=== PATIENT | male | born 1955 | race Caucasian/White ===

== ENCOUNTER → 2017-09-30 14:40 | Outpatient (CLI) | payer BC, SELFPAY ==
--- NOTE | 2017-09-30 14:40 | DT_ITS ---
This patient was seen during an EMR downtime September 27, 2017 - October 04, 2017. This patient may have a combination of paper and electronic documentation or all paper documentation. All documentation is viewable within the e-chart portion of [facility] for each patient visit.
[2017-10-05 01:55] LABS: BUN 13 mg/dL (7-18); BUN/Creat Ratio 14.3 RATIO (10-20); Creatinine, Serum 0.91 mg/dL (0.70-1.30); EST Glomerular Filtration Rate 90 mL/min (>60); Est Glom Filt Rate - Afr Amer 109 mL/min (>60); Glucose 95 mg/dL (74-106); Protein, Total 7.9 g/dL (6.4-8.2)
[2017-10-05 01:56] LABS: ALB/GLOB Ratio 1.2 RATIO (0.9-2.4); AST(SGOT) 13 U/L (15-37); Alanine Aminotransfer ALT/SGPT 48 U/L (16-61); Albumin, Serum 4.3 g/dL (3.2-5.0); Alkaline Phosphatase 59 U/L (45-117); Anion Gap 7 (5-15); Calcium,Total 9.1 mg/dL (8.5-10.1); Chloride 99 mmol/L (98-107); Cholesterol 110 mg/dL (200); Globulin 3.6 g/dL (2.2-4.2); High Density Lipoprotein 38 mg/dL; PSA,Total - Annual Screen 1.05 ng/mL (0.00-4.00); Potassium 3.9 mmol/L (3.5-5.1); Sodium Level 138 mmol/L (136-145); Triglycerides 110 mg/dL; Very Low Density Lipoprotein 22 mg/dL (5-40)
== END ==
PROVIDERS: Family Provider Family Medicine; PCP Family Medicine; Visit Provider Family Medicine
DX: I10 Essential (primary) hypertension (principal); Z12.5 Encounter for screening for malignant neoplasm of prostate; E11.9 Type 2 diabetes mellitus without complications
CPT/HCPCS: 36415; 80053; 80061; 83036; 84153; G0103

== ENCOUNTER → 2018-02-23 08:36 | Outpatient (CLI) | payer BC, SELFPAY ==
[2018-02-23 10:19] LABS: Absolute Lymphocyte Count 2.55 X10^3/ul (0.83-4.51); Absolute Neutrophil Count 3.8 X10^3/uL (2.0-7.7); Basophil# 0.02 X10^3/uL; Basophil% 0.3 % (0-1); Eosinophils% 1.4 % (0-5); Hematocrit 43.5 % (40-54); Hemoglobin 15.4 g/dl (13.0-16.5); Lymphocyte # 2.55 X10^3/ul (4.0); Lymphocyte % 35.4 % (19-41); Mean Corp Hgb Conc 35.4 g/gl (32-36); Mean Corpuscular Hgb 30.3 pg (27.0-32.0); Mean Corpuscular Volume 85.6 fL (80-94); Mean Platelet Vol. 9.9 fl (6.2-12.0); Monocyte# 0.72 X10^3/uL; Neutrophil # 3.79 X10^3/uL (2.7-7.7); Neutrophil % 52.6 % (47-70); Platelet Count 216 K/mm3 (150-450); RBC Distribution Width CV 12.6 % (11.6-14.6); RBC Distribution Width SD 38.8 fl (35.1-43.9); Red Blood Count 5.08 M/mm3 (4.6-6.2); White Blood Count 7.2 K/mm3 (4.4-11.0)
[2018-02-23 10:21] LABS: POSITIVE COUNT NO; POSITIVE DIFFERENTIAL NO; POSITIVE MORPHOLOGY NO
[2018-02-23 10:36] LABS: ALB/GLOB Ratio 1.2 RATIO (0.9-2.4); AST(SGOT) 11 U/L (15-37); Alanine Aminotransfer ALT/SGPT 43 U/L (16-61); Alkaline Phosphatase 63 U/L (45-117); Anion Gap 7 (5-15); BUN 15 mg/dL (7-18); BUN/Creat Ratio 15.9 RATIO (10-20); Calcium,Total 8.6 mg/dL (8.5-10.1); Chloride 102 mmol/L (98-107); Creatinine, Serum 0.94 mg/dL (0.70-1.30); EST Glomerular Filtration Rate 86 mL/min (>60); Est Glom Filt Rate - Afr Amer 104 mL/min (>60); Globulin 3.3 g/dL (2.2-4.2); Glucose 122 mg/dL (74-106); Potassium 4.2 mmol/L (3.5-5.1); Protein, Total 7.3 g/dL (6.4-8.2); Sodium Level 140 mmol/L (136-145)
[2018-02-23 12:18] LABS: HIV - WCH Non-Reactive (Nonreactive)
[2018-02-24 08:11] LABS: HEPATITIS B SURFACE AG Negative (Negative); Hepatitis A AB, Total Negative (Negative); Hepatitis A IgM Antibody Negative (Negative); Hepatitis B Core AB IgM Negative (Negative); Hepatitis B Core Ab Total Negative (Negative); Hepatitis C Ab <0.1 s/co ratio (0.0-0.9)
[2018-02-25 11:09] LABS: Hep B Surface Antibodies Non Reactive (.)
== END ==
PROVIDERS: Family Provider Family Medicine; PCP Family Medicine; Referring Provider Nurse Practitioner Family; Visit Provider Nurse Practitioner Family
DX: L40.0 Psoriasis vulgaris (principal); L57.0 Actinic keratosis; L82.1 Other seborrheic keratosis; Z79.899 Other long term (current) drug therapy
CPT/HCPCS: 36415; 80053; 85025; 86703; 86704; 86705; 86706; 86708; 86709; 86803; 87340

== ENCOUNTER → 2018-10-11 07:04 | Outpatient (CLI) | payer BC, SELFPAY ==
[2018-10-11 11:04] LABS: Hemoglobin A1c 5.8 % (4.2-6.3)
[2018-10-11 11:08] LABS: Anion Gap 10 (5-15); BUN 17 mg/dL (7-18); BUN/Creat Ratio 17.5 RATIO (10-20); Calcium,Total 9.2 mg/dL (8.5-10.1); Chloride 102 mmol/L (98-107); Cholesterol 117 mg/dL (200); Creatinine, Serum 0.97 mg/dL (0.70-1.30); EST Glomerular Filtration Rate 83 mL/min (>60); Est Glom Filt Rate - Afr Amer 100 mL/min (>60); Glucose 120 mg/dL (74-106); High Density Lipoprotein 44 mg/dL; PSA,Total - Annual Screen 1.45 ng/mL (0.00-4.00); Potassium 3.7 mmol/L (3.5-5.1); Sodium Level 140 mmol/L (136-145); Triglycerides 99 mg/dL; Very Low Density Lipoprotein 20 mg/dL (5-40)
== END ==
PROVIDERS: Family Provider Family Medicine; PCP Family Medicine; Referring Provider Family Medicine; Visit Provider Family Medicine
DX: E11.9 Type 2 diabetes mellitus without complications (principal); I10 Essential (primary) hypertension; Z12.5 Encounter for screening for malignant neoplasm of prostate
CPT/HCPCS: 36415; 80048; 80061; 83036; 84153; G0103

== ENCOUNTER → 2019-03-22 07:02 | Outpatient (CLI) | payer BC, SELFPAY ==
[2019-03-22 10:31] LABS: Absolute Lymphocyte Count 2.64 X10^3/uL (0.83-4.51); Absolute Neutrophil Count 4.1 X10^3/uL (2.0-7.7); Basophil# 0.03 X10^3/uL; Basophil% 0.4 % (0-1); Eosinophil# 0.16 X10^3/uL; Eosinophils% 2.1 % (0-5); Hematocrit 47.5 % (40-54); Hemoglobin 16.3 g/dL (13.0-16.5); Lymphocyte # 2.64 X10^3/ul (4.0); Lymphocyte % 34.5 % (19-41); Mean Corp Hgb Conc 34.3 g/dL (32-36); Mean Corpuscular Volume 87.5 fL (80-94); Mean Platelet Vol. 9.8 fl (6.2-12.0); Monocyte# 0.71 X10^3/uL; Monocyte% 9.3 % (0-10); NRBC Flagged by Analyzer 0 % (0-5); Neutrophil % 53.4 % (47-70); Platelet Count 233 K/mm3 (150-450); RBC Distribution Width CV 12.5 % (11.6-14.6); RBC Distribution Width SD 39.5 fl (35.1-43.9); Red Blood Count 5.43 M/mm3 (4.6-6.2); White Blood Count 7.7 K/mm3 (4.4-11.0)
[2019-03-22 10:43] LABS: ALB/GLOB Ratio 1.3 RATIO (0.9-2.4); AST(SGOT) 14 U/L (15-37); Alanine Aminotransfer ALT/SGPT 65 U/L (16-61); Albumin, Serum 4.3 g/dL (3.2-5.0); Alkaline Phosphatase 63 U/L (45-117); Anion Gap 8 (5-15); BUN 15 mg/dL (7-18); BUN/Creat Ratio 16.1 RATIO (10-20); Calcium,Total 9.1 mg/dL (8.5-10.1); Chloride 102 mmol/L (98-107); Creatinine, Serum 0.93 mg/dL (0.70-1.30); EST Glomerular Filtration Rate 87 mL/min (>60); Est Glom Filt Rate - Afr Amer 105 mL/min (>60); Globulin 3.4 g/dL (2.2-4.2); Glucose 100 mg/dL (74-106); Potassium 3.7 mmol/L (3.5-5.1); Protein, Total 7.7 g/dL (6.4-8.2); Sodium Level 139 mmol/L (136-145)
[2019-03-25 20:07] LABS: QNTFERON TB Mitogen Value > 10.00 IU/mL (.); QNTFERON TB Nil Value 0.01 IU/mL (.); QNTFERON TB1+ Ag Value 0.02 IU/mL (.); QNTFERON TB2+ Ag Value 0.02 IU/mL (.)
[2019-03-26 13:07] LABS: QNTIFERON TB Positive Criteria Negative (Negative)
== END ==
PROVIDERS: Family Provider Family Medicine; PCP Family Medicine; Referring Provider Nurse Practitioner Family; Visit Provider Nurse Practitioner Family
DX: L40.0 Psoriasis vulgaris (principal); Z79.899 Other long term (current) drug therapy
CPT/HCPCS: 36415; 80053; 85025; 86480

== ENCOUNTER → 2019-04-06 08:25 | Outpatient (CLI) | payer BC, SELFPAY ==
[2019-04-06 11:09] LABS: ALB/GLOB Ratio 1.3 RATIO (0.9-2.4); AST(SGOT) 15 U/L (15-37); Alanine Aminotransfer ALT/SGPT 60 U/L (16-61); Albumin, Serum 4.3 g/dL (3.2-5.0); Alkaline Phosphatase 69 U/L (45-117); Anion Gap 8 (5-15); BUN 13 mg/dL (7-18); BUN/Creat Ratio 13.3 RATIO (10-20); Chloride 103 mmol/L (98-107); Cholesterol 121 mg/dL (200); Creatinine, Serum 0.98 mg/dL (0.70-1.30); EST Glomerular Filtration Rate 83 mL/min (>60); Est Glom Filt Rate - Afr Amer 100 mL/min (>60); Globulin 3.4 g/dL (2.2-4.2); Glucose 129 mg/dL (74-106); High Density Lipoprotein 40 mg/dL; Potassium 4.3 mmol/L (3.5-5.1); Protein, Total 7.7 g/dL (6.4-8.2); Sodium Level 139 mmol/L (136-145); Triglycerides 74 mg/dL; Very Low Density Lipoprotein 15 mg/dL (5-40)
[2019-04-06 11:31] LABS: Hepatitis B Surface Antibody Non-Reactive; Hepatitis B Surface Antigen Non-Reactive (Nonreactive); Hepatitis C Antibody Non-Reactive (Nonreactive); Vitamin B12 422 pg/mL (211-911)
[2019-04-07 10:41] LABS: T4 Free Direct 1.21 ng/dL (0.76-1.46)
[2019-04-11 16:26] LABS: Vitamin B1, Thiamine 202.7 nmol/L (66.5-200.0)
== END ==
PROVIDERS: Family Provider Family Medicine; PCP Family Medicine; Referring Provider Family Medicine; Visit Provider Family Medicine
DX: I10 Essential (primary) hypertension (principal); R94.5 Abnormal results of liver function studies; E11.9 Type 2 diabetes mellitus without complications; G62.9 Polyneuropathy, unspecified; R79.89 Other specified abnormal findings of blood chemistry
CPT/HCPCS: 36415; 80053; 80061; 82607; 83036; 84425; 84439; 84443; 86706; 86803; 87340

== ENCOUNTER → 2019-10-25 08:49 | Outpatient (CLI) | payer OTHER, SELFPAY ==
[2019-10-25 11:02] LABS: Microalbumin,Random Urine 7.2 mg/L (NO RANGE EST.); Microalbumin:Creatinine Ratio 4.7 mg/g CRE (<30 mg/g CRE)
[2019-10-25 11:28] LABS: ALB/GLOB Ratio 1.1 RATIO (0.9-2.4); AST(SGOT) 13 U/L (15-37); Alanine Aminotransfer ALT/SGPT 54 U/L (16-61); Albumin, Serum 4.1 g/dL (3.2-5.0); Alkaline Phosphatase 65 U/L (45-117); Anion Gap 7 (5-15); BUN 12 mg/dL (7-18); BUN/Creat Ratio 12.5 RATIO (10-20); Calcium,Total 8.7 mg/dL (8.5-10.1); Chloride 99 mmol/L (98-107); Creatinine, Serum 0.96 mg/dL (0.70-1.30); EST Glomerular Filtration Rate 84 mL/min (>60); Est Glom Filt Rate - Afr Amer 101 mL/min (>60); Globulin 3.6 g/dL (2.2-4.2); Glucose 132 mg/dL (74-106); PSA,Total - Annual Screen 2.48 ng/mL (0.00-4.00); Potassium 3.8 mmol/L (3.5-5.1); Protein, Total 7.7 g/dL (6.4-8.2); Sodium Level 136 mmol/L (136-145); T4 Free Direct 1.15 ng/dL (0.76-1.46); Thyroid Stim Hormone (TSH) 3.57 uIU/mL (0.358-3.74)
[2019-10-25 14:56] LABS: Hemoglobin A1c 5.9 % (3.8-5.6)
== END ==
PROVIDERS: PCP Family Medicine; Visit Provider Family Medicine
DX: E11.9 Type 2 diabetes mellitus without complications (principal); E03.9 Hypothyroidism, unspecified; Z12.5 Encounter for screening for malignant neoplasm of prostate
CPT/HCPCS: 36415; 80053; 82043; 82570; 83036; 84153; 84439; 84443; G0103

== ENCOUNTER → 2019-11-22 | Outpatient (CLI) | payer OTHER, SELFPAY | END | disposition home or self-care (01) | LOC: LABSPEC 10:18 | PROVIDERS: PCP Family Medicine; Referring Provider Registered Nurse; Visit Provider Registered Nurse | DX: Z11.59 Encounter for screening for other viral diseases (principal) | CPT/HCPCS: 87635; U0003 ==

== ENCOUNTER → 2020-04-01 07:03 | Outpatient (CLI) | payer OTHER, SELFPAY ==
[2020-04-01 09:59] LABS: Absolute Lymphocyte Count 2.72 X10^3/uL (0.83-4.51); Absolute Neutrophil Count 4.3 X10^3/uL (2.0-7.7); Basophil# 0.03 X10^3/uL; Basophil% 0.4 % (0-1); Eosinophil# 0.12 X10^3/uL; Eosinophils% 1.5 % (0-5); Hematocrit 46.1 % (40-54); Hemoglobin 16.1 g/dL (13.0-16.5); Lymphocyte # 2.72 X10^3/ul (4.0); Lymphocyte % 34.3 % (19-41); Mean Corp Hgb Conc 34.9 g/dL (32-36); Mean Corpuscular Hgb 30.1 pg (27.0-32.0); Mean Corpuscular Volume 86.3 fL (80-94); Mean Platelet Vol. 9.9 fl (6.2-12.0); Monocyte# 0.72 X10^3/uL; Monocyte% 9.1 % (0-10); NRBC Flagged by Analyzer 0 % (0-5); Neutrophil # 4.33 X10^3/uL (2.7-7.7); Neutrophil % 54.4 % (47-70); Platelet Count 232 K/mm3 (150-450); RBC Distribution Width CV 12.1 % (11.6-14.6); RBC Distribution Width SD 38.2 fl (35.1-43.9); Red Blood Count 5.34 M/mm3 (4.6-6.2); White Blood Count 7.9 K/mm3 (4.4-11.0)
[2020-04-01 10:16] LABS: Cholesterol 109 mg/dL (200); High Density Lipoprotein 39 mg/dL; T4 Free Direct 1.14 ng/dL (0.76-1.46); Thyroid Stim Hormone (TSH) 4.07 uIU/mL (0.358-3.74); Triglycerides 89 mg/dL; Very Low Density Lipoprotein 18 mg/dL (5-40)
[2020-04-01 10:21] LABS: AST(SGOT) 12 U/L (15-37); Alanine Aminotransfer ALT/SGPT 56 U/L (16-61); Albumin, Serum 4.1 g/dL (3.2-5.0); Alkaline Phosphatase 64 U/L (45-117); Anion Gap 7 (5-15); BUN 15 mg/dL (7-18); BUN/Creat Ratio 15.5 RATIO (10-20); Bilirubin, Direct 0.16 mg/dL (0.00-0.30); Chloride 100 mmol/L (98-107); Creatinine, Serum 0.97 mg/dL (0.70-1.30); EST Glomerular Filtration Rate 83 mL/min (>60); Est Glom Filt Rate - Afr Amer 101 mL/min (>60); Globulin 3.3 g/dL (2.2-4.2); Glucose 120 mg/dL (74-106); Potassium 3.6 mmol/L (3.5-5.1); Protein, Total 7.4 g/dL (6.4-8.2); Sodium Level 137 mmol/L (136-145)
[2020-04-01 10:25] LABS: Hemoglobin A1c 5.8 % (3.8-5.6)
[2020-04-04 03:06] LABS: QNTFERON TB Mitogen Value > 10.00 IU/mL (.); QNTFERON TB Nil Value 0.13 IU/mL (.); QNTFERON TB1+ Ag Value 0.05 IU/mL (.); QNTFERON TB2+ Ag Value 0.05 IU/mL (.)
[2020-04-04 11:37] LABS: QNTIFERON TB Positive Criteria Negative (Negative)
== END ==
PROVIDERS: PCP Family Medicine; Referring Provider Physician Assistant; Visit Provider Physician Assistant
DX: L40.0 Psoriasis vulgaris (principal); L82.1 Other seborrheic keratosis; E11.9 Type 2 diabetes mellitus without complications; E03.9 Hypothyroidism, unspecified; Z79.899 Other long term (current) drug therapy
CPT/HCPCS: 36415; 80048; 80061; 80076; 83036; 84439; 84443; 85025; 86480

== ENCOUNTER → 2020-10-25 07:18 | Outpatient (CLI) | payer OTHER, SELFPAY ==
[2020-10-25 07:24] LABS: Bacteria 0 SEEN /hpf (None Seen); Mucous, Urine 0 SEEN /hpf (<or=2+); Red Blood Cells-Urine 0 SEEN /hpf (0-5); Squamous Epithelial Cells - UA 0 SEEN /hpf (0-5); White Blood Cells 0 SEEN /hpf (0-5)
[2020-10-25 10:10] LABS: Absolute Neutrophil Count 4.3 X10^3/uL (2.0-7.7); Basophil# 0.05 X10^3/uL; Basophil% 0.6 % (0-1); Eosinophil# 0.12 X10^3/uL; Eosinophils% 1.5 % (0-5); Hematocrit 46.7 % (40-54); Mean Corp Hgb Conc 34.3 g/dL (32-36); Mean Corpuscular Hgb 29.7 pg (27.0-32.0); Mean Corpuscular Volume 86.8 fL (80-94); Mean Platelet Vol. 9.9 fl (6.2-12.0); Monocyte# 0.76 X10^3/uL; Monocyte% 9.6 % (0-10); NRBC Flagged by Analyzer 0 % (0-5); Platelet Count 234 K/mm3 (150-450); RBC Distribution Width CV 12.6 % (11.6-14.6); RBC Distribution Width SD 39.7 fl (35.1-43.9); Red Blood Count 5.38 M/mm3 (4.6-6.2)
[2020-10-25 10:27] LABS: Color, Urine Yellow (Yellow); Glucose, Dipstick Normal (Normal); Ketone-Dipstick Negative (Negative); Leukocyte Esterase-Dipstick Negative /ul (Negative); Nitrite-Dipstick Negative (Negative); Occult Blood-Urine Negative /ul (Negative); Protein-Dipstick Negative (Negative); Urine Bilirubin Dipstick Negative (Negative); Urine Clarity Clear (Clear); Urine Urobilinogen Normal (Normal)
[2020-10-25 10:36] LABS: Hemoglobin A1c 5.6 % (3.8-5.6)
[2020-10-25 10:53] LABS: ALB/GLOB Ratio 1.2 RATIO (0.9-2.4); AST(SGOT) 13 U/L (15-37); Alanine Aminotransfer ALT/SGPT 55 U/L (16-61); Albumin, Serum 4.2 g/dL (3.2-5.0); Alkaline Phosphatase 62 U/L (45-117); Anion Gap 9 (5-15); BUN 14 mg/dL (7-18); BUN/Creat Ratio 14.8 RATIO (10-20); Calcium,Total 8.9 mg/dL (8.5-10.1); Chloride 98 mmol/L (98-107); Cholesterol 116 mg/dL (200); Creatinine, Serum 0.94 mg/dL (0.70-1.30); EST Glomerular Filtration Rate 85 mL/min (>60); Est Glom Filt Rate - Afr Amer 103 mL/min (>60); Globulin 3.4 g/dL (2.2-4.2); Glucose 106 mg/dL (74-106); High Density Lipoprotein 41 mg/dL; Potassium 3.7 mmol/L (3.5-5.1); Protein, Total 7.6 g/dL (6.4-8.2); Sodium Level 137 mmol/L (136-145); T4 Free Direct 1.12 ng/dL (0.76-1.46); Thyroid Stim Hormone (TSH) 4.43 uIU/mL (0.358-3.74); Triglycerides 100 mg/dL; Very Low Density Lipoprotein 20 mg/dL (5-40)
[2020-10-25 11:08] LABS: Microalbumin,Random Urine 8.3 mg/L (NO RANGE EST.); Microalbumin:Creatinine Ratio 6.6 mg/g CRE (<30 mg/g CRE)
== END ==
PROVIDERS: PCP Family Medicine; Referring Provider Family Medicine; Visit Provider Family Medicine
DX: E11.9 Type 2 diabetes mellitus without complications (principal); E03.9 Hypothyroidism, unspecified
CPT/HCPCS: 36415; 80053; 80061; 81001; 82043; 82570; 83036; 84439; 84443; 85025

== ENCOUNTER → 2020-10-29 09:10 | Outpatient (CLI) | payer OTHER, SELFPAY ==
[2020-10-29 15:18] LABS: PSA,Total - Annual Screen 3.03 ng/mL (0.00-4.00)
== END ==
PROVIDERS: PCP Family Medicine; Visit Provider Family Medicine
DX: E11.9 Type 2 diabetes mellitus without complications (principal); E03.9 Hypothyroidism, unspecified; Z12.5 Encounter for screening for malignant neoplasm of prostate
CPT/HCPCS: 36415; 84153; G0103

== ENCOUNTER 2021-04-28 07:16 | Outpatient (CLI) | payer BC, SELFPAY ==
[2021-04-28 10:13] LABS: Absolute Neutrophil Count 4.2 X10^3/uL (2.0-7.7); Basophil# 0.04 X10^3/uL; Basophil% 0.5 % (0-1); Eosinophil# 0.15 X10^3/uL; Eosinophils% 1.9 % (0-5); Hematocrit 45.1 % (40-54); Hemoglobin 15.4 g/dL (13.0-16.5); Lymphocyte % 33.5 % (19-41); Mean Corp Hgb Conc 34.1 g/dL (32-36); Mean Corpuscular Hgb 29.3 pg (27.0-32.0); Mean Corpuscular Volume 85.7 fL (80-94); Mean Platelet Vol. 9.7 fl (6.2-12.0); Monocyte# 0.75 X10^3/uL; Monocyte% 9.7 % (0-10); NRBC Flagged by Analyzer 0 % (0-5); Platelet Count 238 K/mm3 (150-450); RBC Distribution Width CV 12.1 % (11.6-14.6); RBC Distribution Width SD 37.8 fl (35.1-43.9); Red Blood Count 5.26 M/mm3 (4.6-6.2); White Blood Count 7.8 K/mm3 (4.4-11.0)
[2021-04-28 10:47] LABS: Hemoglobin A1c 6.1 % (3.8-5.6)
[2021-04-28 11:06] LABS: AST(SGOT) 10 U/L (15-37); Alanine Aminotransfer ALT/SGPT 51 U/L (16-61); Albumin, Serum 3.7 g/dL (3.2-5.0); Alkaline Phosphatase 65 U/L (45-117); Anion Gap 4 (5-15); BUN 18 mg/dL (7-18); BUN/Creat Ratio 19.3 RATIO (10-20); Calcium,Total 9.1 mg/dL (8.5-10.1); Chloride 104 mmol/L (98-107); Cholesterol 117 mg/dL (200); Creatinine, Serum 0.93 mg/dL (0.70-1.30); EST Glomerular Filtration Rate 86 mL/min (>60); Est Glom Filt Rate - Afr Amer 105 mL/min (>60); Globulin 3.8 g/dL (2.2-4.2); Glucose 140 mg/dL (74-106); High Density Lipoprotein 37 mg/dL; Potassium 3.9 mmol/L (3.5-5.1); Protein, Total 7.5 g/dL (6.4-8.2); Sodium Level 139 mmol/L (136-145); T4 Free Direct 1.05 ng/dL (0.76-1.46); Thyroid Stim Hormone (TSH) 5.78 uIU/mL (0.358-3.74); Triglycerides 90 mg/dL; Very Low Density Lipoprotein 18 mg/dL (5-40)
[2021-04-28 13:16] LABS: Microalbumin,Random Urine 17.5 mg/L (NO RANGE EST.); Microalbumin:Creatinine Ratio 7.4 mg/g CRE (<30 mg/g CRE)
== END 2021-04-28 23:59 | disposition short-term general hospital (02) ==
LOC: MTLAB 07:18
PROVIDERS: PCP Family Medicine; Referring Provider Family Medicine; Visit Provider Family Medicine
DX: E11.9 Type 2 diabetes mellitus without complications (principal); E03.9 Hypothyroidism, unspecified
CPT/HCPCS: 36415; 80053; 80061; 82043; 82570; 83036; 84439; 84443; 85025

== ENCOUNTER 2021-06-20 16:09 | Outpatient (CLI) | payer BC, SELFPAY ==
[2021-06-20 17:44] LABS: Absolute Neutrophil Count 3.9 X10^3/uL (2.0-7.7); Basophil# 0.03 X10^3/uL; Basophil% 0.4 % (0-1); Eosinophil# 0.17 X10^3/uL; Eosinophils% 2.2 % (0-5); Hematocrit 44.8 % (40-54); Hemoglobin 15.7 g/dL (13.0-16.5); Lymphocyte % 38.1 % (19-41); Mean Corpuscular Hgb 29.3 pg (27.0-32.0); Mean Corpuscular Volume 83.7 fL (80-94); Mean Platelet Vol. 9.7 fl (6.2-12.0); Monocyte# 0.73 X10^3/uL; Monocyte% 9.3 % (0-10); NRBC Flagged by Analyzer 0 % (0-5); Neutrophil # 3.92 X10^3/uL (2.7-7.7); Neutrophil % 49.7 % (47-70); Platelet Count 207 K/mm3 (150-450); RBC Distribution Width CV 12.3 % (11.6-14.6); RBC Distribution Width SD 37.1 fl (35.1-43.9); Red Blood Count 5.35 M/mm3 (4.6-6.2); White Blood Count 7.9 K/mm3 (4.4-11.0)
[2021-06-20 18:08] LABS: AST(SGOT) 10 U/L (15-37); Alanine Aminotransfer ALT/SGPT 48 U/L (16-61); Albumin, Serum 3.9 g/dL (3.2-5.0); Alkaline Phosphatase 79 U/L (45-117); Anion Gap 6 (5-15); BUN 16 mg/dL (7-18); BUN/Creat Ratio 14.2 RATIO (10-20); Calcium,Total 8.9 mg/dL (8.5-10.1); Chloride 99 mmol/L (98-107); Creatinine, Serum 1.13 mg/dL (0.70-1.30); EST Glomerular Filtration Rate 69 mL/min (>60); Est Glom Filt Rate - Afr Amer 84 mL/min (>60); Globulin 3.9 g/dL (2.2-4.2); Glucose 179 mg/dL (74-106); Potassium 3.8 mmol/L (3.5-5.1); Protein, Total 7.8 g/dL (6.4-8.2); Sodium Level 135 mmol/L (136-145)
[2021-06-23 08:32] LABS: Hepatitis B Surface Antibody Non-Reactive
[2021-06-24 04:07] LABS: QNTFERON TB Mitogen Value > 10.00 IU/mL (.); QNTFERON TB Nil Value 0.06 IU/mL (.); QNTFERON TB1+ Ag Value 0.08 IU/mL (.); QNTFERON TB2+ Ag Value 0.06 IU/mL (.)
[2021-06-25 13:40] LABS: Hepatitis A AB, Total Negative (Negative); QNTIFERON TB Positive Criteria Negative (Negative)
== END 2021-06-20 23:59 | disposition home or self-care (01) ==
PROVIDERS: PCP Family Medicine; Referring Provider Physician Assistant Medical; Visit Provider Physician Assistant Medical
DX: L40.0 Psoriasis vulgaris (principal); L40.59 Other psoriatic arthropathy; Z79.899 Other long term (current) drug therapy
CPT/HCPCS: 36415; 80053; 85025; 86480; 86706; 86708

== ENCOUNTER → 2021-12-17 | Outpatient (CLI) | payer BC, SELFPAY ==
[2021-12-17 10:24] LABS: Absolute Lymphocyte Count 2.21 X10^3/uL (0.83-4.51); Absolute Neutrophil Count 4.2 X10^3/uL (2.0-7.7); Basophil# 0.03 X10^3/uL; Basophil% 0.4 % (0-1); Eosinophil# 0.11 X10^3/uL; Eosinophils% 1.5 % (0-5); Hematocrit 45.7 % (40-54); Hemoglobin 16.3 g/dL (13.0-16.5); Lymphocyte # 2.21 X10^3/ul (0.83-4.51); Mean Corp Hgb Conc 35.7 g/dL (32-36); Mean Corpuscular Volume 84.2 fL (80-94); Monocyte% 8.4 % (0-10); NRBC Flagged by Analyzer 0 % (0-5); Neutrophil # 4.17 X10^3/uL (2.7-7.7); Neutrophil % 58.4 % (47-70); Platelet Count 214 K/mm3 (150-450); RBC Distribution Width CV 12.2 % (11.6-14.6); RBC Distribution Width SD 36.8 fl (35.1-43.9); Red Blood Count 5.43 M/mm3 (4.6-6.2); White Blood Count 7.1 K/mm3 (4.4-11.0)
[2021-12-17 10:48] LABS: Hemoglobin A1c 7.6 % (3.8-5.6)
[2021-12-17 10:49] LABS: Microalbumin,Random Urine 8.4 mg/L (NO RANGE EST.); Microalbumin:Creatinine Ratio 5.4 mg/g CRE (<30 mg/g CRE)
[2021-12-17 11:07] LABS: AST(SGOT) 10 U/L (15-37); Alanine Aminotransfer ALT/SGPT 33 U/L (16-61); Albumin, Serum 3.9 g/dL (3.2-5.0); Alkaline Phosphatase 73 U/L (45-117); Anion Gap 8 (5-15); BUN 16 mg/dL (7-18); BUN/Creat Ratio 16.2 RATIO (10-20); Calcium,Total 8.9 mg/dL (8.5-10.1); Chloride 102 mmol/L (98-107); Cholesterol 124 mg/dL (200); Creatinine, Serum 0.99 mg/dL (0.70-1.30); EST Glomerular Filtration Rate 81 mL/min (>60); Est Glom Filt Rate - Afr Amer 98 mL/min (>60); Globulin 3.8 g/dL (2.2-4.2); Glucose 149 mg/dL (74-106); High Density Lipoprotein 41 mg/dL; Potassium 3.4 mmol/L (3.5-5.1); Protein, Total 7.7 g/dL (6.4-8.2); Sodium Level 138 mmol/L (136-145); Thyroid Stim Hormone (TSH) 3.97 uIU/mL (0.358-3.74); Triglycerides 95 mg/dL; Very Low Density Lipoprotein 19 mg/dL (5-40)
== END | disposition home or self-care (01) ==
LOC: MTLAB 07:02
PROVIDERS: PCP Family Medicine; Referring Provider Family Medicine; Visit Provider Family Medicine
DX: E11.59 Type 2 diabetes mellitus with other circulatory complications (principal); E03.8 Other specified hypothyroidism
CPT/HCPCS: 36415; 80053; 80061; 82043; 82570; 83036; 84439; 84443; 85025

== ENCOUNTER → 2022-03-25 | Outpatient (CLI) | payer BC, SELFPAY ==
--- NOTE | 2022-03-25 09:12 | RAD_ITS ---
STUDY: X-RAY - LEFT HAND REASON FOR EXAM: Male, 66 years old. Finger pain. TECHNIQUE: 3 view(s) of the hand. COMPARISON: None. FINDINGS: Osteopenia. Mild arthrosis of the radiocarpal articulation. Mild arthrosis of the distal radioulnar joint. Bones and navicular. Mild arthrosis of the radial carpal row of the wrist. Mild arthrosis of the first CMC joint. Moderate arthrosis of the MCP and IP joints. Subchondral cyst in the distal aspect of the middle phalanx of the second digit. Normal soft tissues. RAD/Hand Min 3 Views IMPRESSION: Osteopenia with osteoarthritic changes as described. No acute abnormality, chondrocalcinosis or erosive changes. Electronically Signed: Jose Guadalupe Valenzuela, at 11:41 EST ,
[2022-03-25 10:13] LABS: Absolute Lymphocyte Count 1.77 X10^3/uL (0.83-4.51); Absolute Neutrophil Count 3.5 X10^3/uL (2.0-7.7); Basophil# 0.02 X10^3/uL; Basophil% 0.3 % (0-1); Eosinophil# 0.13 X10^3/uL; Eosinophils% 2.2 % (0-5); Hematocrit 47.6 % (40-54); Hemoglobin 16.3 g/dL (13.0-16.5); Lymphocyte # 1.77 X10^3/ul (0.83-4.51); Lymphocyte % 29.7 % (19-41); Mean Corp Hgb Conc 34.2 g/dL (32-36); Mean Corpuscular Hgb 29.4 pg (27.0-32.0); Mean Corpuscular Volume 85.9 fL (80-94); Mean Platelet Vol. 9.6 fl (6.2-12.0); Monocyte# 0.54 X10^3/uL; Monocyte% 9.1 % (0-10); NRBC Flagged by Analyzer 0 % (0-5); Neutrophil # 3.49 X10^3/uL (2.7-7.7); Neutrophil % 58.5 % (47-70); Platelet Count 212 K/mm3 (150-450); RBC Distribution Width CV 12.5 % (11.6-14.6); RBC Distribution Width SD 39.4 fl (35.1-43.9); Red Blood Count 5.54 M/mm3 (4.6-6.2)
[2022-03-25 10:39] LABS: Hemoglobin A1c 7.2 % (3.8-5.6)
[2022-03-25 10:51] LABS: ALB/GLOB Ratio 1.3 RATIO (0.9-2.4); AST(SGOT) 6 U/L (15-37); Alanine Aminotransfer ALT/SGPT 29 U/L (16-61); Alkaline Phosphatase 76 U/L (45-117); Anion Gap 6 (5-15); BUN 18 mg/dL (7-18); Chloride 102 mmol/L (98-107); Cholesterol 141 mg/dL (200); Creatinine, Serum 0.95 mg/dL (0.70-1.30); EST Glomerular Filtration Rate 85 mL/min (>60); Est Glom Filt Rate - Afr Amer 103 mL/min (>60); Globulin 3.1 g/dL (2.2-4.2); Glucose 204 mg/dL (74-106); High Density Lipoprotein 40 mg/dL; PSA,Total - Annual Screen 5.31 ng/mL (0.00-4.00); Potassium 4.3 mmol/L (3.5-5.1); Protein, Total 7.1 g/dL (6.4-8.2); Sodium Level 141 mmol/L (136-145); Thyroid Stim Hormone (TSH) 3.66 uIU/mL (0.358-3.74); Triglycerides 146 mg/dL; Very Low Density Lipoprotein 29 mg/dL (5-40)
[2022-03-25 11:04] LABS: Microalbumin,Random Urine < 5.0 mg/L (NO RANGE EST.)
== END | disposition home or self-care (01) ==
PROVIDERS: PCP Family Medicine; Referring Provider Family Medicine; Visit Provider Family Medicine
DX: M79.645 Pain in left finger(s) (principal); E11.9 Type 2 diabetes mellitus without complications; E03.8 Other specified hypothyroidism; Z12.5 Encounter for screening for malignant neoplasm of prostate
CPT/HCPCS: 36415; 73130; 80053; 80061; 82043; 82570; 83036; 84153; 84439; 84443; 85025; G0103

== ENCOUNTER → 2022-06-11 | Outpatient (CLI) | payer BC, SELFPAY ==
--- NOTE | 2022-06-11 | IMM_PTH ---
PATIENT: TIP NAJERA LOC: [facility] U#:[id number] AGE/SX: 66/M ROOM: RE06/11/[address]: Dr. Ricco Cagle MD : 1955 BED: DIS: 06/11/2022 SPEC #: [id number] RECD: 06/15/22 11:55 STATUS: RACHANA REQ #: [id number] JAVIER: 06/11/22 00:[address]: Ricco Cagle DEPT: IMMUNOHISTOCHEMISTRY RECD BY: Maite Barahona ENTERED: 06/15/22 11:56 SP TYPE: IMMUNO OTHR DR: Dr. Lopez Lyle MD Tissues: C - PROSTATE RIGHT D - PROSTATE LEFT Procedures: 34BE12 (add) P40 (add) 34BE12 (initial) PHYSICIAN & INSTITUTION [place] [address] SPECIMEN INFORMATION: Tissue Source: C - Right prostate, base, core biopsy, D - Left prostate, apex, core biopsy Clinical Info: Elevated PSA Specimen Number: [id number] C & D CPT code: 75402, 61342 x3 METHODOLOGY: Deparaffinized sections of prefer/formalin-fixed tissue or PAP/DQ stained slides are incubated with monoclonal/polyclonal antibodies/oligonucleotide probes. Localization is made via biotin free immunoperoxidase method. Appropriate controls are performed and reacted as expected. Results on target cell population are indicated in the following table: RESULTS: ANTIBODY / CLONE RESULT Block C P40 (BC28) positive 34BE12 (34BE12) positive Block D P40 (BC28) negative 34BE12 (34BE12) negative These tests were developed and their performance characteristics determined by [facility]. They may not have been cleared or approved by the U.S. Food and Drug Administration. The FDA has determined that such clearance or approval is not necessary. The above immunohistochemical/dualISH markers are ordered and reviewed by the Pathologist. INTERPRETATION: C. Right prostate, base, core biopsy: Benign prostatic tissue. D. Left prostate, apex, core biopsy: Adenocarcinoma. AM:ion 06/16/2022
--- NOTE | 2022-06-11 | PROSBIL_PTH ---
PATIENT: TIP NAJERA [facility] U#:[id number] AGE/SX: 66/M ROOM: RE06/11/[address]: Dr. Ricco Cagle MD : 1955 BED: DIS: 06/11/2022 SPEC #: [id number] RECD: 06/11/22 16:25 STATUS: RACHANA FRANKEL #: [id number] JAVIER: 06/11/22 00:[address]: Ricco Cagle DEPT: SURGICAL PATHOLOGY RECD BY: Moiz Li ENTERED: 06/12/22 07:54 SP TYPE: PROST BX MARCIAL DR: Dr. Lopez Lyle MD Tissues: A - PROSTATE RIGHT B - PROSTATE RIGHT C - PROSTATE RIGHT D - PROSTATE LEFT E - PROSTATE LEFT F - PROSTATE LEFT Procedures: PROSTATE BX HEADER OPERATION: Prostate biopsy PRE-OP DIAGNOSIS: Elevated PSA TISSUE SUBMITTED: A - Right apex, B - Right mid, C - Right base, D - Left apex, E - Left mid, F - Left base MICROSCOPIC DIAGNOSIS A. Right prostate, apex, core biopsy: Chronic inflammation with focal acute inflammation. B. Right prostate, mid, core biopsy: Benign prostatic tissue. C. Right prostate, base, core biopsy: Benign prostatic tissue. See comment. D. Left prostate, apex, core biopsy: Adenocarcinoma. Alberta grade: 7 (3+4) Cores involved: 1 out of 1 core Tissue involved: 20% Greatest tumor length: 3.2 millimeters See comment. E. Left prostate, mid, core biopsy: Benign prostatic tissue. F. Left prostate, base, core biopsy: Benign prostatic tissue. AM:ion 06/15/2022 COMMENT C & D - Immunohistochemistry ([id number]) supports the above diagnosis. Case has been reviewed in consultation with Dr. Black who concurs with the above diagnosis. IDC:SJ MICROSCOPIC DESCRIPTION Slides are reviewed. GROSS DESCRIPTION A - Received is one container designated prostate, right apex. The specimen consists of one elongated fragment of light hernandez-white soft tissue measuring 1.2 cm in length and 0.1 cm in diameter. The specimen is totally submitted in one cassette. B - Received is one container designated prostate, right mid. The specimen consists of two elongated fragments of light hernandez-white soft tissue measuring 1.5 and 1.7 cm in length and 0.1 cm in diameter. The specimen is totally submitted in one cassette. C - Received is one container designated prostate, right base. The specimen consists of one elongated fragment of light hernandez-white soft tissue measuring 0.8 cm in length and 0.1 cm in diameter. The specimen is totally submitted in one cassette. D - Received is one container designated prostate, left apex. The specimen consists of one elongated fragment of light hernandez-white soft tissue measuring 1.0 cm in length and 0.1 cm in diameter. The specimen is totally submitted in one cassette. E - Received is one container designated prostate, left mid. The specimen consists of one elongated fragment of light hernandez-white soft tissue measuring 0.8 cm in length and 0.1 cm in diameter. The specimen is totally submitted in one cassette. F - Received is one container designated prostate, left base. The specimen consists of two elongated fragments of light hernandez-white soft tissue measuring 1.2 and 1.5 cm in length and 0.1 cm in diameter. The specimen is totally submitted in one cassette. / SJ:rg 06/12/2022 TC:0 CPT: 78779 x6
== END | disposition home or self-care (01) ==
LOC: LABSPEC 16:32
PROVIDERS: PCP Family Medicine; Referring Provider Urology; Visit Provider Urology
DX: C61 Malignant neoplasm of prostate (principal); R97.20 Elevated prostate specific antigen [PSA]
CPT/HCPCS: 88305; 88341; 88342; G0416

== ENCOUNTER → 2022-06-18 | Outpatient (CLI) | payer BC, SELFPAY ==
[2022-06-18 10:31] LABS: Absolute Lymphocyte Count 2.05 X10^3/uL (0.83-4.51); Absolute Neutrophil Count 4.9 X10^3/uL (2.0-7.7); Basophil# 0.03 X10^3/uL; Basophil% 0.4 % (0-1); Eosinophil# 0.12 X10^3/uL; Eosinophils% 1.6 % (0-5); Hematocrit 47.4 % (40-54); Hemoglobin 16.2 g/dL (13.0-16.5); Lymphocyte # 2.05 X10^3/ul (0.83-4.51); Lymphocyte % 26.7 % (19-41); Mean Corp Hgb Conc 34.2 g/dL (32-36); Mean Corpuscular Hgb 29.3 pg (27.0-32.0); Mean Corpuscular Volume 85.9 fL (80-94); Mean Platelet Vol. 10.1 fl (6.2-12.0); Monocyte# 0.59 X10^3/uL; Monocyte% 7.7 % (0-10); NRBC Flagged by Analyzer 0 % (0-5); Neutrophil # 4.86 X10^3/uL (2.7-7.7); Neutrophil % 63.3 % (47-70); Platelet Count 189 K/mm3 (150-450); RBC Distribution Width CV 12.6 % (11.6-14.6); RBC Distribution Width SD 39.4 fl (35.1-43.9); Red Blood Count 5.52 M/mm3 (4.6-6.2); White Blood Count 7.7 K/mm3 (4.4-11.0)
[2022-06-18 10:55] LABS: Hemoglobin A1c 7.6 % (3.8-5.6)
[2022-06-18 11:00] LABS: ALB/GLOB Ratio 1.2 RATIO (0.9-2.4); AST(SGOT) 8 U/L (15-37); Alanine Aminotransfer ALT/SGPT 26 U/L (16-61); Alkaline Phosphatase 65 U/L (45-117); Anion Gap 7 (5-15); BUN 18 mg/dL (7-18); BUN/Creat Ratio 19.3 RATIO (10-20); Chloride 104 mmol/L (98-107); Cholesterol 113 mg/dL (200); Creatinine, Serum 0.94 mg/dL (0.70-1.30); EST Glomerular Filtration Rate 86 mL/min (>60); Est Glom Filt Rate - Afr Amer 104 mL/min (>60); Globulin 3.4 g/dL (2.2-4.2); Glucose 155 mg/dL (74-106); High Density Lipoprotein 41 mg/dL; Potassium 3.5 mmol/L (3.5-5.1); Protein, Total 7.4 g/dL (6.4-8.2); Sodium Level 140 mmol/L (136-145); T4 Free Direct 1.06 ng/dL (0.76-1.46); Thyroid Stim Hormone (TSH) 4.22 uIU/mL (0.358-3.74); Triglycerides 96 mg/dL; Very Low Density Lipoprotein 19 mg/dL (5-40)
[2022-06-18 11:05] LABS: Microalbumin,Random Urine 8.1 mg/L (NO RANGE EST.); Microalbumin:Creatinine Ratio 8.3 mg/g CRE (<30 mg/g CRE)
== END | disposition home or self-care (01) ==
LOC: MTLAB 07:01
PROVIDERS: PCP Family Medicine; Referring Provider Family Medicine; Visit Provider Family Medicine
DX: E03.8 Other specified hypothyroidism (principal); E11.9 Type 2 diabetes mellitus without complications
CPT/HCPCS: 36415; 80053; 80061; 82043; 82570; 83036; 84439; 84443; 85025

== ENCOUNTER → 2022-08-27 | Outpatient (CLI) | payer BC, SELFPAY ==
[2022-08-29 17:07] LABS: Hepatitis B Core Ab Total Negative (Negative); QNTFERON TB Mitogen Value > 10.00 IU/mL (.); QNTFERON TB Nil Value 0.05 IU/mL (.); QNTFERON TB1+ Ag Value 0.08 IU/mL (.); QNTFERON TB2+ Ag Value 0.06 IU/mL (.); QNTIFERON TB Positive Criteria Negative (Negative)
== END | disposition home or self-care (01) ==
LOC: MTLAB 12:40
PROVIDERS: PCP Family Medicine
DX: L40.0 Psoriasis vulgaris (principal); L40.59 Other psoriatic arthropathy; Z79.899 Other long term (current) drug therapy
CPT/HCPCS: 36415; 86480; 86704

== ENCOUNTER → 2022-09-24 | Outpatient (CLI) | payer BC, SELFPAY ==
[2022-09-24 10:45] LABS: Absolute Lymphocyte Count 2.28 X10^3/uL (0.83-4.51); Absolute Neutrophil Count 3.9 X10^3/uL (2.0-7.7); Basophil# 0.04 X10^3/uL; Basophil% 0.6 % (0-1); Eosinophil# 0.13 X10^3/uL; Eosinophils% 1.8 % (0-5); Hematocrit 46.7 % (40-54); Hemoglobin 16.3 g/dL (13.0-16.5); Lymphocyte # 2.28 X10^3/ul (0.83-4.51); Lymphocyte % 32.4 % (19-41); Mean Corp Hgb Conc 34.9 g/dL (32-36); Mean Corpuscular Hgb 30.2 pg (27.0-32.0); Mean Corpuscular Volume 86.6 fL (80-94); Mean Platelet Vol. 9.8 fl (6.2-12.0); Monocyte# 0.62 X10^3/uL; Monocyte% 8.8 % (0-10); NRBC Flagged by Analyzer 0 % (0-5); Neutrophil # 3.94 X10^3/uL (2.7-7.7); Neutrophil % 56.1 % (47-70); Platelet Count 195 K/mm3 (150-450); RBC Distribution Width CV 12.7 % (11.6-14.6); RBC Distribution Width SD 39.6 fl (35.1-43.9); Red Blood Count 5.39 M/mm3 (4.6-6.2)
[2022-09-24 11:29] LABS: ALB/GLOB Ratio 1.1 RATIO (0.9-2.4); AST(SGOT) 8 U/L (15-37); Alanine Aminotransfer ALT/SGPT 28 U/L (16-61); Alkaline Phosphatase 66 U/L (45-117); Anion Gap 7 (5-15); BUN 18 mg/dL (7-18); BUN/Creat Ratio 18.2 RATIO (10-20); Chloride 103 mmol/L (98-107); Cholesterol 109 mg/dL (200); Creatinine, Serum 0.99 mg/dL (0.70-1.30); EST Glomerular Filtration Rate 80 mL/min (>60); Est Glom Filt Rate - Afr Amer 97 mL/min (>60); Globulin 3.6 g/dL (2.2-4.2); Glucose 122 mg/dL (74-106); High Density Lipoprotein 44 mg/dL; Potassium 4.2 mmol/L (3.5-5.1); Protein, Total 7.6 g/dL (6.4-8.2); Sodium Level 137 mmol/L (136-145); T4 Free Direct 1.13 ng/dL (0.76-1.46); Thyroid Stim Hormone (TSH) 5.31 uIU/mL (0.358-3.74); Triglycerides 86 mg/dL; Very Low Density Lipoprotein 17 mg/dL (5-40)
[2022-09-24 12:10] LABS: Hemoglobin A1c 6.2 % (3.8-5.6)
== END | disposition home or self-care (01) ==
LOC: MTLAB 07:02
PROVIDERS: PCP Family Medicine; Referring Provider Family Medicine; Visit Provider Family Medicine
DX: E11.9 Type 2 diabetes mellitus without complications (principal); E03.8 Other specified hypothyroidism
CPT/HCPCS: 36415; 80053; 80061; 83036; 84439; 84443; 85025

== ENCOUNTER → 2022-11-13 | Outpatient (CLI) | payer BC, SELFPAY | END | disposition home or self-care (01) | LOC: MTLAB 07:06 | PROVIDERS: PCP Family Medicine; Referring Provider Urology; Visit Provider Urology | DX: C61 Malignant neoplasm of prostate (principal) | CPT/HCPCS: 36415; 84153 ==

== ENCOUNTER → 2023-02-05 | Outpatient (CLI) | payer BC, SELFPAY ==
[2023-02-05 10:04] LABS: Absolute Lymphocyte Count 2.43 X10^3/uL (0.83-4.51); Absolute Neutrophil Count 4.3 X10^3/uL (2.0-7.7); Basophil# 0.03 X10^3/uL; Basophil% 0.4 % (0-1); Eosinophil# 0.14 X10^3/uL; Eosinophils% 1.9 % (0-5); Hematocrit 48.2 % (40-54); Hemoglobin 16.1 g/dL (13.0-16.5); Lymphocyte # 2.43 X10^3/ul (0.83-4.51); Lymphocyte % 32.2 % (19-41); Mean Corp Hgb Conc 33.4 g/dL (32-36); Mean Corpuscular Hgb 29.3 pg (27.0-32.0); Mean Corpuscular Volume 87.8 fL (80-94); Monocyte# 0.64 X10^3/uL; Monocyte% 8.5 % (0-10); NRBC Flagged by Analyzer 0 % (0-5); Neutrophil # 4.27 X10^3/uL (2.7-7.7); Neutrophil % 56.6 % (47-70); Platelet Count 209 K/mm3 (150-450); RBC Distribution Width CV 12.9 % (11.6-14.6); RBC Distribution Width SD 41.7 fl (35.1-43.9); Red Blood Count 5.49 M/mm3 (4.6-6.2); White Blood Count 7.5 K/mm3 (4.4-11.0)
[2023-02-05 10:30] LABS: Hemoglobin A1c 6.4 % (3.8-5.6)
[2023-02-05 10:37] LABS: ALB/GLOB Ratio 1.1 RATIO (0.9-2.4); AST(SGOT) 6 U/L (15-37); Alanine Aminotransfer ALT/SGPT 32 U/L (16-61); Alkaline Phosphatase 69 U/L (45-117); Anion Gap 4 (5-15); BUN 23 mg/dL (7-18); BUN/Creat Ratio 19.8 RATIO (10-20); Chloride 102 mmol/L (98-107); Cholesterol 121 mg/dL (200); Creatinine, Serum 1.16 mg/dL (0.70-1.30); EST Glomerular Filtration Rate 67 mL/min (>60); Est Glom Filt Rate - Afr Amer 81 mL/min (>60); Globulin 3.7 g/dL (2.2-4.2); Glucose 138 mg/dL (74-106); High Density Lipoprotein 45 mg/dL; Potassium 3.7 mmol/L (3.5-5.1); Protein, Total 7.7 g/dL (6.4-8.2); Sodium Level 137 mmol/L (136-145); T4 Free Direct 1.02 ng/dL (0.76-1.46); Thyroid Stim Hormone (TSH) 4.52 uIU/mL (0.358-3.74); Triglycerides 107 mg/dL; Very Low Density Lipoprotein 21 mg/dL (5-40)
== END | disposition home or self-care (01) ==
LOC: MTLAB 07:22
PROVIDERS: PCP Family Medicine; Referring Provider Family Medicine; Visit Provider Family Medicine
DX: E03.8 Other specified hypothyroidism (principal); E11.9 Type 2 diabetes mellitus without complications
CPT/HCPCS: 36415; 80053; 80061; 83036; 84439; 84443; 85025

== ENCOUNTER → 2023-02-16 | Outpatient (CLI) | payer BC, SELFPAY ==
[2023-02-18 17:07] LABS: QNTFERON TB Mitogen Value > 10.00 IU/mL (.); QNTFERON TB Nil Value 0.06 IU/mL (.); QNTFERON TB1+ Ag Value 0.08 IU/mL (.); QNTFERON TB2+ Ag Value 0.08 IU/mL (.); QNTIFERON TB Positive Criteria Negative (Negative)
== END | disposition home or self-care (01) ==
LOC: MTLAB 09:02
PROVIDERS: PCP Family Medicine; Referring Provider Dermatology Pediatric Dermatology; Visit Provider Dermatology Pediatric Dermatology
DX: L40.0 Psoriasis vulgaris (principal); L40.59 Other psoriatic arthropathy; Z79.899 Other long term (current) drug therapy
CPT/HCPCS: 36415; 86480

== ENCOUNTER → 2023-03-22 | Outpatient (CLI) | payer BC, SELFPAY | END | disposition home or self-care (01) | PROVIDERS: PCP Family Medicine; Referring Provider Urology; Visit Provider Urology | DX: C61 Malignant neoplasm of prostate (principal) | CPT/HCPCS: 36415; 84153 ==

== ENCOUNTER → 2023-06-08 | Outpatient (CLI) | payer OTHER, SELFPAY ==
--- OUTSIDE RECORDS SUMMARY | 2023-06-08 07:14 | XMS RPT_ITS | CCD ---
Author Name Unknown Address [id number] [place] [address] Organization [facility] Care Team Providers Care Lead Worker Of Housekeeping And Laundry Name Role Phone Lopez Hess MD Primary Care Provider Lopez Lyle Primary Care Provider [phone] Medications Completed/Discontinued Medications Medication Drug Class(es) Dates Sig (Normalized) Sig (Original) empagliflozin 10 mg oral tablet (2 sources) Sodium-Glucose Cotransporter 2 Inhibitor Start: 09-18-2021 JARDIANCE 10 mg tablet Etanercept (2 sources) Tumor Necrosis Factor Judy ETANERCEPT (ENBREL SUBCUTANEOUS) Inject subcutaneously. 0 Active Problems Problem Classification Problem Date Documented Da te Episodic/Chronic Open wounds of extremities (1 source) Laceration of left index finger; Translations: [Laceration without foreign body of left index finger without damage to nail, initial encounter] Episodic Other aftercare (1 source) Removal of sutures done; Translations: [Encounter for removal of sutures] Episodic Results Test Name Value Interpretation Reference Range Facil ity Vital Signs Date Time Vital Sign Value Performing Clinician Kavita brunson 12-16-2021 11:39-0400 Body temperature 97.2 [degF] Eulalia Colon APRN.CNP Work Phone: [facility] 12-16-2021 11:39-0400 Body weight 99.97 kg Eulalia Colon APRN.CNP Work Phone: [facility] 12-16-2021 11:39-0400 Diastolic blood pressure 78 mm[Hg] Eulalia Colon APRN.CNP Work Phone: [facility] 12-16-2021 11:39-0400 Heart rate 68 /min Eulalia Colon APRN.CNP Work Phone: [facility] 12-16-2021 11:39-0400 Respiratory rate 16 /min Eulalia Colon APRN.CRYSTAL LAPPER Work Phone: [facility] 12-16-2021 11:39-0400 SaO2% (BldA) [Mass fraction] 98 % Eulalia Colon APRN.CRYSTAL LAPPER Work Phone: [facility] 12-16-2021 11:39-0400 Systolic blood pressure 120 mm[Hg] Eulalia Colon APRN.CRYSTAL LAPPER Work Phone: [facility] 12-06-2021 10:56-0400 Body temperature 96.21 [degF] Eulalia Colon APRN.CRYSTAL LAPPER Work Phone: [facility] 12-06-2021 10:56-0400 Body weight 100.43 kg Eulalia Colon APRN.CRYSTAL LAPPER Work Phone: [facility] 12-06-2021 10:56-0400 Diastolic blood pressure 70 mm[Hg] Eulalia Colon APRN.CRYSTAL LAPPER Work Phone: [facility] 12-06-2021 10:56-0400 Heart rate 82 /min Eulalia Colon APRN.CRYSTAL LAPPER Work Phone: [facility] 12-06-2021 10:56-0400 Respiratory rate 21 /min Eulalia Colon APRN.CRYSTAL LAPPER Work Phone: [facility] 12-06-2021 10:56-0400 SaO2% (BldA) [Mass fraction] 99 % Eulalia Colon APRN.CRYSTAL LAPPER Work Phone: [facility] 12-06-2021 10:56-0400 Systolic blood pressure 120 mm[Hg] Eulalia Colon APRN.CRYSTAL LAPPER Work Phone: [facility] Encounters Encounter Date Encounter Type Care Provider Facility Start: 12-16-2021 End: 12-16-2021 Patient encounter procedure Eulalia Colon APRN.CRYSTAL LAPPER Work Phone: [facility] Plan of Treatment Date Care Activity Detail Author Start: 12-07-2031 Urine microalbumin profile DTA P,TDAP,TD (2 - Td or Tdap) [facility] Start: 12-25-2021 Influenza vaccination INFLUENZA (#1) [facility] Start: 2021 ADVANCE DIRECTIVE DISCUSSION ADVANCE DIRECTIVE DISCUSSION [facility] Start: 06-20-2021 COVID-19 VACCINE (4 - Booster for Moderna series) COVID-19 VACCINE (4 - Booster for Moderna series) [facility] Start: 06-30-2011 PROSTATE CANCER SCRE ENING DISCUSSION PROSTATE CANCER SCREENING DISCUSSION [facility] Start: 2001 COLOGUARD (FIT-DNA) COLOGUARD (FIT-D NA) [facility] Start: 2001 Colonoscopy COLONOSCOPY [facility] Start: 2001 COLORECTAL CANCER SCREENING COLORECTAL CANCER SCREENING [facility] Start: [address] COLONOGRAPHY [facility] Start: 2001 DIABETES SCREEN DIABETES SCREEN [facility] Start: 2001 FECAL OCCULT BLOOD FECAL OCCULT BLOO D [facility] Start: 2001 SIGMOIDOSCOPY SIGMOIDOSCOPY [facility] Start: 06-30-1991 LIPID SCREEN LIPID SCREEN [facility] Start: 06-30-1975 SHINGRIX VACCINE (1 of 2) SHINGRIX V ACCINE (1 of 2) [facility] Start: 1974 HEPATITIS C SCREENING HEPATITIS C SC REENING [facility] Start: 1974 HIV SCREENING HIV SCREENING [facility] Start: 1968 Adult depression scr eening assessment DEPRESSION SCREENING [facility] Start: 1962 PNEUMOCOCCAL: 65+ (1 - PCV) PNEUMOCOCCAL: 65+ (1 - PCV) [facility] Immunizations Immunization Date Immunization Notes Care Provider Fa lópez 12-06-2021 tetanus toxoid, redu franky diphtheria toxoid, and acellular pertussis vaccine, adsorbed Eulalia Colon APRN.CHRISTIANE Work Phone: [facility] Payers Date Payer Category Payer Unknown [employer]IA[employer] PPO [id number] 2021-Present [phone] [address] [place] [address] PPO [id number] Social History Date Type Detail Facility Start: 12-06-2021 Tobacco smoking status NHIS Never smoked tobacco [facility] Start: 12-06-2021 Tobacco use and exposure Smokeless tobacco non-user [facility] Start: 12-06-2021 End: 12-16-2021 Alcohol intake Current non-drinker of alcohol (finding) [facility] Start: 1955 Sex Assigned At Not on file [facility] Start: 12-06-2021 End: 12-16-2021 Exposure to SARS-CoV-2 (event) Not sure [facility] Work Phone: NEGATED: Highlighted rowStart: NINF History of tobacco use Passive smoker [facility] Progress note 12-16-2021 Note Date & Type Note Facility 12-16-2021 Note HNO ID: [id number] Author: Eulalia Colon APRN.CRYSTAL LAPPER Service: ? Author Type: Nurse Practitioner Type: Progress Notes Filed: 12/16/2021 11:57 AM Note Text: Subjective Patient had three sutures placed in left index finger 10 days ago. Patient stated no difficulty with healing at this time. Suture Removal Review of Systems Constitutional: Negative. Skin: Negative. Objective Physical Exam Constitutional: Appearance: Normal appearance. Pulmonary: Effort: Pulmonary effort is normal. Musculoskeletal: Hands: Comments: 3 sutures removed without difficulty. Wound well approximated and healing appropriately. No signs of infection such as swelling, redness or drainage. Neurological: Mental Status: He is alert. History reviewed. No pertinent past medical history. No past surgical history on file. ALLERGIES Patient has no known allergies. MEDICATIONS JARDIANCE 10 mg tablet rOPINIRole (REQUIP) 0.25 mg tablet Take 0.25-0.5 mg by mouth daily at bedtime. secukinumab (COSENTYX PEN SUBCUTANEOUS) Inject subcutaneously. ramipril (ALTACE) 5 mg capsule Take 5 mg by mouth once daily. SITAGLIPTIN PHOS/METFORMIN HCL (JANUMET ORAL) Take by mouth. (Patient not taking: Reported on 12/06/2021) ETANERCEPT (ENBREL SUBCUTANEOUS) Inject subcutaneously. (Patient not taking: Reported on 12/06/2021) No family history on file. Social History Tobacco Use Smoking status: Never Passive exposure: Never Smokeless tobacco: Never Substance Use Topics Alcohol use: No Drug use: No ASSESSMENT/PLAN: 1. Visit for suture removal - ICD9: V58.32, ICD10: Z48.02 Wound well approximated and healing appropriately. No signs of infection such as swelling, redness or drainage. Eulalia Colon APRN.CNP [facility] History of Present illness Narrative 12-16-2021 Eulalia Colon APRN.CNP - 12/16/2021 11:47 AM EDT Note Date & Type Note Facility 12-16-2021 History of Presen t illness Narrative Images from the original note were not included. Subjective Patient had three sutures placed in left index finger 10 days ago. Patient stated no difficulty with healing at this time. Suture Removal Review of Systems Constitutional: Negative. Skin: Negative. Objective Physical Exam Constitutional: Appearance: Normal appearance. Pulmonary: Effort: Pulmonary effort is normal. Musculoskeletal: Hands: Comments: 3 sutures removed without difficulty. Wound well approximated and healing appropriately. No signs of infection such as swelling, redness or drainage. Neurological: Mental Status: He is alert. History reviewed. No pertinent past medical history. No past surgical history on file. ALLERGIES Patient has no known allergies. MEDICATIONS JARDIANCE 10 mg tablet rOPINIRole (REQUIP) 0.25 mg tablet Take 0.25-0.5 mg by mouth daily at bedtime. secukinumab (COSENTYX PEN SUBCUTANEOUS) Inject subcutaneously. ramipril (ALTACE) 5 mg capsule Take 5 mg by mouth once daily. SITAGLIPTIN PHOS/METFORMIN HCL (JANUMET ORAL) Take by mouth. (Patient not taking: Reported on 12/06/2021) ETANERCEPT (ENBREL SUBCUTANEOUS) Inject subcutaneously. (Patient not taking: Reported on 12/06/2021) No family history on file. Social History Tobacco Use Smoking status: Never Passive exposure: Never Smokeless tobacco: Never Substance Use Topics Alcohol use: No Drug use: No ASSESSMENT/PLAN: 1. Visit for suture removal - ICD9: V58.32, ICD10: Z48.02 Wound well approximated and healing appropriately. No signs of infection such as swelling, redness or drainage. Eulalia Colon APRN.CHRISTIANE documented in this encounter [facility] Progress note 12-06-2021 Note Date & Type Note Facility 12-06-2021 Note HNO ID: [id number] Author: Eulalia Colon APRN.CNP Service: ? Author Type: Nurse Practitioner Type: Progress Notes Filed: 12/06/2021 12:27 PM Note Text: Subjective Patient came in with complaints of left index finger laceration. Patient said he cut it with his pocket knife. Patient is not sure if he is up to date on tetanus shot. Patient denies any loss of sensation or feeling in finger. Denies other symptoms. Said he could not get the bleeding to stop. Patient not on blood thinners. The history is provided by the patient. No speech and language specialist was used. Laceration Review of Systems Constitutional: Negative. Skin: Negative. Objective Physical Exam Constitutional: Appearance: Normal appearance. Pulmonary: Effort: Pulmonary effort is normal. Musculoskeletal: Hands: Comments: Patient has a units shaped laceration where red faustina is. No tendon involved. Well approximated. Neurological: Mental Status: He is alert. UNIVERSAL PROTOCOL / SAFETY CHECKLIST Procedure to be Performed: Eulalia Colon APRN.CNP Sign In: A Moment of CARE was completed. Personnel directly involved with the procedure wore the appropriate PPE (Personal Protective Equipment). Patient/Surrogate Stated/Verified: PATIENT VERIFIED(optional for EMERGENT procedures): Patient name, Date of , Relevant allergies, and The intended procedure Time Out Communication: Intended patient and procedure match the source documents. Consent documented and matches the intended procedure. Sign Out: SIGN OUT (optional for EMERGENT procedures): No specimen collected. ASSESSMENT/PLAN: 1. Laceration of left index finger without foreign body without damage to nail, initial encounter - ICD9: 883.0, ICD10: S61.211A Patient was numbed with bupivacaine tolerated well and completely numb at start of procedure. Patient was cleaned with clobetasol and flushed with normal saline. No foreign bodies in finger. 3 sutures were placed size 4 with success. Patient tolerated well. Areas cleaned and bandaged. Instructed to keep clean and dry. Tetanus was updated. Have sutures removed in 7-10 days. MAUNEL Will APRN.CNP [facility] History of Present illness Narrative 12-06-2021 Eulalia Colon APRN.CNP - 12/06/2021 11:04 AM EDT Note Date & Type Note Facility 12-06-2021 History of Presen t illness Narrative Images from the original note were not included. Subjective Patient came in with complaints of left index finger laceration. Patient said he cut it with his pocket knife. Patient is not sure if he is up to date on tetanus shot. Patient denies any loss of sensation or feeling in finger. Denies other symptoms. Said he could not get the bleeding to stop. Patient not on blood thinners. The history is provided by the patient. No speech and language specialist was used. Laceration Review of Systems Constitutional: Negative. Skin: Negative. Objective Physical Exam Constitutional: Appearance: Normal appearance. Pulmonary: Effort: Pulmonary effort is normal. Musculoskeletal: Hands: Comments: Patient has a units shaped laceration where red faustina is. No tendon involved. Well approximated. Neurological: Mental Status: He is alert. UNIVERSAL PROTOCOL / SAFETY CHECKLIST Procedure to be Performed: Eulalia Colon APRN.CNP Sign In: A Moment of CARE was completed. Personnel directly involved with the procedure wore the appropriate PPE (Personal Protective Equipment). Patient/Surrogate Stated/Verified: PATIENT VERIFIED(optional for EMERGENT procedures): Patient name, Date of , Relevant allergies, and The intended procedure Time Out Communication: Intended patient and procedure match the source documents. Consent documented and matches the intended procedure. Sign Out: SIGN OUT (optional for EMERGENT procedures): No specimen collected. ASSESSMENT/PLAN: 1. Laceration of left index finger without foreign body without damage to nail, initial encounter - ICD9: 883.0, ICD10: S61.211A Patient was numbed with bupivacaine tolerated well and completely numb at start of procedure. Patient was cleaned with clobetasol and flushed with normal saline. No foreign bodies in finger. 3 sutures were placed size 4 with success. Patient tolerated well. Areas cleaned and bandaged. Instructed to keep clean and dry. Tetanus was updated. Have sutures removed in 7-10 days. MANUEL Will APRN.CHRISTIANE documented in this encounter [facility] Evaluation note Note Date & Type Note Facility documented in this encounter [facility] Evaluation note Note Date & Type Note Facility documented in this encounter [facility] Summary Purpose Family History No Family History Records Found Advance Directives No Advanced Directives Records Found Additional Source Comments Source Comments (unrecognize d section and content) In the event this informatio n is protected by the Federal Confidentiality of Alcohol and Drug Abuse Patient Records regulations: The Federal rules restrict any use of the information to criminally investigate or prosecute any alcohol or drug abuse patient.[facility] the event this information is protected by the Federal Confidentiality of Alcohol and Drug Abuse Patient Records regulations: The Federal rules restrict any use of the information to criminally investigate or prosecute any alcohol or drug abuse patient.[facility] Reason for Visit (unrecogniz ed section and content) Reason Comments Suture Removal Suture removal left index finger placed by us 10 days ago Care Teams (unrecognized sec tion and content) Lead Worker Of Housekeeping And Laundry Relationship Specialty Start Date End Date Lopez Lyle [address] [address] PCP - General Family Practice 12/16/21 (unrecognized sect ion and content) No Status Records Found INFORMATION SOURCE (unrecogn ized section and content) FOR RECORDS PERTAINING TO PATIENTS WHO ARE OR HAVE BEEN ENROLLED IN A CHEMICAL DEPENDENCY/SUBSTANCEABUSE PROGRAM, SOME INFORMATION MAY BE OMITTED. This clinical summary was aggregated from multiple sources. Caution should be exercised in using it in the provision of clinical care. This summary normalizes information from multiple sources, and as a consequence, information in this document may materially change the coding, format and clinical context of patient data. In addition, data may be omitted in some cases. CLINICAL DECISIONS SHOULD BE BASED ON THE PRIMARY CLINICAL RECORDS. [employer] [facility]. provides no warranty or guarantee of the accuracy or completeness of information in this document.
[2023-06-08 10:17] LABS: Absolute Lymphocyte Count 2.27 X10^3/uL (0.83-4.51); Absolute Neutrophil Count 4.1 X10^3/uL (2.0-7.7); Basophil# 0.04 X10^3/uL; Basophil% 0.5 % (0-1); Eosinophil# 0.14 X10^3/uL; Eosinophils% 1.9 % (0-5); Hematocrit 47.6 % (40-54); Hemoglobin 16.1 g/dL (13.0-16.5); Lymphocyte # 2.27 X10^3/ul (0.83-4.51); Lymphocyte % 30.9 % (19-41); Mean Corp Hgb Conc 33.8 g/dL (32-36); Mean Corpuscular Hgb 28.9 pg (27.0-32.0); Mean Corpuscular Volume 85.5 fL (80-94); Mean Platelet Vol. 9.8 fl (6.2-12.0); Monocyte# 0.76 X10^3/uL; Monocyte% 10.3 % (0-10); NRBC Flagged by Analyzer 0 % (0-5); Neutrophil # 4.12 X10^3/uL (2.7-7.7); Neutrophil % 56.1 % (47-70); Platelet Count 209 K/mm3 (150-450); RBC Distribution Width CV 12.6 % (11.6-14.6); RBC Distribution Width SD 39.1 fl (35.1-43.9); Red Blood Count 5.57 M/mm3 (4.6-6.2); White Blood Count 7.4 K/mm3 (4.4-11.0)
[2023-06-08 10:45] LABS: ALB/GLOB Ratio 1.1 RATIO (0.9-2.4); AST(SGOT) 17 U/L (15-37); Alanine Aminotransfer ALT/SGPT 34 U/L (16-61); Alkaline Phosphatase 60 U/L (45-117); Anion Gap 7 (5-15); BUN 22 mg/dL (7-18); BUN/Creat Ratio 22.4 RATIO (10-20); Calcium,Total 9.5 mg/dL (8.5-10.1); Chloride 104 mmol/L (98-107); Cholesterol 116 mg/dL (200); Creatinine, Serum 0.98 mg/dL (0.70-1.30); EST Glomerular Filtration Rate 81 mL/min (>60); Est Glom Filt Rate - Afr Amer 98 mL/min (>60); Globulin 3.6 g/dL (2.2-4.2); Glucose 146 mg/dL (74-106); High Density Lipoprotein 42 mg/dL; Protein, Total 7.6 g/dL (6.4-8.2); Sodium Level 138 mmol/L (136-145); Thyroid Stim Hormone (TSH) 4.82 uIU/mL (0.358-3.74); Triglycerides 91 mg/dL; Very Low Density Lipoprotein 18 mg/dL (5-40)
[2023-06-08 11:28] LABS: Hemoglobin A1c 7.1 % (3.8-5.6)
[2023-06-08 11:48] LABS: Microalbumin:Creatinine Ratio 10.1 mg/g CRE (<30 mg/g CRE)
== END | disposition home or self-care (01) ==
LOC: MTLAB 07:12
PROVIDERS: PCP Family Medicine; Referring Provider Family Medicine; Visit Provider Family Medicine
DX: E03.8 Other specified hypothyroidism (principal); E11.9 Type 2 diabetes mellitus without complications
CPT/HCPCS: 36415; 80053; 80061; 82043; 82570; 83036; 84439; 84443; 85025

== ENCOUNTER → 2023-08-23 | Outpatient (CLI) | payer MEDICARE, OTHER, SELFPAY | END | disposition home or self-care (01) | LOC: MTLAB 07:05 | PROVIDERS: PCP Family Medicine; Referring Provider Urology; Visit Provider Urology | DX: C61 Malignant neoplasm of prostate (principal) | CPT/HCPCS: 36415; 84153 ==

== ENCOUNTER → 2023-09-06 | Outpatient (CLI) | payer MEDICARE, OTHER, SELFPAY ==
[2023-09-06 07:06] LABS: Bacteria 0 SEEN /hpf (None Seen); Mucous, Urine 0 SEEN /hpf (<or=2+); Red Blood Cells-Urine 0 SEEN /hpf (0-5); Squamous Epithelial Cells - UA 0 SEEN /hpf (0-5); White Blood Cells 0 SEEN /hpf (0-5)
[2023-09-06 10:16] LABS: Absolute Lymphocyte Count 2.39 X10^3/uL (0.83-4.51); Absolute Neutrophil Count 3.2 X10^3/uL (2.0-7.7); Basophil# 0.03 X10^3/uL; Basophil% 0.5 % (0-1); Eosinophil# 0.13 X10^3/uL; Hematocrit 45.4 % (40-54); Hemoglobin 15.3 g/dL (13.0-16.5); Lymphocyte # 2.39 X10^3/ul (0.83-4.51); Lymphocyte % 37.2 % (19-41); Mean Corp Hgb Conc 33.7 g/dL (32-36); Mean Corpuscular Hgb 29.3 pg (27.0-32.0); Mean Corpuscular Volume 86.8 fL (80-94); Mean Platelet Vol. 10.1 fl (6.2-12.0); Monocyte# 0.62 X10^3/uL; Monocyte% 9.6 % (0-10); NRBC Flagged by Analyzer 0 % (0-5); Neutrophil # 3.24 X10^3/uL (2.7-7.7); Neutrophil % 50.4 % (47-70); Platelet Count 216 K/mm3 (150-450); RBC Distribution Width CV 13.2 % (11.6-14.6); RBC Distribution Width SD 41.5 fl (35.1-43.9); Red Blood Count 5.23 M/mm3 (4.6-6.2); White Blood Count 6.4 K/mm3 (4.4-11.0)
[2023-09-06 10:20] LABS: Color, Urine Yellow (Yellow); Glucose, Dipstick 1000 mg/dl (Normal); Ketone-Dipstick Negative (Negative); Leukocyte Esterase-Dipstick Negative /ul (Negative); Nitrite-Dipstick Negative (Negative); Occult Blood-Urine 25 /ul (Negative); Protein-Dipstick Negative (Negative); Urine Bilirubin Dipstick Negative (Negative); Urine Clarity Clear (Clear); Urine Urobilinogen Normal (Normal)
[2023-09-06 10:52] LABS: ALB/GLOB Ratio 1.2 RATIO (0.9-2.4); AST(SGOT) 7 U/L (15-37); Alanine Aminotransfer ALT/SGPT 27 U/L (16-61); Albumin, Serum 3.8 g/dL (3.2-5.0); Alkaline Phosphatase 59 U/L (45-117); Anion Gap 5 (5-15); BUN 20 mg/dL (7-18); BUN/Creat Ratio 20.2 RATIO (10-20); Calcium,Total 8.8 mg/dL (8.5-10.1); Chloride 105 mmol/L (98-107); Cholesterol 101 mg/dL (200); Creatinine, Serum 0.99 mg/dL (0.70-1.30); EST Glomerular Filtration Rate 80 mL/min (>60); Est Glom Filt Rate - Afr Amer 97 mL/min (>60); Globulin 3.3 g/dL (2.2-4.2); Glucose 126 mg/dL (74-106); High Density Lipoprotein 41 mg/dL; Potassium 3.7 mmol/L (3.5-5.1); Protein, Total 7.1 g/dL (6.4-8.2); Sodium Level 139 mmol/L (136-145); T4 Free Direct 1.14 ng/dL (0.76-1.46); Thyroid Stim Hormone (TSH) 4.23 uIU/mL (0.358-3.74); Triglycerides 52 mg/dL; Very Low Density Lipoprotein 10 mg/dL (5-40)
[2023-09-06 11:00] LABS: Microalbumin,Random Urine 8.4 mg/L (NO RANGE EST.); Microalbumin:Creatinine Ratio 7.9 mg/g CRE (<30 mg/g CRE)
[2023-09-07 13:16] LABS: Hemoglobin A1c 6.1 % (3.8-5.6)
== END | disposition home or self-care (01) ==
PROVIDERS: PCP Family Medicine; Referring Provider Family Medicine; Visit Provider Family Medicine
DX: E11.8 Type 2 diabetes mellitus with unspecified complications (principal)
CPT/HCPCS: 36415; 80053; 80061; 81001; 82043; 82570; 83036; 84439; 84443; 85025

== ENCOUNTER → 2023-12-23 | Outpatient (CLI) | payer MEDICARE, OTHER, SELFPAY ==
[2023-12-25 18:07] LABS: QNTFERON TB Mitogen Value > 10.00 IU/mL (.); QNTFERON TB Nil Value 0.03 IU/mL (.); QNTFERON TB1+ Ag Value 0.03 IU/mL (.); QNTFERON TB2+ Ag Value 0.03 IU/mL (.); QNTIFERON TB Positive Criteria Negative (Negative)
== END | disposition home or self-care (01) ==
PROVIDERS: PCP Family Medicine; Referring Provider Physician Assistant; Visit Provider Physician Assistant
DX: L57.0 Actinic keratosis (principal); X32.XXXA Exposure to sunlight, initial encounter; L60.3 Nail dystrophy; L57.8 Other skin changes due to chronic exposure to nonionizing radiation; L40.8 Other psoriasis; L40.0 Psoriasis vulgaris; L82.1 Other seborrheic keratosis; D22.5 Melanocytic nevi of trunk; Z79.899 Other long term (current) drug therapy; Z71.89 Other specified counseling; Z09 Encounter for follow-up examination after completed treatment for conditions other than malignant neoplasm; Z87.2 Personal history of diseases of the skin and subcutaneous tissue; Z08 Encounter for follow-up examination after completed treatment for malignant neoplasm; Z85.828 Personal history of other malignant neoplasm of skin
CPT/HCPCS: 36415; 86480

== ENCOUNTER → 2023-12-28 | Outpatient (CLI) | payer MEDICARE, OTHER, SELFPAY ==
[2023-12-28 08:19] LABS: Bacteria 0 SEEN /hpf (None Seen); Mucous, Urine 0 SEEN /hpf (<or=2+); Squamous Epithelial Cells - UA 0 SEEN /hpf (0-5); White Blood Cells 0 SEEN /hpf (0-5)
[2023-12-28 09:56] LABS: Absolute Lymphocyte Count 1.93 X10^3/uL (0.83-4.51); Absolute Neutrophil Count 3.1 X10^3/uL (2.0-7.7); Basophil# 0.02 X10^3/uL; Basophil% 0.3 % (0-1); Eosinophil# 0.09 X10^3/uL; Eosinophils% 1.6 % (0-5); Hematocrit 45.6 % (40-54); Hemoglobin 15.6 g/dL (13.0-16.5); Lymphocyte # 1.93 X10^3/ul (0.83-4.51); Lymphocyte % 33.6 % (19-41); Mean Corp Hgb Conc 34.2 g/dL (32-36); Mean Corpuscular Hgb 29.4 pg (27.0-32.0); Mean Platelet Vol. 9.5 fl (6.2-12.0); Monocyte# 0.59 X10^3/uL; Monocyte% 10.3 % (0-10); NRBC Flagged by Analyzer 0 % (0-5); Neutrophil # 3.11 X10^3/uL (2.7-7.7); Platelet Count 204 K/mm3 (150-450); RBC Distribution Width CV 12.6 % (11.6-14.6); RBC Distribution Width SD 39.5 fl (35.1-43.9); White Blood Count 5.8 K/mm3 (4.4-11.0)
[2023-12-28 10:33] LABS: ALB/GLOB Ratio 1.2 RATIO (0.9-2.4); AST(SGOT) 11 U/L (15-37); Alanine Aminotransfer ALT/SGPT 34 U/L (16-61); Alkaline Phosphatase 53 U/L (45-117); Anion Gap 7 (5-15); BUN 26 mg/dL (7-18); BUN/Creat Ratio 28.8 RATIO (10-20); Calcium,Total 9.3 mg/dL (8.5-10.1); Chloride 103 mmol/L (98-107); Cholesterol 101 mg/dL (200); EST Glomerular Filtration Rate 89 mL/min (>60); Est Glom Filt Rate - Afr Amer 108 mL/min (>60); Globulin 3.3 g/dL (2.2-4.2); Glucose 113 mg/dL (74-106); High Density Lipoprotein 48 mg/dL; Potassium 3.7 mmol/L (3.5-5.1); Protein, Total 7.3 g/dL (6.4-8.2); Sodium Level 138 mmol/L (136-145); T4 Free Direct 1.13 ng/dL (0.76-1.46); Triglycerides 52 mg/dL; Very Low Density Lipoprotein 10 mg/dL (5-40)
[2023-12-28 10:56] LABS: Color, Urine Yellow (Yellow); Glucose, Dipstick 1000 mg/dl (Normal); Ketone-Dipstick 15 mg/dl (Negative); Leukocyte Esterase-Dipstick Negative /ul (Negative); Nitrite-Dipstick Negative (Negative); Occult Blood-Urine 25 /ul (Negative); Protein-Dipstick Negative (Negative); Urine Bilirubin Dipstick Negative (Negative); Urine Clarity Clear (Clear); Urine Urobilinogen Normal (Normal)
[2023-12-28 11:18] LABS: Red Blood Cells-Urine 5-10 SEEN /hpf (0-5)
[2023-12-28 11:42] LABS: Microalbumin,Random Urine 9.3 mg/L (NO RANGE EST.)
[2023-12-28 11:59] LABS: Hemoglobin A1c 6.1 % (3.8-5.6)
== END | disposition home or self-care (01) ==
LOC: MTLAB 08:13
PROVIDERS: PCP Family Medicine; Referring Provider Family Medicine; Visit Provider Family Medicine
DX: E03.8 Other specified hypothyroidism (principal); E11.8 Type 2 diabetes mellitus with unspecified complications
CPT/HCPCS: 36415; 80053; 80061; 81001; 82043; 82570; 83036; 84439; 84443; 85025

== ENCOUNTER → 2024-01-20 | Outpatient (CLI) | payer MEDICARE, OTHER, SELFPAY ==
--- NOTE | 2024-01-20 14:29 | CYSPIN_PTH ---
PATIENT: TIP NAJERA LOC: [facility] U#:[id number] AGE/SX: 68/M ROOM: RE01/20/[address]: Dr. Lopez Lyle MD : 1955 BED: DIS: 01/20/2024 SPEC #: [id number] RECD: 01/21/24 14:00 STATUS: RACHANA FRANKEL #: [id number] JAVIER: 01/20/24 14:[address]: Lopez Lyle DEPT: CYTOLOGY RECD BY: Rachel Antoine Tissues: Urine Procedures: Pap Stain (control) Special Stain Group II Cytospin Fluid HEADER OPERATION: Not noted PRE-OP DIAGNOSIS: TISSUE SUBMITTED: Urine for cytology DIAGNOSIS CYTOLOGY Urine for cytology (cytospin): Rare mildly atypical urothelial cells noted, Sofia System Category III. See comment. 01/21/2024 COMMENT A few red blood cells are noted. The Sofia System for urine cytology diagnostic categorization was used in the evaluation of this case. Case has been reviewed in consultation with Dr. Stover who concurs with the above diagnosis. IDC:AM CYTOLOGY STUDY Slides are reviewed. CYTOLOGY GROSS Received is 60 ml of gold cloudy fluid labeled with the patient's name and and designated per the requisition as urine. Submitted for cytology preparation. Mr 01/21/2024 TC:5 CPT: 42310
[2024-01-20 14:30] LABS: Bacteria 0 SEEN /hpf (None Seen); Cytology, Body Fluid / CSF SEE PATHOLOGY REPORT; Mucous, Urine 0 SEEN /hpf (<or=2+); Red Blood Cells-Urine 0 SEEN /hpf (0-5); Squamous Epithelial Cells - UA 0 SEEN /hpf (0-5); White Blood Cells 0 SEEN /hpf (0-5)
[2024-01-20 17:57] LABS: Color, Urine Yellow (Yellow); Glucose, Dipstick 1000 mg/dl (Normal); Ketone-Dipstick Negative (Negative); Leukocyte Esterase-Dipstick Negative /ul (Negative); Nitrite-Dipstick Negative (Negative); Occult Blood-Urine 10 /ul (Negative); Protein-Dipstick 15 mg/dl (Negative); Specific Gravity, Urine 1.015 (1.002-1.030); Urine Bilirubin Dipstick Negative (Negative); Urine Clarity Sl. Cloudy (Clear); Urine Urobilinogen Normal (Normal)
== END | disposition home or self-care (01) ==
LOC: MFPLAB 14:29
PROVIDERS: PCP Family Medicine; Visit Provider Family Medicine
DX: R31.9 Hematuria, unspecified (principal)
CPT/HCPCS: 81001; 87086; 88108; 88313

== ENCOUNTER 2024-02-24 10:00 | Outpatient (RCR) | payer MEDICARE, OTHER, SELFPAY ==
--- NOTE | 2024-04-25 13:11 | HP.PTDCSUM ---
Discharge Summary D/C summary: It has been my pleasure to treat TIP NAJERA referred by Dr. Lopez Lyle MD, with the diagnosis of L LCL sprain for a total of 8 visit(s). Discharge Date: Please see the following information for a summary of their discharge status. Subjective Subjective: I dont really feel any improvements Pain L knee: Pain Intensity (Out of 10): 1 Overall Improvement % Improvement: 0 Objective Objective/Function: MMT: flex 36, ext= 49 ROM: 0-120 degrees Pain ranges from 1-3/10 Pt has made no sig changes at this time Goals Goal 1:: Pt will decrease pain by 50% to aid ADLs and iADLs. Goal 2:: Pt will increase L knee strength to within 90% of the R knee to aid with ambulation. Goal 3:: Pt will increase hamstring flexibility by 25 deg to aid negotiating stairs. Goal 4:: Pt will be I with HEP. Goal Progress: Goal Met Plan Plan: Discontinue, RTD D/C Information d/c sentence: If there are questions or concerns regarding this patient's physical therapy, please feel free to call me at [phone]. Thank you for the referral of this patient. Sincerely, Blair Shaikh, PT, ATC Balance/Gait/Functional tests Balance/Special Test Scores Lower Extremity Functional Score: 80 Improvement % Improvement: 0
== END 2024-02-24 19:00 | disposition home or self-care (01) ==
LOC: PT 10:00
PROVIDERS: PCP Family Medicine; Referring Provider Family Medicine; Visit Provider Family Medicine
DX: S83.422D Sprain of lateral collateral ligament of left knee, subsequent encounter (principal)
CPT/HCPCS: 97110; 97161; 97530

== ENCOUNTER → 2024-03-10 | Outpatient (CLI) | payer MEDICARE, OTHER, SELFPAY ==
[2024-03-10 11:04] LABS: PSA,Total- Diagnostic 8.87 ng/mL (0.0-4.0)
== END | disposition home or self-care (01) ==
PROVIDERS: PCP Family Medicine; Referring Provider Urology; Visit Provider Urology
DX: C61 Malignant neoplasm of prostate (principal)
CPT/HCPCS: 36415; 84153

== ENCOUNTER → 2024-04-06 | Outpatient (CLI) | payer MEDICARE, OTHER, SELFPAY ==
--- NOTE | 2024-04-06 08:00 | PROSBIL_PTH ---
PATIENT: TIP NAJERA LOC: [facility] U#:[id number] AGE/SX: 68/M ROOM: RE04/06/[address]: Dr. Ricco Cagle MD : 1955 BED: DIS: 04/06/2024 SPEC #: [id number] RECD: 04/07/24 09:34 STATUS: RACHANA REOralia #: [id number] JAVIER: 04/06/24 08:[address]: Ricco Cagle DEPT: SURGICAL PATHOLOGY RECD BY: Rachel Antoine ENTERED: 04/07/24 09:34 SP TYPE: PROST BX MARCIAL DR: Dr. Lopez Lyle MD Tissues: A - PROSTATE RIGHT B - PROSTATE RIGHT C - PROSTATE RIGHT D - PROSTATE LEFT E - PROSTATE LEFT F - PROSTATE LEFT Procedures: PROSTATE BX HEADER OPERATION: Prostate biopsy PRE-OP DIAGNOSIS: Elevated PSA TISSUE SUBMITTED: A - Right apex, B - Right mid, C - Right base, D - Left apex, E - Left mid, F - Left base MICROSCOPIC DIAGNOSIS A. Right prostate, apex, core biopsy: Prostatic tissue, negative for malignancy. B. Right prostate, mid, core biopsy: Prostatic tissue, negative for malignancy. Focal atrophy and mild chronic inflammation. C. Right prostate, base, core biopsy: Prostatic tissue, negative for malignancy. D. Left prostate, apex, core biopsy: Prostatic adenocarcinoma. Cuate grade: 4+3=7 Number of cores involved: 2/2 Proportion of tissue involved: >95 % Perineural invasion: Present, focal. Greatest tumor length: 0.9cm E. Left prostate, mid, core biopsy: Prostatic tissue, negative for malignancy. F. Left prostate, base, core biopsy: Focal high-grade prostatic intraepithelial neoplasia (HGPIN). 04/13 MICROSCOPIC DESCRIPTION Slides are reviewed. GROSS DESCRIPTION A - Received is one container designated prostate, right apex. The specimen consists of one elongated fragments of light hernandez-white soft tissue measuring 1.0 cm in length and 0.1 cm in diameter. The specimen is totally submitted in one cassette. B - Received is one container designated prostate, right mid. The specimen consists of two elongated fragments of light hernandez-white soft tissue each measuring 8.0 cm in length and <0.1 to 1.0 mm in diameter. The specimen is totally submitted in one cassette. C - Received is one container designated prostate, right base. The specimen consists of two elongated fragments of light hernandez-white soft tissue each measuring 1.2 cm in length and 0.1 cm in diameter. The specimen is totally submitted in one cassette. D - Received is one container designated prostate, left apex. The specimen consists of two elongated fragments of light hernandez-white soft tissue each measuring 1.0cm in length and 0.1 cm in diameter. The specimen is totally submitted in one cassette. E - Received is one container designated prostate, left mid. The specimen consists of one elongated fragments of light hernandez-white soft tissue measuring 1.2 cm in length and 1.0 mm in diameter. The specimen is totally submitted in one cassette. F - Received is one container designated prostate, left base. The specimen consists of one elongated fragments of light hernandez-white soft tissue measuring 9.0 mm in length and 1.0 mm in diameter. The specimen is totally submitted in one cassette. / PW.mr 04/07/2024 TC:0 CPT:G0146
== END | disposition home or self-care (01) ==
LOC: LABSPEC 15:28
PROVIDERS: PCP Family Medicine; Referring Provider Urology; Visit Provider Urology
DX: R97.20 Elevated prostate specific antigen [PSA] (principal)
CPT/HCPCS: 88305; G0416

== ENCOUNTER 2024-07-19 11:01 | Observation (INO) | payer MEDICARE, OTHER, SELFPAY ==
--- NOTE | 2024-06-01 10:16 | EKG12_ITS ---
Test Reason : PREOP Blood Pressure : */* mmHG Vent. Rate : 71 BPM Atrial Rate : 71 BPM P-R Int : 136 ms QRS Dur : 98 ms QT Int : 382 ms P-R-T Axes : 10 76 56 degrees QTcB Int : 415 ms Normal sinus rhythm Normal ECG Confirmed by WILFREDO BARCENAS, DEISY ([id number]), telegraph editor ISSA SUTTON ([id number]) on 06/02/2024 7:48:07 AM Referred By: Ricco Cagle Confirmed By: DEISY VILLALOBOS MD
[2024-06-01 10:45] LABS: Bacteria 0 SEEN /hpf (None Seen); Mucous, Urine 0 SEEN /hpf (<or=2+); Squamous Epithelial Cells - UA 0 SEEN /hpf (0-5); White Blood Cells 0 SEEN /hpf (0-5)
[2024-06-01 11:14] LABS: Color, Urine Yellow (Yellow); Glucose, Dipstick 1000 mg/dl (Normal); Ketone-Dipstick Negative (Negative); Leukocyte Esterase-Dipstick Negative /ul (Negative); Nitrite-Dipstick Negative (Negative); Occult Blood-Urine 50 /ul (Negative); Protein-Dipstick 15 mg/dl (Negative); Urine Bilirubin Dipstick Negative (Negative); Urine Clarity Clear (Clear); Urine Urobilinogen Normal (Normal)
[2024-06-01 11:23] LABS: Red Blood Cells-Urine 5-10 SEEN /hpf (0-5)
[2024-06-01 11:25] LABS: Absolute Lymphocyte Count 1.88 X10^3/uL (0.83-4.51); Absolute Neutrophil Count 3.9 X10^3/uL (2.0-7.7); Basophil# 0.03 X10^3/uL; Basophil% 0.5 % (0-1); Eosinophil# 0.11 X10^3/uL; Eosinophils% 1.7 % (0-5); Hematocrit 47.1 % (40-54); Hemoglobin 16.6 g/dL (13.0-16.5); Lymphocyte # 1.88 X10^3/ul (0.83-4.51); Mean Corp Hgb Conc 35.2 g/dL (32-36); Mean Corpuscular Hgb 29.7 pg (27.0-32.0); Mean Corpuscular Volume 84.4 fL (80-94); Mean Platelet Vol. 9.5 fl (6.2-12.0); Monocyte# 0.58 X10^3/uL; NRBC Flagged by Analyzer 0 % (0-5); Neutrophil # 3.86 X10^3/uL (2.7-7.7); Neutrophil % 59.5 % (47-70); Platelet Count 210 K/mm3 (150-450); RBC Distribution Width CV 12.6 % (11.6-14.6); RBC Distribution Width SD 38.5 fl (35.1-43.9); Red Blood Count 5.58 M/mm3 (4.6-6.2); White Blood Count 6.5 K/mm3 (4.4-11.0)
[2024-06-01 11:43] LABS: Microalbumin,Random Urine 34.4 mg/L (NO RANGE EST.); Microalbumin:Creatinine Ratio 28.7 mg/g CRE (<30 mg/g CRE)
[2024-06-01 11:49] LABS: ALB/GLOB Ratio 1.1 RATIO (0.9-2.4); AST(SGOT) 7 U/L (15-37); Alanine Aminotransfer ALT/SGPT 26 U/L (16-61); Alkaline Phosphatase 59 U/L (45-117); Anion Gap 6 (5-15); BUN 20 mg/dL (7-18); BUN/Creat Ratio 21.8 RATIO (10-20); Chloride 103 mmol/L (98-107); Cholesterol 117 mg/dL (200); Creatinine, Serum 0.92 mg/dL (0.70-1.30); EST Glomerular Filtration Rate 87 mL/min (>60); Est Glom Filt Rate - Afr Amer 105 mL/min (>60); Globulin 3.6 g/dL (2.2-4.2); Glucose 127 mg/dL (74-106); High Density Lipoprotein 52 mg/dL; Potassium 3.8 mmol/L (3.5-5.1); Protein, Total 7.6 g/dL (6.4-8.2); Sodium Level 137 mmol/L (136-145); T4 Free Direct 1.19 ng/dL (0.76-1.46); Triglycerides 65 mg/dL; Very Low Density Lipoprotein 13 mg/dL (5-40)
[2024-06-01 14:15] LABS: Hemoglobin A1c 5.9 % (3.8-5.6)
[2024-07-19] VITALS (19 sets, daily range): BP systolic 71–140; BP diastolic 44–82; PULSE 73–103; RESP 14–18; TEMP 36.1–37.2; O2SAT 94–99; BMI 31.6
[2024-07-19] MEDS: 0.9% Normal Saline (1000mL) 1,000 ML 15 ML IV (06:05)
--- NOTE | 2024-07-19 07:05 | PCM.PRE.AN2 ---
ASA Classification* ASA Classification ASA Classification: 2 Assessment & Plan Anesthesia* Anesthesia Assessment Anesthesia Assessment: Discussed sedation and/or anesthesia options, risks, benefits, and alternatives with patient/parents/legal guardian/POA. Questions invited. The patient/parents/legal guardian/POA seems to understand and agrees to proceed with anesthesia plan. Reviewed the physical assessment, medical history, allergy history and patient home medications list prior to surgery/procedure/anesthetic and documented any changes. Performed airway and anesthesia risk assessments. Anesthesia Type Anesthesia Type: General Anesthesia Focused Assessment* Temperature: 98.3 F Pulse Rate: 73 Blood Pressure: 126/73 Respiratory Rate: 16 Pulse Ox: 99 Airway Assessment Mouth opens: >3 cm Mallampati Score: II Focused Labs Anesthesia Preop lab: CBC WBC 6.5 K/mm3 (4.4-11.0) 06/01/24 10:06/01/24 RBC 5.58 M/mm3 (4.6-6.2) 06/01/24 10:06/01/24 Hgb 16.6 g/dL (13.0-16.5) H 06/01/24 10:42 06/01/24 Hct 47.1 % (40-54) 06/01/24 10:06/01/24 Plt Count 210 K/mm3 (150-450) 06/01/24 10:42 06/01/24 CHEMISTRY Potassium 3.8 mmol/L (3.5-5.1) 06/01/24 10:06/01/24 Sodium 137 mmol/L (136-145) 06/01/24 10:06/01/24 BUN 20 mg/dL (7-18) H 06/01/24 10:06/01/24 Creatinine 0.92 mg/dL (0.70-1.30) 06/01/24 10:06/01/24 Glucose 127 mg/dL (74-106) H 06/01/24 10:06/01/24 TSH 3.940 uIU/mL (0.358-3.740) H 06/01/24 10:42 06/01/24 COAG Pre-Assessment Diagnosis/Proposed Procedure Planned Operative Procedure(s): Lap Robotic Prostatectomy Anesthesia History Anesthesia History - loss prevention supervisor: Anesthesia History - loss prevention supervisor Hx Hospitalization No 07/05/24 10:07 Any Problems With Anesthesia No 07/05/24 10:07 Cholinesterase deficiency No 07/05/24 10:07 You/Your Family Experience No 07/05/24 10:07 fever (hyperthermia) with Relationship Recent Exposure to Contagious No 07/19/24 06:39 Disease Does patient have nerve No 07/05/24 10:07 stimulator Patient instructed to have device shut off --Does patient have Pacemaker No 07/19/24 06:39 or ICD? When Was Last Pacemaker Check QUESTION #4 FULL TEXT: You/Your Family Experience fever (hyperthermia) with Anesthesia Last Oral Intake Last Oral intake: Last Oral Intake NPO since 19:30 07/19/24 06:39 Meds taken in AM with sips of water? Meds patient instructed to take am of surgery PONV PONV - loss prevention supervisor: PONV - loss prevention supervisor Female No 07/05/24 10:07 HX of Motion Sickness No 07/05/24 10:07 HX of N/V After Surgery No 07/05/24 10:07 Non-Smoker Yes 07/05/24 10:07 Duration of Surgery greater Yes 07/05/24 10:07 than 60 minutes Number of Risk Factors 2 07/05/24 10:07 PONV Score Moderate Risk 07/05/24 10:07 Height & Weight Height & Weight: Anesthesia: Height & Weight Height 5 ft 9 in 07/19/24 06:39 Weight: 97 kg 07/19/24 06:39 Body Mass Index (BMI) 31.6 07/19/24 06:39 Respiratory Assessment Respiratory Assessment - loss prevention supervisor: Respiratory Tract Infection Hx - loss prevention supervisor Hx Respiratory Tract Infection No 07/05/24 10:07 STOP Sleep Apnea STOP Sleep Apnea - loss prevention supervisor: STOP Sleep Apnea - loss prevention supervisor Hx Hypertension Yes: CONTROLLED WITH MED 07/05/24 10:07 Hx Sleep Apnea Yes 07/05/24 10:07 CPAP No 07/05/24 10:07 BIPAP Yes 07/05/24 10:07 Do you snore loudly (louder than talking or can be heard Do you often feel tired/ fatigued/ sleepy during daytime? Has anyone observed you stop breathing during sleep? STOP Results Positive 07/05/24 10:07 QUESTION #5 FULL TEXT : Do you snore loudly (louder than talking or can be heard through closed doors)? Tobacco Use History Tobacco Use History - loss prevention supervisor: Tobacco Use History - loss prevention supervisor Tobacco Use Smoking Status Never smoker 07/05/24 10:07 Hx Tobacco Use No 07/05/24 10:07 Years Smoking Packs Smoked per Day Smoking Cessation Date was within the last 15 years Hx Smoking Cessation Date Hx Smoking Cessation Counseling Hematologic Medial History Hematologic Hx - loss prevention supervisor: Hematologic Medical Hx - sugar coating hand Hx of Blood Transfusion No 07/05/24 10:07 Hx of Transfusion in last 3 No 07/05/24 10:07 Months Date of Last Transfusion (if within last 3 months) Ever experience any problems No 07/05/24 10:07 with transfusion(s)? Specify any problems Hx of Preganancy in last 3 N/A 07/05/24 10:07 Months Nurse Filling Out Transfusion NBUCHER 07/05/24 10:07 & Questions: Date: 07/05/24 07/05/24 10:07 Time: 10:07 07/05/24 10:07 Patient unable to answer at this time (ie. confused, unrespo /Reproduction History /Reproductive History - loss prevention supervisor: /Reproductive Hx- loss prevention supervisor Hx Now No 07/05/24 10:07 Gestational Age (in weeks): EDC: Hx Hx Para Hx Section SAB No 07/05/24 10:07 Active Medications Active Medications: Current Medications Generic Name Dose Route Start Last Admin Trade Name Freq PRN Reason Stop Dose Admin Cefazolin Sodium 2 gm/ N/A 20 mls @ 400 mls/hr 07/19/24 07:30 IV 07/19/24 07:32 PREOP ONE Sodium Chloride 1,000 mls @ 15 mls/hr 07/19/24 06:05 IV 07/24/24 19:24 .Q48H JULIANNA PFSH Medical History Wears hearing aid Loss of hearing Wears glasses Arthritis Gout Prostate disease High cholesterol Restless legs Wears partial dentures Cancer Diabetes Hypertension Non-smoker BiPAP (biphasic positive airway pressure) dependence Sleep apnea Home Medications ?Medication ?Instructions ?Recorded ?Last Taken ?Type antiarthritic combination no.2 900 900 mg PO BID 05/31/24 07/17/24 History mg tablet (glucosamine-chondroitin) ascorbic acid (vitamin C) 500 mg 500 mg PO DAILY 05/31/24 07/17/24 History tablet (Vitamin C) calcium citrate 150 mg capsule 150 mg PO DAILY 05/31/24 07/17/24 History cholecalciferol (vitamin D3) 25 25 mcg PO DAILY 05/31/24 07/17/24 History mcg (1,000 unit) tablet (Vitamin D3) empagliflozin 25 mg tablet 25 mg PO DAILY 05/31/24 07/15/24 History (Jardiance) ixekizumab 80 mg/mL subcutaneous 80 mg subcut QMONTH 05/31/24 06/28/24 History auto-injector (Taltz Autoinjector) metformin 500 mg tablet,extended 1,000 mg PO BID 05/31/24 07/17/24 History release 24 hr multivitamin (Daily Multi-Vitamin 1 tab PO DAILY 05/31/24 07/17/24 History tablet) omega 4-wwh-gpy-fish oil 1,200 mg 1 cap PO DAILY 05/31/24 07/17/24 History (144 mg-216 mg) capsule (Fish Oil) pravastatin 20 mg tablet 20 mg PO DAILY 05/31/24 07/17/24 History ramipril 5 mg capsule 5 mg PO DAILY 05/31/24 07/18/24 History ropinirole 0.25 mg tablet 0.25 mg PO QHS 05/31/24 07/17/24 History saw palmetto 160 mg capsule 320 mg PO BID 05/31/24 07/17/24 History Allergy/AdvReac Type Severity Reaction Status Date / Time bee venom protein (honey Allergy Severe Anaphylaxis Verified 07/19/24 06:34 bee) (bees) codeine AdvReac Intermediate HALLUCINATI Verified 07/19/24 06:34 ONS Surgical History History of tonsillectomy History of colonoscopy Social History Smoking Status: Never smoker Review of Systems (Anesthesia) ROS Narrative System reviewed and no additional complaints, except as documented.
[2024-07-19 07:10] LABS: Bedside Glucose 137 mg/dL (74-106)
[2024-07-19] MEDS: Cefazolin 2 GM in Syringe IV (07:26)
--- NOTE | 2024-07-19 07:30 | PROST_PTH ---
PATIENT: TIP MORALEZ LOC: [facility] U#:[id number] AGE/SX: 69/M ROOM: [facility]308 RE07/19/[address]: Dr. Ricco Cagle MD : 1955 BED: 1 DIS: 07/20/2024 SPEC #: [id number] RECD: 07/19/24 13:24 STATUS: RACHANA FRANKEL #: [id number] JAVIER: 07/19/24 07:[address]: Ricco Cagle DEPT: SURGICAL PATHOLOGY RECD BY: Tonny Patterson ENTERED: 07/19/24 13:25 SP TYPE: PROSTATE OTHR DR: Dr. Lopez Lyle MD Tissues: A - Prostate, NOS Procedures: Immunohistochemical Stains Surgery Specimen Level IV Surgery Specimen Level IHC Stain ADDITIONAL HEADER OPERATION: Laparoscopic robotic radical prostatectomy PRE-OP DIAGNOSIS: Elevated prostate specific antigen, malignant neoplasm of prostate TISSUE SUBMITTED: A- Prostate, B- Bladder neck MICROSCOPIC DIAGNOSIS A. PROSTATE, RADICAL PROSTATECTOMY: * ADENOCARCINOMA MARIAM SCORE 3+4=7 (PATTERN 4=46%). * RIGHT AND LEFT ANTERIOR MARGINS INVOLVED FROM APEX TO BLADDER NECK LEVEL. * SEE SYNOPTIC REPORT. B. URINARY BLADDER NECK, EXCISION: * NEGATIVE FOR MALIGNANCY. COMMENT SYNOPTIC REPORT FOR CARCINOMA OF THE PROSTATE: Procedure:?RADICAL PROSTATECTOMY Histologic type:?ACINAR [place] score:?3+4=7 Grade group (1-5):?2 % pattern 4 in Mariam 3+4=7: 46% pattern 4 % tumor:?approximately 40% of the specimen ? Tumor extent (n=no, y=yes, na=not applicable):? Extraprostatic extension (f=focal, m=multifocal):?NA ? Location of extraprostatic extension:?NA ?? Microscopic invasion of bladder neck:?N ?? Seminal vesicle muscle wall invasion:?N ? Margins (n=negative, p=positive, na=not applicable):?P ?? Distance of tumor to closest margin (cm):?0 ?? Longest contiguous positive margin (cm):?1.5 cm (right apical) ?? Positive margin location (apex, bladder neck, mid):?apex, mid, bladder neck (part A) ? Regional lymph nodes (na=not applicable): NA ?? Number examined:?0 ?? Number positive:?NA ? Additional findings (eg: lymphovascular invasion, therapy effect, cribriform glands, intraductal carcinoma):?cribriform glands present, focal perineural invasion pTNM:?pT2 pNX Comments: IHC utilized in the assessment: 34BE12 (A1,2,5,7,8,10,17,19,20) Pancytokeratin (B1,2) ? Grade Group Definitions 1=Mariam 5-6, 2=Mariam 3+4=7; 3=Mariam 4+3=7, 4=[place] 8; 5=[place] 9-10 ? Pathologic Staging Definitions (pTNM) Primary Tumor (pT) pT2:? Organ confined pT3a:?? Extraprostatic extension (focal is <1 high power field in 1-2 slides, multifocal is more) or Microscopic invasion of bladder neck (in thick muscle, no adjacent non-neoplastic glands) pT3b:?? Seminal vesicle muscle wall invasion pT4:? Invasion of external sphincter, rectum, bladder, levator muscles or pelvic wall Regional Lymph Nodes (pN) (periprostatic, pelvic, hypogastric, obturator, fossa of Marcille, internal iliac, external iliac, sacral) pNX:? Cannot be assessed pN0:? No regional lymph node metastasis pN1:? Regional lymph node metastasis Distant Metastasis (pM) pM1a:?? Metastasis in non-regional lymph node (ex: aortic, common iliac, caval, deep inguinal, superficial inguinal, retroperitoneal) pM1b:?? Metastasis in bone pM1c:?? Metastasis in other distant site ? The above synoptic report complies, in slightly modified form, with the guidelines of the [employer] and the Association of Directors of Anatomic and Surgical Pathology for the reporting of cancer specimens ? MICROSCOPIC DESCRIPTION Slides are reviewed. These tests were developed and their performance characteristics determined by [facility]. They may not have been cleared or approved by the U.S. Food and Drug Administration. The FDA has determined that such clearance or approval is not necessary. The above immunohistochemical/dualISH markers are ordered and reviewed by the Pathologist. . GROSS DESCRIPTION Specimen A-received in formalin labeled, Tip Moralez, and designated prostate, is a prostate gland with attached bilateral seminal vesicles and segments of vas deferens. The specimen weighs 48 g. The prostate gland measures 4.6 cm from right to left, 3.9 cm from anterior to posterior, and 3.5 cm from the apex to the bladder neck resection margin. The right and left seminal vesicles measure 3.5 x 2.0 x 1.1 cm and 3.5 x 1.5 x 0.7 cm respectively. The right and left segments of vas deferens measure 3.5 cm long by 0.6 cm in diameter and 3.2 cm long by 0.6 cm in diameter respectively. The prostatic capsule is pink-hernandez, slightly ragged, intact, and otherwise unremarkable. The right half of the specimen is inked blue, the left half is inked black, and an orange stripe is placed cross the anterior midline. The prostate gland is serially sectioned from the apex to the bladder neck resection margin into 11 levels to show bilateral periurethral nodules measuring up to 2.8 cm in greatest dimension. The remainder of the parenchyma is pink-hernandez and mottled with no definitive masses discernible. Sectioning through the seminal vesicles and vas deferens is unremarkable.Cassette Summary:A1-A2-right and left perpendicular apical margin iztvcwelgncpL6-H4-qmuxt and left perpendicular bladder neck margin wpikdrybyuvdH4-O5-hvzjpddcwjbzjr sections of right anterior prostate gland submitted from apex towards bladder neckA 7-Y20-bbxchzifvrehrr sections of the right posterior prostate gland submitted from apex towards bladder [id number]-mqevznyioodxmq sections of left posterior prostate gland submitted from apex towards bladder bmqwD13-T04-gmjkoxaanyxuqb sections of left anterior prostate gland submitted from apex towards bladder ybcyG18-R25-bnolb and left posterior prostate gland to seminal vesicle interface sections ehcwnojqrnrtG72-Y96-fcnkhrazadzncg sections of right and left seminal vesicle and shave vas deferens resection margins respectivelySpecimen B-received in formalin labeled, Tip Moralez, and designated bladder neck, is a 2.4 x 1.3 x 1.1 cm on oriented, irregular shaped, ucm-wsy-rphgk, ragged, rubbery/soft tissue fragment. Specimen is inked black and sectioned to show an unremarkable cut surface. Totally submitted in two cassettes. SWETHA 07/19/2024 CPT:22208, [id number],31550m2
[2024-07-19] MEDS: Bupivacaine Mpf 0.5% 30 ML VIAL (10:57)
--- NOTE | 2024-07-19 11:05 | PCM.HP.STD ---
HPI - General General Date of Service: 07/19/24 Chief Complaint: Prostate cancer HPI Narrative TIP NAJERA, is a 69 M who presents robotic radical prostatectomy Retzius sparing approach [facility] Medical History Wears hearing aid Loss of hearing Wears glasses Arthritis Gout Prostate disease High cholesterol Restless legs Wears partial dentures Cancer Diabetes Hypertension Non-smoker BiPAP (biphasic positive airway pressure) dependence Sleep apnea Home Medications ?Medication ?Instructions ?Recorded ?Last Taken ?Type antiarthritic combination no.2 900 900 mg PO BID 05/31/24 07/17/24 History mg tablet (glucosamine-chondroitin) ascorbic acid (vitamin C) 500 mg 500 mg PO DAILY 05/31/24 07/17/24 History tablet (Vitamin C) calcium citrate 150 mg capsule 150 mg PO DAILY 05/31/24 07/17/24 History cholecalciferol (vitamin D3) 25 25 mcg PO DAILY 05/31/24 07/17/24 History mcg (1,000 unit) tablet (Vitamin D3) empagliflozin 25 mg tablet 25 mg PO DAILY 05/31/24 07/15/24 History (Jardiance) ixekizumab 80 mg/mL subcutaneous 80 mg subcut QMONTH 05/31/24 06/28/24 History auto-injector (Taltz Autoinjector) metformin 500 mg tablet,extended 1,000 mg PO BID 05/31/24 07/17/24 History release 24 hr multivitamin (Daily Multi-Vitamin 1 tab PO DAILY 05/31/24 07/17/24 History tablet) omega 6-hdl-gfz-fish oil 1,200 mg 1 cap PO DAILY 05/31/24 07/17/24 History (144 mg-216 mg) capsule (Fish Oil) pravastatin 20 mg tablet 20 mg PO DAILY 05/31/24 07/17/24 History ramipril 5 mg capsule 5 mg PO DAILY 05/31/24 07/18/24 History ropinirole 0.25 mg tablet 0.25 mg PO QHS 05/31/24 07/17/24 History saw palmetto 160 mg capsule 320 mg PO BID 05/31/24 07/17/24 History ciprofloxacin HCl 500 mg tablet 500 mg PO BID #20 tabs 07/19/24 Unknown Rx docusate sodium 100 mg capsule 100 mg PO BID #20 caps 07/19/24 Unknown Rx (Colace) oxycodone 5 mg tablet 5 mg PO Q6H PRN pain 7 days #14 07/19/24 Unknown Rx tabs Allergy/AdvReac Type Severity Reaction Status Date / Time bee venom protein (honey Allergy Severe Anaphylaxis Verified 07/19/24 06:34 bee) (bees) codeine AdvReac Intermediate HALLUCINATI Verified 07/19/24 06:34 ONS Surgical History History of tonsillectomy History of colonoscopy Social History Smoking Status: Never smoker Vital Signs Vital Signs Vital Signs: 07/19/24 06:39 07/19/24 06:39 07/19/24 07:06 Temperature 98.3 F 98.3 F Temperature Source Temporal Pulse Rate 73 73 Respiratory Rate 16 16 Respiratory Pattern Normal Blood Pressure 126/73 H 126/73 H Blood Pressure Mean 90 Blood Pressure Source Monitor Blood Pressure Position Semi-Fowlers Blood Pressure Location Right Arm Pulse Ox 99 99 Oxygen Delivery Method Room Air Weight Weight: 97 kg Body Mass Index (BMI) 31.6 Results Lab / Micro Data 06/01/24 10:42 06/01/24 10:42 Labs: Laboratory Results - last 24 hr 07/19/24 06:32: POC Glucose 137 H
--- NOTE | 2024-07-19 11:06 | PCM.DC ---
Discharge Instructions Diet Discharge Diet: No restrictions DC O2, CPAP, BIPAP needs Home O2 Discharge instructions: No Dressing / Incision Discharge Activity: May Not Drive (while taking narcotic pain medications.) Dressing / Incision Call your doctor if your incision/area has: Continuous Slow Oozing and Sudden Increased Bleeding Call your doctor if you observe: Fever of 101 or Higher and Uncontrolled pain Suture Line Care: Avoid Pulling/Pushing and Avoid Pinching/Bending Catheter: Munoz to leg bag and Munoz to large bag Drain: [place] Follow Up Care Please Follow Up With: Ricco Cagle MD When: Call [phone] for an appointment Test Results: Test results from this visit will be discussed in further detail at your follow-up appointment, if applicable. Discharge Plan Admission Primary Reason for Your Visit: Robotic radical prostatectomy Attending Provider: Ricco Cagle Primary Care Provider: Lopez Lyle Instructions Print Language: Uzbek Discharge Orders/Prescriptions Prescriptions: New docusate sodium [Colace] 100 mg capsule 100 mg PO BID Qty: 20 0RF ciprofloxacin HCl 500 mg tablet 500 mg PO BID Qty: 20 0RF oxycodone 5 mg tablet 5 mg PO Q6H PRN (Reason: pain) 7 Days Qty: 14 0RF Continued Taltz Autoinjector 80 mg/mL auto-injector 80 mg subcut QMONTH ropinirole 0.25 mg tablet 0.25 mg PO QHS pravastatin 20 mg tablet 20 mg PO DAILY metformin 500 mg tablet extended release 24 hr 1,000 mg PO BID ramipril 5 mg capsule 5 mg PO DAILY Jardiance 25 mg tablet 25 mg PO DAILY multivitamin [Daily Multi-Vitamin] Tablet 1 tab PO DAILY ascorbic acid (vitamin C) [Vitamin C] 500 mg tablet 500 mg PO DAILY glucosamine-chondroitin 900 mg tablet 900 mg PO BID omega 4-cyw-snj-fish oil [Fish Oil] 1,200 (144-216) mg capsule 1 cap PO DAILY calcium citrate 150 mg capsule 150 mg PO DAILY cholecalciferol (vitamin D3) [Vitamin D3] 25 mcg (1,000 unit) tablet 25 mcg PO DAILY saw palmetto 160 mg capsule 320 mg PO BID Rx Instructions: give with food (meal/snack) Other Ambulatory Orders: 12 Lead EKG (Routine) Location: None Selected Ordered By: Dr. Jules Us Referrals / Follow Up: Ricco Cagle MD [Med Staff - Active Staff] - Lopez Lyle MD [Primary Care Provider] - Disposition Disposition (needs filled in before D/C Order can be placed): Home, Self Care
--- NOTE | 2024-07-19 11:06 | PCM.OPRPT ---
Operative Report (Standard) Operative Information Date of Procedure: 07/19/24 Pre-Operative Diagnosis: prostate cancer Post-Operative Diagnosis: same Surgery/Procedure Performed: Robotic radical prostatectomy Retzius sparing approach laparoscopic robotic assisted agate setter: No Type of Anesthesia: General RN Documented Start/Stop Times: Operation Date: 07/19/24 07:30 Case Time Into Pre-Op 07/19/24 06:00 Out of Pre-Op 07/19/24 07:21 Anesthesia Start 07/19/24 07:26 Into Room 07/19/24 07:26 Procedure Start 07/19/24 07:53 Procedure Start Time: 07:53 Procedure Stop Time: 11:09 Select all DRAINS/GRAFTS/IMPLANTS that apply: Drains Drain details: nice 18 Estimated Blood Loss: 250 Specimen collected: Yes Description of specimen(s) removed: prostate, bladder neck tissue Description of surgery: Patient was identified in the preoperative area and marked and seen we talked about surgery remove his prostate was involved and potential outcomes. We talked about the potential to lose erections and also have bladder control problems after surgery including stress incontinence. Patient's questions were addressed and he signed consent form and we will plan to proceed today with a robotic radical prostatectomy Retzius. Approach with bilateral lymph node dissection. Patient is taken back to the operating room after smooth induction of anesthesia he was placed upon the table make sure all his pressure points were padded. We used the pink foam and pink foam secure system to secure him on the table he was placed in dorsolithotomy position with the legs in stirrups making sure that all his pressure points were padded we did a tilt test to make sure he did not slide in the bed. And the patient was placed flat in the bed his penis and testicles and pelvic area were prepped and in the abdomen was also prepped with chlorhexidine prep. Patient's abdomen and penis and testicles were then draped in usual sterile fashion. I then identified the umbilicus infiltrated right above the umbilicus and a small incision, probed the wound with a hemostat identified the fascia and then used a Veress needle to advance through the fascia into the peritoneal cavity. We then filled the peritoneal cavity CO2 gas and obtained a pneumoperitoneum. I then placed my first trocar into the abdomen this was to be the camera trocar. After I placed the camera trocar then the other trocars were placed under direct visualization placed a right arm trocar to left arm trocars and air seal port and a suction trocar for my safety admin assistant. We then placed the patient in full Trendelenburg and the robot was then docked. Then using a 30 degree lens we placed the instruments into the abdomen under direct visualization and started by first mobilizing the sigmoid colon. The sigmoid colon and the white line of Toldt was incised and mobilized off the lateral sidewall to allow full retraction of the colon from the pelvis. Once this was fully accomplished then I was able to get into the posterior space behind the bladder we then identified the vas deferens on the right side. I then traced the right vas deferens all the way down to the prostate we incised the peritoneum over the prostate identified the right vas deferens and then the left vas deferens. Identified the several vesicles below this. I then went below this and identified Denonvilliers' fascia and incised the Denonvilliers' fascia in the midline and then created a space between the rectum and the prostate I then dissected all the way to the apex. We then flipped the camera 30 degrees up to get a bit better visualization of the prostate. I then very gently dissected the Denonvilliers' fascia off the posterior aspect of the prostate all the way to the apex of sliding the tissue off the prostate to get to the semipseudocapsule on the prostate with unable to get to the lateral edge of the prostate and then to release neurovascular bundles on both sides I then started between the apex of the prostate to release neurovascular bundle to peel the neurovascular 1 off the prostate making sure I stayed around the apex without violating the prostate capsule I then worked my way back toward the base of the prostate releasing the neurovascular under posteriorly back to the base of the prostate. This was done on the right side we did the same procedure in the left side releasing the neurovascular bundle posteriorly all the way back to the base of the prostate. I then pulled out and look at the vas deferens some vesicles I transected the vas deferens and then dissected the vas deferens and some vesicles en bloc of the lateral sidewall was using minimal electrocautery and sharp dissection to free up the vas deferens and vesicle I then was able to laterally retract the right vas deferens medially and then started working to get the space between the edge of the prostate and the pseudocapsule identified the pseudocapsule and then coming to the pedicle the prostate with bipolar coagulation on the right side and then following the capsule all the way toward the apex and then following up along the prostate capsule for the apex releasing the neurovascular bundle off the right side working on my way anterior. We then pulled out the pelvis prostate area again and then dissected out the left seminal vesicle and left vas deferens and then pulled these laterally and then again I went to the pedicle of the prostate and then was able to identify the neurovascular bundle that was priorly freed up and then freed up the Norvasc of 10 and then worked my way on the left side the prostate all the way to the apex freeing up the tissue off the left pseudocapsule the prostate all the way anteriorly. Then I worked toward the anterior part of the prostate freeing up the prostate is much as possible anteriorly toward the apex in the back to the bladder neck then at this point I could identify the bladder neck more clearly since the prostate then. Freed up laterally and medially and inferiorly I then very carefully started dissecting through the muscular attachments between the bladder neck and the prostate until I encountered the urethra and the Nice catheter at this point Nice catheter was deflated and pulled back and then I continued to dissect off the bladder neck from the prostate working all the way up to the base of the prostate and then anterior the prostate. Then the Nice catheter was pulled back further and then I worked my way up to the apex of the prostate and then circumferentially dissected all the way up to the apex of prostate making sure to stay outside the capsule and identify the sphincter complex I then incised the urethra right in front of the sphincter and dissected off the prostate off the sphincter complex and then the prostate was free and was placed in Endo Catch bag. Prior to this also in the bladder neck place a stay suture 3-0 Vicryl to locate the bladder neck. Then we proceeded with our anastomosis between the urethra and the bladder neck this was done using a 2 oh STRATAFIX stitch to bring together the bladder neck and the urethra started at the 12 o'clock position and worked my way to the 6 o'clock position on the right side and the left side used a dyed and undyed suture to make sure to keep both sutures aligned up and then at the end I was able to bring down the bladder neck to the urethra and then we took out the catheter that was initially put in to the abdomen for the case and we put in the 18 Norwegian nooksack tip catheter into the bladder helped it as it made to the turn to the bladder and then we put 10 cc in the balloon we irrigated the bladder and made sure that the anastomosis was watertight. We then inspected for bleeding and there was no bleeding in the base of the where the prostate was removed. The role of the otolaryngology nurse OBEY, assisted with myself during the entire procedure, the JANITORIAL ASSISTANT assisted by passing instruments through the air seal port, passing suture, needles, sponges during the surgery. The RFA also assisted with providing some suction using the suction irrigation and some irrigation during the surgery. Also the safety admin assistant provided some traction minorly during the dissection of the prostate and the seminal vesicles. The RFA also helped me extract the prostate at the end of the case and helped close the fascia, and the safety admin assistant also helped close the skin incisions with subcuticular stitches. The safety admin assistant was monitored closely and under my direct supervision the entire case. Surgical Findings: prostate removed Complications Complications: No Admit VTE Documentation VTE Present on Admission: No VTE Mechan Device Prophylaxis: SCD's VTE Pharm Prophylaxis ordered?: No
--- NOTE | 2024-07-19 11:46 | PCM.POST.ANE ---
Anesthesia: Postop Eval I Current Vital Signs Temperature: 97.2 F Pulse Rate: 74 Blood Pressure: 99/55 Respiratory Rate: 14 Pulse Ox: 98 Oxygen Delivery Method: Simple Mask Assessment Airway patent: Yes Spontaneous unlabored respirations: Yes Mental status: Awake nausea: No Vomiting: No Anesthesia Complication: No Fluid Hydration Crystalloid volume administer (ml): 1,900 Total IV fluid infused: 1,900 Progress Note Anesthesia document: Postop Eval 1 completed: Yes
--- NOTE | 2024-07-19 11:50 | POSTOPAN2_ITS ---
Anesthesia Postop Eval I Sum Postop Eval Completion status Anesthesia document: Postop Eval 1 completed: Yes Anesthesia Postop Eval I Summary Anesthesia Postop Eval I Summary: Anesthesia Postop Eval I: Assessment Summary Airway patent Yes 07/19/24 11:47 BUILDING CODE ADMINISTRATOR.[email or web address] Spontaneous unlabored Yes 07/19/24 11:47 BUILDING CODE ADMINISTRATOR.HBARR respirations Mental status Awake 07/19/24 11:47 BUILDING CODE ADMINISTRATOR.HBARR nausea No 07/19/24 11:47 BUILDING CODE ADMINISTRATOR.HBARR Vomiting No 07/19/24 11:47 BUILDING CODE ADMINISTRATOR.HBARR Anesthesia Postop Eval I: Fluid Summary Crystalloid volume administer 1,900 07/19/24 11:47 BUILDING CODE ADMINISTRATOR.HBARR (ml) Colloids volume administered ( ml) Blood Product volume administered (ml) Total IV fluid infused 1,900 07/19/24 11:47 BUILDING CODE ADMINISTRATOR.HBARR Anesthesia Postop Eval I: Summary Notes Anesthesia Complication No 07/19/24 11:47 BUILDING CODE ADMINISTRATOR.HBARR Anesthesia Complication Comment: Post-operative progress note Anesthesia: Postop Eval II Evaluation Mental status: Awake Pain Level: 2 nausea: No Vomiting: No
--- NOTE | 2024-07-19 11:50 | PCM.POSTANE2 ---
Anesthesia Postop Eval I Sum Postop Eval Completion status Anesthesia document: Postop Eval 1 completed: Yes Anesthesia Postop Eval I Summary Anesthesia Postop Eval I Summary: Anesthesia Postop Eval I: Assessment Summary Airway patent Yes 07/19/24 11:47 GRAIN MILL PRODUCTS INSPECTOR.[email or web address] Spontaneous unlabored Yes 07/19/24 11:47 GRAIN MILL PRODUCTS INSPECTOR.HBARR respirations Mental status Awake 07/19/24 11:47 GRAIN MILL PRODUCTS INSPECTOR.HBARR nausea No 07/19/24 11:47 GRAIN MILL PRODUCTS INSPECTOR.HBARR Vomiting No 07/19/24 11:47 GRAIN MILL PRODUCTS INSPECTOR.HBARR Anesthesia Postop Eval I: Fluid Summary Crystalloid volume administer 1,900 07/19/24 11:47 GRAIN MILL PRODUCTS INSPECTOR.HBARR (ml) Colloids volume administered ( ml) Blood Product volume administered (ml) Total IV fluid infused 1,900 07/19/24 11:47 GRAIN MILL PRODUCTS INSPECTOR.HBARR Anesthesia Postop Eval I: Summary Notes Anesthesia Complication No 07/19/24 11:47 GRAIN MILL PRODUCTS INSPECTOR.HBARR Anesthesia Complication Comment: Post-operative progress note Anesthesia: Postop Eval II Evaluation Mental status: Awake Pain Level: 2 nausea: No Vomiting: No
[2024-07-19] MEDS: 0.9% Normal Saline (1000mL) 1,000 ML 125 ML IV ×3 (11:57→21:57)
--- NOTE | 2024-07-19 15:23 | CASEMGMT ---
IMER CM into pt room, pt lying in bed in no distress with at bedside. Pt states he is Indep at home. He has not had a catheter in the past. He is aware that nurse will review care. Pt feels he can manage this at home. Pt denies any homegoing needs at this time.
[2024-07-19] MEDS: oxyCODONE 5 MG Tablet PO (17:25)
[2024-07-19] MEDS: Ciprofloxacin 400 MG/200 ML BAG 200 MG IV (21:56)
[2024-07-19] MEDS: Docusate Sodium 100 MG Capsule 200 MG PO (21:57)
[2024-07-19] MEDS: Pramipexole Di-HCl 0.125 MG Tablet PO (21:57)
[2024-07-19] MEDS: Ketorolac 15 MG/ML Vial IV (21:57)
[2024-07-19] MEDS: metFORMIN (XR) 500 MG Tablet 1000 MG PO (21:57)
[2024-07-20 01:26] VITALS: BP 108/67; PULSE 80; RESP 16; TEMP 36.5; O2SAT 97
[2024-07-20] MEDS: oxyCODONE 5 MG Tablet PO ×2 (01:29→10:18)
[2024-07-20 01:30] VITALS: BMI 31.6
[2024-07-20 05:24] VITALS: BP 126/77; PULSE 69; RESP 16; TEMP 36.5; O2SAT 96
[2024-07-20 05:27] VITALS: BMI 31.6
[2024-07-20] MEDS: Ketorolac 15 MG/ML Vial IV (05:30)
[2024-07-20 06:31] LABS: Absolute Lymphocyte Count 1.92 X10^3/uL (0.83-4.51); Absolute Neutrophil Count 10.8 X10^3/uL (2.0-7.7); Basophil# 0.01 X10^3/uL; Basophil% 0.1 % (0-1); Eosinophil# 0.02 X10^3/uL; Eosinophils% 0.1 % (0-5); Hematocrit 38.2 % (40-54); Hemoglobin 13.2 g/dL (13.0-16.5); Lymphocyte # 1.92 X10^3/ul (0.83-4.51); Lymphocyte % 13.7 % (19-41); Mean Corp Hgb Conc 34.6 g/dL (32-36); Mean Corpuscular Hgb 29.9 pg (27.0-32.0); Mean Corpuscular Volume 86.4 fL (80-94); Mean Platelet Vol. 9.3 fl (6.2-12.0); Monocyte# 1.27 X10^3/uL; NRBC Flagged by Analyzer 0 % (0-5); Neutrophil # 10.76 X10^3/uL (2.7-7.7); Neutrophil % 76.6 % (47-70); Platelet Count 203 K/mm3 (150-450); Red Blood Count 4.42 M/mm3 (4.6-6.2); White Blood Count 14.1 K/mm3 (4.4-11.0)
[2024-07-20 06:56] LABS: Anion Gap 10 (5-15); BUN 14 mg/dL (4-19); BUN/Creat Ratio 16.5 RATIO (10-20); Calcium,Total 7.9 mg/dL (7.6-11.0); Carbon Dioxide 23.1 mmol/L (21.0-32.0); Chloride 104 mmol/L (98-108); Creatinine, Serum 0.87 mg/dL (0.70-1.20); EST Glomerular Filtration Rate 94 (>60); Estimated Creatinine Clearance 93.36 ml/min (50-250); Glucose 168 mg/dL (70-99); Potassium 4.2 mmol/L (3.3-5.1); Sodium Level 137 mmol/L (133-145)
[2024-07-20 07:04] VITALS: O2SAT 95
--- NOTE | 2024-07-20 07:25 | PN.URO_ITS ---
Subjective Subjective Postoperative day number one 69-year-old male status post robotic radical prostatectomy blood pressure and all his vitals look stable. Postop day 1 blood work all looks good. Minimal output from the RAIMUNDO removed this morning good output from the urine. He will go home today with a Munoz catheter he does have leg bag and large bag teaching and Munoz care teaching and will follow-up in my office in 2 weeks for Munoz catheter removal he was given strict instructions on what to do the next 2 weeks. This was reviewed with the patient. Patient was likely stable as long as he tolerates breakfast and lunch walks around minimal pain he can go home later today Objective Data Objective Data Vital Signs: Vital Signs Temp Pulse Resp BP Pulse Ox O2 Del Method O2 Flow Rate 97.7 F L 69 16 126/77 H 96 Room Air 2 07/20/24 05:24 07/20/24 05:24 07/20/24 05:24 07/20/24 05:24 07/20/24 05:24 07/20/24 05:24 07/19/24 14:02 Oxygen Flow Rate (L/min) 2 Oxygen Delivery Method Room Air Weight: 97 kg Body Mass Index (BMI) 31.6 Intake & Output: Intake and Output for Last 24 Hours 07/18/24 07/19/24 07/20/24 23:59 23:59 23:59 Intake Total 3470.00 / 3470.00 1326.5 / 1326.5 Output Total 3430 / 3430 1300 / 1300 Balance 40.00 / 40.00 26.5 / 26.5 Lab / Micro Data 07/20/24 06:05 07/20/24 06:05 Labs: Laboratory Results - last 24 hr 07/20/24 06:05: WBC 14.1 H, RBC 4.42 L, Hgb 13.2, Hct 38.2 L, MCV 86.4, MCH 29.9, MCHC 34.6, RDW Std Deviation 41.0, RDW Coeff of Rani 13.0, Plt Count 203, MPV 9.3, Immature Gran % (Auto) 0.500, Neut % (Auto) 76.6 H, Lymph % (Auto) 13.7 L, [place] % (Auto) 9.0, Eos % (Auto) 0.1, Baso % (Auto) 0.1, Absolute Neuts (auto) 10.8 H, Absolute Lymphs (auto) 1.92, Nucleated RBC % 0, Sodium 137, Potassium 4.2, Chloride 104, Carbon Dioxide 23.1, Anion Gap 10, BUN 14, Creatinine 0.87, Estim Creat Clear Calc 93.36, Est GFR (MDRD) Non-Af 94, BUN/Creatinine Ratio 16.5, Glucose 168 H, Calcium 7.9
[2024-07-20 09:00] VITALS: BP 122/64; PULSE 83; RESP 16; TEMP 36.9; O2SAT 96
[2024-07-20 09:20] VITALS: BMI 31.6
[2024-07-20] MEDS: Ramipril 5 MG Capsule PO (10:04)
[2024-07-20] MEDS: Ciprofloxacin 400 MG/200 ML BAG 200 MG IV (10:04)
[2024-07-20] MEDS: 0.9% Saline Lock 10 ML Syringe IV ×2 (10:04→11:26)
[2024-07-20] MEDS: metFORMIN (XR) 500 MG Tablet 1000 MG PO (10:05)
[2024-07-20] MEDS: Pravastatin 20 MG Tablet PO (10:05)
[2024-07-20] MEDS: Empagliflozin 25 MG Tablet PO (10:05)
[2024-07-20] MEDS: Docusate Sodium 100 MG Capsule 200 MG PO (10:05)
[2024-07-20] MEDS: Morphine 2 MG/ML Syringe IV (11:26)
--- NOTE | 2024-07-20 12:07 | PHA.DC.MC.R ---
Pharmacy [facility] has performed discharge medication reconciliation and counseling for this patient. The patient's discharge medication list was reviewed for discrepancies and discrepancies were resolved. The patient was counseled on the following discharge medications and changes in medications for homegoing were reviewed. 1. CIPRO 2. OXYCODONE 3. COLACE The Reason for Use, instructions for use, and potential side effects were reviewed for all new medications. The patient's questions regarding all of their medications were answered. The patient was able to verbally demonstrate an understanding of their discharge medications. Medications at Discharge Home Medications antiarthritic combination no.2 900 mg tablet (glucosamine-chondroitin) 900 mg PO BID 05/31/24 ascorbic acid (vitamin C) 500 mg tablet (Vitamin C) 500 mg PO DAILY 05/31/24 calcium citrate 150 mg capsule 150 mg PO DAILY 05/31/24 cholecalciferol (vitamin D3) 25 mcg (1,000 unit) tablet (Vitamin D3) 25 mcg PO DAILY 05/31/24 empagliflozin 25 mg tablet (Jardiance) 25 mg PO DAILY 05/31/24 ixekizumab 80 mg/mL subcutaneous auto-injector (Taltz Autoinjector) 80 mg subcut QMONTH 05/31/24 metformin 500 mg tablet,extended release 24 hr 1,000 mg PO BID 05/31/24 multivitamin (Daily Multi-Vitamin tablet) 1 tab PO DAILY 05/31/24 omega 5-awf-pbp-fish oil 1,200 mg (144 mg-216 mg) capsule (Fish Oil) 1 cap PO DAILY 05/31/24 pravastatin 20 mg tablet 20 mg PO DAILY 05/31/24 ramipril 5 mg capsule 5 mg PO DAILY 05/31/24 ropinirole 0.25 mg tablet 0.25 mg PO QHS 05/31/24 saw palmetto 160 mg capsule 320 mg PO BID 05/31/24 ciprofloxacin HCl 500 mg tablet 500 mg PO BID #20 tabs 07/19/24 docusate sodium 100 mg capsule (Colace) 100 mg PO BID #20 caps 07/19/24 oxycodone 5 mg tablet 5 mg PO Q6H PRN pain 7 days #14 tabs 07/19/24
[2024-07-20 13:20] VITALS: BMI 31.6
== END 2024-07-20 14:16 | disposition home or self-care (01) ==
LOC: SDC 12:06 → MS3 12:06
PROVIDERS: Admitting Provider Urology; PCP Family Medicine; Referring Provider Urology; Visit Provider Urology
PROC: 0VT04ZZ Resection of Prostate, Percutaneous Endoscopic Approach (ICD-10-PCS; CPT 55866; principal; 2024-07-19 07:10)
DX: C61 Malignant neoplasm of prostate (principal); E11.9 Type 2 diabetes mellitus without complications; I10 Essential (primary) hypertension; E78.00 Pure hypercholesterolemia, unspecified; Z79.84 Long term (current) use of oral hypoglycemic drugs; Z79.899 Other long term (current) drug therapy
CPT/HCPCS: 55866; 36415; 80048; 80053; 80061; 81001; 82043; 82570; 82962; 83036; 84439; 84443; 85025; 88305; 88309; 88341; 88342; 93005; 94668; 96361; 96365; 96366; 96375; 96376; 99221; A4216; G0378; J0744; J2405

== ENCOUNTER → 2024-08-22 | Outpatient (CLI) | payer MEDICARE, OTHER, SELFPAY ==
[2024-08-22 12:49] LABS: AST(SGOT) 13 U/L (<=37); Alanine Aminotransfer ALT/SGPT 25 U/L (<=46); Albumin, Serum 4.6 g/dL (3.4-4.8); Alkaline Phosphatase 64 U/L (40-129); Bilirubin, Direct 0.21 mg/dL (0.00-0.30); Globulin 2.9 g/dL (2.2-4.2); Protein, Total 7.4 g/dL (5.9-8.4); Total Bilirubin 0.47 mg/dL (0.00-1.30)
== END | disposition home or self-care (01) ==
LOC: MTLAB 08:59
PROVIDERS: PCP Family Medicine; Referring Provider Student in an Organized Health Care Education/Training Program; Visit Provider Student in an Organized Health Care Education/Training Program
DX: B35.1 Tinea unguium (principal)
CPT/HCPCS: 36415; 80076

== ENCOUNTER → 2024-09-20 | Outpatient (CLI) | payer MEDICARE, OTHER, SELFPAY ==
[2024-09-20 11:06] LABS: Absolute Lymphocyte Count 2.02 X10^3/uL (0.83-4.51); Absolute Neutrophil Count 3.4 X10^3/uL (2.0-7.7); Basophil# 0.02 X10^3/uL; Basophil% 0.3 % (0-1); Eosinophil# 0.09 X10^3/uL; Eosinophils% 1.4 % (0-5); Hematocrit 44.8 % (40-54); Hemoglobin 15.4 g/dL (13.0-16.5); Lymphocyte # 2.02 X10^3/ul (0.83-4.51); Lymphocyte % 32.2 % (19-41); Mean Corp Hgb Conc 34.4 g/dL (32-36); Mean Corpuscular Hgb 29.4 pg (27.0-32.0); Mean Corpuscular Volume 85.7 fL (80-94); Mean Platelet Vol. 9.6 fl (6.2-12.0); Monocyte# 0.72 X10^3/uL; Monocyte% 11.5 % (0-10); NRBC Flagged by Analyzer 0 % (0-5); Neutrophil # 3.41 X10^3/uL (2.7-7.7); Neutrophil % 54.3 % (47-70); Platelet Count 228 K/mm3 (150-450); RBC Distribution Width CV 12.7 % (11.6-14.6); RBC Distribution Width SD 39.5 fl (35.1-43.9); Red Blood Count 5.23 M/mm3 (4.6-6.2); White Blood Count 6.3 K/mm3 (4.4-11.0)
[2024-09-20 11:24] LABS: Hemoglobin A1c 6.8 % (<=5.6)
[2024-09-20 12:02] LABS: Microalbumin,Random Urine 14.8 mg/L (NO RANGE EST.)
[2024-09-20 13:29] LABS: ALB/GLOB Ratio 1.6 RATIO (0.9-2.4); AST(SGOT) 15 U/L (<=37); Alanine Aminotransfer ALT/SGPT 22 U/L (<=46); Albumin, Serum 4.6 g/dL (3.4-4.8); Alkaline Phosphatase 65 U/L (40-129); Anion Gap 14 (5-15); BUN 19 mg/dL (4-19); BUN/Creat Ratio 20.7 RATIO (10-20); Calcium,Total 9.5 mg/dL (7.6-11.0); Carbon Dioxide 24.8 mmol/L (21.0-32.0); Chloride 101 mmol/L (98-108); Cholesterol 132 mg/dL (<=200); Creatinine, Serum 0.94 mg/dL (0.70-1.20); EST Glomerular Filtration Rate 89 (>60); Globulin 2.9 g/dL (2.2-4.2); Glucose 126 mg/dL (70-99); High Density Lipoprotein 43 mg/dL; Low Density Lipoprotein Calc. 70 mg/dL; Protein, Total 7.5 g/dL (5.9-8.4); Sodium Level 140 mmol/L (133-145); Total Bilirubin 0.42 mg/dL (0.00-1.30); Triglycerides 95 mg/dL; Very Low Density Lipoprotein 19 mg/dL (5-40)
== END | disposition home or self-care (01) ==
LOC: MTLAB 08:49
PROVIDERS: PCP Family Medicine; Referring Provider Family Medicine; Visit Provider Family Medicine
DX: E11.8 Type 2 diabetes mellitus with unspecified complications (principal); E03.8 Other specified hypothyroidism
CPT/HCPCS: 36415; 80053; 80061; 82043; 82570; 83036; 84439; 84443; 85025

== ENCOUNTER → 2024-12-08 | Outpatient (CLI) | payer MEDICARE, OTHER, SELFPAY ==
--- OUTSIDE RECORDS SUMMARY | 2024-12-08 07:09 | XMS RPT_ITS | CCD ---
Author Organization [facility] CliniSynm Care Team Providers Care Historiography Teacher Name Role Phone Deshawn BARCENAS, Lopez Jewell Primary Care Provider Lopez Lyle Primary Care Provider Dariela BARCENAS, Dr. Lopez Faust Primary Care Provider Gurjit BARCENAS, Dr. Ricco Garcia Attending Provider [phone] Gurjit BARCENAS, Dr. Ricco Garcia Referring Provider [phone] Cortez BARCENAS, Dr. Hutchins Attending Provider [phone] Gurjit BARCENAS, Dr. Ricco Garcia Admit Provider Dariela BARCENAS, Dr. Lopez Faust Primary Care Provider [phone] Gurjit BARCENAS, Dr. Ricco Garcia Referring Provider Gurjit BARCENAS, Dr. Ricco Garcia Attending Provider [phone] Emilio MARTE, Dr. Lopez Attending Provider Emilio MARTE, Dr. Lopez Referring Provider Dariela BARCENAS, Dr. Lopez Faust Attending Provider Dariela BARCENAS, Dr. Lopez Faust Referring Provider [phone] Lopez Lyle Attending Unavailable Lopez Lyle Referring Unavailable Lopez Lyle Primary Care Unavailable Lopez Lyle Primary Care Unavailable Ricco Luke Attending Unavailable Ricco Luke Referring Unavailable Lopez Lyle Primary Care Unavailable Ricco Luke Attending Unavailable Ricco Luke Referring Unavailable John Jhaveri Referring Unavailable Lopez Lyle Primary Care Unavailable John Jhaveri Attending Unavailable Schinner, Lopez E Primary Care Unavailable Ricco Luke Attending Unavailable Ricco Luke Referring Unavailable Ricco Luke Admitting Unavailable Lopez Lyle E Attending Unavailable JuliannainnerLopez E Referring Unavailable Schinner Lopez E Primary Care Unavailable Schinner, Lopez E Primary Care Unavailable Alma Pollock Attending Unavailable Alma Pollock Referring Unavailable SchinnerLopez E Primary Care Unavailable Lopez Lyle E Attending Unavailable JuliannainLopez larson E Referring Unavailable Cuong Toro Attending Unavailable Schinner, Lopez E Primary Care Unavailable GurjitRicco Referring Unavailable Lopez Lyle E Attending Unavailable Lopez Lyle E Primary Care Unavailable Lawanda LUKE Attending Unavailable Lawanda LUKE Primary Care Unavailable Lawanda LUKE Admitting Unavailable Allergies Allergy Classification Reported Allergen(s) Allergy Type Date of Onset Reaction(s) Facility (2 sources) Codeine Drug Allergy [address] [facility] (2 sources) bee venom protein (honey bee) Allergy to substance [address] [facility] (1 source) Codeine Drug Allergy [address] [facility] (1 source) bee venom protein (honey bee) Drug allergy (disorder) [address] [facility] Medications Current Medications Medication Drug Class(es) Dates Sig (Normalized) Sig (Original) Antiarthritic Combination No.2 (Glucosamine-Chondro itin) 900 mg tablet (2 sources) Start: 05-31-2024 take 1 tablet by mouth twice daily Antiarthritic Combination No.2 (Glucosamine-Chondro itin) 900 mg tablet Active 900 mg PO TWICE A DAY May 31, 2024 1:00am ascorbic acid 500 mg oral tablet (2 sources) Vitamin C Start: 05-31-2024 take 1 tablet by mouth once daily Ascorbic Acid (Vitamin C) (Vitamin C) 500 mg tablet Active 500 mg PO DAILY May 31, 2024 1:00am calcium citrate 150 mg oral capsule (2 sources) Start: 05-31-2024 take 1 capsule by mouth once daily Calcium Citrate 150 mg capsule Active 150 mg PO DAILY May 31, 2024 1:00am cholecalciferol 0.025 mg oral tablet (2 sources) Vitamin D Start: 05-31-2024 take 1 tablet by mouth once daily Cholecalciferol (Vitamin D3) (Vitamin D3) 25 mcg (1,000 unit) tablet Active 25 ug PO DAILY May 31, 2024 1:00am ciprofloxacin 500 mg oral tablet (2 sources) Quinolone Antimicrobial Start: 07-19-2024 take 1 tablet by mouth twice daily Ciprofloxacin Hcl 500 mg tablet Active 500 mg PO TWICE A DAY July 19, 2024 12:00am docusate sodium 100 mg oral capsule (2 sources) Start: 07-19-2024 take 1 capsule by mouth twice daily Docusate Sodium (Colace) 100 mg capsule Active 100 mg PO TWICE A DAY July 19, 2024 12:00am empagliflozin 25 mg oral tablet (4 sources) Sodium-Glucose Cotransporter 2 Inhibitor Start: 05-31-2024 take 1 tablet by mouth once daily Empagliflozin (Jardiance) 25 mg tablet Active 25 mg PO DAILY May 31, 2024 1:00am Start: 09-18-2021 JARDIANCE 10 m g tablet 1 ml ixekizumab 80 mg/ml auto-injector (2 sources) Interleukin-17A Antagonist Start: 05-31-2024 Ixekizumab (Taltz Autoinjector) 80 mg/mL auto-injector Active 80 mg SC EVERY MONTH May 31, 2024 1:00am 24 hr metFORMIN hydrochloride 500 mg extended release oral tablet (2 sources) Biguanide Start: 05-31-2024 Metformin 500 mg tablet extended release 24 hr Active 1000 mg PO TWICE A DAY May 31, 2024 1:00am Multivitamin (Daily Multi-Vitamin) tablet (2 sources) Start: 05-31-2024 Multivitamin (Daily Multi-Vitamin) tablet Active 1 {tbl} PO DAILY May 31, 2024 1:00am [place] 9-Tzn-Qcs-Fish Oil (Fish Oil) 1,200 (144-216) mg capsule (2 sources) Start: 05-31-2024 [place] 1-Iyg-Dhe-Fish Oil (Fish Oil) 1,200 (144-216) mg capsule Active 1 NMA PO DAILY May 31, 2024 1:00am oxyCODONE hydrochloride 5 mg oral tablet (2 sources) Opioid Agonist Start: 07-19-2024 take 1 tablet by mouth every six hours as needed for pain Oxycodone 5 mg tablet Active 5 mg PO EVERY 6 HOURS as needed for pain 14 7 July 19, 2024 pravastatin sodium 20 mg oral tablet (2 sources) HMG-CoA Reductase Inhibitor Start: 05-31-2024 take 1 tablet by mouth once daily Pravastatin 20 mg tablet Active 20 mg PO DAILY May 31, 2024 1:00am ramipril 5 mg oral capsule (4 sources) Angiotensin Converting Enzyme Inhibitor Start: 05-31-2024 take 1 capsule by mouth once daily Ramipril 5 mg capsule Active 5 mg PO DAILY May 31, 2024 1:00am take 1 capsule by mouth once praneeth ly ramipril (ALTACE) 5 mg capsule Take 5 mg by mouth once daily. 0 Active Comment on above: Take 5 mg by mouth o nce daily. rOPINIRole 0.25 mg oral tablet (4 sources) Nonergot Dopamine Agonist Start: 05-31-2024 take 1 tablet by mouth at bedtime Ropinirole 0.25 mg tablet Active 0.25 mg PO AT BEDTIME May 31, 2024 1:00am Start: 11-11-2021 take 0.25-0.5 mg by mouth once daily at bedtime rOPINIRole (REQUIP) 0.25 mg tablet Take 0.25-0.5 mg by mouth daily at bedtime. 0 11/11/2021 Active Comment on above: Take 0.25-0.5 mg by mouth daily at bedtime. Saw Ehrhardt (2 sources) Start: 05-31-2024 take 1 capsule by mouth twice daily at mealtime Saw Ehrhardt 160 mg capsule Active 320 mg PO TWICE A DAY May 31, 2024 1:00am give with food (meal/snack) Completed/Discontinued Medications Medication Drug Class(es) Dates Sig (Normalized) Sig (Original) Etanercept (2 sources) Tumor Necrosis Factor Judy ETANERCEPT (ENBREL SUBCUTANEOUS) Inject subcutaneously. 0 Active Comment on above: Inject subcutaneousl y. secukinumab (2 sources) Interleukin-17A Antagonist secukinumab (COSENTY X PEN SUBCUTANEOUS) Inject subcutaneously. 0 Active Comment on above: Inject subcutaneousl y. SITAGLIPTIN PHOS/METFORMIN HCL (JANUMET ORAL) (2 sources) SITAGLIPTIN PHOS/METFORMIN HCL (JANUMET ORAL) Take by mouth. 0 Active Comment on above: Take by mouth. Problems Active Problems Problem Classification Problem Date Documented Da te Episodic/Chronic Cancer of prostate (3 sources) Malignant tumor of prostate; Translations: [Malignant neoplasm of prostate] Onset: 08-06-2024 07-19-2024 Chronic Diabetes mellitus with complications (1 source) Type 2 diabetes mellitus with unspecified complications; Translations: [Type 2 diabetes mellitus with unspecified complications] Onset: 09-25-2024 Chronic Mycoses (1 source) Tinea unguium; Translations: [Tinea unguium] Onset: 08-28-2024 Episodic Open wounds of extremities (1 source) Laceration of left index finger; Translations: [Laceration without foreign body of left index finger without damage to nail, initial encounter] Episodic Other aftercare (1 source) Removal of sutures done; Translations: [Encounter for removal of sutures] Episodic Thyroid disorders (1 source) Other specified hypothyroidism; Translations: [Other specified hypothyroidism] Onset: 01-18-2024 Chronic Past or Other Problems Problem Classification Problem Date Documented Da te Episodic/Chronic Genitourinary symptoms and ill-defined conditions (1 source) Hematuria, unspecified; Translations: [Hematuria, unspecified] Onset: 02-18-2024 Episodic Other screening for suspected conditions (not mental disorders or infectious disease) (1 source) Elevated prostate specific antigen [PSA]; Translations: [Elevated prostate specific antigen [PSA]] Onset: 05-16-2024 Episodic Other skin disorders (1 source) Actinic keratosis; Translations: [Actinic keratosis] Onset: 01-07-2024 Episodic Results Test Name Value Interpretation Reference Range Facility Microalb:Creat Ratio,Random URon 10-17-2024 MALB:CREAT 10.5 mg/g CRE Normal [facility] Comment on above: Order Comment: Order Date: 06/09/24 Order Info: [id number] - MIACRE Order Info: [id number] - MIALB Result Comment: AMENDED REPORT 10/17/24 1102 MALB:CREAT previously reported as: 105.0 mg/g CRE Performed By: #### L [id number], L100.0100, L502.0250, L500.4050, L501.9985, L500.4100, L506.0400 #### [facility] Laboratory [facility] [address] [place], [place], [id number] Absolute lymphocyte countOrd ered By: Lopez Lyle on 09-20-2024 Lymphocytes Auto (Unsp spec) [#/Vol] 2.02 10*3/uL 0.83-4.[address] [facility] Absolute neutrophil countOrd ered By: Lopez Lyle on 09-20-2024 Neutrophils (Bld) [#/Vol] 3.4 10*3/uL 2.0-7.[address] [facility] Anion gap in Serum or Plasma Ordered By: Lopez Lyle on 09-20-2024 Anion gap [Moles/Vol] 14 mmol/L 5- [facility] Automated lymphocyte count a s percentage of total leukocytesOrdered By: Lopez Lyle on 09-20-2024 Lymphocytes/100 WBC Auto (Unsp spec) 32.2 % - [facility] BUN/creatinine ratioOrdered By: Lopez Lyle on 09-20-2024 Urea nitrogen/Creatinine [Mass ratio] 20.7 mg/mg High 10- [facility] Basophil percentageOrdered B y: Lopez Lyle on 09-20-2024 Basophils/100 WBC (Bld) 0.3 % 0-1 [facility] Bilirubin, totalOrdered By: Lopez Lyle on 09-20-2024 Bilirubin [Mass/Vol] 0.42 mg/dL 0.00-1.[address] [facility] CBC W/Diff, Automatedon 08-25 Absolute Lymph 2.02 X10 3/uL Normal 0.83-4.[address] [facility] Comment on above: Order Comment: Order Date: 06/09/24 Order Info: [id number] - CBCD Performed By: #### L [id number], L100.0100, L502.0250, L500.4050, L501.9985, L500.4100, L506.0400 #### [facility] [address] [place], [place], [id number] Absolute Neut 3.4 X10 3/uL Normal 2.0-7.[address] [facility] Comment on above: Order Comment: Order Date: 06/09/24 Order Info: [id number] - CBCD Performed By: #### L 501.9520, L100.0100, L502.0250, L500.4050, L501.9985, L500.4100, L506.0400 #### [facility] [address] [place], [address] Basophils/100 WBC (Bld) 0.3 % Normal 0-1 [facility] Comment on above: Order Comment: Order Date: 06/09/24 Order Info: [id number]- - CBCD Performed By: #### L [id number], L100.0100, L502.0250, L500.4050, L501.9985, L500.4100, L506.0400 #### [facility] [address] [place], [address] Eosinophils/100 WBC (Bld) 1.4 % Normal 0-[address] [facility] Comment on above: Order Comment: Order Date: 06/09/24 Order Info: [id number]- - CBCD Performed By: #### L [id number], L100.0100, L502.0250, L500.4050, L501.9985, L500.4100, L506.0400 #### [facility] [address] [place], [address] Erythrocyte distribution width (RBC) [Ratio] 12.7 % Normal 11.6-14.[address] [facility] Comment on above: Order Comment: Order Date: 06/09/24 Order Info: [id number]- - CBCD Performed By: #### L 501.9520, L100.0100, L502.0250, L500.4050, L501.9985, L500.4100, L506.0400 #### [facility] [address] [place], [address] Hematocrit (Bld) [Volume fraction] 44.8 % Normal 40-[address] [facility] Comment on above: Order Comment: Order Date: 06/09/24 Order Info: [id number] - CBCD Performed By: #### L 501.9520, L100.0100, L502.0250, L500.4050, L501.9985, L500.4100, L506.0400 #### [facility] [address] [place], [address] Hemoglobin (Bld) [Mass/Vol] 15.4 g/dL Normal 13.0-16.[address] [facility] Comment on above: Order Comment: Order Date: 06/09/24 Order Info: 0184-1 - CBCD Performed By: #### L 501.9520, L100.0100, L502.0250, L500.4050, L501.9985, L500.4100, L506.0400 #### [facility] [address] [place], [address] IG% 0.300 Normal 0.0-0.[address] [facility] Comment on above: Order Comment: Order Date: 06/09/24 Order Info: [id number] - CBCD Result Comment: IG% - Immature Granulocytes (promyelocytes, myelocytes and metamyelocytes) > 1% indicates that a LEFT SHIFT is Present. Performed By: #### L 501.9520, L100.0100, L502.0250, L500.4050, L501.9985, L500.4100, L506.0400 #### [facility] [address] [place], [address] Lymphocytes/100 WBC (Bld) 32.2 % Normal 19-[address] [facility] Comment on above: Order Comment: Order Date: 06/09/24 Order Info: 0184-1 - CBCD Performed By: #### L 501.9520, L100.0100, L502.0250, L500.4050, L501.9985, L500.4100, L506.0400 #### [facility] [address] [place], [address] MCH (RBC) [Entitic mass] 29.4 pg Normal 27.0-32.[address] [facility] Comment on above: Order Comment: Order Date: 06/09/24 Order Info: 0184-1 - CBCD Performed By: #### L 501.9520, L100.0100, L502.0250, L500.4050, L501.9985, L500.4100, L506.0400 #### [facility] [address] [place], [address] MCHC (RBC) [Mass/Vol] 34.4 g/dL Normal 32-36 [facility] Comment on above: Order Comment: Order Date: 06/09/24 Order Info: 0184-1 - CBCD Performed By: #### L 501.9520, L100.0100, L502.0250, L500.4050, L501.9985, L500.4100, L506.0400 #### [facility] [address] [place], [place], [id number] (747) MCV (RBC) [Entitic vol] 85.7 fL Normal 80-94 [facility] Comment on above: Order Comment: Order Date: 06/09/24 Order Info: 0184-1 - CBCD Performed By: #### L 501.9520, L100.0100, L502.0250, L500.4050, L501.9985, L500.4100, L506.0400 #### [facility] [address] [place], [place], [phone] (258) Monocytes/100 WBC (Bld) 11.5 % High 0-10 [facility] Comment on above: Order Comment: Order Date: 06/09/24 Order Info: 0184-1 - CBCD Performed By: #### L 501.9520, L100.0100, L502.0250, L500.4050, L501.9985, L500.4100, L506.0400 #### [facility] [address] [place], [place], [id number] (043) Neutrophils/100 WBC (Bld) 54.3 % Normal 47-[address] [facility] Comment on above: Order Comment: Order Date: 06/09/24 Order Info: 0184-1 - CBCD Performed By: #### L 501.9520, L100.0100, L502.0250, L500.4050, L501.9985, L500.4100, L506.0400 #### [facility] [address] [place], [address] Nucleated RBC (Bld) [#/Vol] 0 10*3/uL Normal 0-[address] [facility] Comment on above: Order Comment: Order Date: 06/09/24 Order Info: 0184-1 - CBCD Performed By: #### L 501.9520, L100.0100, L502.0250, L500.4050, L501.9985, L500.4100, L506.0400 #### [facility] [address] [place], [place], [phone] (619) Platelet mean volume (Bld) [Entitic vol] 9.6 fL Normal 6.2-12.[address] [facility] Comment on above: Order Comment: Order Date: 06/09/24 Order Info: 0184-1 - CBCD Performed By: #### L 501.9520, L100.0100, L502.0250, L500.4050, L501.9985, L500.4100, L506.0400 #### [facility] [address] [place], [address] Platelets (Bld) [#/Vol] 228 10*3/uL Normal 150-[address] [facility] Comment on above: Order Comment: Order Date: 06/09/24 Order Info: 0184-1 - CBCD Performed By: #### L 501.9520, L100.0100, L502.0250, L500.4050, L501.9985, L500.4100, L506.0400 #### [facility] [address] [place], [place], [id number] RBC (Bld) [#/Vol] 5.23 10*6/uL Normal 4.6-6.2 [facility] Comment on above: Order Comment: Order Date: 06/09/24 Order Info: 0184-1 - CBCD Performed By: #### L 501.9520, L100.0100, L502.0250, L500.4050, L501.9985, L500.4100, L506.0400 #### [facility] [address] [place], [place], [id number] RDW SD 39.5 fl Normal 35.1-43.[address] [facility] Comment on above: Order Comment: Order Date: 06/09/24 Order Info: 0184- - CBCD Performed By: #### L 501.9520, L100.0100, L502.0250, L500.4050, L501.9985, L500.4100, L506.0400 #### [facility] [address] [place], [place], [phone] WBC (Bld) [#/Vol] 6.3 10*3/uL Normal 4.4-11.0 [facility] Comment on above: Order Comment: Order Date: 06/09/24 Order Info: [id number] - CBCD Performed By: #### L 501.9520, L100.0100, L502.0250, L500.4050, L501.9985, L500.4100, L506.0400 #### [facility] [address] [place], [place], [id number] Calculated very low density lipoprotein (VLDL) cholesterol measurementOrdered By: Lopez Lyle on 09-20-2024 Calculated very low density lipoprotein (VLDL) cholesterol measurement 19 mg/dL 5-[address] [facility] Carbon dioxide, total [Moles /volume] in Central venous bloodOrdered By: Lopez Lyle on 09-20-2024 CO2 [Moles/Vol] 24.8 mmol/L 21.0-32.[address] [facility] Chloride assayOrdered By: Corina Lyle on 09-20-2024 Chloride [Moles/Vol] 101 mmol/L 98-[address] [facility] Comprehensive Metabolic Prof ilon 09-20-2024 Albumin [Mass/Vol] 4.6 g/dL Normal 3.4-4.8 [facility] Comment on above: Order Comment: Order Date: 06/09/24 Order Info: [id number] - CMP Order Info: [id number] - LIPID Order Info: [id number] - TSH Order Info: 3024-7 - T4F Performed By: #### L 501.9520, L100.0100, L502.0250, L500.4050, L501.9985, L500.4100, L506.0400 #### [facility] [address] [place], [place], [phone] Albumin/Globulin [Mass ratio] 1.6 {ratio} Normal 0.9-2.[address] [facility] Comment on above: Order Comment: Order Date: 06/09/24 Order Info: 785- - CMP Order Info: [id number] - LIPID Order Info: 63 - TSH Order Info: [id number] - T4F Performed By: #### L 501.9520, L100.0100, L502.0250, L500.4050, L501.9985, L500.4100, L506.0400 #### [facility] [address] [place], [place], [id number] ALK PHOS 65 U/L Normal 40-[address] [facility] Comment on above: Order Comment: Order Date: 06/09/24 Order Info: [id number] - CMP Order Info: [id number] - LIPID Order Info: [id number] - TSH Order Info: [id number] - T4F Performed By: #### L 501.9520, L100.0100, L502.0250, L500.4050, L501.9985, L500.4100, L506.0400 #### [facility] [address] [place], [address] ALT [Catalytic activity/Vol] 22 U/L Normal <=[address] [facility] Comment on above: Order Comment: Order Date: 06/09/24 Order Info: [id number] - CMP Order Info: [id number] - LIPID Order Info: [id number] - TSH Order Info: 3024-7 - T4F Performed By: #### L 501.9520, L100.0100, L502.0250, L500.4050, L501.9985, L500.4100, L506.0400 #### [facility] [address] [place], [address] AST [Catalytic activity/Vol] 15 U/L Normal <=[address] [facility] Comment on above: Order Comment: Order Date: 06/09/24 Order Info: [id number] - CMP Order Info: [id number] - LIPID Order Info: 3 - TSH Order Info: [id number] - T4F Performed By: #### L 501.9520, L100.0100, L502.0250, L500.4050, L501.9985, L500.4100, L506.0400 #### [facility] [address] [place], [address] Bilirubin [Mass/Vol] 0.42 mg/dL Normal 0.00-1.[address] [facility] Comment on above: Order Comment: Order Date: 06/09/24 Order Info: 07-1 - CMP Order Info: [id number] - LIPID Order Info: [id number] - TSH Order Info: 3024-7 - T4F Performed By: #### L 501.9520, L100.0100, L502.0250, L500.4050, L501.9985, L500.4100, L506.0400 #### [facility] [address] [place], [address] BUN/CRE 20.7 RATIO High 10-[address] [facility] Comment on above: Order Comment: Order Date: 06/09/24 Order Info: 86-1 - CMP Order Info: [id number] - LIPID Order Info: 3 - TSH Order Info: [id number] - T4F Performed By: #### L 501.9520, L100.0100, L502.0250, L500.4050, L501.9985, L500.4100, L506.0400 #### [facility] [address] [place], [address] Calcium [Mass/Vol] 9.5 mg/dL Normal 7.6-11.0 [facility] Comment on above: Order Comment: Order Date: 06/09/24 Order Info: [id number] - CMP Order Info: - LIPID Order Info: [id number] - TSH Order Info: 3024-7 - T4F Performed By: #### L 501.9520, L100.0100, L502.0250, L500.4050, L501.9985, L500.4100, L506.0400 #### [facility] [address] [place], [address] Chloride [Moles/Vol] 101 mmol/L Normal 98-[address] [facility] Comment on above: Order Comment: Order Date: 06/09/24 Order Info: 785- - CMP Order Info: - LIPID Order Info: 3 - TSH Order Info: [id number] - T4F Performed By: #### L 501.9520, L100.0100, L502.0250, L500.4050, L501.9985, L500.4100, L506.0400 #### [facility] [address] [place], [address] CO2 [Moles/Vol] 24.8 mmol/L Normal 21.0-32.[address] [facility] Comment on above: Order Comment: Order Date: 06/09/24 Order Info: 86-1 - CMP Order Info: [id number] - LIPID Order Info: 3 - TSH Order Info: [id number] - T4F Performed By: #### L 501.9520, L100.0100, L502.0250, L500.4050, L501.9985, L500.4100, L506.0400 #### [facility] [address] [place], [place], [id number] Creatinine [Mass/Vol] 0.94 mg/dL Normal 0.70-1.20 [facility] Comment on above: Order Comment: Order Date: 06/09/24 Order Info: [id number] - CMP Order Info: [id number] - LIPID Order Info: 3 - TSH Order Info: 7 - T4F Performed By: #### L 501.9520, L100.0100, L502.0250, L500.4050, L501.9985, L500.4100, L506.0400 #### [facility] [address] [place], [place], [id number] GAP 14 Normal 5-[address] [facility] Comment on above: Order Comment: Order Date: 06/09/24 Order Info: [id number] - CMP Order Info: - LIPID Order Info: [id number] - TSH Order Info: [id number] - T4F Performed By: #### L 501.9520, L100.0100, L502.0250, L500.4050, L501.9985, L500.4100, L506.0400 #### [facility] [address] [place], [place], [id number] GFR/1.73 sq M.predicted among non-blacks MDRD (S/P/Bld) [Vol rate/Area] 89 mL/min/{1.73_m2} Normal >[address] [facility] Comment on above: Order Comment: Order Date: 06/09/24 Order Info: [id number] - CMP Order Info: [id number] - LIPID Order Info: 3 - TSH Order Info: [id number] - T4F Result Comment: mL/m in/1.73m2 CKD-EPI Creatinine Equation (2020) Performed By: #### L 501.9520, L100.0100, L502.0250, L500.4050, L501.9985, L500.4100, L506.0400 #### [facility] [address] [place], [place], [id number] Globulin (S) [Mass/Vol] 2.9 g/dL Normal 2.2-4.2 [facility] Comment on above: Order Comment: Order Date: 06/09/24 Order Info: [id number] - CMP Order Info: [id number] - LIPID Order Info: 3 - TSH Order Info: [id number] - T4F Performed By: #### L 501.9520, L100.0100, L502.0250, L500.4050, L501.9985, L500.4100, L506.0400 #### [facility] [address] [place], [place], [id number] Glucose [Mass/Vol] 126 mg/dL High 70-99 [facility] Comment on above: Order Comment: Order Date: 06/09/24 Order Info: [id number] - CMP Order Info: - LIPID Order Info: [id number] - TSH Order Info: [id number] - T4F Performed By: #### L 501.9520, L100.0100, L502.0250, L500.4050, L501.9985, L500.4100, L506.0400 #### [facility] [address] [place], [place], [id number] Potassium [Moles/Vol] 4.0 mmol/L Normal 3.3-5.1 [facility] Comment on above: Order Comment: Order Date: 06/09/24 Order Info: [id number] - CMP Order Info: [id number] - LIPID Order Info: [id number] - TSH Order Info: [id number] - T4F Performed By: #### L 501.9520, L100.0100, L502.0250, L500.4050, L501.9985, L500.4100, L506.0400 #### [facility] [address] [place], [address] Sodium [Moles/Vol] 140 mmol/L Normal 133-145 [facility] Comment on above: Order Comment: Order Date: 06/09/24 Order Info: [id number] - CMP Order Info: [id number] - LIPID Order Info: [id number] - TSH Order Info: [id number] - T4F Performed By: #### L 501.9520, L100.0100, L502.0250, L500.4050, L501.9985, L500.4100, L506.0400 #### [facility] [address] [place], [address] T PROT 7.5 g/dL Normal 5.9-8.[address] [facility] Comment on above: Order Comment: Order Date: 06/09/24 Order Info: [id number] - CMP Order Info: [id number] - LIPID Order Info: 3 - TSH Order Info: [id number] - T4F Performed By: #### L 501.9520, L100.0100, L502.0250, L500.4050, L501.9985, L500.4100, L506.0400 #### [facility] [address] [place], [address] Urea nitrogen [Mass/Vol] 19 mg/dL Normal 4-[address] [facility] Comment on above: Order Comment: Order Date: 06/09/24 Order Info: [id number] - CMP Order Info: [id number] - LIPID Order Info: [id number] - TSH Order Info: [id number] - T4F Performed By: #### L [id number], L100.0100, L502.0250, L500.4050, L501.9985, L500.4100, L506.0400 #### [facility] [address] [place], [address] Eosinophil percentageOrdered By: Lopez Lyle on 09-20-2024 Eosinophils/100 WBC (Bld) 1.4 % 0-[address] [facility] Erythrocyte distribution wid th ratioOrdered By: Lopez Lyle on 09-20-2024 Erythrocyte distribution width (RBC) [Ratio] 12.7 % 11.6-14.[address] [facility] Erythrocyte distribution wid th standard deviationOrdered By: Lopez Lyle on 09-20-2024 Erythrocyte distribution width (RBC) [Ratio] 39.5 fl 35.1-43.[address] [facility] Glomerular filtration rate ( GFR) estimation/1.73 sq m using serum, plasma, or whole bOrdered By: Lopez Lyle on 09-20-2024 GFR/1.73 sq M.predicted among non-blacks MDRD (S/P/Bld) [Vol rate/Area] 89 mL/min/{1.73_m2} >[address] [facility] Comment on above: mL/min/1.73m2 CKD-EP I Creatinine Equation (2020) Hematocrit Auto (Bld) [Volum e fraction]Ordered By: Lopez Lyle on 09-20-2024 Hematocrit (Bld) [Volume fraction] 44.8 % 40-[address] [facility] Hemoglobin A1con 09-20-2024 HbA1c (Bld) [Mass fraction] 6.8 % High <=5.[address] [facility] Comment on above: Order Comment: Order Date: 06/09/24 Order Info: [id number] - A1C Result Comment: Norm al < 5.7 % Prediabetic 5.7 - 6.4 % Diabetic >or= 6.5 % Please note range changes. Performed By: #### L 501.9520, L100.0100, L502.0250, L500.4050, L501.9985, L500.4100, L506.0400 #### [facility] [address] [place], [place], [id number] Hemoglobin A1c percentageOrd ered By: Lopez Lyle on 09-20-2024 HbA1c (Bld) [Mass fraction] 6.8 % High <5.[address] [facility] Comment on above: Normal < 5.7 % Predi abetic 5.7 - 6.4 % Diabetic >or= 6.5 % Please note range changes. Hemoglobin measurementOrdere d By: Lopez Lyle on 09-20-2024 Hemoglobin (Bld) [Mass/Vol] 15.4 g/dL 13.0-16.[address] [facility] Immature granulocytes/100 WB C Auto (Bld)Ordered By: Lopez Lyle on 09-20-2024 Immature granulocytes/100 WBC (Bld) 0.300 % 0.0-0.[address] [facility] Comment on above: IG% - Immature Granu locytes (promyelocytes, myelocytes and metamyelocytes) > 1% indicates that a LEFT SHIFT is Present. LDL calc ser/plasOrdered By: Lopez Lyle on 09-20-2024 Cholesterol in LDL [Mass/Vol] 70 mg/dL [facility] Comment on above: Galtdeqsjd=714-290 m g/dL & Higher Fclj=855 mg/dL or greater Laboratory - Chemistry and C hemistry - challengeOrdered By: Lopez Lyle on 09-20-2024 AST [Catalytic activity/Vol] 15 U/L <[address] [facility] Lipid Profileon 09-20-2024 CHOL:HDL 3.[address] [facility] Comment on above: Order Comment: Order Date: 06/09/24Order Info: [id number] - CMPOrder Info: [id number] - LIPIDOrder Info: [id number] - TSHOrder Info: [id number] - T4F Performed By: #### L 501.9940 #### [facility] [address] [place], [place], [address] Cholesterol [Mass/Vol] 132 mg/dL Normal <=200 [facility] Comment on above: Order Comment: Order Date: 06/09/24Order Info: [id number] - CMPOrder Info: [id number] - LIPIDOrder Info: [id number] - TSHOrder Info: [id number] - T4F Result Comment: Chol esterol level, Desirable <200 mg/dL Borderline high cholesterol 200-239 mg/dL High cholesterol >=240 mg/dL Recommendations of the NCEP Adult Treatment Panel for the following risk-cutoff thresholds for the [place] population. Performed By: #### L 501.9940 #### [facility] [address] [place], [address] Cholesterol in HDL [Mass/Vol] 43 mg/dL Normal [facility] Comment on above: Order Comment: Order Date: 06/09/24Order Info: [id number] - CMPOrder Info: [id number] - LIPIDOrder Info: [id number] - TSHOrder Info: [id number] - T4F Result Comment: [place] onal Cholesterol Education Program (NCEP) guidelines: <40 mg/dL: Low HDL-cholesterol (major risk factor for CHD) >= 60 mg/dL: High HDL-cholesterol (negative risk factor for CHD) HDL-cholesterol is affected by a number of factors, e.g. smoking, exercise, hormones, sex and age. Performed By: #### L 501.9940 #### [facility] [address] [place], [address] Cholesterol in LDL [Mass/Vol] 70 mg/dL Normal [facility] Comment on above: Order Comment: Order Date: 06/09/24Order Info: [id number] - CMPOrder Info: [id number] - LIPIDOrder Info: [id number] - TSHOrder Info: [id number] - T4F Result Comment: Bord gtswqi=851-326 mg/dL Higher Ykrw=060 mg/dL or greater Performed By: #### L 501.9940 #### [facility] [address] [place], [address] Cholesterol in VLDL [Mass/Vol] 19 mg/dL Normal 5-[address] [facility] Comment on above: Order Comment: Order Date: 06/09/24Order Info: [id number] - CMPOrder Info: [id number] - LIPIDOrder Info: [id number] - TSHOrder Info: [id number] - T4F Performed By: #### L 501.9940 #### [facility] [address] [place], [address] Triglyceride [Mass/Vol] 95 mg/dL Normal [facility] Comment on above: Order Comment: Order Date: 06/09/24Order Info: [id number] - CMPOrder Info: [id number] - LIPIDOrder Info: [id number] - TSHOrder Info: [id number] - T4F Result Comment: The drugs N-Acetylcysteine and Metamizole may falsely depress this assay. Normal range: <150 mg/dL Borderline High: 150-199 mg/dL High: 200-499 mg/dL Very High: >500 mg/dL Performed By: #### L 501.9940 #### [facility] [place], [address] MCV (mean corpuscular volume ) determinationOrdered By: Lopez Lyle on 09-20-2024 MCV (RBC) [Entitic vol] 85.7 fL 80-94 [facility] Mean corpuscular hemoglobin (MCH) determinationOrdered By: Lopez Lyle on 09-20-2024 MCH (RBC) [Entitic mass] 29.4 pg 27.0-32.[address] [facility] Mean corpuscular hemoglobin concentration (MCHC) determinationOrdered By: Lopez Lyle on 09-20-2024 MCHC (RBC) [Mass/Vol] 34.4 g/dL 32-36 [facility] Mean platelet volume determi nationOrdered By: Lopez Lyle on 09-20-2024 Platelet mean volume (Bld) [Entitic vol] 9.6 fL 6.2-12.[address] [facility] Monocyte percentageOrdered B y: Lopez Lyle on 09-20-2024 Monocytes/100 WBC (Bld) 11.5 % High 0-10 [facility] Neutrophil percentageOrdered By: Lopez Lyle on 09-20-2024 Neutrophils/100 WBC (Bld) 54.3 % 47-[address] [facility] Nucleated red blood cell per centageOrdered By: Lopez Lyle on 09-20-2024 Nucleated RBC/100 WBC (Bld) [Ratio] 0 % 0-[address] [facility] Platelet countOrdered By: Corina Lyle on 09-20-2024 Platelets (Bld) [#/Vol] 228 10*3/uL 150-[address] [facility] Potassium measurement (mass/ volume)Ordered By: Lopez Lyle on 09-20-2024 Potassium (Unsp spec) [Mass/Vol] 4.0 mmol/L 3.3-5.[address] [facility] RBC Auto (Bld) [#/Vol]Ordere d By: Lopez Lyle on 09-20-2024 RBC (Bld) [#/Vol] 5.23 10*6/uL 4.6-6.2 [facility] Random urine creatinine tavia urement (mass/volume)Ordered By: Lopez Lyle on 09-20-2024 Creatinine Unsp time (U) [Mass/Vol] 141.00 mg/dL 39.00-259. [address] [facility] Screening total cholesterol/ high density lipoprotein (HDL) cholesterol ratioOrdered By: Lopez Lyle on 09-20-2024 Cholesterol.total/Choles terol in HDL [Mass ratio] 3.10 {ratio} [facility] Serum creatinine measurement (mass/volume)Ordered By: Lopez Lyle on 09-20-2024 Creatinine [Mass/Vol] 0.94 mg/dL 0.70-1.20 [facility] Serum globulin measurementOr dered By: Lopez Lyle on 09-20-2024 Globulin (S) [Mass/Vol] 2.9 g/dL 2.2-4.2 [facility] Serum glucose measurement (m ass/volume)Ordered By: Lopez Lyle on 09-20-2024 Glucose [Mass/Vol] 126 mg/dL High 70-99 [facility] Serum or plasma alanine linn otransferase (ALT) measurementOrdered By: Lopez Lyle on 09-20-2024 ALT [Catalytic activity/Vol] 22 U/L <[address] [facility] Serum or plasma albumin tavia urement (mass/volume)Ordered By: Lopez Lyle on 09-20-2024 Albumin [Mass/Vol] 4.6 g/dL 3.4-4.8 [facility] Serum or plasma albumin/glob ulin mass ratioOrdered By: Lopez Lyle on 09-20-2024 Albumin/Globulin [Mass ratio] 1.6 {ratio} 0.9-2.[address] [facility] Serum or plasma alkaline ivan sphatase measurementOrdered By: Lopez Lyle on 09-20-2024 ALP [Catalytic activity/Vol] 65 U/L 40-[address] [facility] Serum or plasma calcium tavia urement (mass/volume)Ordered By: Lopez Lyle on 09-20-2024 Calcium [Mass/Vol] 9.5 mg/dL 7.6-11.0 [facility] Serum or plasma cholesterol in HDL measurement (mass/volume)Ordered By: Lopez Lyle on 09-20-2024 Cholesterol in HDL [Mass/Vol] 43 mg/dL >[address] [facility] Comment on above: National Cholesterol Education Program (NCEP) guidelines:<40 mg/dL: Low HDL-cholesterol (major risk factor for CHD)>= 60 mg/dL: High HDL-cholesterol (negative risk factor for CHD)HDL-cholesterol is affected by a number of factors, e.g. smoking, exercise, hormones, sex and age. Serum or plasma cholesterol measurement (mass/volume)Ordered By: Lopez Lyle on 09-20-2024 Cholesterol [Mass/Vol] 132 mg/dL <201 [facility] Comment on above: Cholesterol level, D esirable <200 mg/dLBorderline high cholesterol 200-239 mg/dLHigh cholesterol >=240 mg/dLRecommendations of the NCEP Adult Treatment Panel for the following risk-cutoff thresholds for the [place] population. Serum or plasma urea nitroge n measurement (mass/volume)Ordered By: Lopez yLle on 09-20-2024 Urea nitrogen [Mass/Vol] 19 mg/dL 4-[address] [facility] Sodium levelOrdered By: Lopez Lyle on 09-20-2024 Sodium [Moles/Vol] 140 mmol/L 133-145 [facility] T4 Free Directon 09-20-2024 T4 FREE DIRECT 1.40 ng/dL Normal 0.76-1.[address] [facility] Comment on above: Order Comment: Order Date: 06/09/24Order Info: [id number] - CMPOrder Info: [id number] - LIPIDOrder Info: [id number] - TSHOrder Info: [id number] - T4F Performed By: #### L 501.9940 #### [facility] [address] [place], [address] T4 freeOrdered By: Lopez palacio on 09-20-2024 Free T4 [Mass/Vol] 1.40 ng/dL 0.76-1.46 [facility] TSH DL <= 0.005 mIU/L QnOrde red By: Lopez Lyle on 09-20-2024 TSH Qn 4.900 uIU/mL High 0.300-4.[address] [facility] Thyroid Stim Hormone (TSH)on 09-20-2024 TSH 4.900 uIU/mL High 0.300-4.[address] [facility] Comment on above: Order Comment: Order Date: 06/09/24Order Info: [id number] - CMPOrder Info: [id number] - LIPIDOrder Info: [id number] - TSHOrder Info: [id number] - T4F Performed By: #### L 501.9940 #### [facility] [place], [address] Total proteinOrdered By: Joey Lyle on 09-20-2024 Protein [Mass/Vol] 7.5 g/dL 5.9-8.4 [facility] Triglycerides measurementOrd ered By: Lopez Lyle on 09-20-2024 Triglyceride [Mass/Vol] 95 mg/dL <199 [facility] Comment on above: The drugs N-Acetylcy steine and Metamizole may falsely depress this assay. Normal range: <150 mg/dLBorderline High: 150-199 mg/dLHigh: 200-499 mg/dLVery High: >500 mg/dL Urine albumin measurement [facility] detection limit of 20 mg/L or less (mass/volume)Ordered By: Lopez Lyle on 09-20-2024 Albumin DL <= 20 mg/L (U) [Mass/Vol] 14.8 mg/L NO RANGE EST. [facility] White blood cell (WBC) count Ordered By: Lopez Lyle on 09-20-2024 WBC (Bld) [#/Vol] 6.3 10*3/uL 4.4-11.0 [facility] Bilirubin directOrdered By: John Jhaveri on 08-22-2024 Bilirubin.direct [Mass/Vol] 0.21 mg/dL 0.00-0.[address] [facility] Bilirubin, totalOrdered By: John Jhaveri on 08-22-2024 Bilirubin [Mass/Vol] 0.47 mg/dL 0.00-1.[address] [facility] Laboratory - Chemistry and C hemistry - challengeOrdered By: John Hillall on 08-22-2024 AST [Catalytic activity/Vol] 13 U/L <[address] [facility] Liver Profileon 08-22-2024 Albumin [Mass/Vol] 4.6 g/dL Normal 3.4-4.8 [facility] Comment on above: Performed By: #### L 500.3400 #### [facility] [address] [place], [address] ALK PHOS 64 U/L Normal 40-[address] [facility] Comment on above: Performed By: #### L 500.3400 #### [facility] [address] [place], [address] ALT [Catalytic activity/Vol] 25 U/L Normal <=[address] [facility] Comment on above: Performed By: #### L 500.3400 #### [facility] [address] [place], [address] AST [Catalytic activity/Vol] 13 U/L Normal <=[address] [facility] Comment on above: Performed By: #### L 500.3400 #### [facility] [address] [place], [address] Bilirubin [Mass/Vol] 0.47 mg/dL Normal 0.00-1.[address] [facility] Comment on above: Performed By: #### L 500.3400 #### [facility] [address] [place], [address] Bilirubin.direct [Mass/Vol] 0.21 mg/dL Normal 0.00-0.[address] [facility] Comment on above: Performed By: #### L 500.3400 #### [facility] [address] [place], [address] Globulin (S) [Mass/Vol] 2.9 g/dL Normal 2.2-4.2 [facility] Comment on above: Performed By: #### L 500.3400 #### [facility] [address] [place], [place], [id number] T PROT 7.4 g/dL Normal 5.9-8.[address] [facility] Comment on above: Performed By: #### L 500.3400 #### [facility] [address] [place], [address] Serum globulin measurementOr dered By: John Jhaveri on 08-22-2024 Globulin (S) [Mass/Vol] 2.9 g/dL 2.2-4.2 [facility] Serum or plasma alanine linn otransferase (ALT) measurementOrdered By: John Jhaveri on 08-22-2024 ALT [Catalytic activity/Vol] 25 U/L <[address] [facility] Serum or plasma albumin tavia urement (mass/volume)Ordered By: John Jhaveri on 08-22-2024 Albumin [Mass/Vol] 4.6 g/dL 3.4-4.8 [facility] Serum or plasma alkaline ivan sphatase measurementOrdered By: John Jhaveri on 08-22-2024 ALP [Catalytic activity/Vol] 64 U/L 40-[address] [facility] Total proteinOrdered By: Kevan Jhaveri on 08-22-2024 Protein [Mass/Vol] 7.4 g/dL 5.9-8.4 [facility] Basic Metabolic Profile (BMP )on 07-22-2024 BUN Normal 4-[address] [facility] Comment on above: Result Comment: Canc elled via OM: Order cancelled - Patient discharged Performed By: #### L 500.3400 #### [facility] [address] [place], [address] BUN/CRE Normal 10-[address] [facility] Comment on above: Result Comment: Canc elled via OM: Order cancelled - Patient discharged Performed By: #### L 500.3400 #### [facility] [address] [place], [address] Calcium Normal 7.6-11.[address] [facility] Comment on above: Result Comment: Canc elled via OM: Order cancelled - Patient discharged Performed By: #### L 500.3400 #### [facility] [address] [place], [address] CL Normal 98-[address] [facility] Comment on above: Result Comment: Canc elled via OM: Order cancelled - Patient discharged Performed By: #### L 500.3400 #### [facility] [address] [place], [address] CO2 Normal 21.0-32.[address] [facility] Comment on above: Result Comment: Canc elled via OM: Order cancelled - Patient discharged Performed By: #### L 500.3400 #### [facility] [address] [place], [address] CREAT,SERUM Normal 0.70-1.[address] [facility] Comment on above: Result Comment: Canc elled via OM: Order cancelled - Patient discharged Performed By: #### L 500.3400 #### [facility] [address] [place], [address] eGFR Normal >[address] [facility] Comment on above: Result Comment: Canc elled via OM: Order cancelled - Patient discharged Performed By: #### L 500.3400 #### [facility] [address] [place], [address] GAP Normal 5-[address] [facility] Comment on above: Result Comment: Canc elled via OM: Order cancelled - Patient discharged Performed By: #### L 500.3400 #### [facility] [address] [place], [address] GLU Normal 70-[address] [facility] Comment on above: Result Comment: Canc elled via OM: Order cancelled - Patient discharged Performed By: #### L 500.3400 #### [facility] [address] [place], [address] Potassium Normal 3.3-5.[address] [facility] Comment on above: Result Comment: Canc elled via OM: Order cancelled - Patient discharged Performed By: #### L 500.3400 #### [facility] [address] [place], [address] Basic Metabolic Profile (BMP) Normal 133-[address] [facility] Comment on above: Result Comment: Canc elled via OM: Order cancelled - Patient discharged Performed By: #### L 500.3400 #### [facility] [address] [place], [address] CBC W/Diff, Automatedon 03-2 Absolute Neut Normal 2.0-7.[address] [facility] Comment on above: Result Comment: Canc elled via OM: Order cancelled - Patient discharged Performed By: #### L 500.3400 #### [facility] [address] [place], [address] HCT Normal 40-[address] [facility] Comment on above: Result Comment: Canc elled via OM: Order cancelled - Patient discharged Performed By: #### L 500.3400 #### [facility] [address] [place], [address] HGB Normal 13.0-16.[address] [facility] Comment on above: Result Comment: Canc elled via OM: Order cancelled - Patient discharged Performed By: #### L 500.3400 #### [facility] [address] [place], [address] MCH Normal 27.0-32.[address] [facility] Comment on above: Result Comment: Canc elled via OM: Order cancelled - Patient discharged Performed By: #### L 500.3400 #### [facility] [address] [place], [address] MCHC Normal 32-[address] [facility] Comment on above: Result Comment: Canc elled via OM: Order cancelled - Patient discharged Performed By: #### L 500.3400 #### [facility] [address] [place], [address] MCV Normal 80-[address] [facility] Comment on above: Result Comment: Canc elled via OM: Order cancelled - Patient discharged Performed By: #### L 500.3400 #### [facility] [address] [place], [address] NEUT% Normal 47-[address] [facility] Comment on above: Result Comment: Canc elled via OM: Order cancelled - Patient discharged Performed By: #### L 500.3400 #### [facility] [address] [place], [address] PLT Normal 150-[address] [facility] Comment on above: Result Comment: Canc elled via OM: Order cancelled - Patient discharged Performed By: #### L 500.3400 #### [facility] [address] [place], [address] RBC Normal 4.6-6.[address] [facility] Comment on above: Result Comment: Canc elled via OM: Order cancelled - Patient discharged Performed By: #### L 500.3400 #### [facility] [address] [place], [address] RDW CV Normal 11.6-14.[address] [facility] Comment on above: Result Comment: Canc elled via OM: Order cancelled - Patient discharged Performed By: #### L 500.3400 #### [facility] [address] [place], [address] RDW SD Normal 35.1-43.[address] [facility] Comment on above: Result Comment: Canc elled via OM: Order cancelled - Patient discharged Performed By: #### L 500.3400 #### [facility] [address] [place], [address] WBC Normal 4.4-11.[address] [facility] Comment on above: Result Comment: Canc elled via OM: Order cancelled - Patient discharged Performed By: #### L 500.3400 #### [facility] [address] [place], [address] Basic Metabolic Profile (BMP )on 07-21-2024 BUN Normal 4-[address] [facility] Comment on above: Result Comment: Canc elled via OM: Order cancelled - Patient discharged Performed By: #### L 100.0100, L500.2500 #### [facility] [address] [place], [address] BUN/CRE Normal 10-[address] [facility] Comment on above: Result Comment: Canc elled via OM: Order cancelled - Patient discharged Performed By: #### L 100.0100, L500.2500 #### [facility] [address] [place], [address] Calcium Normal 7.6-11.[address] [facility] Comment on above: Result Comment: Canc elled via OM: Order cancelled - Patient discharged Performed By: #### L 100.0100, L500.2500 #### [facility] [address] [place], [address] CL Normal 98-[address] [facility] Comment on above: Result Comment: Canc elled via OM: Order cancelled - Patient discharged Performed By: #### L 100.0100, L500.2500 #### [facility] [address] [place], [address] CO2 Normal 21.0-32.[address] [facility] Comment on above: Result Comment: Canc elled via OM: Order cancelled - Patient discharged Performed By: #### L 100.0100, L500.2500 #### [facility] [address] [place], [address] CREAT,SERUM Normal 0.70-1.[address] [facility] Comment on above: Result Comment: Canc elled via OM: Order cancelled - Patient discharged Performed By: #### L 100.0100, L500.2500 #### [facility] [address] [place], [address] eGFR Normal >[address] [facility] Comment on above: Result Comment: Canc elled via OM: Order cancelled - Patient discharged Performed By: #### L 100.0100, L500.2500 #### [facility] [address] [place], [address] GAP Normal 5-[address] [facility] Comment on above: Result Comment: Canc elled via OM: Order cancelled - Patient discharged Performed By: #### L 100.0100, L500.2500 #### [facility] [address] [place], [address] GLU Normal 70-[address] [facility] Comment on above: Result Comment: Canc elled via OM: Order cancelled - Patient discharged Performed By: #### L 100.0100, L500.2500 #### [facility] [address] [place], [address] Potassium Normal 3.3-5.[address] [facility] Comment on above: Result Comment: Canc elled via OM: Order cancelled - Patient discharged Performed By: #### L 100.0100, L500.2500 #### [facility] [address] [place], [address] Basic Metabolic Profile (BMP) Normal 133-[address] [facility] Comment on above: Result Comment: Canc elled via OM: Order cancelled - Patient discharged Performed By: #### L 100.0100, L500.2500 #### [facility] [address] [place], [address] CBC W/Diff, Automatedon 03-2 8-2025 Absolute Neut Normal 2.0-7.[address] [facility] Comment on above: Result Comment: Canc elled via OM: Order cancelled - Patient discharged Performed By: #### L 100.0100, L500.2500 #### [facility] [address] [place], [address] HCT Normal 40-[address] [facility] Comment on above: Result Comment: Canc elled via OM: Order cancelled - Patient discharged Performed By: #### L 100.0100, L500.2500 #### [facility] [address] [place], [address] HGB Normal 13.0-16.[address] [facility] Comment on above: Result Comment: Canc elled via OM: Order cancelled - Patient discharged Performed By: #### L 100.0100, L500.2500 #### [facility] [address] [place], [address] MCH Normal 27.0-32.[address] [facility] Comment on above: Result Comment: Canc elled via OM: Order cancelled - Patient discharged Performed By: #### L 100.0100, L500.2500 #### [facility] [address] [place], [address] MCHC Normal 32-[address] [facility] Comment on above: Result Comment: Canc elled via OM: Order cancelled - Patient discharged Performed By: #### L 100.0100, L500.2500 #### [facility] [address] [place], [address] MCV Normal 80-[address] [facility] Comment on above: Result Comment: Canc elled via OM: Order cancelled - Patient discharged Performed By: #### L 100.0100, L500.2500 #### [facility] [address] [place], [address] NEUT% Normal 47-[address] [facility] Comment on above: Result Comment: Canc elled via OM: Order cancelled - Patient discharged Performed By: #### L 100.0100, L500.2500 #### [facility] [address] [place], [address] PLT Normal 150-[address] [facility] Comment on above: Result Comment: Canc elled via OM: Order cancelled - Patient discharged Performed By: #### L 100.0100, L500.2500 #### [facility] [address] [place], [address] RBC Normal 4.6-6.[address] [facility] Comment on above: Result Comment: Canc elled via OM: Order cancelled - Patient discharged Performed By: #### L 100.0100, L500.2500 #### [facility] [address] [place], [address] RDW CV Normal 11.6-14.[address] [facility] Comment on above: Result Comment: Canc elled via OM: Order cancelled - Patient discharged Performed By: #### L 100.0100, L500.2500 #### [facility] [address] [place], [address] RDW SD Normal 35.1-43.[address] [facility] Comment on above: Result Comment: Canc elled via OM: Order cancelled - Patient discharged Performed By: #### L 100.0100, L500.2500 #### [facility] [address] [place], [address] WBC Normal 4.4-11.[address] [facility] Comment on above: Result Comment: Canc elled via OM: Order cancelled - Patient discharged Performed By: #### L 100.0100, L500.2500 #### [facility] [address] [place], [address] Absolute lymphocyte countOrd ered By: Ricco Luke on 07-20-2024 Lymphocytes Auto (Unsp spec) [#/Vol] 1.92 10*3/uL 0.83-4.[address] [facility] Absolute neutrophil countOrd ered By: Ricco Luke on 07-20-2024 Neutrophils (Bld) [#/Vol] 10.8 10*3/uL High 2.0-7.[address] [facility] Anion gap in Serum or Plasma Ordered By: Ricco Luke on 07-20-2024 Anion gap [Moles/Vol] 10 mmol/L 5-15 [facility] Automated lymphocyte count a s percentage of total leukocytesOrdered By: Ricco Luke on 07-20-2024 Lymphocytes/100 WBC Auto (Unsp spec) 13.7 % Low 19-[address] [facility] BUN/creatinine ratioOrdered By: Ricco Luke on 07-20-2024 Urea nitrogen/Creatinine [Mass ratio] 16.5 mg/mg 10-[address] [facility] Basic Metabolic Profile (BMP )on 07-20-2024 BUN/CRE 16.5 RATIO Normal 10-[address] [facility] Comment on above: Performed By: #### L 100.0100, L500.2500 #### [facility] [address] [place], [address] Calcium [Mass/Vol] 7.9 mg/dL Normal 7.6-11.0 [facility] Comment on above: Performed By: #### L 100.0100, L500.2500 #### [facility] [address] [place], [address] Chloride [Moles/Vol] 104 mmol/L Normal 98-[address] [facility] Comment on above: Performed By: #### L 100.0100, L500.2500 #### [facility] [address] [place], [address] CO2 [Moles/Vol] 23.1 mmol/L Normal 21.0-32.[address] [facility] Comment on above: Performed By: #### L 100.0100, L500.2500 #### [facility] [address] [place], [address] Creatinine [Mass/Vol] 0.87 mg/dL Normal 0.70-1.20 [facility] Comment on above: Performed By: #### L 100.0100, L500.2500 #### [facility] [address] [place], [address] ECRCL 93.36 ml/min Normal 50-[address] [facility] Comment on above: Performed By: #### L 100.0100, L500.2500 #### [facility] [address] [place], [address] GAP 10 Normal 5-[address] [facility] Comment on above: Performed By: #### L 100.0100, L500.2500 #### [facility] [address] [place], [address] GFR/1.73 sq M.predicted among non-blacks MDRD (S/P/Bld) [Vol rate/Area] 94 mL/min/{1.73_m2} Normal >[address] [facility] Comment on above: Result Comment: mL/m in/1.73m2 CKD-EPI Creatinine Equation (2020) Performed By: #### L 100.0100, L500.2500 #### [facility] [address] [place], [address] Glucose [Mass/Vol] 168 mg/dL High 70-99 [facility] Comment on above: Performed By: #### L 100.0100, L500.2500 #### [facility] [address] [place], [address] Potassium [Moles/Vol] 4.2 mmol/L Normal 3.3-5.1 [facility] Comment on above: Performed By: #### L 100.0100, L500.2500 #### [facility] [address] [place], [address] Sodium [Moles/Vol] 137 mmol/L Normal 133-145 [facility] Comment on above: Performed By: #### L 100.0100, L500.2500 #### [facility] [address] [place], [address] Urea nitrogen [Mass/Vol] 14 mg/dL Normal 4-[address] [facility] Comment on above: Performed By: #### L 100.0100, L500.2500 #### [facility] [address] [place], [address] Basophil percentageOrdered B y: Ricco Luke on 07-20-2024 Basophils/100 WBC (Bld) 0.1 % 0-1 [facility] CBC W/Diff, Automatedon 06-25 Absolute Lymph 1.92 X10 3/uL Normal 0.83-4.[address] [facility] Comment on above: Performed By: #### L 100.0100, L500.2500 #### [facility] [address] [place], [address] Absolute Neut 10.8 X10 3/uL High 2.0-7.[address] [facility] Comment on above: Performed By: #### L 100.0100, L500.2500 #### [facility] [address] [place], [address] Basophils/100 WBC (Bld) 0.1 % Normal 0-1 [facility] Comment on above: Performed By: #### L 100.0100, L500.2500 #### [facility] [address] [place], [address] Eosinophils/100 WBC (Bld) 0.1 % Normal 0-[address] [facility] Comment on above: Performed By: #### L 100.0100, L500.2500 #### [facility] [address] [place], [address] Erythrocyte distribution width (RBC) [Ratio] 13.0 % Normal 11.6-14.[address] [facility] Comment on above: Performed By: #### L 100.0100, L500.2500 #### [facility] [address] [place], [address] Hematocrit (Bld) [Volume fraction] 38.2 % Low 40-[address] [facility] Comment on above: Performed By: #### L 100.0100, L500.2500 #### [facility] [address] [place], [address] Hemoglobin (Bld) [Mass/Vol] 13.2 g/dL Normal 13.0-16.[address] [facility] Comment on above: Performed By: #### L 100.0100, L500.2500 #### [facility] [address] [place], [address] IG% 0.500 Normal 0.0-0.[address] [facility] Comment on above: Result Comment: IG% - Immature Granulocytes (promyelocytes, myelocytes and metamyelocytes) > 1% indicates that a LEFT SHIFT is Present. Performed By: #### L 100.0100, L500.2500 #### [facility] [address] [place], [address] Lymphocytes/100 WBC (Bld) 13.7 % Low 19-[address] [facility] Comment on above: Performed By: #### L 100.0100, L500.2500 #### [facility] [address] [place], [address] MCH (RBC) [Entitic mass] 29.9 pg Normal 27.0-32.[address] [facility] Comment on above: Performed By: #### L 100.0100, L500.2500 #### [facility] [address] [place], [address] MCHC (RBC) [Mass/Vol] 34.6 g/dL Normal 32-36 [facility] Comment on above: Performed By: #### L 100.0100, L500.2500 #### [facility] [address] [place], [address] MCV (RBC) [Entitic vol] 86.4 fL Normal 80-94 [facility] Comment on above: Performed By: #### L 100.0100, L500.2500 #### [facility] [address] [place], [address] Monocytes/100 WBC (Bld) 9.0 % Normal 0-10 [facility] Comment on above: Performed By: #### L 100.0100, L500.2500 #### [facility] [address] [place], [address] Neutrophils/100 WBC (Bld) 76.6 % High 47-[address] [facility] Comment on above: Performed By: #### L 100.0100, L500.2500 #### [facility] [address] [place], [address] Nucleated RBC (Bld) [#/Vol] 0 10*3/uL Normal 0-[address] [facility] Comment on above: Performed By: #### L 100.0100, L500.2500 #### [facility] [address] [place], [address] Platelet mean volume (Bld) [Entitic vol] 9.3 fL Normal 6.2-12.[address] [facility] Comment on above: Performed By: #### L 100.0100, L500.2500 #### [facility] [address] [place], [address] Platelets (Bld) [#/Vol] 203 10*3/uL Normal 150-[address] [facility] Comment on above: Performed By: #### L 100.0100, L500.2500 #### [facility] [address] [place], [address] RBC (Bld) [#/Vol] 4.42 10*6/uL Low 4.6-6.2 [facility] Comment on above: Performed By: #### L 100.0100, L500.2500 #### [facility] [address] [place], [address] RDW SD 41.0 fl Normal 35.1-43.[address] [facility] Comment on above: Performed By: #### L 100.0100, L500.2500 #### [facility] [address] [place], [address] WBC (Bld) [#/Vol] 14.1 10*3/uL High 4.4-11.0 [facility] Comment on above: Performed By: #### L 100.0100, L500.2500 #### [facility] [address] [place], [address] Carbon dioxide, total [Moles /volume] in Central venous bloodOrdered By: Ricco Luke on 07-20-2024 CO2 [Moles/Vol] 23.1 mmol/L 21.0-32.[address] [facility] Chloride assayOrdered By: Ana Luisa Luke on 07-20-2024 Chloride [Moles/Vol] 104 mmol/L 98-[address] [facility] Eosinophil percentageOrdered By: Ricco Luke on 07-20-2024 Eosinophils/100 WBC (Bld) 0.1 % 0-[address] [facility] Erythrocyte distribution wid th ratioOrdered By: Ricco Luke on 07-20-2024 Erythrocyte distribution width (RBC) [Ratio] 13.0 % 11.6-14.[address] [facility] Erythrocyte distribution wid th standard deviationOrdered By: Ricco Luke on 07-20-2024 Erythrocyte distribution width (RBC) [Entitic vol] 41.0 fL 35.1-43.[address] [facility] Erythrocyte distribution width (RBC) [Ratio] 41.0 fl 35.1-43.[address] [facility] Estimation of creatinine cr aranceOrdered By: Ricco Luke on 07-20-2024 Estimated Creatinine Clearance Calc 93.36 ml/min 50-[address] [facility] GFR/1.73 sq M.predicted bradley g non-blacks MDRD (S/P/Bld) [Vol rate/Area]Ordered By: Ricco Luke on 07-20-2024 Estimated GFR (MDRD) Non-Af Amer 94 >[address] [facility] Comment on above: mL/min/1.73m2 CKD-EP I Creatinine Equation (2020) Glomerular filtration rate ( GFR) estimation/1.73 sq m using serum, plasma, or whole bOrdered By: Ricco Luke on 07-20-2024 GFR/1.73 sq M.predicted among non-blacks MDRD (S/P/Bld) [Vol rate/Area] 94 mL/min/{1.73_m2} >[address] [facility] Comment on above: mL/min/1.73m2 CKD-EP I Creatinine Equation (2020) Hematocrit Auto (Bld) [Volum e fraction]Ordered By: Ricco Luke on 07-20-2024 Hematocrit (Bld) [Volume fraction] 38.2 % Low 40-[address] [facility] Hemoglobin measurementOrdere d By: Ricco Luke on 07-20-2024 Hemoglobin (Bld) [Mass/Vol] 13.2 g/dL 13.0-16.[address] [facility] Immature granulocytes/100 WB C Auto (Bld)Ordered By: Ricco Luke on 07-20-2024 Immature granulocytes/100 WBC (Bld) 0.500 % 0.0-0.[address] [facility] Comment on above: IG% - Immature Granu locytes (promyelocytes, myelocytes and metamyelocytes) > 1% indicates that a LEFT SHIFT is Present. Lymphocytes Auto (Unsp spec) [#/Vol]Ordered By: Ricco Luke on 07-20-2024 Lymphocytes (Bld) [#/Vol] 1.92 10*3/uL 0.83-4.[address] [facility] Lymphocytes/100 WBC Auto (Un sp spec)Ordered By: Ricco Luke on 07-20-2024 Lymphocytes/100 WBC (Bld) 13.7 % Low 19-[address] [facility] MCV (mean corpuscular volume ) determinationOrdered By: Ricco Luke on 07-20-2024 MCV (RBC) [Entitic vol] 86.4 fL 80-94 [facility] Mean corpuscular hemoglobin (MCH) determinationOrdered By: Ricco Luke on 07-20-2024 MCH (RBC) [Entitic mass] 29.9 pg 27.0-32.[address] [facility] Mean corpuscular hemoglobin concentration (MCHC) determinationOrdered By: Ricco Luke on 07-20-2024 MCHC (RBC) [Mass/Vol] 34.6 g/dL 32-36 [facility] Mean platelet volume determi nationOrdered By: Ricco Luke on 07-20-2024 Platelet mean volume (Bld) [Entitic vol] 9.3 fL 6.2-12.[address] [facility] Monocyte percentageOrdered B y: Ricco Luke on 07-20-2024 Monocytes/100 WBC (Bld) 9.0 % 0-10 [facility] Neutrophil percentageOrdered By: Ricco Luke on 07-20-2024 Neutrophils/100 WBC (Bld) 76.6 % High 47-[address] [facility] Nucleated red blood cell per centageOrdered By: Ricco Luke on 07-20-2024 Nucleated RBC/100 WBC (Bld) [Ratio] 0 % 0-[address] [facility] Platelet countOrdered By: Ana Luisa Luke on 07-20-2024 Platelets (Bld) [#/Vol] 203 10*3/uL 150-[address] [facility] Potassium (Unsp spec) [Mass/ Vol]Ordered By: Ricco Luke on 07-20-2024 Potassium [Moles/Vol] 4.2 mmol/L 3.3-5.1 [facility] Potassium measurement (mass/ volume)Ordered By: Ricco Luke on 07-20-2024 Potassium (Unsp spec) [Mass/Vol] 4.2 mmol/L 3.3-5.[address] [facility] RBC Auto (Bld) [#/Vol]Ordere d By: Ricco Luke on 07-20-2024 RBC (Bld) [#/Vol] 4.42 10*6/uL Low 4.6-6.2 [facility] Serum creatinine measurement (mass/volume)Ordered By: Ricco Luke on 07-20-2024 Creatinine [Mass/Vol] 0.87 mg/dL 0.70-1.20 [facility] Serum glucose measurement (m ass/volume)Ordered By: Ricco Luke on 07-20-2024 Glucose [Mass/Vol] 168 mg/dL High 70-99 [facility] Serum or plasma calcium tavia urement (mass/volume)Ordered By: Ricco Luke on 07-20-2024 Calcium [Mass/Vol] 7.9 mg/dL 7.6-11.0 [facility] Serum or plasma urea nitroge n measurement (mass/volume)Ordered By: Ricco Luke on 07-20-2024 Urea nitrogen [Mass/Vol] 14 mg/dL 4-[address] [facility] Sodium levelOrdered By: Ricco Luke on 07-20-2024 Sodium [Moles/Vol] 137 mmol/L 133-145 [facility] White blood cell (WBC) count Ordered By: Ricco Luke on 07-20-2024 WBC (Bld) [#/Vol] 14.1 10*3/uL High 4.4-11.0 [facility] Bedside Glucoseon 07-19-2024 [place] GLU 137 mg/dL High 74-[address] [facility] Comment on above: Result Comment: MAIKOL ODEN OF PATIENT CARE PER NURSING PROTOCOL Performed By: #### L 501.080 #### [facility] [address] [place], [address] Discharge Instructionon 06-25 Discharge Instruction [facility] Medical Records Department [address] [place] [address] Instructions for Home/Discharge Instructions 07/19/24 1106 MR#: [id number] Acct: [id number] Name: ROBERT MORALEZ Rep #: [id number] : [id number] From: Ricco Luke MD PCP: Dr. Lopez Lyle MD Status:[facility] Discharge Instructions Diet Discharge Diet: No restrictions DC O2, CPAP, BIPAP needs Home O2 Discharge instructions: No Dressing / Incision Discharge Activity: May Not Drive (while taking narcotic pain medications.) Dressing / Incision Call your doctor if your incision/area has: Continuous Slow Oozing and Sudden Increased Bleeding Call your doctor if you observe: Fever of 101 or Higher and Uncontrolled pain Suture Line Care: Avoid Pulling/Pushing and Avoid Pinching/Bending Catheter: Nice to leg bag and Nice to large bag Drain: [place] Follow Up Care Please Follow Up With: Ricco Luke MD When: Call [phone] for an appointment Test Results: Test results from this visit will be discussed in further detail at your follow-up appointment, if applicable. Discharge Plan Admission Primary Reason for Your Visit: Robotic radical prostatectomy Attending Provider: Ricco Luke Primary Care Provider: Lopez Lyle Instructions Print Language: Trinidadian Discharge Orders/Prescriptions Prescriptions: New docusate sodium [Colace] 100 mg capsule 100 mg PO BID Qty: 20 0RF ciprofloxacin HCl 500 mg tablet 500 mg PO BID Qty: 20 0RF oxycodone 5 mg tablet 5 mg PO Q6H PRN (Reason: pain) 7 Days Qty: 14 0RF Continued Taltz Autoinjector 80 mg/mL auto-injector 80 mg subcut QMONTH ropinirole 0.25 mg tablet 0.25 mg PO QHS pravastatin 20 mg tablet 20 mg PO DAILY metformin 500 mg tablet extended release 24 hr 1,000 mg PO BID ramipril 5 mg capsule 5 mg PO DAILY Jardiance 25 mg tablet 25 mg PO DAILY multivitamin [Daily Multi-Vitamin] Tablet 1 tab PO DAILY ascorbic acid (vitamin C) [Vitamin C] 500 mg tablet 500 mg PO DAILY glucosamine-chondroitin 900 mg tablet 900 mg PO BID omega 9-kgt-oqd-fish oil [Fish Oil] 1,200 (144-216) mg capsule 1 cap PO DAILY calcium citrate 150 mg capsule 150 mg PO DAILY cholecalciferol (vitamin D3) [Vitamin D3] 25 mcg (1,000 unit) tablet 25 mcg PO DAILY saw palmetto 160 mg capsule 320 mg PO BID Rx Instructions: give with food (meal/snack) Other Ambulatory Orders: 12 Lead EKG (Routine) Location: None Selected Ordered By: Dr. Jules Us Referrals / Follow Up: Ricco Luke MD [Med Staff - Active Staff] - Lopez Lyle MD [Primary Care Provider] - Disposition Disposition (needs filled in before D/C Order can be placed): Home, Self Care 07/19/24 1106 Ricco Luke MD CC: Dr. Lopez Lyle MD Signed Normal [facility] Gl[facility] measurement at [facility] deOrdered By: Ricco Luek on 07-19-2024 Bedside Glucose (Misc Panel) 137 mg/dL High 74-[address] [facility] Comment on above: MANAGEMENT OF PATIEN T CARE PER NURSING PROTOCOL Glucose [Mass/Vol] 137 mg/dL High 74-106 [facility] Comment on above: MANAGEMENT OF PATIEN T CARE PER NURSING PROTOCOL Immunohistochemical Stainson 07-19-2024 Immunohistochemical Stains Patient Age/Sex Location Account Attending Physician ROBERT MORALEZ 69/M MS3 [id number] Dr. Ricco Luke MD Specimen: [id number] Received: 07/19/24 Status: RACHANA Kimberly Num: [id number] Spec Type: PROSTATE Subm Dr: Dr. Ricco Luke MD HEADER OPERATION: Laparoscopic robotic radical prostatectomy PRE-OP DIAGNOSIS: Elevated prostate specific antigen, malignant neoplasm of prostate TISSUE SUBMITTED: A- Prostate, B- Bladder neck MICROSCOPIC DIAGNOSIS A. PROSTATE, RADICAL PROSTATECTOMY: * ADENOCARCINOMA CUATE SCORE 3+4=7 (PATTERN 4=46%). * RIGHT AND LEFT ANTERIOR MARGINS INVOLVED FROM [employer]PEX TO BLADDER NECK LEVEL. * SEE SYNOPTIC REPORT. B. URINARY BLADDER NECK, EXCISION: * NEGATIVE FOR MALIGNANCY. COMMENT SYNOPTIC REPORT FOR CARCINOMA OF THE PROSTATE: Procedure:???RADICAL PROSTATECTOMY Histologic type:???ACINAR Cub Run score:???3+4=7 Grade group (1-5):???2 % pattern 4 in Cuate 3+4=7: 46% pattern 4 % tumor:???approximately 40% of the specimen ??? Tumor extent (n=no, y=yes, na=not applicable):? Extraprostatic extension (f=focal, m=multifocal):???NA ? Location of extraprostatic extension:???NA ? Microscopic invasion of bladder neck:???N ? Seminal vesicle muscle wall invasion:???N ??? Margins (n=negative, p=positive, na=not applicable):???P ? Distance of tumor to closest margin (cm):???0 ? Longest contiguous positive margin (cm):???1.5 cm (right apical) ? Positive margin location (apex, bladder neck, mid):???apex, mid, bladder neck (part A) ??? Regional lymph nodes (na=not applicable): NA ? Number examined:???0 ? Number positive:???NA ??? Additional findings (eg: lymphovascular invasion, therapy effect, cribriform glands, intraductal carcinoma):???cribriform glands present, focal perineural invasion pTNM:???pT2 pNX Comments: IHC utilized in the assessment: 34BE12 (A1,2,5,7,8,10,17,19,20) Pancytokeratin (B1,2) Patient Age/Sex Location Account Attending Physician ROBERT MORALEZ 69/M MS3 [id number] Dr. Ricco Luke MD ??? Grade Group Definitions 1=Cuate 5-6, 2=Cuate 3+4=7; 3=Cuate 4+3=7, 4=Cub Run 8; 5=Cuate 9-10 ??? Pathologic Staging Definitions (pTNM) Primary Tumor (pT) pT2:? Organ confined pT3a:? Extraprostatic extension (focal is <1 high power field in 1-2 slides, multifocal is more) or Microscopic invasion of bladder neck (in thick muscle, no adjacent non-neoplastic glands) pT3b:? Seminal vesicle muscle wall invasion pT4:? Invasion of external sphincter, rectum, bladder, levator muscles or pelvic wall Regional Lymph Nodes (pN) (periprostatic, pelvic, hypogastric, obturator, fossa of Marcille, internal iliac, external iliac, sacral) pNX:? Cannot be assessed pN0:? No regional lymph node metastasis pN1:? Regional lymph node metastasis Distant Metastasis (pM) pM1a:? Metastasis in non-regional lymph node (ex: aortic, common iliac, caval, deep inguinal, superficial inguinal, retroperitoneal) pM1b:? Metastasis in bone pM1c:? Metastasis in other distant site ??? The above synoptic report complies, in slightly modified form, with the guidelines of the [employer] and the Association of Directors of Anatomic and Surgical Pathology for the reporting of cancer specimens ??? MICROSCOPIC DESCRIPTION Slides are reviewed. Matched controls reacted appropriately. GROSS DESCRIPTION Specimen A-received in formalin labeled, Robert Moralez, and designated prostate, is a prostate gland with attached bilateral seminal vesicles and segments of vas deferens. The specimen weighs 48 g. The prostate gland measures 4.6 cm from right to left, 3.9 cm from anterior to posterior, and 3.5 cm from the apex to the bladder neck resection margin. The right and left seminal vesicles measure 3.5 x 2.0 x 1.1 cm and 3.5 x 1.5 x 0.7 cm respectively. The right and left segments of vas deferens measure 3.5 cm long by 0.6 cm in diameter and 3.2 cm long by 0.6 cm in diameter respectively. The prostatic capsule is pink-hernandez, slightly ragged, intact, and otherwise unremarkable. The right half of the sp (more content not included)... Normal [facility] Comment on above: Performed By: #### L 500.1227 #### [facility] Laboratory [address] [place], [address] MR/POSTOP.Baldemar 07-19-2024 MR/POSTOP.[facility] Medical Records Department [address] [place] [address] Anesthesia Postop Eval I 07/19/24 1146 MR#: [id number] Acct: [id number] Name: ROBERT MOARLEZ Rep #: [id number] : 1955 69 From: Valencia Flor CRNA PCP: Dr. Lopez Lyle MD Status:REG SD Y Race: C Location: [place] [address] Anesthesia: Postop Eval I Current Vital Signs Temperature: 97.2 F Pulse Rate: 74 Blood Pressure: 99/55 Respiratory Rate: 14 Pulse Ox: 98 Oxygen Delivery Method: Simple Mask Assessment Airway patent: Yes Spontaneous unlabored respirations: Yes Mental status: Awake nausea: No Vomiting: No Anesthesia Complication: No Fluid Hydration Crystalloid volume administer (ml): 1,900 Total IV fluid infused: 1,900 Progress Note Anesthesia document: Postop Eval 1 completed: Yes 07/19/24 1147 Date Valencia Flor DISTRICT SALES LEADER Cosigner Signature: Date CC: Signed Normal [facility] MR/[id number] 07-19-2024 [facility] Medical Records Department [facility] [place] [address] Anesthesia Postop Eval II 07/19/24 1150 MR#: [id number] Acct: [id number] Name: ROBERT MORALEZ AMANDA Rep #: [id number] : 1955 69 From: Jules Us MD PCP: Dr. Lopez Lyle MD Status:REG SDC Y Race: C Location: [place] [address] Anesthesia Postop Eval I Sum Postop Eval Completion status Anesthesia document: Postop Eval 1 completed: Yes Anesthesia Postop Eval I Summary Anesthesia Postop Eval I Summary: Anesthesia Postop Eval I: Assessment Summary Airway patent Yes 07/19/24 11:47 DISTRICT SALES LEADER.HBARR Spontaneous unlabored Yes 07/19/24 11:47 DISTRICT SALES LEADER.HBARR respirations Mental status Awake 07/19/24 11:47 DISTRICT SALES LEADER.HBARR nausea No 07/19/24 11:47 DISTRICT SALES LEADER.HBARR Vomiting No 07/19/24 11:47 DISTRICT SALES LEADER.HBARR Anesthesia Postop Eval I: Fluid Summary Crystalloid volume administer 1,900 07/19/24 11:47 DISTRICT SALES LEADER.HBARR (ml) Colloids volume administered ( ml) Blood Product volume administered (ml) Total IV fluid infused 1,900 07/19/24 11:47 DISTRICT SALES LEADER.HBARR Anesthesia Postop Eval I: Summary Notes Anesthesia Complication No 07/19/24 11:47 DISTRICT SALES LEADER.HBARR Anesthesia Complication Comment: Post-operative progress note Anesthesia: Postop Eval II Evaluation Mental status: Awake Pain Level: 2 nausea: No Vomiting: No 07/19/24 1151 Date Jules Us MD Cosigner Signature: Date CC: Signed Normal [facility] Operative Reporton 5 Operative Report [facility] Medical Records Department [address] [place] [id number] Operative Report 07/19/24 1106 MR#: [id number] Acct: [id number] Name: ROBERT MORALEZ Rep #: [id number] : 1955 69 From: Ricco Luke MD PCP: Dr. Lopez Lyle MD Status:REG [facility] Location: [place] [address] Operative Report (Standard) Operative Information Date of Procedure: 07/19/24 Pre-Operative Diagnosis: prostate cancer Post-Operative Diagnosis: same Surgery/Procedure Performed: Robotic radical prostatectomy Retzius sparing approach laparoscopic robotic assisted erection shop supervisor: No Type of Anesthesia: General RN Documented Start/Stop Times: Operation Date: 07/19/24 07:30 Case Time Into Pre-Op 07/19/24 06:00 Out of Pre-Op 07/19/24 07:21 Anesthesia Start 07/19/24 07:26 Into Room 07/19/24 07:26 Procedure Start 07/19/24 07:53 Procedure Start Time: 07:53 Procedure Stop Time: 11:09 Select all DRAINS/GRAFTS/IMPLANTS that apply: Drains Drain details: nice 18 Estimated Blood Loss: 250 Specimen collected: Yes Description of specimen(s) removed: prostate, bladder neck tissue Description of surgery: Patient was identified in the preoperative area and marked and seen we talked about surgery remove his prostate was involved and potential outcomes. We talked about the potential to lose erections and also have bladder control problems after surgery including stress incontinence. Patient's questions were addressed and he signed consent form and we will plan to proceed today with a robotic radical prostatectomy Retzius. Approach with bilateral lymph node dissection. Patient is taken back to the operating room after smooth induction of anesthesia he was placed upon the table make sure all his pressure points were padded. We used the pink foam and pink foam secure system to secure him on the table he was placed in dorsolithotomy position with the legs in stirrups making sure that all his pressure points were padded we did a tilt test to make sure he did not slide in the bed. And the patient was placed flat in the bed his penis and testicles and pelvic area were prepped and in the abdomen was also prepped with chlorhexidine prep. Patient's abdomen and penis and testicles were then draped in usual sterile fashion. I then identified the umbilicus infiltrated right above the umbilicus and a small incision, probed the wound with a hemostat identified the fascia and then used a Veress needle to advance through the fascia into the peritoneal cavity. We then filled the peritoneal cavity CO2 gas and obtained a pneumoperitoneum. I then placed my first trocar into the abdomen this was to be the camera trocar. After I placed the camera trocar then the other trocars were placed under direct visualization placed a right arm trocar to left arm trocars and air seal port and a suction trocar for my licensed loan officer assistant. We then placed the patient in full Trendelenburg and the robot was then docked. Then using a 30 degree lens we placed the instruments into the abdomen under direct visualization and started by first mobilizing the sigmoid colon. The sigmoid colon and the white line of Toldt was incised and mobilized off the lateral sidewall to allow full retraction of the colon from the pelvis. Once this was fully accomplished then I was able to get into the posterior space behind the bladder we then identified the vas deferens on the right side. I then traced the right vas deferens all the way down to the prostate we incised the peritoneum over the prostate identified the right vas deferens and then the left vas deferens. Identified the several vesicles below this. I then went below this and identified Denonvilliers' fascia and incised the Denonvilliers' fascia in the midline and then created a space between the rectum and the prostate I then dissected all the way to the apex. We then flipped the camera 30 degrees up to get a bit better visualization of the prostate. I then very gently dissected the Denonvilliers' fascia off the posterior aspect of the prostate all the way to the apex of sliding the tissue off the prostate to get to the semipseudocapsule on the prostate with unable to get to the lateral edge of the prostate and then to release neurovascular bundles on both sides I then started between the apex of the prostate to release neurovascular bundle to peel the neurovascular 1 off the prostate making sure I stayed around the apex without violating the prostate capsule I then worked my way back toward the base of the prostate releasing the neurovascular under posteriorly back to the base of the prostate. This was done on the right side we did the same procedure in the left side releasing the neurovascular bundle posteriorly all the way back to the base of the prostate. I then pulled out and look at the vas deferens some vesicles I transected the va (more content not included)... Normal [facility] Electrocardiogram reportOrde red By: Cuong Toro on 06-02-2024 EKG study [facility] Cardiovascular Services [address] [place] [address] 12 Lead EKG 06/01/24 1025 MR#: [id number] Acct: [id number] Name: ROBERT MORALEZ Rep #:[id number] : 1955 68 From: Cuong Toro MD Attending Dr: Dr. Ricco Luke MD Status: PRE [facility] Ordering Dr: Jules Us MD Date: 10/18 Location: [facility] Sex: M C Admitted: Test Reason : PREOP Blood Pressure : */* mmHG Vent. Rate : 71 BPM Atrial Rate : 71 BPM P-R Int : 136 ms QRS Dur : 98 ms QT Int : 382 ms P-R-T Axes : 10 76 56 degrees QTcB Int : 415 ms Normal sinus rhythm Normal ECG Confirmed by CUONG TORO MD ([id number]), book editor ISSA SUTTON ([id number]) on 06/02/2024 7:48:07 AM Referred By: Ricco Luke Confirmed By: CUONG TORO MD 06/02/24747 Date _ Cuong Toro MD CC: Dr. Jules Us MD; Dr. Lopez Lyle MD; Dr. Ricco Luke MD ~ Signed [facility] Work Phone: 12 Lead EKGon 06-01-2024 12 Lead EKG [facility] Cardiovascular Services [address] [place] [address] 12 Lead EKG 06/01/24 1025 MR#: [id number] Acct: [id number] Name: ROBERT MORALEZ Rep #: [id number] : 1955 68 From: Cuong Toro MD Attending Dr: Dr. Ricco Luke MD Status: PRE SDC Ordering Dr: Jules Us MD Date: 06/01/24 Location: [facility] Sex: M C Admitted: Test Reason : PREOP Blood Pressure : */* mmHG Vent. Rate : 71 BPM Atrial Rate : 71 BPM P-R Int : 136 ms QRS Dur : 98 ms QT Int : 382 ms P-R-T Axes : 10 76 56 degrees QTcB Int : 415 ms Normal sinus rhythm Normal ECG Confirmed by CUONG TORO MD ([id number]), book editor ISSA SUTTON ([id number]) on 06/02/2024 7:48:07 AM Referred By: Ricco Luke Confirmed By: CUONG TORO MD 06/02/24747 Date Cuong Toro MD CC: Dr. Jules Us MD; Dr. Lopez Lyle MD; Dr. Ricco Luke MD Signed Normal [facility] Albumin to globulin ratioOrd ered By: Lopez Lyle on 06-01-2024 Albumin/Globulin [Mass ratio] 1.1 {ratio} 0.9-2.[address] [facility] Basic Metabolic Profile (BMP )on 06-01-2024 BUN Normal 7-[address] [facility] Comment on above: Result Comment: ADDE D TO MOTHER ORDER Performed By: #### L 3400.8000 #### [facility] Laboratory [address] [place], [address] BUN/CRE Normal 10-[address] [facility] Comment on above: Result Comment: ADDE D TO MOTHER ORDER Performed By: #### L 3400.8000 #### [facility] Laboratory [address] [place], [address] CA,Total Normal 8.5-10.[address] [facility] Comment on above: Result Comment: ADDE D TO MOTHER ORDER Performed By: #### L 3400.8000 #### [facility] Laboratory [address] [place], [address] CL Normal 98-[address] [facility] Comment on above: Result Comment: ADDE D TO MOTHER ORDER Performed By: #### L 3400.8000 #### [facility] Laboratory [address] [place], [address] CO2 Normal 21.0-32.[address] [facility] Comment on above: Result Comment: ADDE D TO MOTHER ORDER Performed By: #### L 3400.8000 #### [facility] Laboratory [address] [place], [address] CREAT,SERUM Normal 0.70-1.[address] [facility] Comment on above: Result Comment: ADDE D TO MOTHER ORDER Performed By: #### L 3400.8000 #### [facility] Laboratory [address] [place], [address] EST GFR Normal >[address] [facility] Comment on above: Result Comment: ADDE D TO MOTHER ORDER Performed By: #### L 3400.8000 #### [facility] Laboratory [address] [place], [address] EST GFR - AA Normal >[address] [facility] Comment on above: Result Comment: ADDE D TO MOTHER ORDER Performed By: #### L 3400.8000 #### [facility] Laboratory [address] [place], [address] GAP Normal 5-[address] [facility] Comment on above: Result Comment: ADDE D TO MOTHER ORDER Performed By: #### L 3400.8000 #### [facility] Laboratory [address] [place], [address] GLU Normal 74-[address] [facility] Comment on above: Result Comment: ADDE D TO MOTHER ORDER Performed By: #### L 3400.8000 #### [facility] Laboratory [address] [place], [address] Potassium Normal 3.5-5.[address] [facility] Comment on above: Result Comment: ADDE D TO MOTHER ORDER Performed By: #### L 3400.8000 #### [facility] Laboratory [address] [place], [address] Basic Metabolic Profile (BMP) Normal 136-[address] [facility] Comment on above: Result Comment: ADDE D TO MOTHER ORDER Performed By: #### L 3400.8000 #### [facility] Laboratory [address] [place], [address] Bilirubin Test strip Ql (U)O rdered By: Lopez Lyle on 06-01-2024 Bilirubin Ql (U) Negative Negative [facility] Bilirubin, totalOrdered By: Lopez Lyle on 06-01-2024 Bilirubin [Mass/Vol] 0.60 mg/dL 0.20-1.[address] [facility] Comment on above: For patients on eltr ombopag therapy, use of Dimension [place] TBIL is not recommended. CBC W/Diff, Automatedon Absolute Lymph 1.88 X10 3/uL Normal 0.83-4.[address] [facility] Comment on above: Order Comment: PRONO ORDERED CBC, BMP, AND [id number] ORDERED CBCD,CMP,LIPID,TSH,T4F,A1C,MIACRE,UACOrder Date: 01/20/24Order Info: 0184-1 - CBCD Performed By: #### L 501.9940 #### [facility] Laboratory [address] [place], [place], [address] (407) Absolute Neut 3.9 X10 3/uL Normal 2.0-7.[address] [facility] Comment on above: Order Comment: PRONO ORDERED CBC, BMP, AND [id number] ORDERED CBCD,CMP,LIPID,TSH,T4F,A1C,MIACRE,UACOrder Date: 01/20/24Order Info: 0184-1 - CBCD Performed By: #### L 501.9940 #### [facility] Laboratory [address] [place], [place], [address] (441) Basophils/100 WBC (Bld) 0.5 % Normal 0-1 [facility] Comment on above: Order Comment: PRONO ORDERED CBC, BMP, AND [id number] ORDERED CBCD,CMP,LIPID,TSH,T4F,A1C,MIACRE,UACOrder Date: 01/20/24Order Info: 0184-1 - CBCD Performed By: #### L 501.9940 #### [facility] Laboratory [address] [place], [address] Eosinophils/100 WBC (Bld) 1.7 % Normal 0-[address] [facility] Comment on above: Order Comment: PRONO ORDERED CBC, BMP, AND [id number] ORDERED CBCD,CMP,LIPID,TSH,T4F,A1C,MIACRE,UACOrder Date: 01/20/24Order Info: 0184-1 - CBCD Performed By: #### L 501.9940 #### [facility] Laboratory [address] [place], [place], [id number] Erythrocyte distribution width (RBC) [Ratio] 12.6 % Normal 11.6-14.[address] [facility] Comment on above: Order Comment: PRONO ORDERED CBC, BMP, AND [id number] ORDERED CBCD,CMP,LIPID,TSH,T4F,A1C,MIACRE,UACOrder Date: 01/20/24Order Info: 0184-1 - CBCD Performed By: #### L 501.9940 #### [facility] Laboratory [address] [place], [place], [address] Hematocrit (Bld) [Volume fraction] 47.1 % Normal 40-[address] [facility] Comment on above: Order Comment: PRONO ORDERED CBC, BMP, AND [id number] ORDERED CBCD,CMP,LIPID,TSH,T4F,A1C,MIACRE,UACOrder Date: 01/20/24Order Info: 0184-1 - CBCD Performed By: #### L 501.9940 #### [facility] Laboratory [address] [place], [place], [address] Hemoglobin (Bld) [Mass/Vol] 16.6 g/dL High 13.0-16.[address] [facility] Comment on above: Order Comment: PRONO ORDERED CBC, BMP, AND [id number] ORDERED CBCD,CMP,LIPID,TSH,T4F,A1C,MIACRE,UACOrder Date: 01/20/24Order Info: 0184-1 - CBCD Performed By: #### L 501.9940 #### [facility] Laboratory [address] [place], [place], [address] IG% 0.300 Normal 0.0-0.[address] [facility] Comment on above: Order Comment: PRONO ORDERED CBC, BMP, AND [id number] ORDERED CBCD,CMP,LIPID,TSH,T4F,A1C,MIACRE,UACOrder Date: 01/20/24Order Info: 018- - CBCD Result Comment: IG% - Immature Granulocytes (promyelocytes, myelocytes and metamyelocytes) > 1% indicates that a LEFT SHIFT is Present. Performed By: #### L 501.9940 #### [facility] Laboratory [address] [place], [address] Lymphocytes/100 WBC (Bld) 29.0 % Normal 19-[address] [facility] Comment on above: Order Comment: PRONO ORDERED CBC, BMP, AND [id number] ORDERED CBCD,CMP,LIPID,TSH,T4F,A1C,MIACRE,UACOrder Date: 01/20/24Order Info: [id number] - CBCD Performed By: #### L 501.9940 #### [facility] Laboratory [address] [place], [address] MCH (RBC) [Entitic mass] 29.7 pg Normal 27.0-32.[address] [facility] Comment on above: Order Comment: PRONO ORDERED CBC, BMP, AND [id number] ORDERED CBCD,CMP,LIPID,TSH,T4F,A1C,MIACRE,UACOrder Date: 01/20/24Order Info: [id number] - CBCD Performed By: #### L 501.9940 #### [facility] Laboratory [address] [place], [address] MCHC (RBC) [Mass/Vol] 35.2 g/dL Normal 32-36 [facility] Comment on above: Order Comment: PRONO ORDERED CBC, BMP, AND [id number] ORDERED CBCD,CMP,LIPID,TSH,T4F,A1C,MIACRE,UACOrder Date: 01/20/24Order Info: 018- - CBCD Performed By: #### L 501.9940 #### [facility] Laboratory [address] [place], [address] MCV (RBC) [Entitic vol] 84.4 fL Normal 80-94 [facility] Comment on above: Order Comment: PRONO ORDERED CBC, BMP, AND [id number] ORDERED CBCD,CMP,LIPID,TSH,T4F,A1C,MIACRE,UACOrder Date: 01/20/24Order Info: 0184-1 - CBCD Performed By: #### L 501.9940 #### [facility] Laboratory [address] [place], [place], [phone] (154) Monocytes/100 WBC (Bld) 9.0 % Normal 0-10 [facility] Comment on above: Order Comment: PRONO ORDERED CBC, BMP, AND [id number] ORDERED CBCD,CMP,LIPID,TSH,T4F,A1C,MIACRE,UACOrder Date: 01/20/24Order Info: 0184-1 - CBCD Performed By: #### L 501.9940 #### [facility] Laboratory [address] [place], [place], [phone] (560) Neutrophils/100 WBC (Bld) 59.5 % Normal 47-[address] [facility] Comment on above: Order Comment: PRONO ORDERED CBC, BMP, AND [id number] ORDERED CBCD,CMP,LIPID,TSH,T4F,A1C,MIACRE,UACOrder Date: 01/20/24Order Info: 0184-1 - CBCD Performed By: #### L 501.9940 #### [facility] Laboratory [address] [place], [place], [phone] Nucleated RBC (Bld) [#/Vol] 0 10*3/uL Normal 0-[address] [facility] Comment on above: Order Comment: PRONO ORDERED CBC, BMP, AND [id number] ORDERED CBCD,CMP,LIPID,TSH,T4F,A1C,MIACRE,UACOrder Date: 01/20/24Order Info: 0184-1 - CBCD Performed By: #### L 501.9940 #### [facility] Laboratory [address] [place], [place], [address] Platelet mean volume (Bld) [Entitic vol] 9.5 fL Normal 6.2-12.[address] [facility] Comment on above: Order Comment: PRONO ORDERED CBC, BMP, AND [id number] ORDERED CBCD,CMP,LIPID,TSH,T4F,A1C,MIACRE,UACOrder Date: 01/20/24Order Info: 0184-1 - CBCD Performed By: #### L 501.9940 #### [facility] [address] [place], [address] Platelets (Bld) [#/Vol] 210 10*3/uL Normal 150-[address] [facility] Comment on above: Order Comment: PRONO ORDERED CBC, BMP, AND [id number] ORDERED CBCD,CMP,LIPID,TSH,T4F,A1C,MIACRE,UACOrder Date: 01/20/24Order Info: 0184-1 - CBCD Performed By: #### L 501.9940 #### [facility] Laboratory [address] [place], [place], [address] (567 RBC (Bld) [#/Vol] 5.58 10*6/uL Normal 4.6-6.2 [facility] Comment on above: Order Comment: PRONO ORDERED CBC, BMP, AND [id number] ORDERED CBCD,CMP,LIPID,TSH,T4F,A1C,MIACRE,UACOrder Date: 01/20/24Order Info: 0184-1 - CBCD Performed By: #### L 501.9940 #### [facility] Laboratory [address] [place], [place], [address] (295) RDW SD 38.5 fl Normal 35.1-43.[address] [facility] Comment on above: Order Comment: PRONO ORDERED CBC, BMP, AND [id number] ORDERED CBCD,CMP,LIPID,TSH,T4F,A1C,MIACRE,UACOrder Date: 01/20/24Order Info: 0184-1 - CBCD Performed By: #### L 501.9940 #### [facility] [address] [place], [address] WBC (Bld) [#/Vol] 6.5 10*3/uL Normal 4.4-11.0 [facility] Comment on above: Order Comment: PRONO ORDERED CBC, BMP, AND [id number] ORDERED CBCD,CMP,LIPID,TSH,T4F,A1C,MIACRE,UACOrder Date: 01/20/24Order Info: 0184-1 - CBCD Performed By: #### L 501.9940 #### [facility] [address] [place], [address] CBC-Complete Blood Cnt No Di ffon 06-01-2024 HCT Normal 40-[address] [facility] Comment on above: Result Comment: ADDE D TO MOTHER ORDER Performed By: #### L [id number] #### [facility] [address] [place], [address] HGB Normal 13.0-16.[address] [facility] Comment on above: Result Comment: ADDE D TO MOTHER ORDER Performed By: #### L [id number] #### [facility] [address] [place], [address] MCH Normal 27.0-32.[address] [facility] Comment on above: Result Comment: ADDE D TO MOTHER ORDER Performed By: #### L [id number] #### [facility] [address] [place], [address] MCHC Normal 32-[address] [facility] Comment on above: Result Comment: ADDE D TO MOTHER ORDER Performed By: #### L [id number] #### [facility] [address] [place], [address] MCV Normal 80-[address] [facility] Comment on above: Result Comment: ADDE D TO MOTHER ORDER Performed By: #### L [id number] #### [facility] [address] [place], [address] PLT Normal 150-[address] [facility] Comment on above: Result Comment: ADDE D TO MOTHER ORDER Performed By: #### L [id number] #### [facility] [address] [place], [address] RBC Normal 4.6-6.[address] [facility] Comment on above: Result Comment: ADDE D TO MOTHER ORDER Performed By: #### L [id number] #### [facility] [address] [place], [address] RDW CV Normal 11.6-14.[address] [facility] Comment on above: Result Comment: ADDE D TO MOTHER ORDER Performed By: #### L [id number] #### [facility] [address] [place], [address] RDW SD Normal 35.1-43.[address] [facility] Comment on above: Result Comment: ADDE D TO MOTHER ORDER Performed By: #### L [id number] #### [facility] [address] [place], [address] WBC Normal 4.4-11.[address] [facility] Comment on above: Result Comment: ADDE D TO MOTHER ORDER Performed By: #### L [id number] #### [facility] [address] [place], [address] [facility]24 Albumin [Mass/Vol] 4.0 g/dL Normal 3.2-5.0 [facility] Comment on above: Order Comment: PRONO ORDERED CBC, BMP, AND [id number] ORDERED CBCD,CMP,LIPID,TSH,T4F,A1C,MIACRE,UACOrder Date: 01/20/24Order Info: [id number] - CMPOrder Info: [id number] - LIPIDOrder Info: [id number] - TSHOrder Info: [id number] - T4F Performed By: #### L [id number] #### [facility] [address] [place], [address] Albumin/Globulin [Mass ratio] 1.1 {ratio} Normal 0.9-2.[address] [facility] Comment on above: Order Comment: PRONO ORDERED CBC, BMP, AND [id number] ORDERED CBCD,CMP,LIPID,TSH,T4F,A1C,MIACRE,UACOrder Date: 01/20/24Order Info: [id number] - CMPOrder Info: [id number] - LIPIDOrder Info: [id number] - TSHOrder Info: [id number] - T4F Performed By: #### L [id number] #### [facility] [address] [place], [place], [address] ALK P 59 U/L Normal 45-[address] [facility] Comment on above: Order Comment: PRONO ORDERED CBC, BMP, AND [id number] ORDERED CBCD,CMP,LIPID,TSH,T4F,A1C,MIACRE,UACOrder Date: 01/20/24Order Info: [id number] - CMPOrder Info: [id number] - LIPIDOrder Info: [id number] - TSHOrder Info: [id number] - T4F Performed By: #### L [id number] #### [facility] [address] [place], [place], [address] ALT [Catalytic activity/Vol] 26 U/L Normal 16-[address] [facility] Comment on above: Order Comment: PRONO ORDERED CBC, BMP, AND [id number] ORDERED CBCD,CMP,LIPID,TSH,T4F,A1C,MIACRE,UACOrder Date: 01/20/24Order Info: [id number] - CMPOrder Info: [id number] - LIPIDOrder Info: [id number] - TSHOrder Info: [id number] - T4F Performed By: #### L [id number] #### [facility] [address] [place], [place], [address] AST [Catalytic activity/Vol] 7 U/L Low 15-[address] [facility] Comment on above: Order Comment: PRONO ORDERED CBC, BMP, AND [id number] ORDERED CBCD,CMP,LIPID,TSH,T4F,A1C,MIACRE,UACOrder Date: 01/20/24Order Info: [id number] - CMPOrder Info: [id number] - LIPIDOrder Info: [id number] - TSHOrder Info: [id number] - T4F Performed By: #### L [id number] #### [facility] [address] [place], [address] Bilirubin [Mass/Vol] 0.60 mg/dL Normal 0.20-1.[address] [facility] Comment on above: Order Comment: PRONO ORDERED CBC, BMP, AND [id number] ORDERED CBCD,CMP,LIPID,TSH,T4F,A1C,MIACRE,UACOrder Date: 01/20/24Order Info: [id number] - CMPOrder Info: [id number] - LIPIDOrder Info: [id number] - TSHOrder Info: [id number] - T4F Result Comment: For patients on eltrombopag therapy, use of Dimension [place] TBIL is not recommended. Performed By: #### L [id number] #### [facility] [address] [place], [address] BUN/CRE 21.8 RATIO High 10-[address] [facility] Comment on above: Order Comment: PRONO ORDERED CBC, BMP, AND [id number] ORDERED CBCD,CMP,LIPID,TSH,T4F,A1C,MIACRE,UACOrder Date: 01/20/24Order Info: [id number] - CMPOrder Info: [id number] - LIPIDOrder Info: [id number] - TSHOrder Info: [id number] - T4F Performed By: #### L [id number] #### [facility] [address] [place], [address] CA,Total 9.0 mg/dL Normal 8.5-10.[address] [facility] Comment on above: Order Comment: PRONO ORDERED CBC, BMP, AND [id number] ORDERED CBCD,CMP,LIPID,TSH,T4F,A1C,MIACRE,UACOrder Date: 01/20/24Order Info: [id number] - CMPOrder Info: [id number] - LIPIDOrder Info: [id number] - TSHOrder Info: [id number] - T4F Performed By: #### L [id number] #### [facility] [address] [place], [place], [address] Chloride [Moles/Vol] 103 mmol/L Normal 98-[address] [facility] Comment on above: Order Comment: PRONO ORDERED CBC, BMP, AND [id number] ORDERED CBCD,CMP,LIPID,TSH,T4F,A1C,MIACRE,UACOrder Date: 01/20/24Order Info: [id number] - CMPOrder Info: [id number] - LIPIDOrder Info: [id number] - TSHOrder Info: [id number] - T4F Performed By: #### L [id number] #### [facility] [address] [place], [place], [address] CO2 [Moles/Vol] 28.0 mmol/L Normal 21.0-32.[address] [facility] Comment on above: Order Comment: PRONO ORDERED CBC, BMP, AND [id number] ORDERED CBCD,CMP,LIPID,TSH,T4F,A1C,MIACRE,UACOrder Date: 01/20/24Order Info: [id number] - CMPOrder Info: [id number] - LIPIDOrder Info: [id number] - TSHOrder Info: [id number] - T4F Performed By: #### L [id number] #### [facility] [address] [place], [place], [address] Creatinine [Mass/Vol] 0.92 mg/dL Normal 0.70-1.30 [facility] Comment on above: Order Comment: PRONO ORDERED CBC, BMP, AND [id number] ORDERED CBCD,CMP,LIPID,TSH,T4F,A1C,MIACRE,UACOrder Date: 01/20/24Order Info: [id number] - CMPOrder Info: [id number] - LIPIDOrder Info: [id number] - TSHOrder Info: [id number] - T4F Result Comment: The validity of the calculated GFR GFRAA in patients over 70 years has not been determined. Clinical correlation is essential. Performed By: #### L [id number] #### [facility] [address] [place], [place], [address] EST GFR - AA 105 mL/min Normal >[address] [facility] Comment on above: Order Comment: PRONO ORDERED CBC, BMP, AND S1TUHTROVN ORDERED CBCD,CMP,LIPID,TSH,T4F,A1C,MIACRE,UACOrder Date: 01/20/24Order Info: [id number] - CMPOrder Info: [id number] - LIPIDOrder Info: [id number] - TSHOrder Info: [id number] - T4F Result Comment: Afri can Armenian GFR Calc Performed By: #### L [id number] #### [facility] [address] [place], [place], [address] GAP 6 Normal 5-[address] [facility] Comment on above: Order Comment: PRONO ORDERED CBC, BMP, AND [id number] ORDERED CBCD,CMP,LIPID,TSH,T4F,A1C,MIACRE,UACOrder Date: 01/20/24Order Info: [id number] - CMPOrder Info: [id number] - LIPIDOrder Info: [id number] - TSHOrder Info: [id number] - T4F Performed By: #### L [id number] #### [facility] [address] [place], [place], [address] GFR/1.73 sq M.predicted among non-blacks MDRD (S/P/Bld) [Vol rate/Area] 87 mL/min/{1.73_m2} Normal >[address] [facility] Comment on above: Order Comment: PRONO ORDERED CBC, BMP, AND [id number] ORDERED CBCD,CMP,LIPID,TSH,T4F,A1C,MIACRE,UACOrder Date: 01/20/24Order Info: [id number] - CMPOrder Info: [id number] - LIPIDOrder Info: [id number] - TSHOrder Info: [id number] - T4F Result Comment: Non- GFR Calc Performed By: #### L [id number] #### [facility] [address] [place], [place], [address] Globulin (S) [Mass/Vol] 3.6 g/dL Normal 2.2-4.2 [facility] Comment on above: Order Comment: PRONO ORDERED CBC, BMP, AND [id number] ORDERED CBCD,CMP,LIPID,TSH,T4F,A1C,MIACRE,UACOrder Date: 01/20/24Order Info: [id number] - CMPOrder Info: [id number] - LIPIDOrder Info: [id number] - TSHOrder Info: [id number] - T4F Performed By: #### L [id number] #### [facility] [address] [place], [place], [address] Glucose [Mass/Vol] 127 mg/dL High 74-106 [facility] Comment on above: Order Comment: PRONO ORDERED CBC, BMP, AND M1SNAISMXY ORDERED CBCD,CMP,LIPID,TSH,T4F,A1C,MIACRE,UACOrder Date: 01/20/24Order Info: 86-1 - CMPOrder Info: [id number] - LIPIDOrder Info: [id number] - TSHOrder Info: [id number] - T4F Result Comment: Fast ing Glucose result greater than or equal to 126 mg/dL suggests DIABETES MELLITUS per A.D.A. criteria. Performed By: #### L [id number] #### [facility] [address] [place], [place], [address] Potassium [Moles/Vol] 3.8 mmol/L Normal 3.5-5.1 [facility] Comment on above: Order Comment: PRONO ORDERED CBC, BMP, AND T1DFDOPNAR ORDERED CBCD,CMP,LIPID,TSH,T4F,A1C,MIACRE,UACOrder Date: 01/20/24Order Info: 86-1 - CMPOrder Info: [id number] - LIPIDOrder Info: [id number] - TSHOrder Info: [id number] - T4F Performed By: #### L [id number] #### [facility] [address] [place], [place], [address] Sodium [Moles/Vol] 137 mmol/L Normal 136-145 [facility] Comment on above: Order Comment: PRONO ORDERED CBC, BMP, AND [id number] ORDERED CBCD,CMP,LIPID,TSH,T4F,A1C,MIACRE,UACOrder Date: 01/20/24Order Info: [id number] - CMPOrder Info: [id number] - LIPIDOrder Info: [id number] - TSHOrder Info: [id number] - T4F Performed By: #### L [id number] #### [facility] [address] [place], [place], [address] T PROT 7.6 g/dL Normal 6.4-8.[address] [facility] Comment on above: Order Comment: PRONO ORDERED CBC, BMP, AND M4LGNSARJU ORDERED CBCD,CMP,LIPID,TSH,T4F,A1C,MIACRE,UACOrder Date: 01/20/24Order Info: [id number] - CMPOrder Info: [id number] - LIPIDOrder Info: [id number] - TSHOrder Info: [id number] - T4F Performed By: #### L [id number] #### [facility] [address] [place], [place], [address] Urea nitrogen [Mass/Vol] 20 mg/dL High 7-[address] [facility] Comment on above: Order Comment: PRONO ORDERED CBC, BMP, AND O9WMJCITSE ORDERED CBCD,CMP,LIPID,TSH,T4F,A1C,MIACRE,UACOrder Date: 01/20/24Order Info: [id number] - CMPOrder Info: [id number] - LIPIDOrder Info: [id number] - TSHOrder Info: [id number] - T4F Performed By: #### L [id number] #### [facility] [address] [place], [place], [address] Direct serum free thyroxine (FT4) measurementOrdered By: Lopez Lyle on 06-01-2024 Free T4 [Mass/Vol] 1.19 ng/dL 0.76-1.46 [facility] Epithelial cells.squamous LM Ql (Urine sed)Ordered By: Lopez Lyle on 06-01-2024 Epithelial cells.squamous LM.HPF (Urine sed) [#/Area] 0 /[HPF] 0-[address] [facility] Estimated glomerular filtrat ion rate (GFR) AmericanOrdered By: Lopez Lyle on 06-01-2024 Estimated GFR (MDRD) Amer 105 mL/min >[address] [facility] Comment on above: GFR Calc Glucose Ql (U)Ordered By: Corina Lyle on 06-01-2024 Glucose (U) [Mass/Vol] 1000 mg/dL High Normal [facility] Hemoglobin A1con 06-01-2024 HbA1c (Bld) [Mass fraction] 5.9 % High 3.8-5.[address] [facility] Comment on above: Order Comment: RICHIE ORDERED CBC, BMP, AND [id number] ORDERED CBCD,CMP,LIPID,TSH,T4F,A1C,MIACRE,UACOrder Date: 01/20/24Order Info: [id number] - A1C Result Comment: Norm al < 5.7 % Prediabetic 5.7 - 6.4 % Diabetic >or= 6.5 % Please note range changes. Performed By: #### L [id number] #### [facility] [place], [address] Hemoglobin A1c percentageOrd ered By: Lopez Lyle on 06-01-2024 HbA1c (Bld) [Mass fraction] 5.9 % High 3.8-5.[address] [facility] Comment on above: Normal < 5.7 % Predi abetic 5.7 - 6.4 % Diabetic >or= 6.5 % Please note range changes. High density lipoprotein (HD L) measurementOrdered By: Lopez Lyle on 06-01-2024 Cholesterol in HDL [Mass/Vol] 52 mg/dL >[address] [facility] Comment on above: The drugs N-Acetylcy steine and Metamizole may falsely depress this assay. Reference Range HDL <40 mg/dL Low HDL Cholesterol HDL >or= 60 mg/dL High HDL Cholesterol Ketones Test strip Ql (U)Ord ered By: Lopez Lyle on 06-01-2024 Ketones Ql (U) Negative Negative [facility] - Chemistry and C hemistry - challengeOrdered By: Lopez Lyle on 06-01-2024 AST [Catalytic activity/Vol] 7 U/L Low 15-[address] [facility] Lipid Profileon 06-01-2024 Cholesterol [Mass/Vol] 117 mg/dL Normal 200 [facility] Comment on above: Order Comment: PRONO ORDERED CBC, BMP, AND [id number] ORDERED CBCD,CMP,LIPID,TSH,T4F,A1C,MIACRE,UACOrder Date: 01/20/24Order Info: [id number] - CMPOrder Info: [id number] - LIPIDOrder Info: [id number] - TSHOrder Info: [id number] - T4F Result Comment: <200 mg/dL Desirable 200-240 mg/dL Borderline >240 mg/dL High Risk Performed By: #### L [id number] #### [facility] [address] [place], [place], [address] (318) Cholesterol in HDL [Mass/Vol] 52 mg/dL Normal [facility] Comment on above: Order Comment: PRONO ORDERED CBC, BMP, AND S2GBFUQJPZ ORDERED CBCD,CMP,LIPID,TSH,T4F,A1C,MIACRE,UACOrder Date: 01/20/24Order Info: [id number] - CMPOrder Info: [id number] - LIPIDOrder Info: 63 - TSHOrder Info: 7 - T4F Result Comment: The drugs N-Acetylcysteine and Metamizole may falsely depress this assay. Reference Range HDL <40 mg/dL Low HDL Cholesterol HDL >or= 60 mg/dL High HDL Cholesterol Performed By: #### L [id number] #### [facility] [address] [place], [place], [address] Cholesterol in LDL [Mass/Vol] 52 mg/dL Normal 0-[address] [facility] Comment on above: Order Comment: PRONO ORDERED CBC, BMP, AND [id number] ORDERED CBCD,CMP,LIPID,TSH,T4F,A1C,MIACRE,UACOrder Date: 01/20/24Order Info: [id number] - CMPOrder Info: [id number] - LIPIDOrder Info: [id number] - TSHOrder Info: [id number] - T4F Performed By: #### L [id number] #### [facility] [address] [place], [place], [address] Cholesterol in VLDL [Mass/Vol] 13 mg/dL Normal 5-[address] [facility] Comment on above: Order Comment: PRONO ORDERED CBC, BMP, AND [id number] ORDERED CBCD,CMP,LIPID,TSH,T4F,A1C,MIACRE,UACOrder Date: 01/20/24Order Info: [id number] - CMPOrder Info: [id number] - LIPIDOrder Info: [id number] - TSHOrder Info: [id number] - T4F Performed By: #### L [id number] #### [facility] [address] [place], [place], [address] Triglyceride [Mass/Vol] 65 mg/dL Normal [facility] Comment on above: Order Comment: PRONO ORDERED CBC, BMP, AND [id number] ORDERED CBCD,CMP,LIPID,TSH,T4F,A1C,MIACRE,UACOrder Date: 01/20/24Order Info: [id number] - CMPOrder Info: [id number] - LIPIDOrder Info: [id number] - TSHOrder Info: [id number] - T4F Result Comment: The drugs N-Acetylcysteine and Metamizole may falsely depress this assay. Serum Triglycerides Reference Interval Normal <150 mg/dL Borderline high 150 - 199 mg/dL High 200 - 499 mg/dL Very High > or = 500 mg/dL Performed By: #### L [id number] #### [facility] [address] [place], [address] Low density lipoprotein (LDL ) cholesterol measurementOrdered By: Lopez Lyle on 06-01-2024 Cholesterol in LDL [Mass/Vol] 52 mg/dL 0-[address] [facility] Microalb:Creat Ratio,Random URon 06-01-2024 Creatinine [Mass/Vol] 120.00 mg/dL Normal NO RAN GE EST. [facility] Comment on above: Order Comment: PRONO ORDERED CBC, BMP, AND [id number] ORDERED CBCD,CMP,LIPID,TSH,T4F,A1C,MIACRE,UACOrder Date: 01/20/24Order Info: [id number] - MIACRE Performed By: #### L [id number] #### [facility] [address] [place], [place], [address] MALB:CRE 28.7 mg/g CRE Normal <30 mg/g CRE [facility] Comment on above: Order Comment: PRONO ORDERED CBC, BMP, AND S6HCIGIYVD ORDERED CBCD,CMP,LIPID,TSH,T4F,A1C,MIACRE,UACOrder Date: 01/20/24Order Info: [id number] - MIACRE Performed By: #### L [id number] #### [facility] [address] [place], [place], [address] MICROALBUMIN,UR 34.4 mg/L Normal NO RANGE EST. [facility] Comment on above: Order Comment: PRONO ORDERED CBC, BMP, AND [id number] ORDERED CBCD,CMP,LIPID,TSH,T4F,A1C,MIACRE,UACOrder Date: 01/20/24Order Info: [id number] - MIACRE Performed By: #### L [id number] #### [facility] [address] [place], [place], [address] Microscopic analysis of urin e for red blood cells (RBC)Ordered By: Lopez Lyle on 06-01-2024 Microscopic analysis of urine for red blood cells (RBC) 5-10 SEEN /hpf 0-[address] [facility] Urine RBC 5-10 SEEN /hpf 0-[address] [facility] Mucus LM Ql (Urine sed)Order ed By: Lopez Lyle on 06-01-2024 Mucus Ql (Urine sed) 0 SEEN /hpf [facility] Nitrite Test strip Ql (U)Ord ered By: Lopez Lyle on 06-01-2024 Nitrite Ql (U) Negative Negative [facility] Protein Test strip Ql (U)Ord ered By: Lopez Lyle on 06-01-2024 Protein Ql (U) 15 mg/dl High Negative [facility] Random urine microalbumin me asurementOrdered By: Lopez Lyle on 06-01-2024 Urine Random Microalbumin 34.4 mg/L NO RANGE EST. [facility] Serum globulin measurementOr dered By: Lopez Lyle on 06-01-2024 Globulin (S) [Mass/Vol] 3.6 g/dL 2.2-4.2 [facility] Serum or plasma alanine linn otransferase (ALT) measurementOrdered By: Lopez Lyle on 06-01-2024 ALT [Catalytic activity/Vol] 26 U/L 16-[address] [facility] Serum or plasma albumin tavia urement (mass/volume)Ordered By: Lopez Lyle on 06-01-2024 Albumin [Mass/Vol] 4.0 g/dL 3.2-5.0 [facility] Serum or plasma alkaline ivan sphatase measurementOrdered By: Lopez Lyle on 06-01-2024 ALP [Catalytic activity/Vol] 59 U/L 45-[address] [facility] Serum or plasma cholesterol measurement (mass/volume)Ordered By: Lopez Lyle on 06-01-2024 Cholesterol [Mass/Vol] 117 mg/dL <200 [facility] Comment on above: <200 mg/dL Desirable 200-240 mg/dL Borderline >240 mg/dL High Risk Serum or plasma thyroid stim ulating hormone (TSH) measurement (units/volume)Ordered By: Lopez Lyle on 06-01-2024 TSH Qn 3.940 uIU/mL High 0.358-3.[address] [facility] Squamous epithelial cells de tection in urine sediment by light microscopyOrdered By: Lopez Lyle on 06-01-2024 Epithelial cells.squamous LM Ql (Urine sed) 0 SEEN /hpf 0-[address] [facility] T4 Free Directon 06-01-2024 T4 FREE DIRECT 1.19 ng/dL Normal 0.76-1.[address] [facility] Comment on above: Order Comment: RICHIE ORDERED CBC, BMP, AND [id number] ORDERED CBCD,CMP,LIPID,TSH,T4F,A1C,MIACRE,UACOrder Date: 01/20/24Order Info: [id number] - CMPOrder Info: [id number] - LIPIDOrder Info: [id number] - TSHOrder Info: [id number] - T4F Performed By: #### L [id number] #### [facility] [address] [place], [place], [address] TSH QnOrdered By: Lopez larson on 06-01-2024 Thyroid Stimulating Hormone (TSH) 3.940 uIU/mL High 0.358-3.[address] [facility] Thyroid Stim Hormone (TSH)on 06-01-2024 TSH 3.940 uIU/mL High 0.358-3.[address] [facility] Comment on above: Order Comment: PRONO ORDERED CBC, BMP, AND [id number] ORDERED CBCD,CMP,LIPID,TSH,T4F,A1C,MIACRE,UACOrder Date: 01/20/24Order Info: [id number] - CMPOrder Info: [id number] - LIPIDOrder Info: [id number] - TSHOrder Info: [id number] - T4F Performed By: #### L [id number] #### [facility] [address] [place], [place], [id number] Total proteinOrdered By: Joey Lyle on 06-01-2024 Protein [Mass/Vol] 7.6 g/dL 6.4-8.2 [facility] Triglycerides measurementOrd ered By: Lopez Lyle on 06-01-2024 Triglyceride [Mass/Vol] 65 mg/dL <199 [facility] Comment on above: The drugs N-Acetylcy steine and Metamizole may falsely depress this assay.Serum Triglycerides Reference Interval Normal <150 mg/dL Borderline high 150 - 199 mg/dL High 200 - 499 mg/dL Very High > or = 500 mg/dL Urinalysis, Completeon 06-01 RBC 5-10 SEEN Normal 0-[address] [facility] Comment on above: Order Comment: PRONO ORDERED CBC, BMP, AND [id number] ORDERED CBCD,CMP,LIPID,TSH,T4F,A1C,MIACRE,UACUrine, Random Performed By: #### L 100.0100, L500.2500 #### [facility] [address] [place], [place], [address] BACTERIA 0 SEEN Normal None Seen [facility] Comment on above: Order Comment: PRONO ORDERED CBC, BMP, AND P3LUSTPCHW ORDERED CBCD,CMP,LIPID,TSH,T4F,A1C,MIACRE,UACUrine, Random Performed By: #### L 100.0100, L500.2500 #### [facility] [address] [place], [address] EPI,SQUAMOUS 0 SEEN Normal 0-[address] [facility] Comment on above: Order Comment: PRONO ORDERED CBC, BMP, AND [id number] ORDERED CBCD,CMP,LIPID,TSH,T4F,A1C,MIACRE,UACUrine, Random Performed By: #### L 100.0100, L500.2500 #### [facility] [address] [place], [address] Mucus Ql (Urine sed) [address] [facility] Comment on above: Order Comment: PRONO ORDERED CBC, BMP, AND [id number] ORDERED CBCD,CMP,LIPID,TSH,T4F,A1C,MIACRE,UACUrine, Random Performed By: #### L 100.0100, L500.2500 #### [facility] [address] [place], [address] WBC 0 SEEN Normal [address] [place] [address] Comment on above: Order Comment: PRONO ORDERED CBC, BMP, AND [id number] ORDERED CBCD,CMP,LIPID,TSH,T4F,A1C,MIACRE,UACUrine, Random Performed By: #### L 100.0100, L500.2500 #### [facility] [address] [place], [address] Urine albumin/creatinine rat io for detection of microalbuminuriaOrdered By: Lopez Lyle on 06-01-2024 Urine Microalbumin/Creatinine Ratio 28.7 mg/g CRE <[address] [facility] Urine blood detectionOrdered By: Lopez Lyle on 06-01-2024 Urine Occult Blood 50 /ul High Negative [facility] Urine clarityOrdered By: Joey Lyle on 06-01-2024 Clarity (U) Clear Clear [facility] Urine color determinationOrd ered By: Lopez Lyle on 06-01-2024 Color (U) Yellow Yellow [facility] Urine creatinine measurement (mass/volume)Ordered By: Lopez Lyle on 06-01-2024 Creatinine (U) [Mass/Vol] 120.00 mg/dL NO RANGE EST. [facility] Urine glucose detectionOrder ed By: Lopez Lyle on 06-01-2024 Glucose Ql (U) 1000 mg/dl High Normal [facility] Urine leukocyte esterase det ection by dipstickOrdered By: Lopez Lyle on 06-01-2024 Leukocyte esterase Test strip Ql (U) Negative Negative [facility] Urine pHOrdered By: Lopez manjarrez on 06-01-2024 pH (U) 6.0 [pH] 5.0 - 8.[address] [facility] Urine sediment bacteria coun t by microscopy (number/high power field)Ordered By: Lopez Lyle on 06-01-2024 Bacteria LM.HPF (Urine sed) [#/Area] 0 /[HPF] None Seen [facility] Urine specific gravity measu rementOrdered By: Lopez Lyle on 06-01-2024 Specific gravity (U) [Rel density] 1.020 1.002-1.[address] [facility] Urine urobilinogen measureme ntOrdered By: Lopez Lyle on 06-01-2024 Urobilinogen Ql (U) Normal mg/dl Normal [facility] Urobilinogen Ql (U)Ordered B y: Lopez Lyle on 06-01-2024 Urine Urobilinogen Normal mg/dl Normal [facility] Very low density lipoprotein (VLDL) cholesterol measurementOrdered By: Lopez Lyle on 06-01-2024 Very low density lipoprotein (VLDL) cholesterol measurement 13 mg/dL 5-[address] [facility] VLDL Cholesterol 13 mg/dL 5-[address] [facility] White blood cell countOrdere d By: Lopez Lyle on 06-01-2024 Urine WBC 0 SEEN /hpf 0-[address] [facility] White blood cell count 0 SEEN /hpf 0-5 [facility] PT D/C Summary (1)on 024 PT D/C Summary (1) [facility] spital Physical Therapy [facility] [address] [place] [address] [address] [place] [address] / REHABILITATION SERVICES DISCHARGE SUMMARY MR#: [id number] Acct: [id number] Name: ROBERT MORALEZ Rep #: [id number] : 1955 68 From: Blair Shaikh PT, ATC Referring Dr.: Dr. Lopez Lyle MD Status: REG RCR Insurance: MEDICARE PART A B [employer] SR SUPPLEMENT INS Discharge Summary D/C summary: It has been my pleasure to treat ROBERT MORALEZ referred by Dr. Lopez Lyle MD, with the diagnosis of L LCL sprain for a total of 8 visit(s). Discharge Date: Please see the following information for a summary of their discharge status. Subjective Subjective: I dont really feel any improvements Pain L knee: Pain Intensity (Out of 10): 1 Overall Improvement % Improvement: 0 Objective Objective/Function: MMT: flex 36, ext= 49 ROM: 0-120 degrees Pain ranges from 1-3/10 Pt has made no sig changes at this time Goals Goal 1:: Pt will decrease pain by 50% to aid ADLs and iADLs. Goal 2:: Pt will increase L knee strength to within 90% of the R knee to aid with ambulation. Goal 3:: Pt will increase hamstring flexibility by 25 deg to aid negotiating stairs. Goal 4:: Pt will be I with HEP. Goal Progress: Goal Met Plan Plan: Discontinue, RTD D/C Information d/c sentence: If there are questions or concerns regarding this patient's physical therapy, please feel free to call me at [phone]. Thank you for the referral of this patient. Sincerely, Blair Shaikh, PT, ATC Balance/Gait/Functional tests Balance/Special Test Scores Lower Extremity Functional Score: 80 Improvement % Improvement: 0 04/25/24 1311 CC: Dr. Lopez Lyle MD [facility] Signed Normal [facility] PROSTATE BXon 04-06-2024 PROSTATE BX ------ Patient Age/Sex Location Account Attending Physician ROBERT MORALEZ 68/M LABSPEC [id number] Dr. Ricco Luke MD Specimen: [id number] Received: 04/07/24 Status: RACHANA Harris Num: [id number] Spec Type: PROST BX Subm Dr: Dr. Ricco Luke MD HEADER OPERATION: Prostate biopsy PRE-OP DIAGNOSIS: Elevated PSA TISSUE SUBMITTED: A - Right apex, B - Right mid, C - Right base, D - Left apex, E - Left mid, F - Left base MICROSCOPIC DIAGNOSIS A. Right prostate, apex, core biopsy: Prostatic tissue, negative for malignancy. B. Right prostate, mid, core biopsy: Prostatic tissue, negative for malignancy. Focal atrophy and mild chronic inflammation. C. Right prostate, base, core biopsy: Prostatic tissue, negative for malignancy. D. Left prostate, apex, core biopsy: Prostatic adenocarcinoma. Cub Run grade: 4+3=7 Number of cores involved: 2/2 Proportion of tissue involved: >95 % Perineural invasion: Present, focal. Greatest tumor length: 0.9cm E. Left prostate, mid, core biopsy: Prostatic tissue, negative for malignancy. F. Left prostate, base, core biopsy: Focal high-grade prostatic intraepithelial neoplasia (HGPIN). SJ. 04/13 MICROSCOPIC DESCRIPTION Slides are reviewed. GROSS DESCRIPTION A - Received is one container designated prostate, right apex. The specimen consists of one elongated fragments of light hernandez-white soft tissue measuring 1.0 cm in length and 0.1 cm in diameter. The specimen is totally submitted in one cassette. B - Received is one container designated prostate, right mid. The specimen consists of two elongated fragments of light hernandez-white soft tissue each measuring 8.0 cm in length and <0.1 to 1.0 mm in diameter. The specimen is totally submitted in one cassette. C - Received is one container designated prostate, right base. The specimen consists of Patient Age/Sex Location Account Attending Physician ROBERT MORALEZ 68/M LABSPEC [id number] Dr. Ricco Luke MD two elongated fragments of light hernandez-white soft tissue each measuring 1.2 cm in length and 0.1 cm in diameter. The specimen is totally submitted in one cassette. D - Received is one container designated prostate, left apex. The specimen consists of two elongated fragments of light hernandez-white soft tissue each measuring 1.0cm in length and 0.1 cm in diameter. The specimen is totally submitted in one cassette. E - Received is one container designated prostate, left mid. The specimen consists of one elongated fragments of light hernandez-white soft tissue measuring 1.2 cm in length and 1.0 mm in diameter. The specimen is totally submitted in one cassette. F - Received is one container designated prostate, left base. The specimen consists of one elongated fragments of light hernandez-white soft tissue measuring 9.0 mm in length and 1.0 mm in diameter. The specimen is totally submitted in one cassette. / 04/07/2024 TC:0 CPT:G0146 Patient Age/Sex Location Account Attending Physician ROBERT MORALEZ 68/M LABSPEC [id number] Dr. Ricco Luke MD Signed (signature on file) Dr. Adrian Black MD 04/10/[address] [facility] Comment on above: Performed By: #### L 100.0100, L500.2500 #### [facility] [address] [place], [place], [address] PSA,Total- Diagnosticon 11-1 PSA, DIAGNOSTIC 8.87 ng/mL High 0.0-4.[address] [facility] Comment on above: Result Comment: This test was performed using the TPSA assay method for the [employer] chemistry system. Values obtained with different assay methods cannot be used interchangably. When changing PSA assays in the course of monitoring a patient, additional sequential testing should be carried out to confirm baseline values. Performed By: #### L 501.9940 #### [facility] [address] [place], [place], [address] Urine Cultureon 01-21-2024 UR Order Date: 01/20/24 Order Info: 630-4 - CUUR Culture exhibits no growth. Normal [facility] Comment on above: Performed By: #### L 500.3402 #### [facility] [address] [place], [place], [address] Cytology, Body Fluid / CSFon 01-20-2024 CYTOLOGY,BF/CSF SEE PATHOLOGY REPORT Normal [facility] Comment on above: Order Comment: Order Date: 01/20/24Order Info: [id number] - CYTOBFComments: urineSpecimen for Culture? yesURINE Result Comment: Spec imen submitted to Anatomical Pathology Department for testing. Performed By: #### L 500.3400 #### [facility] [address] [place], [place], [address] Pap Stain (control)on 2023 Pap Stain (control) ------ Patient Age/Sex Location Account Attending Physician ROBERT MORALEZ 68/M MFPLAB [id number] Dr. Lopez Lyle MD Specimen: [id number] Received: 01/21/24-1399 Status: RACHANA Harris Num: [id number] Spec Type: CYSPIN [place] Subm Dr: Dr. Lopez Lyle MD HEADER OPERATION: Not noted PRE-OP DIAGNOSIS: TISSUE SUBMITTED: Urine for cytology DIAGNOSIS CYTOLOGY Urine for cytology (cytospin): Rare mildly atypical urothelial cells noted, Sofia System Category III. See comment. [email or web address].mr 01/21/2024 COMMENT A few red blood cells are noted. The Sofia System for urine cytology diagnostic categorization was used in the evaluation of this case. Case has been reviewed in consultation with Dr. Stover who concurs with the above diagnosis. IDC:AM CYTOLOGY STUDY Slides are reviewed. CYTOLOGY GROSS Received is 60 ml of gold cloudy fluid labeled with the patient's name and and designated per the requisition as urine. Submitted for cytology preparation. Mr 01/21/2024 TC:5 CPT: 19944 Signed (signature on file) Dr. Adrian Black MD 01/24/24 [address] [facility] Comment on above: Performed By: #### L 100.0100, L500.2500 #### [facility] [address] [place], [place], [address] Urinalysis, Completeon 01-19 BACTERIA 0 SEEN Normal None Seen [facility] Comment on above: Order Comment: CLEAN CATCH Performed By: #### L 100.0100, L500.2500 #### [facility] [address] [place], [place], [address] EPI,SQUAMOUS 0 SEEN Normal 0-[address] [facility] Comment on above: Order Comment: CLEAN CATCH Performed By: #### L 100.0100, L500.2500 #### [facility] [address] [place], [address] Mucus Ql (Urine sed) [address] [facility] Comment on above: Order Comment: CLEAN CATCH Performed By: #### L 100.0100, L500.2500 #### [facility] [address] [place], [address] RBC 0 SEEN Normal 0-[address] [facility] Comment on above: Order Comment: CLEAN CATCH Performed By: #### L 100.0100, L500.2500 #### [facility] [address] [place], [address] WBC 0 SEEN Normal 0-[address] [facility] Comment on above: Order Comment: CLEAN CATCH Performed By: #### L 100.0100, L500.2500 #### [facility] [address] [place], [address] CBC W/Diff, Automatedon 09-0 3-2023 Absolute Lymph 1.93 X10 3/uL Normal 0.83-4.[address] [facility] Comment on above: Order Comment: Order Date: 09/21/23Order Info: 0184-1 - CBCD Performed By: #### L 3400.8000 #### [facility] [address] [place], [address] Absolute Neut 3.1 X10 3/uL Normal 2.0-7.[address] [facility] Comment on above: Order Comment: Order Date: 09/21/23Order Info: 0184-1 - CBCD Performed By: #### L 3400.8000 #### [facility] [address] [place], [address] Basophils/100 WBC (Bld) 0.3 % Normal 0-1 [facility] Comment on above: Order Comment: Order Date: 09/21/23Order Info: 0184-1 - CBCD Performed By: #### L 3400.8000 #### [facility] [address] [place], [address] Eosinophils/100 WBC (Bld) 1.6 % Normal 0-[address] [facility] Comment on above: Order Comment: Order Date: 09/21/23Order Info: 183-04 - CBCD Performed By: #### L 3400.8000 #### [facility] [address] [place], [address] Erythrocyte distribution width (RBC) [Ratio] 12.6 % Normal 11.6-14.[address] [facility] Comment on above: Order Comment: Order Date: 09/21/23Order Info: 183-04 - CBCD Performed By: #### L 3400.8000 #### [facility] [address], [address] Hematocrit (Bld) [Volume fraction] 45.6 % Normal 40-[address] [facility] Comment on above: Order Comment: Order Date: 09/21/23Order Info: 183-04 - CBCD Performed By: #### L 3400.8000 #### [facility] [address], [address] Hemoglobin (Bld) [Mass/Vol] 15.6 g/dL Normal 13.0-16.[address] [facility] Comment on above: Order Comment: Order Date: 09/21/23Order Info: 183-04 - CBCD Performed By: #### L 3400.8000 #### [facility] [address] [place], [address] IG% 0.200 Normal 0.0-0.[address] [facility] Comment on above: Order Comment: Order Date: 09/21/23Order Info: 183-04 - CBCD Result Comment: IG% - Immature Granulocytes (promyelocytes, myelocytes and metamyelocytes) > 1% indicates that a LEFT SHIFT is Present. Performed By: #### L 3400.8000 #### [facility] [address] [place], [address] Lymphocytes/100 WBC (Bld) 33.6 % Normal 19-[address] [facility] Comment on above: Order Comment: Order Date: 09/21/23Order Info: 183- - CBCD Performed By: #### L 3400.8000 #### [facility] [address] [place], [address] MCH (RBC) [Entitic mass] 29.4 pg Normal 27.0-32.[address] [facility] Comment on above: Order Comment: Order Date: 09/21/23Order Info: 183- - CBCD Performed By: #### L 3400.8000 #### [facility] [address] [place], [address] MCHC (RBC) [Mass/Vol] 34.2 g/dL Normal 32-36 [facility] Comment on above: Order Comment: Order Date: 09/21/23Order Info: 183- - CBCD Performed By: #### L 3400.8000 #### [facility] [address] [place], [address] MCV (RBC) [Entitic vol] 86.0 fL Normal 80-94 [facility] Comment on above: Order Comment: Order Date: 09/21/23Order Info: 183- - CBCD Performed By: #### L 3400.8000 #### [facility] [address] [place], [address] Monocytes/100 WBC (Bld) 10.3 % High 0-10 [facility] Comment on above: Order Comment: Order Date: 09/21/23Order Info: 183- - CBCD Performed By: #### L 3400.8000 #### [facility] [address] [place], [address] Neutrophils/100 WBC (Bld) 54.0 % Normal 47-[address] [facility] Comment on above: Order Comment: Order Date: 09/21/23Order Info: 183- - CBCD Performed By: #### L 3400.8000 #### [facility] [address] [place], [address] Nucleated RBC (Bld) [#/Vol] 0 10*3/uL Normal 0-[address] [facility] Comment on above: Order Comment: Order Date: 09/21/23Order Info: 183- - CBCD Performed By: #### L 3400.8000 #### [facility] [address] [place], [address] Platelet mean volume (Bld) [Entitic vol] 9.5 fL Normal 6.2-12.[address] [facility] Comment on above: Order Comment: Order Date: 09/21/23Order Info: 183- - CBCD Performed By: #### L 3400.8000 #### [facility] [address] [place], [address] Platelets (Bld) [#/Vol] 204 10*3/uL Normal 150-[address] [facility] Comment on above: Order Comment: Order Date: 09/21/23Order Info: 183- - CBCD Performed By: #### L 3400.8000 #### [facility] [address] [place], [address] RBC (Bld) [#/Vol] 5.30 10*6/uL Normal 4.6-6.2 [facility] Comment on above: Order Comment: Order Date: 09/21/23Order Info: 183- - CBCD Performed By: #### L 3400.8000 #### [facility] [address] [place], [address] RDW SD 39.5 fl Normal 35.1-43.[address] [facility] Comment on above: Order Comment: Order Date: 09/21/23Order Info: 4-1 - CBCD Performed By: #### L 3400.8000 #### [facility] [address] [place], [address] WBC (Bld) [#/Vol] 5.8 10*3/uL Normal 4.4-11.0 [facility] Comment on above: Order Comment: Order Date: 09/21/23Order Info: [id number] - CBCD Performed By: #### L 3400.8000 #### [facility] [address] [place], [address] Comprehensive Metabolic Prof ilon 12-28-2023 Albumin [Mass/Vol] 4.0 g/dL Normal 3.2-5.0 [facility] Comment on above: Order Comment: Order Date: 09/21/23Order Info: [id number] - CMPOrder Info: [id number] - LIPIDOrder Info: [id number] - TSHOrder Info: 3024-7 - T4F Performed By: #### L 3400.8000 #### [facility] [address] [place], [address] Albumin/Globulin [Mass ratio] 1.2 {ratio} Normal 0.9-2.[address] [facility] Comment on above: Order Comment: Order Date: 09/21/23Order Info: [id number] - CMPOrder Info: [id number] - LIPIDOrder Info: [id number] - TSHOrder Info: [id number] - T4F Performed By: #### L 3400.8000 #### [facility] [address] [place], [address] ALK P 53 U/L Normal 45-[address] [facility] Comment on above: Order Comment: Order Date: 09/21/23Order Info: [id number] - CMPOrder Info: [id number] - LIPIDOrder Info: [id number] - TSHOrder Info: 3024-7 - T4F Performed By: #### L 3400.8000 #### [facility] [address] [place], [address] ALT [Catalytic activity/Vol] 34 U/L Normal 16-[address] [facility] Comment on above: Order Comment: Order Date: 09/21/23Order Info: [id number] - CMPOrder Info: [id number] - LIPIDOrder Info: [id number] - TSHOrder Info: 3024-7 - T4F Performed By: #### L 3400.8000 #### [facility] [address] [place], [address] AST [Catalytic activity/Vol] 11 U/L Low 15-[address] [facility] Comment on above: Order Comment: Order Date: 09/21/23Order Info: [id number] - CMPOrder Info: [id number] - LIPIDOrder Info: [id number] - TSHOrder Info: 3024-7 - T4F Performed By: #### L 3400.8000 #### [facility] [address] [place], [address] Bilirubin [Mass/Vol] 0.80 mg/dL Normal 0.20-1.[address] [facility] Comment on above: Order Comment: Order Date: 09/21/23Order Info: [id number] - CMPOrder Info: [id number] - LIPIDOrder Info: 6-3 - TSHOrder Info: 3024-7 - T4F Result Comment: For patients on eltrombopag therapy, use of Dimension [place] TBIL is not recommended. Performed By: #### L 3400.8000 #### [facility] [address] [place], [address] BUN/CRE 28.8 RATIO High 10-[address] [facility] Comment on above: Order Comment: Order Date: 09/21/23Order Info: [id number] - CMPOrder Info: [id number] - LIPIDOrder Info: [id number] - TSHOrder Info: 3024-7 - T4F Performed By: #### L 3400.8000 #### [facility] [address] [place], [address] CA,Total 9.3 mg/dL Normal 8.5-10.[address] [facility] Comment on above: Order Comment: Order Date: 09/21/23Order Info: [id number] - CMPOrder Info: [id number] - LIPIDOrder Info: [id number] - TSHOrder Info: 3024-7 - T4F Performed By: #### L 3400.8000 #### [facility] [address] [place], [address] Chloride [Moles/Vol] 103 mmol/L Normal 98-[address] [facility] Comment on above: Order Comment: Order Date: 09/21/23Order Info: [id number] - CMPOrder Info: [id number] - LIPIDOrder Info: [id number] - TSHOrder Info: 3024-7 - T4F Performed By: #### L 3400.8000 #### [facility] [address] [place], [address] CO2 [Moles/Vol] 28.0 mmol/L Normal 21.0-32.[address] [facility] Comment on above: Order Comment: Order Date: 09/21/23Order Info: [id number] - CMPOrder Info: [id number] - LIPIDOrder Info: [id number] - TSHOrder Info: 3024-7 - T4F Performed By: #### L 3400.8000 #### [facility] [address] [place], [address] Creatinine [Mass/Vol] 0.90 mg/dL Normal 0.70-1.30 [facility] Comment on above: Order Comment: Order Date: 09/21/23Order Info: [id number] - CMPOrder Info: [id number] - LIPIDOrder Info: [id number] - TSHOrder Info: 3024-7 - T4F Result Comment: The validity of the calculated GFR GFRAA in patients over 70 years has not been determined. Clinical correlation is essential. Performed By: #### L 3400.8000 #### [facility] [address] [place], [address] EST GFR - AA 108 mL/min Normal >[address] [facility] Comment on above: Order Comment: Order Date: 09/21/23Order Info: [id number] - CMPOrder Info: [id number] - LIPIDOrder Info: [id number] - TSHOrder Info: 302-7 - T4F Result Comment: Afri can Armenian GFR Calc Performed By: #### L 3400.8000 #### [facility] [address] [place], [address] GAP 7 Normal 5-[address] [facility] Comment on above: Order Comment: Order Date: 09/21/23Order Info: [id number] - CMPOrder Info: [id number] - LIPIDOrder Info: [id number] - TSHOrder Info: [id number] - T4F Performed By: #### L 3400.8000 #### [facility] [address], [address] GFR/1.73 sq M.predicted among non-blacks MDRD (S/P/Bld) [Vol rate/Area] 89 mL/min/{1.73_m2} Normal >[address] [facility] Comment on above: Order Comment: Order Date: 09/21/23Order Info: [id number] - CMPOrder Info: [id number] - LIPIDOrder Info: 63 - TSHOrder Info: [id number] - T4F Result Comment: Non- GFR Calc Performed By: #### L 3400.8000 #### [facility] [address], [address] Globulin (S) [Mass/Vol] 3.3 g/dL Normal 2.2-4.2 [facility] Comment on above: Order Comment: Order Date: 09/21/23Order Info: [id number] - CMPOrder Info: [id number] - LIPIDOrder Info: 63 - TSHOrder Info: [id number] - T4F Performed By: #### L 3400.8000 #### [facility] [address] [place], [address] Glucose [Mass/Vol] 113 mg/dL High 74-106 [facility] Comment on above: Order Comment: Order Date: 09/21/23Order Info: [id number] - CMPOrder Info: [id number] - LIPIDOrder Info: [id number] - TSHOrder Info: [id number] - T4F Result Comment: Fast ing Glucose result from 100 to 125 mg/dL suggests IMPAIRED HOMEOSTASIS per A.D.A. criteria. Performed By: #### L 3400.8000 #### [facility] [address] [place], [address] Potassium [Moles/Vol] 3.7 mmol/L Normal 3.5-5.1 [facility] Comment on above: Order Comment: Order Date: 09/21/23Order Info: [id number] - CMPOrder Info: [id number] - LIPIDOrder Info: 63 - TSHOrder Info: [id number] - T4F Performed By: #### L 3400.8000 #### [facility] [address], [address] Sodium [Moles/Vol] 138 mmol/L Normal 136-145 [facility] Comment on above: Order Comment: Order Date: 09/21/23Order Info: [id number] - CMPOrder Info: [id number] - LIPIDOrder Info: [id number] - TSHOrder Info: [id number] - T4F Performed By: #### L 3400.8000 #### [facility] [address], [address] T PROT 7.3 g/dL Normal 6.4-8.[address] [facility] Comment on above: Order Comment: Order Date: 09/21/23Order Info: [id number] - CMPOrder Info: [id number] - LIPIDOrder Info: [id number] - TSHOrder Info: [id number] - T4F Performed By: #### L 3400.8000 #### [facility] [address] [place], [address] Urea nitrogen [Mass/Vol] 26 mg/dL High 7-[address] [facility] Comment on above: Order Comment: Order Date: 09/21/23Order Info: [id number] - CMPOrder Info: [id number] - LIPIDOrder Info: 3 - TSHOrder Info: 7 - T4F Performed By: #### [id number] #### [facility] [address] [place], [place], [address] Hemoglobin A1con 12-28-2023 HbA1c (Bld) [Mass fraction] 6.1 % High 3.8-5.[address] [facility] Comment on above: Order Comment: Order Date: 09/21/23Order Info: [id number] - A1C Result Comment: Norm al < 5.7 % Prediabetic 5.7 - 6.4 % Diabetic >or= 6.5 % Please note range changes. Performed By: #### L [id number] #### [facility] [address] [place], [place], [id number] Lipid Profileon 12-28-2023 Cholesterol [Mass/Vol] 101 mg/dL Normal 200 [facility] Comment on above: Order Comment: Order Date: 09/21/23Order Info: [id number] - CMPOrder Info: [id number] - LIPIDOrder Info: 3 - TSHOrder Info: 7 - T4F Result Comment: <200 mg/dL Desirable 200-240 mg/dL Borderline >240 mg/dL High Risk Performed By: #### [id number] #### [facility] [address] [place], [address] Cholesterol in HDL [Mass/Vol] 48 mg/dL Normal [facility] Comment on above: Order Comment: Order Date: 09/21/23Order Info: [id number] - CMPOrder Info: [id number] - LIPIDOrder Info: 3 - TSHOrder Info: 7 - T4F Result Comment: The drugs N-Acetylcysteine and Metamizole may falsely depress this assay. Reference Range HDL <40 mg/dL Low HDL Cholesterol HDL >or= 60 mg/dL High HDL Cholesterol Performed By: #### L [id number] #### [facility] [address] [place], [address] Cholesterol in LDL [Mass/Vol] 43 mg/dL Normal 0-[address] [facility] Comment on above: Order Comment: Order Date: 09/21/23Order Info: [id number] - CMPOrder Info: [id number] - LIPIDOrder Info: [id number] - TSHOrder Info: [id number] - T4F Performed By: #### L [id number] #### [facility] [address] [place], [address] Cholesterol in VLDL [Mass/Vol] 10 mg/dL Normal 5-[address] [facility] Comment on above: Order Comment: Order Date: 09/21/23Order Info: [id number] - CMPOrder Info: [id number] - LIPIDOrder Info: [id number] - TSHOrder Info: [id number] - T4F Performed By: #### L [id number] #### [facility] [address] [place], [address] Triglyceride [Mass/Vol] 52 mg/dL Normal [facility] Comment on above: Order Comment: Order Date: 09/21/23Order Info: [id number] - CMPOrder Info: [id number] - LIPIDOrder Info: 63 - TSHOrder Info: [id number] - T4F Result Comment: The drugs N-Acetylcysteine and Metamizole may falsely depress this assay. Serum Triglycerides Reference Interval Normal <150 mg/dL Borderline high 150 - 199 mg/dL High 200 - 499 mg/dL Very High > or = 500 mg/dL Performed By: #### L [id number] #### [facility] [address] [place], [address] Microalb:Creat Ratio,Random URon 12-28-2023 Creatinine [Mass/Vol] 116.00 mg/dL Normal NO RAN GE EST. [facility] Comment on above: Order Comment: Order Date: 09/21/23Order Info: [id number] - MIACRE Performed By: #### L [id number] #### [facility] [address] [place], [place], [address] MALB:CRE 8.0 mg/g CRE Normal <30 mg/g CRE [facility] Comment on above: Order Comment: Order Date: 09/21/23Order Info: [id number] - MIACRE Performed By: #### L [id number] #### [facility] [address] [place], [id number] MICROALBUMIN,UR 9.3 mg/L Normal NO RANGE EST. [facility] Comment on above: Order Comment: Order Date: 09/21/23Order Info: [id number] - MIACRE Performed By: #### L [id number] #### [facility] [address] [place], [address] T4 Free Directon 12-28-2023 T4 FREE DIRECT 1.13 ng/dL Normal 0.76-1.[address] [facility] Comment on above: Order Comment: Order Date: 09/21/23Order Info: [id number] - CMPOrder Info: [id number] - LIPIDOrder Info: [id number] - TSHOrder Info: [id number] - T4F Performed By: #### L [id number] #### [facility] [address] [place], [address] Thyroid Stim Hormone (TSH)on 12-28-2023 TSH 3.980 uIU/mL High 0.358-3.[address] [facility] Comment on above: Order Comment: Order Date: 09/21/23Order Info: [id number] - CMPOrder Info: [id number] - LIPIDOrder Info: [id number] - TSHOrder Info: [id number] - T4F Performed By: #### L [id number] #### [facility] [address] [place], [address] Urinalysis, Completeon 12-27 RBC 5-10 SEEN Normal 0-[address] [facility] Comment on above: Order Comment: CLEAN CATCH Performed By: #### [id number] #### [facility] [address] [place], [address] BILIRUBIN URINE Negative Normal Negative [facility] Comment on above: Order Comment: CLEAN CATCH Performed By: #### L [id number] #### [facility] [address] [place], [address] Clarity (U) Clear Normal Clear [facility] Comment on above: Order Comment: CLEAN CATCH Performed By: #### L [id number] #### [facility] [address] [place], [address] Color (U) Yellow Normal Yellow [facility] Comment on above: Order Comment: CLEAN CATCH Performed By: #### L [id number] #### [facility] [address], [address] GLUCOSE, UR 1000 mg/dl Abnormal Normal [facility] Comment on above: Order Comment: CLEAN CATCH Performed By: #### [id number] #### [facility] [address] [place], [address] KETONE UR 15 mg/dl Abnormal Negative [facility] Comment on above: Order Comment: CLEAN CATCH Performed By: #### L [id number] #### [facility] [address] [place], [address] LEUK ESTERASE Negative Normal Negative [facility] Comment on above: Order Comment: CLEAN CATCH Performed By: #### L [id number] #### [facility] [address] [place], [address] Nitrite Ql (U) Negative Normal Negative [facility] Comment on above: Order Comment: CLEAN CATCH Performed By: #### [id number] #### [facility] [address] [place], [address] OCCULT BLOOD-UR 25 /ul Abnormal Negative [facility] Comment on above: Order Comment: CLEAN CATCH Performed By: #### [id number] #### [facility] [address] [place], [address] pH UR 5.0 Normal 5.0 - 8.[address] [facility] Comment on above: Order Comment: CLEAN CATCH Performed By: #### [id number] [id number] #### [facility] [address] [place], [address] PROT DIPSTX Negative Normal Negative [facility] Comment on above: Order Comment: CLEAN CATCH Performed By: #### L [id number] #### [facility] [address] [place], [address] SP.GR. DIPSTX 1.020 Normal 1.002-1.[address] [facility] Comment on above: Order Comment: CLEAN CATCH Performed By: #### L [id number] #### [facility] [address] [place], [address] UROBILI Normal Normal Normal [facility] Comment on above: Order Comment: CLEAN CATCH Performed By: #### L [id number] #### [facility] [address] [place], [address] BACTERIA 0 SEEN Normal None Seen [facility] Comment on above: Order Comment: CLEAN CATCH Performed By: #### [id number] #### [facility] [address] [place], [address] EPI,SQUAMOUS 0 SEEN Normal 0-[address] [facility] Comment on above: Order Comment: CLEAN CATCH Performed By: #### [id number] #### [facility] [address] [place], [address] Mucus Ql (Urine sed) [address] [facility] Comment on above: Order Comment: CLEAN CATCH Performed By: #### [id number] #### [facility] [address] [place], [address] WBC 0 SEEN Normal 0-[address] [facility] Comment on above: Order Comment: CLEAN CATCH Performed By: #### [id number] #### [facility] [address] [place], [address] Quantiferon TB-Gold+on 12-24 QFT MITOGEN LILA > 10.[address] . [facility] Comment on above: Performed By: #### [id number] #### [facility] [address] [place], [address] QFT NIL VALUE 0.03 IU/mL Normal . [facility] Comment on above: Performed By: #### [id number] #### [facility] [address] [place], [address] QFT TB GOLD+ Comment Normal . [facility] Comment on above: Result Comment: Sylvain tiFERON-TB Gold Plus is a qualitative indirect test for M tuberculosis infection (including disease) and is intended for use in conjunction with risk assessment, radiography, and other medical and diagnostic evaluations. The QuantiFERON-TB Gold Plus result is determined by subtracting the Nil value from either TB antigen (Ag) value. The Mitogen tube serves as a control for the test. Performed By: #### [id number] #### [facility] [address] [place], [address] QFT TB POS CRIT Negative Normal Negative [facility] Comment on above: Result Comment: No r esponse to M tuberculosis antigens detected. Infection with M tuberculosis is unlikely, but high risk individuals should be considered for additional testing (ATS/IDSA/CDC Clinical Practice Guidelines, 2017). The reference range is an Antigen minus Nil result of <0.35 IU/mL. The specimen received for QuantiFERON testing was incubated by the ordering institution. Specific procedures outlined in our Directory of Services and in the package insert for the QuantiFERON Gold (In Tube) test must be followed to enable for proper stimulation of cells for the production of interferon gamma. Chemiluminescence immunoassay methodology Performed at: [facility] [id number] Marshmallow Runner: Danny Hobson PhD, Phone: [phone] Performed By: #### [id number] [id number] #### [facility] [address] [place], [place], [address] QFT TB1+ AG LILA 0.03 IU/mL Normal . [facility] Comment on above: Performed By: #### [id number] #### [facility] [address] [place], [place], [address] QFT TB2+ AG LILA 0.03 IU/mL Normal . [facility] Comment on above: Performed By: #### [id number] #### [facility] [address] [place], [place], [id number] Basophil percentageOrdered B y: Ricco Gurjit on 08-23-2023 Basophil percentage 6.60 ng/mL 0.0-4.0 [facility] Comment on above: This test was perfor med using the TPSA assay method for [employer] chemistry system. Values obtained with differentassay methods cannot be used interchangably.When changing PSA assays in the course of monitoring apatient, additional sequential testing should be carriedout to confirm baseline values. Absolute lymphocyte countOrd ered By: Lopez Lyle on 06-08-2023 Lymphocytes Auto (Unsp spec) [#/Vol] 2.27 10*3/uL 0.83-4.[address] [facility] Automated lymphocyte count a s percentage of total leukocytesOrdered By: Lopez Lyle on 06-08-2023 Lymphocytes/100 WBC Auto (Unsp spec) 30.9 % 19-[address] [facility] Basophil percentageOrdered B y: Lopez Lyle on 06-08-2023 Basophils/100 WBC (Bld) 0.5 % 0-1 [facility] Bilirubin [Mass/Vol] 0.70 mg/dL 0.20-1.[address] [facility] Comment on above: For patients on eltr ombopag therapy, use of Dimension [place] TBIL is not recommended. Chloride [Moles/Vol] 104 mmol/L 98-[address] [facility] Cholesterol [Mass/Vol] 116 mg/dL <200 [facility] Comment on above: <200 mg/dL Desirable 200-240 mg/dL Borderline >240 mg/dL High Risk Eosinophils/100 WBC (Bld) 1.9 % 0-[address] [facility] Glucose [Mass/Vol] 146 mg/dL 74-106 [facility] Comment on above: Fasting Glucose resu lt greater than or equal to 126 mg/dL suggests DIABETES MELLITUS per A.D.A. criteria. Hemoglobin (Bld) [Mass/Vol] 16.1 g/dL 13.0-16.[address] [facility] Monocytes/100 WBC (Bld) 10.3 % 0-10 [facility] Neutrophils (Bld) [#/Vol] 4.1 10*3/uL 2.0-7.[address] [facility] Neutrophils/100 WBC (Bld) 56.1 % 47-[address] [facility] Potassium [Moles/Vol] 4.0 mmol/L 3.5-5.1 [facility] Comment on above: Slight Hemolysis, Re sult may be falsely increased. Protein [Mass/Vol] 7.6 g/dL 6.4-8.2 [facility] Sodium [Moles/Vol] 138 mmol/L 136-145 [facility] Triglyceride [Mass/Vol] 91 mg/dL <199 [facility] Comment on above: The drugs N-Acetylcy steine and Metamizole may falsely depress this assay.Serum Triglycerides Reference Interval Normal <150 mg/dL Borderline high 150 - 199 mg/dL High 200 - 499 mg/dL Very High > or = 500 mg/dL WBC (Bld) [#/Vol] 7.4 10*3/uL 4.4-11.0 [facility] Determination of erythrocyte mean corpuscular volume (MCV)Ordered By: Lopez Lyle on 06-08-2023 MCV (RBC) [Entitic vol] 85.5 fL 80-94 [facility] Erythrocyte distribution wid th ratioOrdered By: Lopez Lyle on 06-08-2023 Erythrocyte distribution width (RBC) [Ratio] 12.6 % 11.6-14.[address] [facility] Erythrocyte distribution wid th standard deviationOrdered By: Lopez Lyle on 06-08-2023 Erythrocyte distribution width (RBC) [Entitic vol] 39.1 fL 35.1-43.[address] [facility] Hematocrit Auto (Bld) [Volum e fraction]Ordered By: Lopez Lyle on 06-08-2023 Hematocrit (Bld) [Volume fraction] 47.6 % 40-[address] [facility] Immature granulocytes/100 WB C Auto (Bld)Ordered By: Lopez Lyle on 06-08-2023 Immature granulocytes/100 WBC (Bld) 0.300 % 0.0-0.[address] [facility] Comment on above: IG% - Immature Granu locytes (promyelocytes, myelocytes and metamyelocytes) > 1% indicates that a LEFT SHIFT is Present. Laboratory - Chemistry and C hemistry - challengeOrdered By: Lopez Lyle on 06-08-2023 Albumin/Globulin [Mass ratio] 1.1 {ratio} 0.9-2.[address] [facility] ALP [Catalytic activity/Vol] 60 U/L 45-[address] [facility] ALT [Catalytic activity/Vol] 34 U/L 16-[address] [facility] Cholesterol in HDL [Mass/Vol] 42 mg/dL >[address] [facility] Comment on above: The drugs N-Acetylcy steine and Metamizole may falsely depress this assay. Reference Range HDL <40 mg/dL Low HDL Cholesterol HDL >or= 60 mg/dL High HDL Cholesterol Cholesterol in LDL [Mass/Vol] 56 mg/dL 0-[address] [facility] CO2 [Moles/Vol] 27.0 mmol/L 21.0-32.[address] [facility] Globulin (S) [Mass/Vol] 3.6 g/dL 2.2-4.2 [facility] Urea nitrogen/Creatinine [Mass ratio] 22.4 mg/mg 10-[address] [facility] - Hematology and Cell countsOrdered By: Lopez Lyle on 06-08-2023 MCH (RBC) [Entitic mass] 28.9 pg 27.0-32.[address] [facility] MCHC (RBC) [Mass/Vol] 33.8 g/dL 32-36 [facility] Nucleated RBC/100 WBC (Bld) [Ratio] 0 % 0-[address] [facility] Platelet mean volume (Bld) [Entitic vol] 9.8 fL 6.2-12.[address] [facility] Platelets (Bld) [#/Vol] 209 10*3/uL 150-[address] [facility] No Panel InformationOrdered By: Lopez Lyle on 06-08-2023 Estimated GFR (MDRD) Amer 98 mL/min >[address] [facility] Comment on above: GFR Calc Estimated GFR (MDRD) Non-Af Amer 81 mL/min >[address] [facility] Comment on above: Non- GFR Calc Urine Microalbumin/Creatinine Ratio 10.1 mg/g CRE <[address] [facility] VLDL Cholesterol 18 mg/dL 5-[address] [facility] RBC Auto (Bld) [#/Vol]Ordere d By: Lopez Lyle on 06-08-2023 RBC (Bld) [#/Vol] 5.57 10*6/uL 4.6-6.2 [facility] Serum or plasma calcium tavia urement (mass/volume)Ordered By: Lopez Lyle on 06-08-2023 Calcium [Mass/Vol] 9.5 mg/dL 8.5-10.1 [facility] Serum or plasma creatinine m easurement (mass/volume)Ordered By: Lopez Lyle on 06-08-2023 Creatinine [Mass/Vol] 0.98 mg/dL 0.70-1.30 [facility] Comment on above: The validity of the calculated GFR & GFRAA in patients over 70 years has not been determined. Clinical correlation is essential. Serum or plasma thyroid stim ulating hormone (TSH) measurement (units/volume)Ordered By: Lopez Lyle on 06-08-2023 TSH Qn 4.82 uIU/mL 0.358-3.[address] [facility] Serum or plasma urea nitroge n measurement (mass/volume)Ordered By: Lopez Lyle on 06-08-2023 Urea nitrogen [Mass/Vol] 22 mg/dL 7-[address] [facility] Thin prep Papanicolaou smear with manual screeningOrdered By: Lopez Lyle on 06-08-2023 Thin prep Papanicolaou smear with manual screening 4.0 g/dL 3.2-5.[address] [facility] Thin prep Papanicolaou smear with manual screening 17 U/L 15-[address] [facility] Comment on above: Slight Hemolysis, Re sult may be falsely increased. Thin prep Papanicolaou smear with manual screening 7 5-[address] [facility] Thin prep Papanicolaou smear with manual screening 9.0 mg/L NO RANGE EST. [facility] Thin prep Papanicolaou smear with manual screening 1.10 ng/dL 0.76-1.[address] [facility] Urine creatinine measurement (mass/volume)Ordered By: Lopez Lyle on 06-08-2023 Creatinine (U) [Mass/Vol] 89.60 mg/dL NO RANGE EST. [facility] Whole blood hemoglobin A1c/t otal hemoglobin ratio (mass fraction)Ordered By: Lopez Lyle on 06-08-2023 HbA1c (Bld) [Mass fraction] 7.1 % 3.8-5.[address] [facility] Comment on above: Normal < 5.7 % Predi abetic 5.7 - 6.4 % Diabetic >or= 6.5 % Please note range changes. No Panel InformationOrdered By: Ricco Luke on 03-22-2023 Prostate Specific Antigen Total 7.60 ng/mL 0.0-4.[address] [facility] Comment on above: This test was perfor med using the TPSA assay method for [employer] chemistry system. Values obtained with differentassay methods cannot be used interchangably.When changing PSA assays in the course of monitoring apatient, additional sequential testing should be carriedout to confirm baseline values. Qualitative QuantiFERON-TB g old in tube testOrdered By: Litzy Brock on 02-16-2023 M. tuberculosis tuberculin stim IFN-g Ql (Bld) 0.08 IU/mL . [facility] Thin prep Papanicolaou smear with manual screeningOrdered By: Litzy Brock on 02-16-2023 Thin prep Papanicolaou smear with manual screening Comment . [facility] Comment on above: QuantiFERON-TB Gold Plus is a qualitative indirect test forM tuberculosis infection (including disease) and isintended for use in conjunction with risk assessment,radiography, and other medical and diagnostic evaluations.The QuantiFERON-TB Gold Plus result is determined bysubtracting the Nil value from either TB antigen (Ag)value. The Mitogen tube serves as a control for the test. Thin prep Papanicolaou smear with manual screening 0.08 IU/mL . [facility] Thin prep Papanicolaou smear with manual screening 0.06 IU/mL . [facility] Thin prep Papanicolaou smear with manual screening > 10.00 IU/mL . [facility] Thin prep Papanicolaou smear with manual screening Negative Negative [facility] Comment on above: No response to M tub erculosis antigens detected.Infection with M tuberculosis is unlikely, but high riskindividuals should be considered for additional testing(ATS/IDSA/CDC Clinical Practice Guidelines, 2017). Thereference range is an Antigen minus Nil result of <0.35IU/mL.The specimen received for QuantiFERON testing was incubatedby the ordering institution. Specific procedures outlinedin our Directory of Services and in the package insert forthe QuantiFERON Gold (In Tube) test must be followed toenable for proper stimulation of cells for the productionof interferon gamma. Chemiluminescence immunoassaymethodologyPerformed at: [facility] [address] [id number] Director: Danny Hobson PhD, Phone: [phone] Absolute lymphocyte countOrd ered By: Lopez Lyle on 02-05-2023 Lymphocytes Auto (Unsp spec) [#/Vol] 2.43 10*3/uL 0.83-4.[address] [facility] Basophil percentageOrdered B y: Lopez Lyle on 02-05-2023 Basophils/100 WBC (Bld) 0.4 % 0-1 [facility] Bilirubin [Mass/Vol] 0.40 mg/dL 0.20-1.[address] [facility] Comment on above: For patients on eltr ombopag therapy, use of Dimension [place] TBIL is not recommended. Chloride [Moles/Vol] 102 mmol/L 98-[address] [facility] Cholesterol [Mass/Vol] 121 mg/dL <200 [facility] Comment on above: <200 mg/dL Desirable 200-240 mg/dL Borderline >240 mg/dL High Risk Eosinophils/100 WBC (Bld) 1.9 % 0-[address] [facility] Glucose [Mass/Vol] 138 mg/dL 74-106 [facility] Comment on above: Fasting Glucose resu lt greater than or equal to 126 mg/dL suggests DIABETES MELLITUS per A.D.A. criteria. Neutrophils (Bld) [#/Vol] 4.3 10*3/uL 2.0-7.[address] [facility] Neutrophils/100 WBC (Bld) 56.6 % 47-[address] [facility] Potassium [Moles/Vol] 3.7 mmol/L 3.5-5.1 [facility] Protein [Mass/Vol] 7.7 g/dL 6.4-8.2 [facility] Sodium [Moles/Vol] 137 mmol/L 136-145 [facility] Triglyceride [Mass/Vol] 107 mg/dL <199 [facility] Comment on above: The drugs N-Acetylcy steine and Metamizole may falsely depress this assay.Serum Triglycerides Reference Interval Normal <150 mg/dL Borderline high 150 - 199 mg/dL High 200 - 499 mg/dL Very High > or = 500 mg/dL WBC (Bld) [#/Vol] 7.5 10*3/uL 4.4-11.0 [facility] Blood erythrocytes count (nu mber/volume)Ordered By: Lopez Lyle on 02-05-2023 RBC (Bld) [#/Vol] 5.49 10*6/uL 4.6-6.2 [facility] Blood hemoglobin measurement (mass/volume)Ordered By: Lopez Lyle on 02-05-2023 Hemoglobin (Bld) [Mass/Vol] 16.1 g/dL 13.0-16.[address] [facility] Blood lymphocytes/100 leukoc ytesOrdered By: Lopez Lyle on 02-05-2023 Lymphocytes/100 WBC (Bld) 32.2 % 19-[address] [facility] Blood monocytes/100 leukocyt esOrdered By: Lopez Lyle on 02-05-2023 Monocytes/100 WBC (Bld) 8.5 % 0-10 [facility] Blood platelet mean volumeOr dered By: Lopez Lyle on 02-05-2023 Platelet mean volume (Bld) [Entitic vol] 10.0 fL 6.2-12.[address] [facility] Determination of erythrocyte mean corpuscular volume (MCV)Ordered By: Lopez Lyle on 02-05-2023 MCV (RBC) [Entitic vol] 87.8 fL 80-94 [facility] Hematocrit Auto (Bld) [Volum e fraction]Ordered By: Lopez Lyle on 02-05-2023 Hematocrit (Bld) [Volume fraction] 48.2 % 40-[address] [facility] Laboratory - Chemistry and C hemistry - challengeOrdered By: Lopez Lyle on 02-05-2023 ALP [Catalytic activity/Vol] 69 U/L 45-[address] [facility] ALT [Catalytic activity/Vol] 32 U/L 16-[address] [facility] CO2 [Moles/Vol] 31.0 mmol/L 21.0-32.[address] [facility] Free T4 [Mass/Vol] 1.02 ng/dL 0.76-1.46 [facility] Globulin (S) [Mass/Vol] 3.7 g/dL 2.2-4.2 [facility] Urea nitrogen/Creatinine [Mass ratio] 19.8 mg/mg 10-[address] [facility] Laboratory - Hematology and Cell countsOrdered By: Lopez Lyle on 02-05-2023 Erythrocyte distribution width (RBC) [Entitic vol] 41.7 fL 35.1-43.[address] [facility] Erythrocyte distribution width (RBC) [Ratio] 12.9 % 11.6-14.[address] [facility] Immature granulocytes/100 WBC (Bld) 0.400 % 0.0-0.[address] [facility] Comment on above: IG% - Immature Granu locytes (promyelocytes, myelocytes and metamyelocytes) > 1% indicates that a LEFT SHIFT is Present. MCH (RBC) [Entitic mass] 29.3 pg 27.0-32.[address] [facility] Nucleated RBC/100 WBC (Bld) [Ratio] 0 % 0-[address] [facility] MCHC Auto (RBC) [Mass/Vol]Or dered By: Lopez Lyle on 02-05-2023 MCHC (RBC) [Mass/Vol] 33.4 g/dL 32-36 [facility] No Panel InformationOrdered By: Lopez Lyle on 02-05-2023 Estimated GFR (MDRD) Amer 81 mL/min >[address] [facility] Comment on above: GFR Calc Estimated GFR (MDRD) Non-Af Amer 67 mL/min >[address] [facility] Comment on above: Non- GFR Calc Thyroid Stimulating Hormone (TSH) 4.52 uIU/mL 0.358-3.[address] [facility] Platelets bldOrdered By: Joey Lyle on 02-05-2023 Platelets (Bld) [#/Vol] 209 10*3/uL 150-[address] [facility] Serum or plasma albumin tavia urement (mass/volume)Ordered By: Lopez Lyle on 02-05-2023 Albumin [Mass/Vol] 4.0 g/dL 3.2-5.0 [facility] Serum or plasma albumin/glob ulin mass ratioOrdered By: Lopez Lyle on 02-05-2023 Albumin/Globulin [Mass ratio] 1.1 {ratio} 0.9-2.[address] [facility] Serum or plasma calcium tavia urement (mass/volume)Ordered By: Lopez Lyle on 02-05-2023 Calcium [Mass/Vol] 9.0 mg/dL 8.5-10.1 [facility] Serum or plasma cholesterol in HDL measurement (mass/volume)Ordered By: Lopez Lyle on 02-05-2023 Cholesterol in HDL [Mass/Vol] 45 mg/dL >[address] [facility] Comment on above: The drugs N-Acetylcy steine and Metamizole may falsely depress this assay. Reference Range HDL <40 mg/dL Low HDL Cholesterol HDL >or= 60 mg/dL High HDL Cholesterol Serum or plasma cholesterol in VLDL measurement (mass/volume)Ordered By: Lopez Lyle on 02-05-2023 Cholesterol in VLDL [Mass/Vol] 21 mg/dL 5-[address] [facility] Serum or plasma creatinine m easurement (mass/volume)Ordered By: Lopez Lyle on 02-05-2023 Creatinine [Mass/Vol] 1.16 mg/dL 0.70-1.30 [facility] Comment on above: The validity of the calculated GFR & GFRAA in patients over 70 years has not been determined. Clinical correlation is essential. Serum or plasma low density lipoprotein (LDL) cholesterol measurement (mass/volume)Ordered By: Lopez Lyle on 02-05-2023 Cholesterol in LDL [Mass/Vol] 55 mg/dL 0-[address] [facility] Serum or plasma urea nitroge n measurement (mass/volume)Ordered By: Lopez Lyle on 02-05-2023 Urea nitrogen [Mass/Vol] 23 mg/dL 7-[address] [facility] Thin prep Papanicolaou smear with manual screeningOrdered By: Lopez Lyle on 02-05-2023 Thin prep Papanicolaou smear with manual screening 6 U/L 15-[address] [facility] Thin prep Papanicolaou smear with manual screening 4 5-[address] [facility] Whole blood hemoglobin A1c/t otal hemoglobin ratio (mass fraction)Ordered By: Lopez Lyle on 02-05-2023 HbA1c (Bld) [Mass fraction] 6.4 % 3.8-5.[address] [facility] Comment on above: Normal < 5.7 % Predi abetic 5.7 - 6.4 % Diabetic >or= 6.5 % Please note range changes. No Panel InformationOrdered By: Ricco Luke on 11-13-2022 Prostate Specific Antigen Total 5.90 ng/mL 0.0-4.[address] [facility] Comment on above: This test was perfor med using the TPSA assay method for the[employer] chemistry system. Values obtained with differentassay methods cannot be used interchangably.When changing PSA assays in the course of monitoring apatient, additional sequential testing should be carriedout to confirm baseline values. Absolute lymphocyte countOrd ered By: Dr. Lyle on 09-24-2022 Lymphocytes Auto (Unsp spec) [#/Vol] 2.28 10*3/uL 0.83-4.[address] [facility] Basophil percentageOrdered B y: Dr. Lyle on 09-24-2022 Basophils/100 WBC (Bld) 0.6 % 0-1 [facility] Bilirubin [Mass/Vol] 0.80 mg/dL 0.20-1.[address] [facility] Comment on above: For patients on eltr ombopag therapy, use of Dimension [place] TBIL is not recommended. Chloride [Moles/Vol] 103 mmol/L 98-[address] [facility] Cholesterol [Mass/Vol] 109 mg/dL <200 [facility] Comment on above: <200 mg/dL Desirable 200-240 mg/dL Borderline >240 mg/dL High Risk Eosinophils/100 WBC (Bld) 1.8 % 0-[address] [facility] Glucose [Mass/Vol] 122 mg/dL 74-106 [facility] Comment on above: Fasting Glucose resu lt from 100 to 125 mg/dL suggests IMPAIRED HOMEOSTASIS per A.D.A. criteria. Neutrophils (Bld) [#/Vol] 3.9 10*3/uL 2.0-7.[address] [facility] Neutrophils/100 WBC (Bld) 56.1 % 47-[address] [facility] Potassium [Moles/Vol] 4.2 mmol/L 3.5-5.1 [facility] Comment on above: Slight Hemolysis, Re sult may be falsely increased. Protein [Mass/Vol] 7.6 g/dL 6.4-8.2 [facility] Sodium [Moles/Vol] 137 mmol/L 136-145 [facility] Triglyceride [Mass/Vol] 86 mg/dL <199 [facility] Comment on above: The drugs N-Acetylcy steine and Metamizole may falsely depress this assay.Serum Triglycerides Reference Interval Normal <150 mg/dL Borderline high 150 - 199 mg/dL High 200 - 499 mg/dL Very High > or = 500 mg/dL WBC (Bld) [#/Vol] 7.0 10*3/uL 4.4-11.0 [facility] Blood erythrocytes count (nu mber/volume)Ordered By: Dr. Lyle on 09-24-2022 RBC (Bld) [#/Vol] 5.39 10*6/uL 4.6-6.2 [facility] Blood hemoglobin measurement (mass/volume)Ordered By: Dr. Lyle on 09-24-2022 Hemoglobin (Bld) [Mass/Vol] 16.3 g/dL 13.0-16.[address] [facility] Blood lymphocytes/100 leukoc ytesOrdered By: Dr. Lyle on 09-24-2022 Lymphocytes/100 WBC (Bld) 32.4 % 19-[address] [facility] Blood monocytes/100 leukocyt esOrdered By: Dr. Lyle on 09-24-2022 Monocytes/100 WBC (Bld) 8.8 % 0-10 [facility] Blood platelet mean volumeOr dered By: Dr. Lyle on 09-24-2022 Platelet mean volume (Bld) [Entitic vol] 9.8 fL 6.2-12.[address] [facility] Determination of erythrocyte mean corpuscular volume (MCV)Ordered By: Dr. Lyle on 09-24-2022 MCV (RBC) [Entitic vol] 86.6 fL 80-94 [facility] Hematocrit Auto (Bld) [Volum e fraction]Ordered By: Dr. Lyle on 09-24-2022 Hematocrit (Bld) [Volume fraction] 46.7 % 40-[address] [facility] Laboratory - Chemistry and C hemistry - challengeOrdered By: Dr. Lyle on 09-24-2022 ALP [Catalytic activity/Vol] 66 U/L 45-[address] [facility] ALT [Catalytic activity/Vol] 28 U/L 16-[address] [facility] CO2 [Moles/Vol] 27.0 mmol/L 21.0-32.[address] [facility] Free T4 [Mass/Vol] 1.13 ng/dL 0.76-1.46 [facility] Globulin (S) [Mass/Vol] 3.6 g/dL 2.2-4.2 [facility] Urea nitrogen/Creatinine [Mass ratio] 18.2 mg/mg 10-[address] [facility] Laboratory - Hematology and Cell countsOrdered By: Dr. Lyle on 09-24-2022 Erythrocyte distribution width (RBC) [Entitic vol] 39.6 fL 35.1-43.[address] [facility] Erythrocyte distribution width (RBC) [Ratio] 12.7 % 11.6-14.[address] [facility] Immature granulocytes/100 WBC (Bld) 0.300 % 0.0-0.[address] [facility] Comment on above: IG% - Immature Granu locytes (promyelocytes, myelocytes and metamyelocytes) > 1% indicates that a LEFT SHIFT is Present. MCH (RBC) [Entitic mass] 30.2 pg 27.0-32.[address] [facility] Nucleated RBC/100 WBC (Bld) [Ratio] 0 % 0-[address] [facility] MCHC Auto (RBC) [Mass/Vol]Or dered By: Dr. Lyle on 09-24-2022 MCHC (RBC) [Mass/Vol] 34.9 g/dL 32-36 [facility] No Panel InformationOrdered By: Dr. Lyle on 09-24-2022 Estimated GFR (MDRD) Amer 97 mL/min >[address] [facility] Comment on above: GFR Calc Estimated GFR (MDRD) Non-Af Amer 80 mL/min >[address] [facility] Comment on above: Non- GFR Calc Thyroid Stimulating Hormone (TSH) 5.31 uIU/mL 0.358-3.[address] [facility] Platelets bldOrdered By: Dr. Lyle on 09-24-2022 Platelets (Bld) [#/Vol] 195 10*3/uL 150-[address] [facility] Serum or plasma albumin tavia urement (mass/volume)Ordered By: Dr. Lyle on 09-24-2022 Albumin [Mass/Vol] 4.0 g/dL 3.2-5.0 [facility] Serum or plasma albumin/glob ulin mass ratioOrdered By: Dr. Lyle on 09-24-2022 Albumin/Globulin [Mass ratio] 1.1 {ratio} 0.9-2.[address] [facility] Serum or plasma calcium tavia urement (mass/volume)Ordered By: Dr. Lyle on 09-24-2022 Calcium [Mass/Vol] 9.0 mg/dL 8.5-10.1 [facility] Serum or plasma cholesterol in HDL measurement (mass/volume)Ordered By: Dr. Lyle on 09-24-2022 Cholesterol in HDL [Mass/Vol] 44 mg/dL >[address] [facility] Comment on above: The drugs N-Acetylcy steine and Metamizole may falsely depress this assay. Reference Range HDL <40 mg/dL Low HDL Cholesterol HDL >or= 60 mg/dL High HDL Cholesterol Serum or plasma cholesterol in VLDL measurement (mass/volume)Ordered By: Dr. Lyle on 09-24-2022 Cholesterol in VLDL [Mass/Vol] 17 mg/dL 5-[address] [facility] Serum or plasma creatinine m easurement (mass/volume)Ordered By: Dr. Lyle on 09-24-2022 Creatinine [Mass/Vol] 0.99 mg/dL 0.70-1.30 [facility] Comment on above: The validity of the calculated GFR & GFRAA in patients over 70 years has not been determined. Clinical correlation is essential. Serum or plasma low density lipoprotein (LDL) cholesterol measurement (mass/volume)Ordered By: Dr. Lyle on 09-24-2022 Cholesterol in LDL [Mass/Vol] 48 mg/dL 0-[address] [facility] Serum or plasma urea nitroge n measurement (mass/volume)Ordered By: Dr. Lyle on 09-24-2022 Urea nitrogen [Mass/Vol] 18 mg/dL 7-[address] [facility] Thin prep Papanicolaou smear with manual screeningOrdered By: Dr. Lyle on 09-24-2022 Thin prep Papanicolaou smear with manual screening 8 U/L 15-[address] [facility] Comment on above: Slight Hemolysis, Re sult may be falsely increased. Thin prep Papanicolaou smear with manual screening 7 5-[address] [facility] Whole blood hemoglobin A1c/t otal hemoglobin ratio (mass fraction)Ordered By: Dr. Lyle on 09-24-2022 HbA1c (Bld) [Mass fraction] 6.2 % 3.8-5.[address] [facility] Comment on above: Normal < 5.7 % Predi abetic 5.7 - 6.4 % Diabetic >or= 6.5 % Please note range changes. Qualitative QuantiFERON-TB g old in tube teston 08-27-2022 M. tuberculosis tuberculin stim IFN-g Ql (Bld) 0.08 IU/mL . [facility] Serum hepatitis B virus core antibody detectionon 08-27-2022 HBV core Ab Ql (S) Negative Negative [facility] Comment on above: Performed at: [facility] [employer] [address] [id number] Director: Danny Hobson PhD, Phone: [phone] Thin prep Papanicolaou smear with manual screeningon 08-27-2022 Thin prep Papanicolaou smear with manual screening Comment . [facility] Comment on above: QuantiFERON-TB Gold Plus is a qualitative indirect test forM tuberculosis infection (including disease) and isintended for use in conjunction with risk assessment,radiography, and other medical and diagnostic evaluations.The QuantiFERON-TB Gold Plus result is determined bysubtracting the Nil value from either TB antigen (Ag)value. The Mitogen tube serves as a control for the test. Thin prep Papanicolaou smear with manual screening 0.06 IU/mL . [facility] Thin prep Papanicolaou smear with manual screening 0.05 IU/mL . [facility] Thin prep Papanicolaou smear with manual screening > 10.00 IU/mL . [facility] Thin prep Papanicolaou smear with manual screening Negative Negative [facility] Comment on above: No response to M tub erculosis antigens detected.Infection with M tuberculosis is unlikely, but high riskindividuals should be considered for additional testing(ATS/IDSA/CDC Clinical Practice Guidelines, 2017). Thereference range is an Antigen minus Nil result of <0.35IU/mL.The specimen received for QuantiFERON testing was incubatedby the ordering institution. Specific procedures outlinedin our Directory of Services and in the package insert forthe QuantiFERON Gold (In Tube) test must be followed toenable for proper stimulation of cells for the productionof interferon gamma. Chemiluminescence immunoassaymethodology Absolute lymphocyte countOrd ered By: Dr. Lyle on 06-18-2022 Lymphocytes Auto (Unsp spec) [#/Vol] 2.05 10*3/uL 0.83-4.[address] [facility] Basophil percentageOrdered B y: Dr. Lyle on 06-18-2022 Basophils/100 WBC (Bld) 0.4 % 0-1 [facility] Bilirubin [Mass/Vol] 0.80 mg/dL 0.20-1.[address] [facility] Comment on above: For patients on eltr ombopag therapy, use of Dimension [place] TBIL is not recommended. Chloride [Moles/Vol] 104 mmol/L 98-[address] [facility] Cholesterol [Mass/Vol] 113 mg/dL <200 [facility] Comment on above: <200 mg/dL Desirable 200-240 mg/dL Borderline >240 mg/dL High Risk Eosinophils/100 WBC (Bld) 1.6 % 0-[address] [facility] Glucose [Mass/Vol] 155 mg/dL 74-106 [facility] Comment on above: Fasting Glucose resu lt greater than or equal to 126 mg/dL suggests DIABETES MELLITUS per A.D.A. criteria. Neutrophils (Bld) [#/Vol] 4.9 10*3/uL 2.0-7.[address] [facility] Neutrophils/100 WBC (Bld) 63.3 % 47-[address] [facility] Potassium [Moles/Vol] 3.5 mmol/L 3.5-5.1 [facility] Protein [Mass/Vol] 7.4 g/dL 6.4-8.2 [facility] Sodium [Moles/Vol] 140 mmol/L 136-145 [facility] Triglyceride [Mass/Vol] 96 mg/dL <199 [facility] Comment on above: The drugs N-Acetylcy steine and Metamizole may falsely depress this assay.Serum Triglycerides Reference Interval Normal <150 mg/dL Borderline high 150 - 199 mg/dL High 200 - 499 mg/dL Very High > or = 500 mg/dL WBC (Bld) [#/Vol] 7.7 10*3/uL 4.4-11.0 [facility] Blood erythrocytes count (nu mber/volume)Ordered By: Dr. Lyle on 06-18-2022 RBC (Bld) [#/Vol] 5.52 10*6/uL 4.6-6.2 [facility] Blood hemoglobin measurement (mass/volume)Ordered By: Dr. Lyle on 06-18-2022 Hemoglobin (Bld) [Mass/Vol] 16.2 g/dL 13.0-16.[address] [facility] Blood lymphocytes/100 leukoc ytesOrdered By: Dr. Lyle on 06-18-2022 Lymphocytes/100 WBC (Bld) 26.7 % 19-[address] [facility] Blood monocytes/100 leukocyt esOrdered By: Dr. Lyle on 06-18-2022 Monocytes/100 WBC (Bld) 7.7 % 0-10 [facility] Blood platelet mean volumeOr dered By: Dr. Lyle on 06-18-2022 Platelet mean volume (Bld) [Entitic vol] 10.1 fL 6.2-12.[address] [facility] Determination of erythrocyte mean corpuscular volume (MCV)Ordered By: Dr. Lyle on 06-18-2022 MCV (RBC) [Entitic vol] 85.9 fL 80-94 [facility] Hematocrit Auto (Bld) [Volum e fraction]Ordered By: Dr. Lyle on 06-18-2022 Hematocrit (Bld) [Volume fraction] 47.4 % 40-[address] [facility] Laboratory - Chemistry and C hemistry - challengeOrdered By: Dr. Lyle on 06-18-2022 ALP [Catalytic activity/Vol] 65 U/L 45-[address] [facility] ALT [Catalytic activity/Vol] 26 U/L 16-[address] [facility] CO2 [Moles/Vol] 29.0 mmol/L 21.0-32.[address] [facility] Free T4 [Mass/Vol] 1.06 ng/dL 0.76-1.46 [facility] Globulin (S) [Mass/Vol] 3.4 g/dL 2.2-4.2 [facility] Urea nitrogen/Creatinine [Mass ratio] 19.3 mg/mg 10-[address] [facility] Laboratory - Hematology and Cell countsOrdered By: Dr. Lyle on 06-18-2022 Erythrocyte distribution width (RBC) [Entitic vol] 39.4 fL 35.1-43.[address] [facility] Erythrocyte distribution width (RBC) [Ratio] 12.6 % 11.6-14.[address] [facility] Immature granulocytes/100 WBC (Bld) 0.300 % 0.0-0.[address] [facility] Comment on above: IG% - Immature Granu locytes (promyelocytes, myelocytes and metamyelocytes) > 1% indicates that a LEFT SHIFT is Present. MCH (RBC) [Entitic mass] 29.3 pg 27.0-32.[address] [facility] Nucleated RBC/100 WBC (Bld) [Ratio] 0 % 0-[address] [facility] MCHC Auto (RBC) [Mass/Vol]Or dered By: Dr. Lyle on 06-18-2022 MCHC (RBC) [Mass/Vol] 34.2 g/dL 32-36 [facility] No Panel InformationOrdered By: Dr. Lyle on 06-18-2022 Estimated GFR (MDRD) Amer 104 mL/min >[address] [facility] Comment on above: GFR Calc Estimated GFR (MDRD) Non-Af Amer 86 mL/min >[address] [facility] Comment on above: Non- GFR Calc Thyroid Stimulating Hormone (TSH) 4.22 uIU/mL 0.358-3.[address] [facility] Urine Microalbumin/Creatinine Ratio 8.3 mg/g CRE <[address] [facility] Platelets bldOrdered By: Dr. Lyle on 06-18-2022 Platelets (Bld) [#/Vol] 189 10*3/uL 150-[address] [facility] Serum or plasma albumin tavia urement (mass/volume)Ordered By: Dr. Lyle on 06-18-2022 Albumin [Mass/Vol] 4.0 g/dL 3.2-5.0 [facility] Serum or plasma albumin/glob ulin mass ratioOrdered By: Dr. Lyle on 06-18-2022 Albumin/Globulin [Mass ratio] 1.2 {ratio} 0.9-2.[address] [facility] Serum or plasma calcium tavia urement (mass/volume)Ordered By: Dr. Lyle on 06-18-2022 Calcium [Mass/Vol] 9.0 mg/dL 8.5-10.1 [facility] Serum or plasma cholesterol in HDL measurement (mass/volume)Ordered By: Dr. Lyle on 06-18-2022 Cholesterol in HDL [Mass/Vol] 41 mg/dL >[address] [facility] Comment on above: The drugs N-Acetylcy steine and Metamizole may falsely depress this assay. Reference Range HDL <40 mg/dL Low HDL Cholesterol HDL >or= 60 mg/dL High HDL Cholesterol Serum or plasma cholesterol in VLDL measurement (mass/volume)Ordered By: Dr. Lyle on 06-18-2022 Cholesterol in VLDL [Mass/Vol] 19 mg/dL 5-[address] [facility] Serum or plasma creatinine m easurement (mass/volume)Ordered By: Dr. Lyle on 06-18-2022 Creatinine [Mass/Vol] 0.94 mg/dL 0.70-1.30 [facility] Comment on above: The validity of the calculated GFR & GFRAA in patients over 70 years has not been determined. Clinical correlation is essential. Serum or plasma low density lipoprotein (LDL) cholesterol measurement (mass/volume)Ordered By: Dr. Lyle on 06-18-2022 Cholesterol in LDL [Mass/Vol] 53 mg/dL 0-[address] [facility] Serum or plasma urea nitroge n measurement (mass/volume)Ordered By: Dr. Lyle on 06-18-2022 Urea nitrogen [Mass/Vol] 18 mg/dL 7-[address] [facility] Thin prep Papanicolaou smear with manual screeningOrdered By: Dr. Lyle on 06-18-2022 Thin prep Papanicolaou smear with manual screening 8 U/L 15-[address] [facility] Thin prep Papanicolaou smear with manual screening 7 5-[address] [facility] Thin prep Papanicolaou smear with manual screening 8.1 mg/L NO RANGE EST. [facility] Urine creatinine measurement (mass/volume)Ordered By: Dr. Lyle on 06-18-2022 Creatinine (U) [Mass/Vol] 97.90 mg/dL NO RANGE EST. [facility] Whole blood hemoglobin A1c/t otal hemoglobin ratio (mass fraction)Ordered By: Dr. Lyle on 06-18-2022 HbA1c (Bld) [Mass fraction] 7.6 % 3.8-5.[address] [facility] Comment on above: Normal < 5.7 % Predi abetic 5.7 - 6.4 % Diabetic >or= 6.5 % Please note range changes. Absolute lymphocyte countOrd ered By: Dr. Lyle on 03-25-2022 Lymphocytes Auto (Unsp spec) [#/Vol] 1.77 10*3/uL 0.83-4.[address] [facility] Basophil percentageOrdered B y: Dr. Lyle on 03-25-2022 Basophils/100 WBC (Bld) 0.3 % 0-1 [facility] Bilirubin [Mass/Vol] 0.50 mg/dL 0.20-1.[address] [facility] Comment on above: For patients on eltr ombopag therapy, use of Dimension [place] TBIL is not recommended. Chloride [Moles/Vol] 102 mmol/L 98-[address] [facility] Cholesterol [Mass/Vol] 141 mg/dL <200 [facility] Comment on above: <200 mg/dL Desirable 200-240 mg/dL Borderline >240 mg/dL High Risk Eosinophils/100 WBC (Bld) 2.2 % 0-[address] [facility] Glucose [Mass/Vol] 204 mg/dL 74-106 [facility] Comment on above: Glucose result great er than or equal to 200 mg/dLsuggests DIABETES MELLITUS per A.D.A. criteria. Neutrophils (Bld) [#/Vol] 3.5 10*3/uL 2.0-7.[address] [facility] Neutrophils/100 WBC (Bld) 58.5 % 47-[address] [facility] Potassium [Moles/Vol] 4.3 mmol/L 3.5-5.1 [facility] Protein [Mass/Vol] 7.1 g/dL 6.4-8.2 [facility] Sodium [Moles/Vol] 141 mmol/L 136-145 [facility] Triglyceride [Mass/Vol] 146 mg/dL <199 [facility] Comment on above: The drugs N-Acetylcy steine and Metamizole may falsely depress this assay.Serum Triglycerides Reference Interval Normal <150 mg/dL Borderline high 150 - 199 mg/dL High 200 - 499 mg/dL Very High > or = 500 mg/dL WBC (Bld) [#/Vol] 6.0 10*3/uL 4.4-11.0 [facility] Blood erythrocytes count (nu mber/volume)Ordered By: Dr. Lyle on 03-25-2022 RBC (Bld) [#/Vol] 5.54 10*6/uL 4.6-6.2 [facility] Blood hemoglobin measurement (mass/volume)Ordered By: Dr. Lyle on 03-25-2022 Hemoglobin (Bld) [Mass/Vol] 16.3 g/dL 13.0-16.[address] [facility] Blood lymphocytes/100 leukoc ytesOrdered By: Dr. Lyle on 03-25-2022 Lymphocytes/100 WBC (Bld) 29.7 % 19-[address] [facility] Blood monocytes/100 leukocyt esOrdered By: Dr. Lyle on 03-25-2022 Monocytes/100 WBC (Bld) 9.1 % 0-10 [facility] Blood platelet mean volumeOr dered By: Dr. Lyle on 03-25-2022 Platelet mean volume (Bld) [Entitic vol] 9.6 fL 6.2-12.[address] [facility] Determination of erythrocyte mean corpuscular volume (MCV)Ordered By: Dr. Lyle on 03-25-2022 MCV (RBC) [Entitic vol] 85.9 fL 80-94 [facility] Hematocrit Auto (Bld) [Volum e fraction]Ordered By: Dr. Lyle on 03-25-2022 Hematocrit (Bld) [Volume fraction] 47.6 % 40-[address] [facility] Laboratory - Chemistry and C hemistry - challengeOrdered By: Dr. Lyle on 03-25-2022 ALP [Catalytic activity/Vol] 76 U/L 45-[address] [facility] ALT [Catalytic activity/Vol] 29 U/L 16-[address] [facility] CO2 [Moles/Vol] 33.0 mmol/L 21.0-32.[address] [facility] Free T4 [Mass/Vol] 1.10 ng/dL 0.76-1.46 [facility] Globulin (S) [Mass/Vol] 3.1 g/dL 2.2-4.2 [facility] Urea nitrogen/Creatinine [Mass ratio] 19.0 mg/mg 10-[address] [facility] Laboratory - Hematology and Cell countsOrdered By: Dr. Lyle on 03-25-2022 Erythrocyte distribution width (RBC) [Entitic vol] 39.4 fL 35.1-43.[address] [facility] Erythrocyte distribution width (RBC) [Ratio] 12.5 % 11.6-14.[address] [facility] Immature granulocytes/100 WBC (Bld) 0.200 % 0.0-0.[address] [facility] Comment on above: IG% - Immature Granu locytes (promyelocytes, myelocytes and metamyelocytes) > 1% indicates that a LEFT SHIFT is Present. MCH (RBC) [Entitic mass] 29.4 pg 27.0-32.[address] [facility] Nucleated RBC/100 WBC (Bld) [Ratio] 0 % 0-[address] [facility] MCHC Auto (RBC) [Mass/Vol]Or dered By: Dr. Lyle on 03-25-2022 MCHC (RBC) [Mass/Vol] 34.2 g/dL 32-36 [facility] No Panel InformationOrdered By: Dr. Lyle on 03-25-2022 Estimated GFR (MDRD) Amer 103 mL/min >[address] [facility] Comment on above: GFR Calc Estimated GFR (MDRD) Non-Af Amer 85 mL/min >[address] [facility] Comment on above: Non- GFR Calc Prostate Specific Antigen Screen 5.31 ng/mL 0.00-4.[address] [facility] Comment on above: This test was perfor med using the TPSA assay method for theHorrance chemistry system. Values obtained with differentassay methods cannot be used interchangably.When changing PSA assays in the course of monitoring apatient, additional sequential testing should be carriedout to confirm baseline values. Thyroid Stimulating Hormone (TSH) 3.66 uIU/mL 0.358-3.[address] [facility] Urine Microalbumin/Creatinine Ratio TNP [facility] Comment on above: Test not performed Platelets bldOrdered By: Dr. Lyle on 03-25-2022 Platelets (Bld) [#/Vol] 212 10*3/uL 150-[address] [facility] Serum or plasma albumin tavia urement (mass/volume)Ordered By: Dr. Lyle on 03-25-2022 Albumin [Mass/Vol] 4.0 g/dL 3.2-5.0 [facility] Serum or plasma albumin/glob ulin mass ratioOrdered By: Dr. Lyle on 03-25-2022 Albumin/Globulin [Mass ratio] 1.3 {ratio} 0.9-2.[address] [facility] Serum or plasma calcium tavia urement (mass/volume)Ordered By: Dr. Lyle on 03-25-2022 Calcium [Mass/Vol] 9.0 mg/dL 8.5-10.1 [facility] Serum or plasma cholesterol in HDL measurement (mass/volume)Ordered By: Dr. Lyle on 03-25-2022 Cholesterol in HDL [Mass/Vol] 40 mg/dL >[address] [facility] Comment on above: The drugs N-Acetylcy steine and Metamizole may falsely depress this assay. Reference Range HDL <40 mg/dL Low HDL Cholesterol HDL >or= 60 mg/dL High HDL Cholesterol Serum or plasma cholesterol in VLDL measurement (mass/volume)Ordered By: Dr. Lyle on 03-25-2022 Cholesterol in VLDL [Mass/Vol] 29 mg/dL 5-[address] [facility] Serum or plasma creatinine m easurement (mass/volume)Ordered By: Dr. Lyle on 03-25-2022 Creatinine [Mass/Vol] 0.95 mg/dL 0.70-1.30 [facility] Comment on above: The validity of the calculated GFR & GFRAA in patients over 70 years has not been determined. Clinical correlation is essential. Serum or plasma low density lipoprotein (LDL) cholesterol measurement (mass/volume)Ordered By: Dr. Lyle on 03-25-2022 Cholesterol in LDL [Mass/Vol] 72 mg/dL 0-[address] [facility] Serum or plasma urea nitroge n measurement (mass/volume)Ordered By: Dr. Lyle on 03-25-2022 Urea nitrogen [Mass/Vol] 18 mg/dL 7-[address] [facility] Thin prep Papanicolaou smear with manual screeningOrdered By: Dr. Lyle on 03-25-2022 Thin prep Papanicolaou smear with manual screening 6 U/L 15-[address] [facility] Thin prep Papanicolaou smear with manual screening 6 5-[address] [facility] Thin prep Papanicolaou smear with manual screening < 5.0 mg/L NO RANGE EST. [facility] Urine creatinine measurement (mass/volume)Ordered By: Dr. Lyle on 03-25-2022 Creatinine (U) [Mass/Vol] 39.40 mg/dL NO RANGE EST. [facility] Whole blood hemoglobin A1c/t otal hemoglobin ratio (mass fraction)Ordered By: Dr. Lyle on 03-25-2022 HbA1c (Bld) [Mass fraction] 7.2 % 3.8-5.[address] [facility] Comment on above: Normal < 5.7 % Predi abetic 5.7 - 6.4 % Diabetic >or= 6.5 % Please note range changes. Absolute lymphocyte counton 12-17-2021 Lymphocytes Auto (Unsp spec) [#/Vol] 2.21 10*3/uL 0.83-4.[address] [facility] Work Phone: Basophil percentageon 2021 Basophils/100 WBC (Bld) 0.4 % 0-1 [facility] Work Phone: Bilirubin [Mass/Vol] 0.80 mg/dL 0.20-1.[address] [facility] Work Phone: Comment on above: For patients on eltr ombopag therapy, use of Dimension [place] TBIL is not recommended. Chloride [Moles/Vol] 102 mmol/L 98-[address] [facility] Work Phone: Cholesterol [Mass/Vol] 124 mg/dL <200 [facility] Work Phone: Comment on above: <200 mg/dL Desirable 200-240 mg/dL Borderline >240 mg/dL High Risk Eosinophils/100 WBC (Bld) 1.5 % 0-[address] [facility] Work Phone: [phone] Glucose [Mass/Vol] 149 mg/dL 74-106 [facility] Work Phone: Comment on above: Fasting Glucose resu lt greater than or equal to 126 mg/dL suggests DIABETES MELLITUS per A.D.A. criteria. Neutrophils (Bld) [#/Vol] 4.2 10*3/uL 2.0-7.[address] [facility] Work Phone: [phone] Neutrophils/100 WBC (Bld) 58.4 % 47-[address] [facility] Work Phone: [phone] Potassium [Moles/Vol] 3.4 mmol/L 3.5-5.1 [facility] Work Phone: Protein [Mass/Vol] 7.7 g/dL 6.4-8.2 [facility] Work Phone: [phone] Sodium [Moles/Vol] 138 mmol/L 136-145 [facility] Work Phone: [phone] Triglyceride [Mass/Vol] 95 mg/dL <199 [facility] Work Phone: Comment on above: The drugs N-Acetylcy steine and Metamizole may falsely depress this assay.Serum Triglycerides Reference Interval Normal <150 mg/dL Borderline high 150 - 199 mg/dL High 200 - 499 mg/dL Very High > or = 500 mg/dL WBC (Bld) [#/Vol] 7.1 10*3/uL 4.4-11.0 [facility]: Blood erythrocytes count (nu mber/volume)on 12-17-2021 RBC (Bld) [#/Vol] 5.43 10*6/uL 4.6-6.2 [facility]: Blood hemoglobin measurement (mass/volume)on 12-17-2021 Hemoglobin (Bld) [Mass/Vol] 16.3 g/dL 13.0-16.[address] [facility] Work Phone: Blood lymphocytes/100 leukoc yteson 12-17-2021 Lymphocytes/100 WBC (Bld) 31.0 % 19-[address] [facility] Work Phone: Blood monocytes/100 leukocyt eson 12-17-2021 Monocytes/100 WBC (Bld) 8.4 % 0-10 [facility] Work Phone: Blood platelet mean volumeon 12-17-2021 Platelet mean volume (Bld) [Entitic vol] 10.0 fL 6.2-12.[address] [facility] Work Phone: [phone] Determination of erythrocyte mean corpuscular volume (MCV)on 12-17-2021 MCV (RBC) [Entitic vol] 84.2 fL 80-94 [facility] Work Phone: Hematocrit Auto (Bld) [Volum e fraction]on 12-17-2021 Hematocrit (Bld) [Volume fraction] 45.7 % 40-[address] [facility] Work Phone: Laboratory - Chemistry and C hemistry - challengeon 12-17-2021 ALP [Catalytic activity/Vol] 73 U/L 45-[address] [facility] Work Phone: ALT [Catalytic activity/Vol] 33 U/L 16-[address] [facility] Work Phone: CO2 [Moles/Vol] 28.0 mmol/L 21.0-32.[address] [facility] Work Phone: Free T4 [Mass/Vol] 1.20 ng/dL 0.76-1.46 [facility] Work Phone: Globulin (S) [Mass/Vol] 3.8 g/dL 2.2-4.2 [facility] Work Phone: Urea nitrogen/Creatinine [Mass ratio] 16.2 mg/mg 10-[address] [facility] Work Phone: Laboratory - Hematology and Cell countson 12-17-2021 Erythrocyte distribution width (RBC) [Entitic vol] 36.8 fL 35.1-43.[address] [facility] Work Phone: Erythrocyte distribution width (RBC) [Ratio] 12.2 % 11.6-14.[address] [facility] Work Phone: Immature granulocytes/100 WBC (Bld) 0.300 % 0.0-0.[address] [facility] Work Phone: Comment on above: IG% - Immature Granu locytes (promyelocytes, myelocytes and metamyelocytes) > 1% indicates that a LEFT SHIFT is Present. MCH (RBC) [Entitic mass] 30.0 pg 27.0-32.[address] [facility] Work Phone: Nucleated RBC/100 WBC (Bld) [Ratio] 0 % 0-[address] [facility] Work Phone: MCHC Auto (RBC) [Mass/Vol]on 12-17-2021 MCHC (RBC) [Mass/Vol] 35.7 g/dL 32-36 [facility] Work Phone: No Panel Informationon 12-17 Estimated GFR (MDRD) Amer 98 mL/min >[address] [facility] Work Phone: Comment on above: GFR Calc Estimated GFR (MDRD) Non-Af Amer 81 mL/min >[address] [facility] Work Phone: Comment on above: Non- GFR Calc Thyroid Stimulating Hormone (TSH) 3.97 uIU/mL 0.358-3.[address] [facility] Work Phone: Urine Microalbumin/Creatinine Ratio 5.4 mg/g CRE <[address] [facility] Work Phone: Platelets bldon 12-17-2021 Platelets (Bld) [#/Vol] 214 10*3/uL 150-[address] [facility] Work Phone: Serum or plasma albumin tavia urement (mass/volume)on 12-17-2021 Albumin [Mass/Vol] 3.9 g/dL 3.2-5.0 [facility] Work Phone: Serum or plasma albumin/glob ulin mass ratioon 12-17-2021 Albumin/Globulin [Mass ratio] 1.0 {ratio} 0.9-2.[address] [facility] Work Phone: Serum or plasma calcium tavia urement (mass/volume)on 12-17-2021 Calcium [Mass/Vol] 8.9 mg/dL 8.5-10.1 [facility] Work Phone: Serum or plasma cholesterol in HDL measurement (mass/volume)on 12-17-2021 Cholesterol in HDL [Mass/Vol] 41 mg/dL >[address] [facility] Work Phone: Comment on above: The drugs N-Acetylcy steine and Metamizole may falsely depress this assay. Reference Range HDL <40 mg/dL Low HDL Cholesterol HDL >or= 60 mg/dL High HDL Cholesterol Serum or plasma cholesterol in VLDL measurement (mass/volume)on 12-17-2021 Cholesterol in VLDL [Mass/Vol] 19 mg/dL 5-[address] [facility] Work Phone: Serum or plasma creatinine m easurement (mass/volume)on 12-17-2021 Creatinine [Mass/Vol] 0.99 mg/dL 0.70-1.30 [facility] Work Phone: Comment on above: The validity of the calculated GFR & GFRAA in patients over 70 years has not been determined. Clinical correlation is essential. Serum or plasma low density lipoprotein (LDL) cholesterol measurement (mass/volume)on 12-17-2021 Cholesterol in LDL [Mass/Vol] 64 mg/dL 0-[address] [facility] Work Phone: Serum or plasma urea nitroge n measurement (mass/volume)on 12-17-2021 Urea nitrogen [Mass/Vol] 16 mg/dL 7-[address] [facility] Work Phone: Thin prep Papanicolaou smear with manual screeningon 12-17-2021 Thin prep Papanicolaou smear with manual screening 10 U/L 15-[address] [facility] Work Phone: Thin prep Papanicolaou smear with manual screening 8 5-[address] [facility] Work Phone: Thin prep Papanicolaou smear with manual screening 8.4 mg/L NO RANGE EST. [facility] Work Phone: Urine creatinine measurement (mass/volume)on 12-17-2021 Creatinine (U) [Mass/Vol] 156.00 mg/dL NO RANGE EST. [facility] Work Phone: Whole blood hemoglobin A1c/t otal hemoglobin ratio (mass fraction)on 12-17-2021 HbA1c (Bld) [Mass fraction] 7.6 % 3.8-5.[address] [facility] Work Phone: Comment on above: Normal < 5.7 % Predi abetic 5.7 - 6.4 % Diabetic >or= 6.5 % Please note range changes. CNOVon 12-16-2021 CNOV Office Visit ([facility] ) -- ROBERT MORALEZ ([id number]) 1955 M Date Time Provider Department 12/16/21 11:45 AM MATHEW PATEL During your visit today, we recorded the following information about you: Temperature Pulse Respiration Blood pressure 97.2 degrees 68/minute 16/minute 120/78 Weight 100 kg Mathew Patel APRN.CNP 12/16/2021 11:57 AM Signed Subjective Patient had three sutures placed in [...] infection such as swelling, redness or drainage. Mathew Patel APRN.FORK ASSEMBLER Referring Provider: SELF [200] Allergies As of Date: 12/16/2021 (No Known Allergies) Date Reviewed: 12/06/2021 Reviewed by: Gaby Benites MA - Fully Assessed Reason for Visit: Suture Removal [105] Cmt: Suture removal left index finger placed by us 10 days ago Primary Visit Diagnosis:Visit for suture removal [Z48.02] Prescriptions as of 12/16/2021 - JARDIANCE 10 mg tablet - rOPINIRole (REQUIP) 0.25 mg tablet Take 0.25-0.5 mg by mouth daily at bedtime. - secukinumab (COSENTYX PEN SUBCUTANEOUS) Inject subcutaneously. - SITAGLIPTIN PHOS/METFORMIN HCL (JANUMET ORAL) Take by mouth. - ETANERCEPT (ENBREL SUBCUTANEOUS) Inject subcutaneously. - ramipril (ALTACE) 5 mg capsule Take 5 mg by mouth once daily. Problem List As Of Date: 12/16/2021 (None) Encounter Status:Closed by MATHEW PATEL on 12/16/21 Normal [facility] CNOVon 12-06-2021 CNOV Office Visit ([facility] ) -- ROBERT MORALEZ ([id number]) 1955 M Date Time Provider Department 12/06/21 11:00 AM MATHEW PATEL [facility] During your visit today, we recorded the following information about you: Temperature Pulse Respiration Blood pressure 96.2 degrees 82/minute 21/minute 120/70 Weight 100.4 kg Mathew Patel APRN.FORK ASSEMBLER 12/06/2021 12:27 PM Signed Subjective Patient came in with complaints of [...] history is provided by the patient. No claim examiner was used. Laceration Review of Systems Constitutional: Negative. Skin: Negative. Objective Physical Exam Constitutional: Appearance: Normal appearance. Pulmonary: Effort: Pulmonary effort is normal. Musculoskeletal: Hands: Comments: Patient has a units shaped laceration where red faustina is. No tendon involved. Well approximated. Neurological: Mental Status: He is alert. UNIVERSAL PROTOCOL / SAFETY CHECKLIST Procedure to be Performed: Mathew Patel APRN.FORK ASSEMBLER Sign In: A Moment of CARE was [...] updated. Have sutures removed in 7-10 days. Mathew Patel APRN.CHRISTIANE Patel APRN.CHRISTIANE Referring Provider: SELF [200] Allergies As of Date: 12/06/2021 (No Known Allergies) Date Reviewed: 12/06/2021 Reviewed by: Gaby Benites MA - Fully Assessed Reason for Visit: Laceration [1747] Cmt: Left hand index finger is cut Primary Visit Diagnosis:Laceration of left index finger without foreign body without damage to nail, initial encounter [S61.211A] Order(s):TDAP VACCINE AGE 7+ IM [[id number]] Order #: [id number] Prescriptions as of 12/06/2021 - JARDIANCE 10 mg tablet - rOPINIRole (REQUIP) 0.25 mg tablet Take 0.25-0.5 mg by mouth daily at bedtime. - secukinumab (COSENTYX PEN SUBCUTANEOUS) Inject subcutaneously. - SITAGLIPTIN PHOS/METFORMIN HCL (JANUMET ORAL) Take by mouth. - ETANERCEPT (ENBREL SUBCUTANEOUS) Inject subcutaneously. - ramipril (ALTACE) 5 mg capsule Take 5 mg by mouth once daily. Problem List As Of Date: 12/06/2021 (None) Encounter Status:Closed by MATHEW PATEL on 12/06/21 Normal [facility] Vital Signs Date Time Vital Sign Value Performing Clinician Facility 07-20-2024 09:00-0400 Body temperature 98.4 [degF] Dr. Lopez Lyle MD Work Phone: [facility] 07-20-2024 09:00-0400 Diastolic blood pressure 64 mm[Hg] Dr. Lopez Lyle MD Work Phone: [facility] 07-20-2024 09:00-0400 Heart rate 83 /min Dr. Lopez Lyle MD Work Phone: [facility] 07-20-2024 09:00-0400 Respiratory rate 16 /min Dr. Lopez Lyle MD Work Phone: [facility] 07-20-2024 09:00-0400 SaO2% (BldA) [Mass fraction] 96 % Dr. Lopez Lyle MD Work Phone: [facility] 07-20-2024 09:00-0400 Systolic blood pressure 122 mm[Hg] Dr. Lopez Lyle MD Work Phone: [facility] 07-19-2024 14:02-0400 Inhaled oxygen flow rate 2 L/min Dr. Lopez Lyle MD Work Phone: [facility] 07-19-2024 06:39-0400 Body height 175.[address] Lopez Lyle MD Work Phone: [facility] 07-19-2024 06:39-0400 Body mass index (BMI) [Ratio] 31.6 kg/m2 Dr. Lopez Lyle MD Work Phone: [facility] 07-19-2024 06:39-0400 Body weight [address] Lopez Lyle MD Work Phone: [facility] 12-16-2021 11:39-0400 Body temperature 97.2 [degF] Mathew Patel APRN.FORK ASSEMBLER Work Phone: [facility] 12-16-2021 11:39-0400 Body weight 99.97 kg Mathew Patel APRN.FORK ASSEMBLER Work Phone: [facility] 12-16-2021 11:39-0400 Diastolic blood pressure 78 mm[Hg] Mathew Patel APRN.FORK ASSEMBLER Work Phone: [facility] 12-16-2021 11:39-0400 Heart rate 68 /min Mathew Patel APRN.FORK ASSEMBLER Work Phone: [facility] 12-16-2021 11:39-0400 Respiratory rate 16 /min Mathew Patel APRN.FORK ASSEMBLER Work Phone: [facility] 12-16-2021 11:39-0400 SaO2% (BldA) [Mass fraction] 98 % Mathew Patel APRN.FORK ASSEMBLER Work Phone: [facility] 12-16-2021 11:39-0400 Systolic blood pressure 120 mm[Hg] Mathew Patel APRN.FORK ASSEMBLER Work Phone: [facility] 12-06-2021 10:56-0400 Body temperature 96.21 [degF] Mathew Patel APRN.FORK ASSEMBLER Work Phone: [facility] 12-06-2021 10:56-0400 Body weight 100.43 kg Mathew Patel APRN.FORK ASSEMBLER Work Phone: [facility] 12-06-2021 10:56-0400 Diastolic blood pressure 70 mm[Hg] Mathew Patel APRN.FORK ASSEMBLER Work Phone: [facility] 12-06-2021 10:56-0400 Heart rate 82 /min Mathew Patel APRN.FORK ASSEMBLER Work Phone: [facility] 12-06-2021 10:56-0400 Respiratory rate 21 /min Mathew Patel APRN.FORK ASSEMBLER Work Phone: [facility] 12-06-2021 10:56-0400 SaO2% (BldA) [Mass fraction] 99 % Mathew Patel APRN.FORK ASSEMBLER Work Phone: [facility] 12-06-2021 10:56-0400 Systolic blood pressure 120 mm[Hg] Mathew Patel APRN.FORK ASSEMBLER Work Phone: [facility] Encounters Encounter Date Encounter Type Care Provider Facility Start: 10-18-2024 ambulatory Lawanda Gonsalves [facility] Start: 09-20-2024 End: 09-20-[address] Lopez Lyle MD Work Phone: [facility] Work Phone: Start: 09-20-2024 End: 09-20-[address] Lopez Lyle MD -[facility] [place] Work Phone: Start: 09-20-2024 End: 09-20-2024 ambulatory Lopez Lyle Facility:[facility] Start: 08-22-2024 End: 08-22-2024 Patient encounter procedure John Jhaveri DPM -Labor[facility] [place] Work Phone: Start: 08-22-2024 End: 08-22-2024 ambulatory John Jhaveri Facility:[facility] Start: 07-19-2024 End: 07-20-2024 ambulatory [facility] Start: 07-19-2024 End: 07-20-2024 Evaluation and management of inpatient Dr. Ricco Luke MD -Medical Surgical 3 Work Phone: Start: 07-19-2024 End: 07-20-[address] Lopez Lyle MD Work Phone: [facility] Work Phone: Start: 06-01-2024 End: 06-01-2024 ambulatory Cuong Toro Facility:[facility] Start: 06-01-2024 End: 06-01-2024 Non-patient / Non-visit Dr. Cuong Toro MD -[facility] Work Phone: Start: 04-06-2024 End: 04-06-[address] Ricco Luke MD -Laboratory, [facility] Work Phone: Start: 04-06-2024 End: 04-06-2024 ambulatory Lopez Lyle Facility:[facility] Start: 03-10-2024 End: 03-10-2024 ambulatory Lopez Lyle Facility:[facility] Start: 02-24-2024 End: 02-24-2024 [facility] Start: 01-20-2024 End: 01-20-2024 [facility] Start: 12-28-2023 End: 12-28-2023 [facility] Start: 12-23-2023 End: 12-23-2023 ambulatory [facility] Facility:[facility] Start: 08-23-2023 End: 08-23-[address] [facility] Work Phone: Start: 08-23-2023 End: 08-23-2023 Patient encounter procedure [facility] Work Phone: Start: 06-08-2023 End: 06-08-[address] [facility] Work Phone: Start: 06-08-2023 End: 06-08-2023 Patient encounter procedure [facility] Work Phone: Start: 03-22-2023 End: 03-22-[address] [facility] Work Phone: Start: 03-22-2023 End: 03-22-2023 Patient encounter procedure [facility] Work Phone: Start: 02-16-2023 End: 02-16-[address] [facility] Work Phone: Start: 02-16-2023 End: 02-16-2023 Patient encounter procedure [facility] Work Phone: Start: 02-05-2023 End: 02-05-[address] [facility] Work Phone: Start: 02-05-2023 End: 02-05-2023 Patient encounter procedure [facility] Work Phone: Start: 11-13-2022 End: 11-13-[address] [facility] Work Phone: Start: 11-13-2022 End: 11-13-2022 Patient encounter procedure [facility] Work Phone: Start: 09-24-2022 End: 09-24-[address] [facility] Work Phone: Start: 09-24-2022 End: 09-24-2022 Patient encounter procedure [facility] Start: 08-27-2022 End: 08-27-[address] [facility] Work Phone: Start: 08-27-2022 End: 08-27-2022 Patient encounter procedure [facility] Start: 06-18-2022 End: 06-18-[address] [facility] Work Phone: Start: 06-18-2022 End: 06-18-2022 Patient encounter procedure [facility] Start: 06-11-2022 End: 06-11-[address] [facility] Work Phone: Start: 06-11-2022 End: 06-11-2022 Patient encounter procedure [facility] Start: 03-25-2022 End: 03-25-[address] [facility] Work Phone: Start: 03-25-2022 End: 03-25-2022 Patient encounter procedure [facility] Start: 12-17-2021 End: 12-17-[address] [facility] Work Phone: Start: 12-17-2021 End: 12-17-2021 Patient encounter procedure [facility] Start: 12-16-2021 End: 12-16-2021 Patient encounter procedure Mathew Patel APRN.FORK ASSEMBLER Work Phone: [facility] Comment on above: Visit for suture rem oval (Primary Dx) Start: 12-06-2021 End: 12-06-2021 Patient encounter procedure Mathew Patel APRN.FORK ASSEMBLER Work Phone: [facility] Comment on above: Laceration of left i ndex finger without foreign body without damage to nail, initial encounter (Primary Dx) Procedures Date Procedure Procedure Detail Performing Clinician Start: 09-20-2024 Urine microalbumin/creatinine ratio measurement Dr. Lopez Lyle MD Work Phone: Start: 07-20-[address] Lopez Lyle MD Work Phone: Start: 07-19-2024 Robot assisted lapar oscopic radical prostatectomy Dr. Lopez Lyle MD Work Phone: Start: 06-01-2024 Urnls dip stick/tabl et reagent auto microscopy Dr. Lopez Lyle MD Work Phone: Start: 06-01-2024 Measurement of renal function Dr. Lopez Lyle MD Work Phone: Comment on above: GFR Calc Start: 06-01-[address] Lopez Lyle MD Work Phone: Start: 06-01-2024 Urine microalbumin/creatinine ratio measurement Dr. Lopez Lyle MD Work Phone: Start: 03-25-2022 Plain x-ray of hand Plan of Treatment Date Care Activity Detail Author Start: 12-07-2031 Urine microalbumin profile DTAP,TDAP,TD (2 - Td or Tdap) [facility] Start: 07-20-2024 Measuring intake and output [facility] Start: 07-20-2024 End: 07-20-2024 Patient discharge [facility] Start: 07-20-[address] [facility] Start: 07-19-[address] [facility] Start: 07-19-2024 Anes xtrprtl lwr abd w/urinary tract rad prstect ANESTH REMOVAL OF PROSTATE [facility] Start: 07-19-2024 Laps prostect retropubic rad w/nrv sparing robot LAPS SURG [id number] RPBIC RAD [facility] Start: 07-19-2024 Following clinical pathway protocol [facility] Start: 07-19-2024 Measuring intake and output [facility] Start: 07-19-2024 Ambulation therapy management [facility] Start: 07-19-2024 Deep breathing and coughing exercises [facility] Start: 07-19-2024 Incentive spirometry [facility] Start: 07-19-2024 Provision of activity privileges [facility] Start: 07-19-2024 Assessment of risk of venous thromboembolism [facility] Start: 07-19-2024 Documentation procedure [facility] Start: 07-19-2024 Following clinical pathway protocol [facility] Start: 07-19-2024 Taking patient vital signs [facility] Start: 07-19-2024 Vital signs measurements [facility] Start: 07-19-2024 End: 07-19-[address] [facility] Start: 07-19-2024 Admission procedure [facility] Start: 05-31-[address] [facility] Start: 12-25-2021 Influenza vaccination INFLUENZA (#1) [facility] Start: 2021 ADVANCE DIRECTIVE DISCUSSION ADVANCE DIRECTIVE DISCUSSION [facility] Start: 06-20-2021 COVID-19 VACCINE (4 - Booster for Moderna series) COVID-19 VACCINE (4 - Booster for Moderna series) [facility] Start: 06-30-2011 PROSTATE CANCER SCREENING DISCUSSION PROSTATE CANCER SCREENING DISCUSSION [facility] Start: 2001 COLOGUARD (FIT-DNA) COLOGUARD (FIT-DNA) [facility] Start: 2001 Colonoscopy COLONOSCOPY [facility] Start: 2001 COLORECTAL CANCER SCREENING COLORECTAL CANCER SCREENING [facility] Start: [address] COLONOGRAPHY [facility] Start: 2001 DIABETES SCREEN DIABETES SCREEN [facility] Start: 2001 FECAL OCCULT BLOOD FECAL OCCULT BLOOD [facility] Start: 2001 SIGMOIDOSCOPY SIGMOIDOSCOPY [facility] Start: 06-30-1991 LIPID SCREEN LIPID SCREEN [facility] Start: 06-30-1975 SHINGRIX VACCINE (1 of 2) SHINGRIX VACCINE (1 of 2) [facility] Start: 1974 HEPATITIS C SCREENING HEPATITIS C SCREENING [facility] Start: 1974 HIV SCREENING HIV SCREENING [facility] Start: 1968 Adult depression screening assessment DEPRESSION SCREENING [facility] Start: 1962 PNEUMOCOCCAL: 65+ (1 - PCV) PNEUMOCOCCAL: 65+ (1 - PCV) [facility] Patient referral [facility] Work Phone: Immunizations Immunization Date Immunization Notes Care Provider No [email or web address] 12-06-2021 tetanus toxoid, redu franky diphtheria toxoid, and acellular pertussis vaccine, adsorbed Mathew Patel APRN.FORK [employer]SEMBL[employer] Work Phone: [facility] Payers Date Payer Category Payer Self-pay [id number] 2023 Private Health Insurance CLI [id number] 2022 Medicare [id number] 2021 Unknown [employer] PPO [id number] 2021-[facility] [phone] [address] [place] [address] PPO [id number] 1955 Unknown [id number] Private Health Insurance [facility] [id number] Private Health Insurance [id number] Unknown ANTHEM [id number] Unknown [id number] 462 Unknown [id number] 462 Unknown [id number]. 462 Unknown [id number] [id number]. 462 Unknown [id number]. 462 Unknown [id number]. 462 Unknown [id number]. 462 Unknown [id number]. 462 Unknown [id number] 462 Unknown [id number] 462 Social History Date Type Detail Facility Start: 12-06-2021 End: 07-05-2024 Tobacco smoking status NHIS Never smoked tobacco [facility] Start: 12-06-2021 Tobacco use and exposure Smokeless tobacco non-user [facility] Start: 12-06-2021 End: 12-16-2021 Alcohol intake Current non-drinker of alcohol (finding) [facility] Start: 1955 Sex Assigned At Not on file [facility] Start: 12-06-2021 End: 12-16-2021 Exposure to SARS-CoV-2 (event) Not sure [facility] Work Phone: Start: 1955 Sex Assigned At Male [facility] Start: 07-20-2024 Sex Male (finding) [facility] NEGATED: Highlighted rowStart: NINF History of tobacco use Passive smoker [facility] Medical Equipment Procedure Code Equipment Code Equipment Origin al Text Equipment Identifier Dates Robot-assisted laparoscopic radical prostatectomy Collagen haemostatic agent, non-antimicrobial [id number] FDA Start: 07-19-2024 Robot-assisted laparoscopic radical prostatectomy Ligation clip, synthetic polymer, non-bioabsorbable [id number] FDA Start: 07-19-2024 Goals Date Patient Goal Desired Activity /State Functional Status Date Assessment Result Facility 07-20-2024 Functional status Activity Abili ty With Assist of [address] [facility] Work Phone: Mental Status Date Assessment Result Facility 07-20-2024 Cognitive function Level Of Cons ciousness Awake;Alert;Appropriate;Follow s Commands [facility] Work Phone: 07-19-2024 Cognitive function Voice/Name [facility] Work Phone: Clinical Notes 12-06-2021 to 07-20-2024 Note Date & Type Note Facility 07-20-20[address] [facility] 07-20-2024 Discharge summary [facility] 07-20-2024 Consult note Note Date/Time July 20, 2024 2:16pm [facility] Medical Records Department [address] [place] [address] Counseling Note - Pharmacy 07/20/24 120 MR#: [id number] Acct: [id number] Name: ROBERT MORALEZ Rep #:[id number] : 1955 69 From: Ria Gabriel PCP: Dr. Lopez Lyle MD Status:MIC TORRES Y Location: [facility] Pharmacy Service has performed discharge medication reconciliation and counseling for this patient. The patient's discharge medication list was reviewed for discrepancies and discrepancies were resolved. The patient was counseled on the following discharge medications and changes in medications for homegoing were reviewed. 1. CIPRO 2. OXYCODONE 3. COLACE The Reason for Use, instructions for use, and potential side effects were reviewed for all new medications. The patient's questions regarding all of their medications were answered. The patient was able to verbally demonstrate an understanding of their dischargemedications. Medications at Discharge Home Medications antiarthritic combination no.2 900 mg tablet (glucosamine-chondroitin) 900 mg POBID 05/31/24 ascorbic acid (vitamin C) 500 mg tablet (Vitamin C) 500 mg PO DAILY 05/31/24 calcium citrate 150 mg capsule 150 mg PO DAILY 05/31/24 cholecalciferol (vitamin D3) 25 mcg (1,000 unit) tablet (Vitamin D3) 25 mcg PO DAILY 05/31/24 empagliflozin 25 mg tablet (Jardiance) 25 mg PO DAILY 05/31/24 ixekizumab 80 mg/mL subcutaneous auto-injector (Taltz Autoinjector) 80 mg subcutQMONTH 05/31/24 metformin 500 mg tablet,extended release 24 hr 1,000 mg PO BID 05/31/24 multivitamin (Daily Multi-Vitamin tablet) 1 tab PO DAILY 05/31/24 omega 3-kpz-zto-fish oil 1,200 mg (144 mg-216 mg) capsule (Fish Oil) 1 cap PO DAILY 05/31/24 pravastatin 20 mg tablet 20 mg PO DAILY 05/31/24 ramipril 5 mg capsule 5 mg PO DAILY 05/31/24 ropinirole 0.25 mg tablet 0.25 mg PO QHS 05/31/24 saw palmetto 160 mg capsule 320 mg PO BID 05/31/24 ciprofloxacin HCl 500 mg tablet 500 mg PO BID #20 tabs 07/19/24 docusate sodium 100 mg capsule (Colace) 100 mg PO BID #20 caps 07/19/24 oxycodone 5 mg tablet 5 mg PO Q6H PRN pain 7 days #14 tabs 07/19/24 07/20/24 1207 <Electronically signed by Ria Gabriel > Date _ Ria Gabriel Cosigner Signature (if applicable): Date CC: ~ Signed [facility] Work Phone: 1(393) 377-831003-27-2025 Progress note Author Ricco Luke [facility] Note Date/Time July 20, 2024 7:[address] [facility] Medical Records Department [address] [place] [address] Progress Note - Urology 07/20/24 6168 MR#: [id number] Acct: [id number] Name: ROBERT MORALEZ Rep #:[id number] : 1955 69 From: Ricco Luke MD PCP: Dr. Lopez Lyle MD Status:MIC TORRES Location: MS3 LF800-1 Subjective Subjective Postoperative day number one 69-year-old male status post robotic radical prostatectomy blood pressure and all his vitals look stable. Postop day 1 bloodwork all looks good. Minimal output from the RAIMUNDO removed this morning good output from the urine. He will go home today with a Nice catheter he does haveleg bag and large bag teaching and Nice care teaching and will follow-up in my office in 2 weeks for Nice catheter removal he was given strict instructions onwhat to do the next 2 weeks. This was reviewed with the patient. Patient was likely stable as long as he tolerates breakfast and lunch walks around minimal pain he can go home later today Objective Data Objective Data Vital Signs: Vital Signs Temp Pulse Resp BP Pulse Ox O2 Del Method O2 Flow Rate 97.7 F L 69 16 126/77 H 96 Room Air 2 07/20/24 05:24 07/20/24 05:24 07/20/24 05:24 07/20/24 05:24 07/20/24 05:24 07/20/24 05:24 07/19/24 14:02 Oxygen Flow Rate (L/min) 2 Oxygen Delivery Method Room Air Weight: 97 kg Body Mass Index (BMI) 31.6 Intake & Output: Intake and Output for Last 24 Hours 07/18/24 07/19/24 07/20/24 23:59 23:59 23:59 Intake Total 3470.00 / 3470.00 1326.5 / 1326.5 Output Total 3430 / 3430 1300 / 1300 Balance 40.00 / 40.00 26.5 / 26.5 Lab / Micro Data 07/20/24 06:05 07/20/24 06:05 Labs: Laboratory Results - last 24 hr 07/20/24 06:05: WBC 14.1 H, RBC 4.42 L, Hgb 13.2, Hct 38.2 L, MCV 86.4, MCH 29.9, MCHC 34.6, RDW Std Deviation 41.0, RDW Coeff of Rani 13.0, Plt Count 203, MPV 9.3, Immature Gran % (Auto) 0.500, Neut % (Auto) 76.6 H, Lymph % (Auto) 13.7L, Sargent % (Auto) 9.0, Eos % (Auto) 0.1, Baso % (Auto) 0.1, Absolute Neuts (auto)10.8 H, Absolute Lymphs (auto) 1.92, Nucleated RBC % 0, Sodium 137, Potassium 4.2, Chloride 104, Carbon Dioxide 23.1, Anion Gap 10, BUN 14, Creatinine 0.87, Estim Creat Clear Calc 93.36, Est GFR (MDRD) Non-Af 94, BUN/Creatinine Ratio 16.5, Glucose 168 H, Calcium 7.9 07/20/24 0726 <Electronically signed by Ricco Luke MD> Cosigner Signature (if applicable): CC: ~ Signed [facility] Work Phone: 1(439) 944-488203-27-2025 Progress note [facility] Medical Records Department [address] [place] [address] Progress Note - Urology 07/20/24724 MR#: [id number] Acct: [id number] Name: ROBERT MORALEZ Rep #:[id number] : 1955 69 From: Ricco Luke MD PCP: Dr. Lopez Lyle MD Status:MIC TORRES Location: DC3 KQ984-0 Subjective Subjective Postoperative day number one 69-year-old male status post robotic radical prostatectomy blood pressure and all his vitals look stable. Postop day 1 bloodwork all looks good. Minimal output from the RAIMUNDO removed this morning good output from the urine. He will go home today with a Nice catheter he does haveleg bag and large bag teaching and Nice care teaching and will follow-up in my office in 2 weeks for Nice catheter removal he was given strict instructions onwhat to do the next 2 weeks. Thiswas reviewed with the patient. Patient was likely stable as long as he tolerates breakfast and lunch walks around minimal pain he can go home later today Objective Data Objective Data Vital Signs: Vital Signs Temp Pulse Resp BP Pulse Ox O2 Del Method O2 Flow Rate 97.7 F L 69 16 126/77 H 96 Room Air 2 07/20/24 05:24 07/20/24 05:24 07/20/24 05:24 07/20/24 05:24 07/20/24 05:24 07/20/24 05:24 07/19/24 14:02 Oxygen Flow Rate (L/min) 2 Oxygen Delivery Method Room Air Weight: 97 kg Body Mass Index (BMI) 31.6 Intake & Output: Intake and Output for Last 24 Hours 07/18/24 07/19/24 07/20/24 23:59 23:59 23:59 Intake Total 3470.00 / 3470.00 1326.5 / 1326.5 Output Total 3430 / 3430 1300 / 1300 Balance 40.00 / 40.00 26.5 / 26.5 Lab / Micro Data 07/20/24 06:05 07/20/24 06:05 Labs: Laboratory Results - last 24 hr 07/20/24 06:05: WBC 14.1 H, RBC 4.42 L, Hgb 13.2, Hct 38.2 L, MCV 86.4, MCH 29.9, MCHC 34.6, RDW Std Deviation 41.0, RDW Coeff of Rani 13.0, Plt Count 203, MPV 9.3, Immature Gran % (Auto) 0.500, Neut % (Auto) 76.6 H, Lymph % (Auto) 13.7L, Sargent % (Auto) 9.0, Eos % (Auto) 0.1, Baso % (Auto) 0.1, Absolute Neuts (auto)10.8 H, Absolute Lymphs (auto) 1.92, Nucleated RBC % 0, Sodium 137, Potassium 4.2, Chloride 104, Carbon Dioxide 23.1, Anion Gap 10, BUN 14, Creatinine 0.87, Estim Creat Clear Calc 93.36, Est GFR (MDRD) Non-Af 94, BUN/Creatinine Ratio 16.5, Glucose 168 H, Calcium 7.9 07/20/24 0726 Cosigner Signature (if applicable): CC: ~ Signed [facility]03-26-2025 Consult note Author Jules Us [facility] Note Date/Time July 19, 2024 11: 51am [facility] Medical Records Department [address] [place] [address] Anesthesia Postop Eval II 07/19/24 1150 MR#: [id number] Acct: [id number] Name: ROBERT MORALEZ AMANDA Rep #:[id number] : 1955 69 From: Jules Us MD PCP: Dr. Lopez Lyle MD Status:RE G SDC Y Race: C Location: [place] [address] Anesthesia Postop Eval I Sum Postop Eval Completion status Anesthesia document: Postop Eval 1 completed: Yes Anesthesia Postop Eval I Summary Anesthesia Postop Eval I Summary: Anesthesia Postop Eval I: Assessment Summary Airway patent Yes 07/19/24 11:47 DISTRICT SALES LEADER.HBARR Spontaneous unlabored Yes 07/19/24 11:47 DISTRICT SALES LEADER.HBARR respirations Mental status Awake 07/19/24 11:47 DISTRICT SALES LEADER.HBARR nausea No 07/19/24 11:47 DISTRICT SALES LEADER.HBARR Vomiting No 07/19/24 11:47 DISTRICT SALES LEADER.HBARR Anesthesia Postop Eval I: Fluid Summary Crystalloid volume administer 1,900 07/19/24 11:47 DISTRICT SALES LEADER.HBARR (ml) Colloids volume administered ( ml) Blood Product volume administered (ml) Total IV fluid infused 1,900 07/19/24 11:47 DISTRICT SALES LEADER.HBARR Anesthesia Postop Eval I: Summary Notes Anesthesia Complication No 07/19/24 11:47 DISTRICT SALES LEADER.HBARR Anesthesia Complication Comment: Post-operative progress note Anesthesia: Postop Eval II Evaluation Mental status: Awake Pain Level: 2 nausea: No Vomiting: No 07/19/24 1151 <Electronically signed by Jules Us MD > Date _ [facility]: Date CC: ~ Signed [facility] Work Phone: 1(121) 529-816603-26-2025 Consult note Author Valencia Flor [facility] Note Date/Time July 19, 2024 11: 47am [facility] Medical Records Department [address] [place] [address] Anesthesia Postop Eval I 07/19/24 1146 MR#: [id number] Acct: [id number] Name: ROBERT MORALEZ Rep #:[id number] : 1955 69 From: Valencia Flor CRNA PCP: Dr. Lopez Lyle MD Status:ESME QUIROGA Y Race: C Location: [place] [address] Anesthesia: Postop Eval I Current Vital Signs Temperature: 97.2 F Pulse Rate: 74 Blood Pressure: 99/55 Respiratory Rate: 14 Pulse Ox: 98 Oxygen Delivery Method: Simple Mask Assessment Airway patent: Yes Spontaneous unlabored respirations: Yes Mental status: Awake nausea: No Vomiting: No Anesthesia Complication: No Fluid Hydration Crystalloid volume administer (ml): 1,900 Total IV fluid infused: 1,900 Progress Note Anesthesia document: Postop Eval 1 completed: Yes 07/19/24 1147 <Electronically signed by Valencia HERRING> Date _ Valencia Flor CRNA Cosigner Signature: Date CC: ~ Signed [facility] Work Phone: 1(476) 876-199903-26-2025 Discharge summary Author Ricco Luke [facility] Note Date/Time July 20, 2024 2:[address] [facility] Medical Records Department [address] [place] [address] Instructions for Home/Discharge Instructions 07/19/24 1106 MR#: [id number] Acct: [id number] Name: ROBERT MORALEZ Rep #:[id number] : 1955 69 From: Ricco Luke MD PCP: Dr. Lopez Lyle MD Status:ESME [facility] Discharge Instructions Diet Discharge Diet: No restrictions DC O2, CPAP, BIPAP needs Home O2 Discharge instructions: No Dressing / Incision Discharge Activity: May Not Drive (while taking narcotic pain medications.) Dressing / Incision Call your doctor if your incision/area has: Continuous Slow Oozing and Sudden Increased Bleeding Call your doctor if you observe: Fever of 101 or Higher and Uncontrolled pain Suture Line Care: Avoid Pulling/Pushing and Avoid Pinching/Bending Catheter: Nice to leg bag and Nice to large bag Drain: [place] Follow Up Care Please Follow Up With: Ricco Luke MD When: Call [phone] for an appointment Test Results: Test results from this visit will be discussed in further detail at your follow- up appointment, if applicable. Discharge Plan Admission Primary Reason for Your Visit: Robotic radical prostatectomy Attending Provider: Ricco Luke Primary Care Provider: Lopez Lyle Instructions Print Language: Trinidadian Discharge Orders/Prescriptions Prescriptions: New docusate sodium [Colace] 100 mg capsule 100 mg PO BID Qty: 20 0RF ciprofloxacin HCl 500 mg tablet 500 mg PO BID Qty: 20 0RF oxycodone 5 mg tablet 5 mg PO Q6H PRN (Reason: pain) 7 Days Qty: 14 0RF Continued Taltz Autoinjector 80 mg/mL auto-injector 80 mg subcut QMONTH ropinirole 0.25 mg tablet 0.25 mg PO QHS pravastatin 20 mg tablet 20 mg PO DAILY metformin 500 mg tablet extended release 24 hr 1,000 mg PO BID ramipril 5 mg capsule 5 mg PO DAILY Jardiance 25 mg tablet 25 mg PO DAILY multivitamin [Daily Multi-Vitamin] Tablet 1 tab PO DAILY ascorbic acid (vitamin C) [Vitamin C] 500 mg tablet 500 mg PO DAILY glucosamine-chondroitin 900 mg tablet 900 mg PO BID omega 2-yxx-ewi-fish oil [Fish Oil] 1,200 (144-216) mg capsule 1 cap PO DAILY calcium citrate 150 mg capsule 150 mg PO DAILY cholecalciferol (vitamin D3) [Vitamin D3] 25 mcg (1,000 unit) tablet 25 mcg PO DAILY saw palmetto 160 mg capsule 320 mg PO BID Rx Instructions: give with food (meal/snack) Other Ambulatory Orders: 12 Lead EKG (Routine) Location: None Selected Ordered By: Dr. Jules Us Referrals / Follow Up: Ricco Luke MD [Med Staff - Active Staff] - Lopez Lyle MD [Primary Care Provider] - Disposition Disposition (needs filled in before D/C Order can be placed): Home, Self Care 07/19/24 1106<Electronically signed by Ricco Luke MD>Ricco Luke MD CC: Dr. Lopez Lyle MD ~ Signed [facility] Work Phone: 1(324) 669-655703-26-2025 History and physical note Author Ricco Luke [facility] Note Date/Time July 19, 2024 11: 06am [facility] Medical Records Department [address] [place] [address] History & Physical Exam 07/19/241104 MR#: [id number] Acct: [id number] Name: ROBERT MORALEZ Rep #:[id number] : 1955 69 From: Ricco Luke MD PCP: Dr. Lopez Lyle MD Status:[facility] Location: [place] [address] HPI - General General Date of Service: 07/19/24 Chief Complaint: Prostate cancer HPI Narrative ROBERT MORALEZ, is a 69 M who presents robotic radical prostatectomy Retzius sparing approach [facility] Medical History Wears hearing aid Loss of hearing Wears glasses Arthritis Gout Prostate disease High cholesterol Restless legs Wears partial dentures Cancer Diabetes Hypertension Non-smoker BiPAP (biphasic positive airway pressure) dependence Sleep apnea Home Medications ?Medication ?Instructions ?Recorded ?Last Taken ?Type antiarthritic combination no.2 900 900 mg PO BID 05/3107/17/24 History mg tablet (glucosamine-chondroitin) ascorbic acid (vitamin C) 500 mg 500 mg PO DAILY 05/3107/17/24 History tablet (Vitamin C) calcium citrate 150 mg capsule 150 mg PO DAILY 5 07/17/24 History cholecalciferol (vitamin D3) 25 25 mcg PO DAILY 07/17/24 History mcg (1,000 unit) tablet (Vitamin D3) empagliflozin 25 mg tablet 25 mg PO DAILY 05/31/24 History (Jardiance) ixekizumab 80 mg/mL subcutaneous 80 mg subcut QMONTH 0 05/31/24 06/28/24 History auto-injector (Taltz Autoinjector) metformin 500 mg tablet,extended 1,000 mg PO BID 05/3107/17/24 History release 24 hr multivitamin (Daily Multi-Vitamin 1 tab PO DAILY 05/3107/17/24 History tablet) omega 3-nuv-rui-fish oil 1,200 mg 1 cap PO DAILY 05/3107/17/24 History (144 mg-216 mg) capsule (Fish Oil) pravastatin 20 mg tablet 20 mg PO DAILY 05/31/2406/25 History ramipril 5 mg capsule 5 mg PO DAILY 05/31/2407/18 History ropinirole 0.25 mg tablet 0.25 mg PO QHS 05/31/2406/25 History saw palmetto 160 mg capsule 320 mg PO BID 05/31/24 History ciprofloxacin HCl 500 mg tablet 500 mg PO BID #20 tabs 07/19/24 Unknown Rx docusate sodium 100 mg capsule 100 mg PO BID #20 caps 07/19/24 Unknown Rx (Colace) oxycodone 5 mg tablet 5 mg PO Q6H PRN pain 7 days #14 07/19/24 Unknown Rx tabs Allergy/AdvReac Type Severity Reaction Status Date / Time bee venom protein (honey Allergy Severe Anaphylaxis Verified 07/19/24 06:34 bee) (bees) codeine AdvReac Intermediate HALLUCINATI Verified 07/19/24 06:34 ONS Surgical History History of tonsillectomy History of colonoscopy Social History Smoking Status: Never smoker Vital Signs Vital Signs Vital Signs: 07/19/24 06:39 07/19/24 06:39 07/19/24 07:06 Temperature 98.3 F 98.3 F Temperature Source Temporal Pulse Rate 73 73 Respiratory Rate 16 16 Respiratory Pattern Normal Blood Pressure 126/73 H 126/73 H Blood Pressure Mean 90 Blood Pressure Source Monitor Blood Pressure Position Semi-Fowlers Blood Pressure Location Right Arm Pulse Ox 99 99 Oxygen Delivery Method Room Air Weight Weight: 97 kg Body Mass Index (BMI) 31.6 Results Lab / Micro Data 06/01/24 10:42 06/01/24 10:42 Labs: Laboratory Results - last 24 hr 07/19/24 06:32: POC Glucose 137 H 07/19/24 1106 <Electronically signed by Ricco Luke MD> Cosigner Signature (if applicable): CC: Dr. Lopez Lyle MD; Dr. Ricco Luke MD~ Signed [facility] Work Phone: 1(876) 625-879803-26-2025 Consult note [facility] Medical Records Department [address] [place] [address] Anesthesia Postop Eval II 07/19/24 1150 MR#: [id number] Acct: [id number] Name: ROBERT MORALEZ Rep #:[id number] : 1955 69 From: Jules Us MD PCP: Dr. Lopez Lyle MD Status:RE G [facility] Y Race: C Location: [address] Anesthesia Postop Eval I Sum Postop Eval Completion status Anesthesia document: Postop Eval 1 completed: Yes Anesthesia Postop Eval I Summary Anesthesia Postop Eval I Summary: Anesthesia Postop Eval I: Assessment Summary Airway patent Yes 07/19/24 11:47 DISTRICT SALES LEADER.HBARR Spontaneous unlabored Yes 07/19/24 11:47 DISTRICT SALES LEADER.HBARR respirations Mental status Awake 07/19/24 11:47 DISTRICT SALES LEADER.HBARR nausea No 07/19/24 11:47 DISTRICT SALES LEADER.HBARR Vomiting No 07/19/24 11:47 DISTRICT SALES LEADER.HBARR Anesthesia Postop Eval I: Fluid Summary Crystalloid volume administer 1,900 07/19/24 11:47 DISTRICT SALES LEADER.HBARR (ml) Colloids volume administered ( ml) Blood Product volume administered (ml) Total IV fluid infused 1,900 07/19/24 11:47 DISTRICT SALES LEADER.HBARR Anesthesia Postop Eval I: Summary Notes Anesthesia Complication No 07/19/24 11:47 DISTRICT SALES LEADER.HBARR Anesthesia Complication Comment: Post-operative progress note Anesthesia: Postop Eval II Evaluation Mental status: Awake Pain Level: 2 nausea: No Vomiting: No 07/19/24 1151 > Date _ Jules Us MD Cosigner Signature: Date CC: ~ Signed [facility]03-26-2025 Consult note [facility] Medical Records Department [address] [place] [address] Anesthesia Postop Eval I 07/19/24 1146 MR#: [id number] Acct: [id number] Name: ROBERT MORALEZ Rep #:[id number] : 1955 69 From: Valencia Flor CRNA PCP: Dr. Lopez Lyle MD Status:ESME QUIROGA Y Race: C Location: [address] Anesthesia: Postop Eval I Current Vital Signs Temperature: 97.2 F Pulse Rate: 74 Blood Pressure: 99/55 Respiratory Rate: 14 Pulse Ox: 98 Oxygen Delivery Method: Simple Mask Assessment Airway patent: Yes Spontaneous unlabored respirations: Yes Mental status: Awake nausea: No Vomiting: No Anesthesia Complication: No Fluid Hydration Crystalloid volume administer (ml): 1,900 Total IV fluid infused: 1,900 Progress Note Anesthesia document: Postop Eval 1 completed: Yes 07/19/24 1147 NA> Date _ Valencia Flor DISTRICT SALES LEADER Cosigner Signature: Date CC: ~ Signed [facility]03-26-2025 Procedure note [facility] Medical Records Department [address] [facility] [facility] [place] [address] Operative Report 07/19/24 1106 MR#: [id number] Acct: [id number] Name: ROBERT MORALEZ Rep #:[id number] : 1955 69 From: Ricco Luke MD PCP: Dr. Lopez Lyle MD Status:ESME QUIROGA Location: [address] Operative Report (Standard) Operative Information Date of Procedure: 07/19/24 Pre-Operative Diagnosis: prostate cancer Post-Operative Diagnosis: same Surgery/Procedure Performed: Robotic radical prostatectomy Retzius sparing approach laparoscopic robotic assisted erection shop supervisor: No Type of Anesthesia: General RN Documented Start/Stop Times: Operation Date: 07/19/24 07:30 Case Time Into Pre-Op 07/19/24 06:00 Out of Pre-Op 07/19/24 07:21 Anesthesia Start 07/19/24 07:26 Into Room 07/19/24 07:26 Procedure Start 07/19/24 07:53 Procedure Start Time: 07:53 Procedure Stop Time: 11:09 Select all DRAINS/GRAFTS/IMPLANTS that apply: Drains Drain details: nice 18 Estimated Blood Loss: 250 Specimen collected: Yes Description of specimen(s) removed: prostate, bladder neck tissue Description of surgery: Patient was identified in the preoperative area and marked and seen we talked about surgery remove his prostate was involved and potential outcomes. We talked about the potential to lose erections and also have bladder control problems after surgery including stress incontinence. Patient's questions were addressed and he signed consent form and we will plan to proceed today with a robotic radicalprostatectomy Retzius. Approach with bilateral lymph node dissection. Patient is taken back to the operating room after smooth induction of anesthesiahe was placed upon the table make sure all his pressure points were padded. We used the pink foam and pink foam secure system to secure him on the table he wasplaced in dorsolithotomy position with the legs in stirrups making sure that allhis pressure points were padded we did a tilt test to make sure he did not slidein the bed. And the patient was placed flat in the bed his penis and testicles and pelvic area were prepped and in the abdomen was also prepped with chlorhexidine prep. Patient's abdomen and penis andtesticles were then draped in usual sterile fashion. I then identified the umbilicus infiltrated rig ht above the umbilicus and a small incision, probed the wound with a hemostat identified the fasciaand then used a Veress needle to advance through the fascia into the peritoneal cavity. We then filled the peritoneal cavity CO2 gasand obtained a pneumoperitoneum. I then placed my first trocar intothe abdomenthis was to be the camera trocar. After I placed the camera trocar then the other trocars were placed under direct visualization placed a right arm trocar to left arm trocars and air seal port and a suction trocar for my licensed loan officer assistant. Arturo placed the patient in full Trendelenburg and the robot was then docked. Then using a 30 degree lens we placed the instruments into the abdomen under direct visualization and started by first mobilizing the sigmoid colon. The sigmoid colon and the white line of Toldt was incised and mobilized off the lateral sidewall to allow full retraction of thecolon from the pelvis. Once this was fully accomplished then I was able to get into the posterior space behind the bladder we then identified the vas deferens on the right side. I then traced the right vas deferens all the way down to the prostate we incised the peritoneum over the prostate identified the right vas deferens and then the left vas deferens. Identified the several vesicles below this. I then went below this and identified Denonvilliers' fascia and incised the Denonvilliers' fasciain the midline and then created a space between the rectum and the prostate I then dissected all the way to the apex. We then flipped the camera 30 degrees up to get a bit better visualization of theprostate. I then very gently dissected the Denonvilliers' fascia off the posterior aspect of the prostate all the way to the apex of sliding the tissue off the prostate to get to the semipseudocapsule on the prostate with unable to get to the lateral edge of the prostate and then to release neurovascular bundles on both sides I then started between the apex of the prostate to release neurovascular bundle to peelthe neurovascular 1 off the prostate making sure I stayed around the apex without violating the prostate capsule I then worked my way back toward the baseof the prostate releasing the n eurovascular under posteriorly back to the base of the prostate. This was done on the right side wedid the same procedure in the left side releasing the neurovascular bundle posteriorly all the way back tothe base of the prostate. I then pulled out and look at the vas deferens some vesicles I transected the vas deferens and then dissected the vas deferens and some vesicles en bloc of the lateralsidewall was using minimal electrocautery and sharp dissection to free up the vas deferens and vesicle I then was able to laterally retract the right vas deferens medially and then started working toget the space between the edge of the prostate and the pseudocapsule identified the pseudocapsule and then coming to the pedicle the prostate with bipolar coagulation on the right side and then following the capsule all the way toward the apex and then following up along the prostate capsule for the apex releasingthe neurovascular bundle off the right side working on my way anterior. We thenpulled out the pelvis prostate area again and then dissected out the left seminal vesicle and left vas deferens and then pulled these laterally and then again I went to the pedicle of the prostate and thenwas able to identify the neurovascular bundle that was priorly freed up and then freed up the Norvasc of 10 and then worked my way on the left side the prostate all the way to the apex freeing up thetissue off the left pseudocapsule the prostate all the way anteriorly. Then I worked toward the ante rior part of the prostate freeing up the prostate is much as possible anteriorly toward the apex inthe back to the bladder neck then at this point I could identify the bladder neck more clearly since the prostate then. Freed up laterally and medially and inferiorly I then very carefully started dissecting through the muscular attachments between the bladder neck and the prostate until I encountered the urethra and the Nice catheter at this point Nice catheter was deflated and pulled back andthen I continued to dissect off the bladder neck from the prostate working all the way up to the base of the prostate and then anterior the prostate. Then the Nice catheter was pulled back further and then I worked my way up to the apex of the prostate and then circumferentially dissected all the way up to the apex of prostate making sure to stay outside the capsule and identify the sphincter complexI then incised the urethra right in front of the sphincter and dissected off theprostate off the sphincter complex and then the prostate was free and was placedin Endo Catch bag. Prior to this also in the bladder neck place a stay suture 3-0 Vicryl to locate the bladder neck. Then we proceeded with our anastomosis between the urethra and the bladder neck this was done using a 2 oh STRATAFIX stitch to bring together the bladder neck and the urethra started at the 12 o'clock position and worked my way to the 6 o'clock position on the right side and the left side used a dyed and undyed suture to make sure to keep both sutures aligned up and then at the end I was able to bring down the bladder neckto the urethra and then we took out the catheter that was initially put in to the abdomen for the case and we put in the 18 Nepali pala tip catheter into the bladder helped it as it made tothe turn to the bladder and then we put 10 cc in the balloon we irrigated the bladder and made surethat the anastomosis was watertight. We then inspected for bleeding and there was no bleeding in thebase of the where the prostate was removed. The role of the director of first impressions BOTTOM IRONER, assisted with myself during the entire procedure, the BOTTOM IRONER assisted by passing instruments through the air seal port, passing suture, needles, sponges during thesurgery. The RFA also assisted withproviding some suction using the suction irrigation and some irrigation during the surgery. Also the licensed loan officer assistant provided some traction minorly during the dissection of the prostate and the seminal vesicles. The RFA also helped me extract the prostate at the end of the case and helped close the fascia, and theassistant also helped close the skin incisions with subcuticular stitches. The licensed loan officer assistant was monitored closely and under my direct supervision the entire case. Surgical Findings: prostate removed Complications Complications: No Admit VTE Documentation VTE Present on Admission: No VTE Mechan Device Prophylaxis: SCD's VTE Pharm Prophylaxis ordered?: No 07/19/24 1110 Cosigner Signature (if applicable): CC: Dr. Lopez Lyle MD; Dr. Ricco Luke MD~ Signed [facility]03-26-2025 History and physical note [facility] Medical Records Department [address] [place] [id number] History & Physical Exam 07/19/24 1105 MR#: [id number] Acct: [id number] Name: ROBERT MORALEZ Rep #:[id number] : 1955 69 From: Ricco Luke MD PCP: Dr. Lopez Lyle MD Status:[facility] Location: [place] [address] HPI - General General Date of Service: 07/19/24 Chief Complaint: Prostate cancer HPI Narrative ROBERT MORALEZ, is a 69 M who presents robotic radical prostatectomy Retzius sparing approach [facility] Medical History Wears hearing aid Loss of hearing Wears glasses Arthritis Gout Prostate disease High cholesterol Restless legs Wears partial dentures Cancer Diabetes Hypertension Non-smoker BiPAP (biphasic positive airway pressure) dependence Sleep apnea Home Medications ?Medication ?Instructions ?Recorded ?Last Taken ?Type antiarthritic combination no.2 900 900 mg PO BID 05/3107/17/24 History mg tablet (glucosamine-chondroitin) ascorbic acid (vitamin C) 500 mg 500 mg PO DAILY 05/3107/17/24 History tablet (Vitamin C) calcium citrate 150 mg capsule 150 mg PO DAILY 5 07/17/24 History cholecalciferol (vitamin D3) 25 25 mcg PO DAILY 07/17/24 History mcg (1,000 unit) tablet (Vitamin D3) empagliflozin 25 mg tablet 25 mg PO DAILY 05/31/24 History (Jardiance) ixekizumab 80 mg/mL subcutaneous 80 mg subcut QMONTH 0 05/31/24 06/28/24 History auto-injector (Taltz Autoinjector) metformin 500 mg tablet,extended 1,000 mg PO BID 05/3107/17/24 History release 24 hr multivitamin (Daily Multi-Vitamin 1 tab PO DAILY 05/3107/17/24 History tablet) omega 7-dja-zlo-fish oil 1,200 mg 1 cap PO DAILY 05/3107/17/24 History (144 mg-216 mg) capsule (Fish Oil) pravastatin 20 mg tablet 20 mg PO DAILY 05/31/2406/25 History ramipril 5 mg capsule 5 mg PO DAILY 05/31/2407/18 History ropinirole 0.25 mg tablet 0.25 mg PO QHS 05/31/2406/25 History saw palmetto 160 mg capsule 320 mg PO BID 05/31/24 History ciprofloxacin HCl 500 mg tablet 500 mg PO BID #20 tabs 07/19/24 Unknown Rx docusate sodium 100 mg capsule 100 mg PO BID #20 caps 07/19/24 Unknown Rx (Colace) oxycodone 5 mg tablet 5 mg PO Q6H PRN pain 7 days #14 07/19/24 Unknown Rx tabs Allergy/AdvReac Type Severity Reaction Status Date / Time bee venom protein (honey Allergy Severe Anaphylaxis Verified 07/19/24 06:34 bee) (bees) codeine AdvReac Intermediate HALLUCINATI Verified 07/19/24 06:34 ONS Surgical History History of tonsillectomy History of colonoscopy Social History Smoking Status: Never smoker Vital Signs Vital Signs Vital Signs: 07/19/24 06:39 07/19/24 06:39 07/19/24 07:06 Temperature 98.3 F 98.3 F Temperature Source Temporal Pulse Rate 73 73 Respiratory Rate 16 16 Respiratory Pattern Normal Blood Pressure 126/73 H 126/73 H Blood Pressure Mean 90 Blood Pressure Source Monitor Blood Pressure Position Semi-Fowlers Blood Pressure Location Right Arm Pulse Ox 99 99 Oxygen Delivery Method Room Air Weight Weight: 97 kg Body Mass Index (BMI) 31.6 Results Lab / Micro Data 06/01/24 10:42 06/01/24 10:42 Labs: Laboratory Results - last 24 hr 07/19/24 06:32: POC Glucose 137 H 07/19/24 1106 Cosigner Signature (if applicable): CC: Dr. Lopez Lyle MD; Dr. Ricco Luke MD~ Signed [facility]03-26-2025 [facility] Medical Records Department [address] [place] [address] History Physical Exam 07/19/24 1105 MR#: [id number] Acct: [id number] Name: ROBERT MORALEZ Rep #: [id number] : 1955 69 From: Ricco Luke MD PCP: Dr. Lopez Lyle MD Status:[facility] Location: [place] [address] HPI - General General Date of Service: 07/19/24 Chief Complaint: Prostate cancer HPI Narrative ROBERT MORALEZ, is a 69 M who presents robotic radical prostatectomy Retzius sparing approach [facility] Medical History Wears hearing aid Loss of hearing Wears glasses Arthritis Gout Prostate disease High cholesterol Restless legs Wears partial dentures Cancer Diabetes Hypertension Non-smoker BiPAP (biphasic positive airway pressure) dependence Sleep apnea Home Medications ???Medication ???Instructions ???Recorded ???Last Taken ???Type antiarthritic combination no.2 900 900 mg PO BID 05/31/24 07/17/24 History mg tablet (glucosamine-chondroitin) ascorbic acid (vitamin C) 500 mg 500 mg PO DAILY 05/31/24 07/17/24 History tablet (Vitamin C) calcium citrate 150 mg capsule 150 mg PO DAILY 05/31/24 07/17/24 History cholecalciferol (vitamin D3) 25 25 mcg PO DAILY 05/31/24 07/17/24 History mcg (1,000 unit) tablet (Vitamin D3) empagliflozin 25 mg tablet 25 mg PO DAILY 05/31/24 07/15/24 H istory (Jardiance) ixekizumab 80 mg/mL subcutaneous 80 mg subcut QMONTH 05/31/2406/28 History auto-injector (Taltz Autoinjector) metformin 500 mg tablet,extended 1,000 mg PO BID 05/31/24 07/17/24 History release 24 hr multivitamin (Daily Multi-Vitamin 1 tab PO DAILY 05/31/24 07/17/24 History tablet) omega 3-yjc-ens-fish oil 1,200 mg 1 cap PO DAILY 05/31/24 07/17/24 History (144 mg-216 mg) capsule (Fish Oil) pravastatin 20 mg tablet 20 mg PO DAILY 05/31/24 07/17/24 H istory ramipril 5 mg capsule 5 mg PO DAILY 05/31/24 07/18/24 Hi story ropinirole 0.25 mg tablet 0.25 mg PO QHS 05/31/24 07/17/24 H istory saw palmetto 160 mg capsule 320 mg PO BID 05/31/24 07/17/24 Hi story ciprofloxacin HCl 500 mg tablet 500 mg PO BID #20 tabs 07/19/24 Un known Rx docusate sodium 100 mg capsule 100 mg PO BID #20 caps 07/19/24 Un known Rx (Colace) oxycodone 5 mg tablet 5 mg PO Q6H PRN pain 7 days #14 Unknown Rx tabs Allergy/AdvReac Type Severity Reaction Status Date / Time bee venom protein (honey Allergy Severe Anaphylaxis Verified 07/19/24 06:34 bee) (bees) codeine AdvReac Intermediate HALLUCINATI Verified 07/19/24 06:34 ONS Surgical History History of tonsillectomy History of colonoscopy Social History Smoking Status: Never smoker Vital Signs Vital Signs Vital Signs: 07/19/24 06:39 07/19/24 06:39 07/19/24 07:06 Temperature 98.3 F 98.3 F Temperature Source Temporal Pulse Rate 73 73 Respiratory Rate 16 16 Respiratory Pattern Normal Blood Pressure 126/73 H 126/73 H Blood Pressure Mean 90 Blood Pressure Source Monitor Blood Pressure Position Semi-Fowlers Blood Pressure Location Right Arm Pulse Ox 99 99 Oxygen Delivery Method Room Air Weight Weight: 97 kg Body Mass Index (BMI) 31.6 Results Lab / Micro Data 06/01/24 10:42 06/01/24 10:42 Labs: Laboratory Results - last 24 hr 07/19/24 06:32: POC Glucose 137 H 07/19/24 1106 Cosigner Signature (if applicable): CC: Dr. Lopez Lyle MD; Dr. Ricco Luke MD [facility]03-26-2025 Consult note Author Jules Us [facility] Note Date/Time July 19, 2024 7:0 6am [facility] Medical Records Department [address] [place] [address] Pre-Anesthesia Evaluation 07/19/24 0705 MR#: [id number] Acct: [id number] Name: ROBERT MORALEZ Rep #:[id number] : 1955 69 From: Jules Us MD PCP: Dr. Lopez Lyle MD Status:[facility] Y Race: C Location: [place] [address] ASA Classification* ASA Classification ASA Classification: 2 Assessment & Plan Anesthesia* Anesthesia Assessment Anesthesia Assessment: Discussed sedation and/or anesthesia options, risks, benefits, and alternatives with patient/parents/legal guardian/POA. Questions invited. The patient/parents/legal guardian/POA seems to understand and agrees to proceedwith anesthesia plan. Reviewed the physical assessment, medical history, allergy history and patient home medications list prior to surgery/procedure/anesthetic and documented any changes. Performed airway and anesthesia risk assessments. Anesthesia Type Anesthesia Type: General Anesthesia Focused Assessment* Temperature: 98.3 F Pulse Rate: 73 Blood Pressure: 126/73 Respiratory Rate: 16 Pulse Ox: 99 Airway Assessment Mouth opens: >3 cm Mallampati Score: II Focused Labs Anesthesia Preop lab: CBC WBC 6.5 K/mm3 (4.4-11.0) 06/01/24 10:42 06/01/24 RBC 5.58 M/mm3 (4.6-6.2) 06/01/24 10:42 06/01/24 Hgb 16.6 g/dL (13.0-16.5) H 06/01/24 10:42 5 Hct 47.1 % (40-54) 06/01/24 10:42 06/01/24 Plt Count 210 K/mm3 (150-450) 06/01/24 10:42 06/01/24 CHEMISTRY Potassium 3.8 mmol/L (3.5-5.1) 06/01/24 10:42 06/01/24 Sodium 137 mmol/L (136-145) 06/01/24 10:42 06/01/24 BUN 20 mg/dL (7-18) H 06/01/24 10:42 06/01/24 Creatinine 0.92 mg/dL (0.70-1.30) 06/01/24 10:42 06/01/24 Glucose 127 mg/dL (74-106) H 06/01/24 10:42 06/01/24 TSH 3.940 uIU/mL (0.358-3.740) H 06/01/24 10:42 COAG Pre-Assessment Diagnosis/Proposed Procedure Planned Operative Procedure(s): Lap Robotic Prostatectomy Anesthesia History Anesthesia History - sales project manager: Anesthesia History - sales project manager Hx Hospitalization No 07/05/24 10:07 Any Problems With Anesthesia No 07/05/24 10:07 Cholinesterase deficiency No 07/05/24 10:07 You/Your Family Experience No 07/05/24 10:07 fever (hyperthermia) with Relationship Recent Exposure to Contagious No 07/19/24 06:39 Disease Does patient have nerve No 07/05/24 10:07 stimulator Patient instructed to have device shut off --Does patient have Pacemaker No 07/19/24 06:39 or ICD? When Was Last Pacemaker Check QUESTION #4 FULL TEXT: You/Your Family Experience fever (hyperthermia) with Anesthesia Last Oral Intake Last Oral intake: Last Oral Intake NPO since 19:30 07/19/24 06:39 Meds taken in AM with sips of water? Meds patient instructed to take am of surgery PONV PONV - sales project manager: PONV - sales project manager Female No 07/05/24 10:07 HX of Motion Sickness No 07/05/24 10:07 HX of N/V After Surgery No 07/05/24 10:07 Non-Smoker Yes 07/05/24 10:07 Duration of Surgery greater Yes 07/05/24 10:07 than 60 minutes Number of Risk Factors 2 07/05/24 10:07 PONV Score Moderate Risk 07/05/24 10:07 Height & Weight Height & Weight: Anesthesia: Height & Weight Height 5 ft 9 in 07/19/24 06:39 Weight: 97 kg 07/19/24 06:39 Body Mass Index (BMI) 31.6 07/19/24 06:39 Respiratory Assessment Respiratory Assessment - sales project manager: Respiratory Tract Infection Hx - sales project manager Hx Respiratory Tract Infection No 07/05/24 10:07 STOP Sleep Apnea STOP Sleep Apnea - sales project manager: STOP Sleep Apnea - sales project manager Hx Hypertension Yes: CONTROLLED WITH MED 07/05/24 10:07 Hx Sleep Apnea Yes 07/05/24 10:07 CPAP No 07/05/24 10:07 BIPAP Yes 07/05/24 10:07 Do you snore loudly (louder than talking or can be heard Do you often feel tired/ fatigued/ sleepy during daytime? Has anyone observed you stop breathing during sleep? STOP Results Positive 07/05/24 10:07 QUESTION #5 FULL TEXT : Do you snore loudly (louder than talking or can be heard through closed doors)? 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 Specify any problems Hx of Preganancy in last 3 N/A 07/05/24 10:07 Months Nurse Filling Out Transfusion NBUCHER 07/05/24 10:07 & Questions: Date: 07/05/24 07/05/24 10:07 Time: 10:07 07/05/24 10:07 Patient unable to answer at this time (ie. confused, unrespo /Reproduction History /Reproductive History - sales project manager: /Reproductive Hx- sales project manager Hx Now No 07/05/24 10:07 Gestational Age (in weeks): EDC: Hx Hx Para Hx Section SAB No 07/05/24 10:07 Active Medications Active Medications: Current Medications Generic Name Dose Route Start Last Admin Trade Name Freq PRN Reason Stop Dose Admin Cefazolin Sodium 2 gm/ N/A 20 mls @ 400 mls/hr 07/19/24 07:30 IV 07/19/24 07:32 PREOP ONE Sodium Chloride 1,000 mls @ 15 mls/hr 07/19/24 06:05 IV 07/24/24 19:24 .Q48H JULIANNA PFSH Medical History Wears hearing aid Loss of hearing Wears glasses Arthritis Gout Prostate disease High cholesterol Restless legs Wears partial dentures Cancer Diabetes Hypertension Non-smoker BiPAP (biphasic positive airway pressure) dependence Sleep apnea Home Medications ?Medication ?Instructions ?Recorded ?Last Taken ?Type antiarthritic combination no.2 900 900 mg PO BID 05/3107/17/24 History mg tablet (glucosamine-chondroitin) ascorbic acid (vitamin C) 500 mg 500 mg PO DAILY 05/3107/17/24 History tablet (Vitamin C) calcium citrate 150 mg capsule 150 mg PO DAILY 5 07/17/24 History cholecalciferol (vitamin D3) 25 25 mcg PO DAILY 07/17/24 History mcg (1,000 unit) tablet (Vitamin D3) empagliflozin 25 mg tablet 25 mg PO DAILY 05/31/24 History (Jardiance) ixekizumab 80 mg/mL subcutaneous 80 mg subcut QMONTH 0 05/31/24 06/28/24 History auto-injector (Taltz Autoinjector) metformin 500 mg tablet,extended 1,000 mg PO BID 05/3107/17/24 History release 24 hr multivitamin (Daily Multi-Vitamin 1 tab PO DAILY 05/3107/17/24 History tablet) omega 2-zrn-opc-fish oil 1,200 mg 1 cap PO DAILY 05/3107/17/24 History (144 mg-216 mg) capsule (Fish Oil) pravastatin 20 mg tablet 20 mg PO DAILY 05/31/2406/25 History ramipril 5 mg capsule 5 mg PO DAILY 05/31/2407/18 History ropinirole 0.25 mg tablet 0.25 mg PO QHS 05/31/2406/25 History saw palmetto 160 mg capsule 320 mg PO BID 05/31/24 History Allergy/AdvReac Type Severity Reaction Status Date / Time bee venom protein (honey Allergy Severe Anaphylaxis Verified 07/19/24 06:34 bee) (bees) codeine AdvReac Intermediate HALLUCINATI Verified 07/19/24 06:34 ONS Surgical History History of tonsillectomy History of colonoscopy Social History Smoking Status: Never smoker Review of Systems (Anesthesia) ROS Narrative System reviewed and no additional complaints, except as documented. 07/19/24 0706 <Electronically signed by Jules Us MD > Date _ Jules Us MD Cosigner Signature: Date CC: ~ Signed [facility] Work Phone: [phone]) 349-315303-26-2025 Consult note [facility] Medical Records Department [address] [place] [address] Pre-Anesthesia Evaluation 07/19/24704 MR#: [id number] Acct: [id number] Name: ROBERT MORALEZ Rep #:[id number] 69 From: Jules Us MD PCP: Dr. Lopez Lyle MD Status:[facility] Race: C Location: [place] [address] ASA Classification* ASA Classification ASA Classification: 2 Assessment & Plan Anesthesia* Anesthesia Assessment Anesthesia Assessment: Discussed sedation and/or anesthesia options, risks, benefits, and alternatives with patient/parents/legal guardian/POA. Questions invited. The patient/parents/legal guardian/POA seems to understand and agrees to proceedwith anesthesia plan. Reviewed the physical assessment, medical history, allergy history and patient home medications list prior to surgery/procedure/anesthetic and documented any changes. Performed airway and anesthesia risk assessments. Anesthesia Type Anesthesia Type: General Anesthesia Focused Assessment* Temperature: 98.3 F Pulse Rate: 73 Blood Pressure: 126/73 Respiratory Rate: 16 Pulse Ox: 99 Airway Assessment Mouth opens: >3 cm Mallampati Score: II Focused Labs Anesthesia Preop lab: CBC WBC 6.5 K/mm3 (4.4-11.0) 06/01/24 10:42 06/01/24 RBC 5.58 M/mm3 (4.6-6.2) 06/01/24 10:42 06/01/24 Hgb 16.6 g/dL (13.0-16.5) H 06/01/24 10:42 5 Hct 47.1 % (40-54) 06/01/24 10:42 06/01/24 Plt Count 210 K/mm3 (150-450) 06/01/24 10:42 06/01/24 CHEMISTRY Potassium 3.8 mmol/L (3.5-5.1) 06/01/24 10:42 06/01/24 Sodium 137 mmol/L (136-145) 06/01/24 10:42 06/01/24 BUN 20 mg/dL (7-18) H 06/01/24 10:42 06/01/24 Creatinine 0.92 mg/dL (0.70-1.30) 06/01/24 10:42 06/01/24 Glucose 127 mg/dL (74-106) H 06/01/24 10:42 06/01/24 TSH 3.940 uIU/mL (0.358-3.740) H 06/01/24 10:42 COAG Pre-Assessment Diagnosis/Proposed Procedure Planned Operative Procedure(s): Lap Robotic Prostatectomy Anesthesia History Anesthesia History - sales project manager: Anesthesia History - sales project manager Hx Hospitalization No 07/05/24 10:07 Any Problems With Anesthesia No 07/05/24 10:07 Cholinesterase deficiency No 07/05/24 10:07 You/Your Family Experience No 07/05/24 10:07 fever (hyperthermia) with Relationship Recent Exposure to Contagious No 07/19/24 06:39 Disease Does patient have nerve No 07/05/24 10:07 stimulator Patient instructed to have device shut off --Does patient have Pacemaker No 07/19/24 06:39 or ICD? When Was Last Pacemaker Check QUESTION #4 FULL TEXT: You/Your Family Experience fever (hyperthermia) with Anesthesia Last Oral Intake Last Oral intake: Last Oral Intake NPO since 19:30 07/19/24 06:39 Meds taken in AM with sips of water? Meds patient instructed to take am of surgery PONV PONV - sales project manager: PONV - sales project manager Female No 07/05/24 10:07 HX of Motion Sickness No 07/05/24 10:07 HX of N/V After Surgery No 07/05/24 10:07 Non-Smoker Yes 07/05/24 10:07 Duration of Surgery greater Yes 07/05/24 10:07 than 60 minutes Number of Risk Factors 2 07/05/24 10:07 PONV Score Moderate Risk 07/05/24 10:07 Height & Weight Height & Weight: Anesthesia: Height & Weight Height 5 ft 9 in 07/19/24 06:39 Weight: 97 kg 07/19/24 06:39 Body Mass Index (BMI) 31.6 07/19/24 06:39 Respiratory Assessment Respiratory Assessment - sales project manager: Respiratory Tract Infection Hx - sales project manager Hx Respiratory Tract Infection No 07/05/24 10:07 STOP Sleep Apnea STOP Sleep Apnea - sales project manager: STOP Sleep Apnea - sales project manager Hx Hypertension Yes: CONTROLLED WITH MED 07/05/24 10:07 Hx Sleep Apnea Yes 07/05/24 10:07 CPAP No 07/05/24 10:07 BIPAP Yes 07/05/24 10:07 Do you snore loudly (louder than talking or can be heard Do you often feel tired/ fatigued/ sleepy during daytime? Has anyone observed you stop breathing during sleep? STOP Results Positive 07/05/24 10:07 QUESTION #5 FULL TEXT : Do you snore loudly (louder than talking or can be heard through closeddoors)? 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 Specify any problems Hx of Preganancy in last 3 N/A 07/05/24 10:07 Months Nurse Filling Out Transfusion NBUCHER 07/05/24 10:07 & Questions: Date: 07/05/24 07/05/24 10:07 Time: 10:07 07/05/24 10:07 Patient unable to answer at this time (ie. confused, unrespo /Reproduction History /Reproductive History - sales project manager: /Reproductive Hx- sales project manager Hx Now No 07/05/24 10:07 Gestational Age (in weeks): EDC: Hx Hx Para Hx Section SAB No 07/05/24 10:07 Active Medications Active Medications: Current Medications Generic Name Dose Route Start Last Admin Trade Name Freq PRN Reason Stop Dose Admin Cefazolin Sodium 2 gm/ N/A 20 mls @ 400 mls/hr 07/19/24 07:30 IV 07/19/24 07:32 PREOP ONE Sodium Chloride 1,000 mls @ 15 mls/hr 07/19/24 06:05 IV 07/24/24 19:24 .Q48H JULIANNA PFSH Medical History Wears hearing aid Loss of hearing Wears glasses Arthritis Gout Prostate disease High cholesterol Restless legs Wears partial dentures Cancer Diabetes Hypertension Non-smoker BiPAP (biphasic positive airway pressure) dependence Sleep apnea Home Medications ?Medication ?Instructions ?Recorded ?Last Taken ?Type antiarthritic combination no.2 900 900 mg PO BID 05/3107/17/24 History mg tablet (glucosamine-chondroitin) ascorbic acid (vitamin C) 500 mg 500 mg PO DAILY 05/3107/17/24 History tablet (Vitamin C) calcium citrate 150 mg capsule 150 mg PO DAILY 5 07/17/24 History cholecalciferol (vitamin D3) 25 25 mcg PO DAILY 07/17/24 History mcg (1,000 unit) tablet (Vitamin D3) empagliflozin 25 mg tablet 25 mg PO DAILY 05/31/24 History (Jardiance) ixekizumab 80 mg/mL subcutaneous 80 mg subcut QMONTH 0 05/31/24 06/28/24 History auto-injector (Taltz Autoinjector) metformin 500 mg tablet,extended 1,000 mg PO BID 05/3107/17/24 History release 24 hr multivitamin (Daily Multi-Vitamin 1 tab PO DAILY 05/3107/17/24 History tablet) omega 2-ikk-feg-fish oil 1,200 mg 1 cap PO DAILY 05/3107/17/24 History (144 mg-216 mg) capsule (Fish Oil) pravastatin 20 mg tablet 20 mg PO DAILY 05/31/2406/25 History ramipril 5 mg capsule 5 mg PO DAILY 05/31/2407/18 History ropinirole 0.25 mg tablet 0.25 mg PO QHS 05/31/2406/25 History saw palmetto 160 mg capsule 320 mg PO BID 05/31/24 History Allergy/AdvReac Type Severity Reaction Status Date / Time bee venom protein (honey Allergy Severe Anaphylaxis Verified 07/19/24 06:34 bee) (bees) codeine AdvReac Intermediate HALLUCINATI Verified 07/19/24 06:34 ONS Surgical History History of tonsillectomy History of colonoscopy Social History Smoking Status: Never smoker Review of Systems (Anesthesia) ROS Narrative System reviewed and no additional complaints, except as documented. 07/19/24 07 > Date _ Jules Us MD Cosigner Signature: Date CC: ~ Signed [facility]08-23-2022 NoteHNO ID: [id number] Author: Mathew Patel APRN.FORK [employer]SEMBLER Service: ? Author Type: Nurse Practitioner Type: [...] infection such as swelling, redness or drainage. Mathew Patel [facility]N.[facility] History of Present illness Narrative* Mathew Patel APRN.[facility] - 12/16/2021 11:47 AM EDT Images from the original note were not [...] infection such as swelling, redness or drainage. Mathew Patel APRN.CNP documented [facility] NoteHNO ID: [id number] Author: Mathew Patel APRN.CNP Service: ? Author Type: Nurse Practitioner [...] history is provided by the patient. No claim examiner was used. Laceration Review of Systems Constitutional: Negative. Skin: Negative. Objective Physical Exam Constitutional: Appearance: Normal appearance. Pulmonary: Effort: Pulmonary effort is normal. Musculoskeletal: Hands: Comments: Patient has a units shaped laceration where red faustina is. No tendon involved. Well approximated. Neurological: Mental Status: He is alert. UNIVERSAL PROTOCOL / SAFETY CHECKLIST Procedure to be Performed: Mathew Patel APRN.CNP Sign In: A Moment of CARE [...] sutures removed in 7-10 days. MANUEL Will AGRONOMIST.[facility] History of Present illness Narrative* Mathew Patel APRN.CNP - 12/06/2021 11:04 AM EDT Images from the original note were not [...] history is provided by the patient. No claim examiner was used. Laceration Review of Systems Constitutional: Negative. Skin: Negative. Objective Physical Exam Constitutional: Appearance: Normal appearance. Pulmonary: Effort: Pulmonary effort is normal. Musculoskeletal: Hands: Comments: Patient has a units shaped laceration where red faustina is. No tendon involved. Well approximated. Neurological: Mental Status: He is alert. UNIVERSAL PROTOCOL / SAFETY CHECKLIST Procedure to be Performed: Mathew Patel APRN.CNP Sign In: A Moment of CARE [...] body without damage to nail, initial encounter -ICD9: 883.0, ICD10: S61.211A Patient was numbed with bupivacaine tolerated well and completely numb at start of procedure. Patient was cleaned with clobetasol and flushed with normal saline. No foreign bodies in finger. 3 sutures were placed size 4 with success. Patient tolerated well. Areas cleaned and bandaged. Instructed tokeep clean and dry. Tetanus was updated. Have sutures removed in 7-10 days. MANUEL Will APRN.CNP [facility] [place] [facility]* Diagnosis Laceration of left index finger without foreign body without damage to nail, initial encounter- Primary documented in this encounter [facility] note* Diagnosis Visit for suture removal- Primary Encounter for removal of sutures documented in this encounter [facility] noteNo assessment information availableWTrinity Health [facility] Work Phone: Hospital Discharge instructionsAmbulatory Orders* 12 Lead EKG [[facility]] Location: None Selected [facility] Work Phone: Reason for referral (narrative)No reason for referral information availableWTrinity Health [facility] Work Phone: Summary Purpose Family History No Family History Records FoundNo Family History Records FoundNo Family History Records Found Advance Directives No Advanced Directives Records Found Advance Directive Response Recorded Date/ Time Living Will Yes July 19, 2024 1:20pm Do you have a Healthcare Power of Independent Film Maker? Yes July 19, 2024 1:20pm Name of Medical Power of Independent Film Maker - ANNA July 19, 2024 1:20pm Chief Complaint and Reason for Visit Chief Complaint EORDER Chief Complaint EORDER EORDER FOR LAB Chief Complaint EORDER FOR LAB EORDER Chief Complaint EORDER SKIN Chief Complaint EORDER SKIN EORDER Chief Complaint SKIN EORDER Chief Complaint Admit Date PREOP June 01, 2024 1 0:25am Lap Robotic Prostatectomy July 19 11:01am Chief Complaint Admit Date PREOP June 01, 2024 1 0:25am Lap Robotic Prostatectomy July 19 11:01am LABS August 22, 2024 8:5 8am EORDERS September 20, 2024 8:48a m Additional Source Comments Source Comments (unrecognize d section and content) In the event this informatio n is protected by the Federal Confidentiality of Alcohol and Drug Abuse Patient Records regulations: The Federal rules restrict any use of the information to criminally investigate or prosecute any alcohol or drug abuse patient.[facility] the event this information is protected by the Federal Confidentiality of Alcohol and Drug Abuse Patient Records regulations: The Federal rules restrict any use of the information to criminally investigate or prosecute any alcohol or drug abuse patient.[facility] Reason for Visit (unrecogniz ed section and content) Reason Comments Laceration Left hand index fing er is cut Reason Comments Suture Removal Suture removal left index finger placed by us 10 days ago Care Teams (unrecognized sec tion and content) Team Status: Active Member Role Status Dates Dr. Lopez Lyle MD Primary Care Provider Active Team Status: Active Member Role Status Dates Dr. Lopez Lyle MD Primary Care Provider Active Start: June 01, 2024 End: June 01, 2024 Dr. Cuong Toro MD Attending Provider Active S tart: June 01, 2024 End: June 01, 2024 Dr. Ricco Luke MD Referring Provider Active Start: June 01, 2024 End: June 01, 2024 Team Status: Inactive Member Role Status Dates Dr. Lopez Lyle MD Primary Care Provider Active Start: July 19, 2024 End: July 20, 2024 Dr. Ricco Luke MD Admit Provider Active Start: July 19, 2024 End: July 20, 2024 Dr. Ricco Luke MD Attending Provider Active Start: July 19, 2024 End: July 20, 2024 Dr. Ricco Luke MD Referring Provider Active Start: July 19, 2024 End: July 20, 2024 Team Status: Inactive Member Role Status Dates Dr. Lopez Lyle MD Primary Care Provider Active Start: August 22, 2024 End: August 22, 2024 Dr. John Jhaveri DPM Attending Provider Active Start: August 22, 2024 End: August 22, 2024 Dr. John Jhaveri DPM Referring Provider Active Start: August 22, 2024 End: August 22, 2024 Team Status: Inactive Member Role Status Dates Dr. Lopez Lyle MD Primary Care Provider Active Start: September 20, 2024 End: September 20, 2024 Dr. Lopez Lyle MD Attending Provider Active Start: September 20, 2024 End: September 20, 2024 Dr. Lopez Lyle MD Referring Provider Active Start: September 20, 2024 End: September 20, 2024 Historiography Teacher Relationship Specialty Start Date End Date Lopez Hess MD PCP - General Family Practice 10/31/16 Historiography Teacher Relationship Specialty Start Date End Date Lopez Lyle [address] [facility] [place] [address] PCP - General Family Practice 12/16/21 Team Status: Active Member Role Status Dates Dr. Lopez Lyle MD Family Provider Active Dr. Lopez Lyle MD Primary Care Provider Active Team Status: Inactive Member Role Status Dates Dr. Lopez Lyle MD Primary Care Pr ovider, Attending Provider, Referring Provider Active Team Status: Inactive Member Role Status Dates Dr. Lopez Lyle MD Primary Care Provider Active Dr. Ricco Luke MD Attending Provider, Referr ing Provider Active Team Status: Active Member Role Status Dates Dr. Lopez Lyle MD Primary Care Pr ovider, Attending Provider, Referring Provider Active Team Status: Inactive Member Role Status Dates Dr. Lopez Lyle MD Primary Care Provider Active ANNELISE PORTILLO Attending Provider, Referring Provider A ctive Team Status: Inactive Member Role Status Dates Dr. Lopez Lyle MD Primary Care Provider Active Dr. Litzy Brock MD Attending Provider, Referring Pro vider Active Team Status: Inactive Member Role Status Dates Dr. Lopez Lyle MD Primary Care Provider Active Start: April 06, 2024 End: April 06, 2024 Dr. Ricco Luke MD Attending Provider Active Start: April 06, 2024 End: April 06, 2024 Dr. Ricco Luke MD Referring Provider Active Start: April 06, 2024 End: April 06, 2024 (unrecognized sect ion and content) No Status Records FoundNo Status Records FoundNo Status Records Found INFORMATION SOURCE (unrecogn ized section and content) DATE CREATED AUTHOR 12/19/2021 [facility] DATE CREATED AUTHOR AUTHOR'S ORGANIZ ATION 10/18/2024 [facility] DATE CREATED AUTHOR AUTHOR'S ORGANIZ ATION 11/29/2024 [facility] Goals (unrecognized section and content) Goals may be documented in a n alternate sectionGoals may be documented in an alternate sectionGoals may be documented in an alternate sectionGoals may be documented in an alternate sectionGoals may be documented in an alternate sectionGoals may be documented in an alternate sectionGoals may be documented in an alternate sectionGoals may be documented in an alternate sectionGoals may be documented in an alternate sectionGoals may be documented in an alternate sectionGoals may be documented in an alternate sectionGoals may be documented in an alternate section FOR RECORDS PERTAINING TO PATIENTS WHO ARE [...] BE BASED ON THE PRIMARY CLINICAL RECORDS. [employer] [facility]. provides no warranty or guarantee of the accuracy or completeness of information in this document.
[2024-12-08 07:53] LABS: PSA,Total- Diagnostic 0.12 ng/mL (0.00-4.00)
[2024-12-13 11:08] LABS: QNTFERON TB Mitogen Value > 10.00 IU/mL (.); QNTFERON TB Nil Value 0.41 IU/mL (.); QNTFERON TB1+ Ag Value 0.24 IU/mL (.); QNTFERON TB2+ Ag Value 0.31 IU/mL (.); QNTIFERON TB Positive Criteria Negative (Negative)
== END | disposition home or self-care (01) ==
LOC: LAB 06:50
PROVIDERS: PCP Family Medicine; Referring Provider Urology; Visit Provider Urology
DX: C61 Malignant neoplasm of prostate (principal); L40.0 Psoriasis vulgaris; Z79.899 Other long term (current) drug therapy
CPT/HCPCS: 36415; 84153; 86480

== ENCOUNTER → 2025-01-02 | Outpatient (CLI) | payer MEDICARE, OTHER, SELFPAY ==
[2025-01-02 13:15] LABS: Hematocrit 43.5 % (40-54); Hemoglobin 15.3 g/dL (13.0-16.5); Immature Granulocytes Count 0.030 X10^3/uL (0.0-0.0); Mean Corp Hgb Conc 35.2 g/dL (32-36); Mean Corpuscular Volume 85.0 fL (80-94); Mean Platelet Vol. 9.7 fl (6.2-12.0); NRBC Flagged by Analyzer 0 % (0-5); Platelet Count 214 K/mm3 (150-450); RBC Distribution Width CV 12.9 % (11.6-14.6); RBC Distribution Width SD 39.9 fl (35.1-43.9); Red Blood Count 5.12 M/mm3 (4.6-6.2); White Blood Count 6.4 K/mm3 (4.4-11.0)
[2025-01-02 13:56] LABS: AST(SGOT) 16 U/L (<=37); Alanine Aminotransfer ALT/SGPT 29 U/L (<=46); Albumin, Serum 4.5 g/dL (3.4-4.8); Alkaline Phosphatase 58 U/L (40-129); Anion Gap 14 (5-15); BUN 19 mg/dL (4-19); BUN/Creat Ratio 20.4 RATIO (10-20); Calcium,Total 9.5 mg/dL (7.6-11.0); Carbon Dioxide 25.4 mmol/L (21.0-32.0); Chloride 100 mmol/L (98-108); Cholesterol 124 mg/dL (<=200); Globulin 3.1 g/dL (2.2-4.2); Glucose 122 mg/dL (70-99); Low Density Lipoprotein Calc. 59 mg/dL; Potassium 4.0 mmol/L (3.3-5.1); Triglycerides 100 mg/dL; Very Low Density Lipoprotein 20 mg/dL (5-40); cholesterol:hdl ratio screen 2.73
[2025-01-02 17:05] LABS: Creatinine, Urine (random) 89.00 mg/dL (39.00-259.00); Microalbumin,Random Urine 12.0 mg/L (<20 mg/L)
== END | disposition home or self-care (01) ==
LOC: MTLAB 09:34
PROVIDERS: PCP Family Medicine; Referring Provider Family Medicine; Visit Provider Family Medicine
DX: E11.8 Type 2 diabetes mellitus with unspecified complications (principal); E03.8 Other specified hypothyroidism
CPT/HCPCS: 36415; 80053; 80061; 82043; 82570; 83036; 84439; 84443; 85025

== ENCOUNTER → 2025-03-16 | Outpatient (CLI) | payer MEDICARE, OTHER, SELFPAY ==
--- OUTSIDE RECORDS SUMMARY | 2025-03-16 11:22 | XMS RPT_ITS | CCD ---
Author Organization [facility] Care Team Providers Care Dental Scheduling Coordinator Name Role Phone Deshawn BARCENAS, Lopez Jewell Primary Care Provider [phone] Lopez Lyle Primary Care Provider [phone] Dariela BARCENAS, Dr. Lopez Faust Primary Care Provider [phone] Gurjit BARCENAS, Dr. Ricco Garcia Attending Provider Gurjit BARCENAS, Dr. Ricco Garcia Referring Provider [phone] Cortez BARCENAS, Dr. Hutchins Attending Provider Gurjit BARCENAS, Dr. Ricco Garcia Admit Provider Dariela BARCENAS, Dr. Lopez Faust Primary Care Provider Gurjit BARCENAS, Dr. Ricco Garcia Referring Provider Gurjit BARCENAS, Dr. Ricco Garcia Attending Provider [phone] Emilio MARTE, Dr. Lopez Attending Provider Emilio MARTE, Dr. Lopez Referring Provider Dariela BARCENAS, Dr. Lopez Faust Attending Provider Dariela BARCENAS, Dr. Lopez Faust Referring Provider Dariela BARCENAS, Dr. Lopez Faust Primary Care Provider Gurjit BARCENAS, Dr. Ricco Garcia Attending Provider Gurjit BARCENAS, Dr. Ricco Garcia Referring Provider [phone] Alma Malik PA-C Other Provider Lawanda LUKE Attending Unavailable Lawanda LUKE Primary Care Unavailable Lawanda LUKE Admitting Unavailable Dariela BARCENAS, Dr. Lopez Faust Primary Care Physician Dariela BARCENAS, Dr. Lopez Faust Attending Physician [phone] Dr. Ricco Luke MD Attending Physician Alma Malik PA-C Nurse Practitioner [phone] Schinner, Lopez E Primary Care Unavailable Gurjit, Ricco Garcia Attending Unavailable Gurjit, Ricco Garcia Referring Unavailable John Jhaveri Attending Unavailable John Jhaveri Referring Unavailable Schinner, Lopez E Primary Care Unavailable Schinner, Lopez E Attending Unavailable Schinner, Lopez E Referring Unavailable Schinner, Lopez E Primary Care Unavailable Alma Pollock Consulting Unavailable Schinner, Lopez E Primary Care Unavailable Gurjit, Ricco Garcia Referring Unavailable Gurjit, Ricco Garcia Attending Unavailable Schinner, Lopez E Primary Care Unavailable Gurjit, Ricco Garcia Referring Unavailable Gurjit, Ricco Garcia Admitting Unavailable Gurjit, Ricco Garcia Attending Unavailable Schinner, Lopez E Attending Unavailable Schinner, Lopez E Referring Unavailable Schinner, Lopez E Primary Care Unavailable Schinner, Lopez E Primary Care Unavailable Schinner, Lopez E Attending Unavailable Schinner, Lopez E Primary Care Unavailable Schinner, Lopez E Attending Unavailable Schinner, Lopez E Referring Unavailable CortezShane donril Attending Unavailable Schinner, Lopez E Primary Care Unavailable Gurjit, Ricco Garcia Referring Unavailable Schinner, Lopez E Primary Care Unavailable Gurjit, Ricco Garcia Attending Unavailable Gurjit, Ricco Garcia Referring Unavailable Allergies Allergy Classification Reported Allergen(s) Allergy Type Date of Onset Reaction(s) Facility (4 sources) Codeine Drug Allergy 5 HALLUCINATIONS [facility] (4 sources) bee venom protein (honey bee) Allergy to substance 5 Anaphylaxis [facility] (1 source) Codeine Drug Allergy 5 [facility] (1 source) bee venom protein (honey bee) Drug allergy (disorder) 5 [facility] Medications Current Medications Medication Drug Class(es) Dates Sig (Normalized) Sig (Original) Antiarthritic Combination No.2 (Glucosamine-Chondroit in) 900 mg tablet (4 sources) Start: 05-31-2024 take 1 tablet by mouth twice daily Start: 05-31-2024 take 1 tablet by cristiano th twice daily Antiarthritic Combination No.2 (Glucosamine-Chondroitin) 900 mg tablet Active 900 mg PO TWICE A DAY May 31, 2024 1:00am ascorbic acid 500 mg oral tablet (4 sources) Vitamin C Start: 05-31-2024 take 1 tablet by mouth once daily calcium citrate 150 mg oral capsule (4 sources) Start: 05-31-2024 take 1 capsule by mouth once daily cholecalciferol 0.025 mg oral tablet (4 sources) Vitamin D Start: 05-31-2024 take 1 tablet by mouth once daily ciprofloxacin 500 mg oral tablet (4 sources) Quinolone Antimicrobial Start: 07-19-2024 take 1 tablet by mouth twice daily docusate sodium 100 mg oral capsule (4 sources) Start: 07-19-2024 take 1 capsule by mouth twice daily empagliflozin 25 mg oral tablet (6 sources) Sodium-Glucose Cotransporter 2 Inhibitor Start: 05-31-2024 take 1 tablet by mouth once daily Start: 09-18-2021 JARDIANCE 10 m g tablet 1 ml ixekizumab 80 mg/ml auto-injector (4 sources) Interleukin-17A Antagonist Start: 05-31-2024 24 hr metFORMIN hydrochlorid e 500 mg extended release oral tablet (4 sources) Biguanide Start: 05-31-2024 Multivitamin (Daily Multi-Vi tamin) tablet (4 sources) Start: 05-31-2024 Start: 05-31-2024 Multivitamin ( Daily Multi-Vitamin) tablet Active 1 {tbl} PO DAILY May 31, 2024 1:00am Deary 5-Bbz-Goo-Fish Oil (Fi sh Oil) 1,200 (144-216) mg capsule (4 sources) Start: 05-31-2024 Start: 05-31-2024 Deary 3-Dha-Ep a-Fish Oil (Fish Oil) 1,200 (144-216) mg capsule Active 1 NMA PO DAILY May 31, 2024 1:00am oxyCODONE hydrochloride 5 mg oral tablet (4 sources) Opioid Agonist Start: 07-19-2024 take 1 tablet by mouth every six hours as needed for pain pravastatin sodium 20 mg oral tablet (4 sources) HMG-CoA Reductase Inhibitor Start: 05-31-2024 take 1 tablet by mouth once daily ramipril 5 mg oral capsule (6 sources) Angiotensin Converting Enzyme Inhibitor Start: 05-31-2024 take 1 capsule by mouth once daily take 1 capsule by mouth once praneeth ly ramipril (ALTACE) 5 mg capsule Take 5 mg by mouth once daily. 0 Active Comment on above: Take 5 mg by mouth o nce daily. rOPINIRole 0.25 mg oral tablet (6 sources) Nonergot Dopamine Agonist Start: 05-31-2024 take 1 tablet by mouth at bedtime Start: 11-11-2021 take 0.25-0.5 mg by mouth once daily at bedtime rOPINIRole (REQUIP) 0.25 mg tablet Take 0.25-0.5 mg by mouth daily at bedtime. 0 11/11/2021 Active Comment on above: Take 0.25-0.5 mg by mouth daily at bedtime. [place] (4 sources) Start: 05-31-2024 take 1 capsule by mouth twice daily at mealtime Start: 05-31-2024 take 1 capsule by mo ut twice daily at mealtime [place] 160 mg capsule Active 320 mg PO [...] Documented Da te Episodic/Chronic Cancer of prostate (8 sources) Malignant tumor of prostate; Translations: [Malignant neoplasm of prostate] Onset: 10-18-2024 07-19-2024 Chronic Diabetes mellitus with complications (1 source) Type 2 diabetes mellitus with unspecified complications; Translations: [Type 2 diabetes mellitus with unspecified complications] Onset: 01-10-2025 Chronic Open wounds of extremities (1 source) Laceration of left index finger; Translations: [Laceration without foreign body of left index finger without damage to nail, initial encounter] Episodic Other aftercare (1 source) Removal of sutures done; Translations: [Encounter for removal of sutures] Episodic Past or Other Problems Problem Classification Problem Date Documented Da te Episodic/Chronic Genitourinary symptoms and ill-defined conditions (1 source) Hematuria, unspecified; Translations: [Hematuria, unspecified] Onset: 02-18-2024 Episodic Mycoses (1 source) Tinea unguium; Translations: [Tinea unguium] Onset: 08-28-2024 Episodic Other screening for suspected conditions (not mental disorders or infectious disease) (2 sources) Elevated prostate specific antigen [PSA]; Translations: [Elevated prostate specific antigen [PSA]] Onset: 05-16-2024 Episodic Results Test Name Value Interpretation Reference Range Facility Absolute lymphocyte countOrd ered By: Lopez Lyle on 01-02-2025 Lymphocytes Auto (Unsp spec) [#/Vol] 1.94 10*3/uL 0.83-4.51 [facility] Absolute neutrophil countOrd ered By: Lopez Lyle on 01-02-2025 Neutrophils (Bld) [#/Vol] 3.6 10*3/uL 2.0-7.7 [facility] Anion gap in Serum or Plasma Ordered By: Lopez Lyle on 01-02-2025 Anion gap [Moles/Vol] 14 mmol/L 5-15 [facility] Automated lymphocyte count a s percentage of total leukocytesOrdered By: Lopez Lyle on 01-02-2025 Lymphocytes/100 WBC Auto (Unsp spec) 30.5 % 19-41 [facility] BUN/creatinine ratioOrdered By: Lopez Lyle on 01-02-2025 Urea nitrogen/Creatinine [Mass ratio] 20.4 mg/mg High 10-20 [facility] Basophil percentageOrdered B y: Lopez Lyle on 01-02-2025 Basophils/100 WBC (Bld) 0.5 % 0-1 [facility] Bilirubin, totalOrdered By: Lopez Lyle on 01-02-2025 Bilirubin [Mass/Vol] 0.60 mg/dL 0.00-1.30 [facility] CBC W/Diff, Automatedon Absolute Lymph 1.94 X10 3/uL Normal 0.83-4.51 [facility] Comment on above: Performed By: #### L 506.0400, L100.0100, L502.0250, L500.4100, L501.9985, L500.4050, L501.9520 #### [facility] [address] [place], [address] Absolute Neut 3.6 X10 3/uL Normal 2.0-7.7 [facility] Comment on above: Performed By: #### L 506.0400, L100.0100, L502.0250, L500.4100, L501.9985, L500.4050, L501.9520 #### [facility] [address] [place], [address] Basophils/100 WBC (Bld) 0.5 % Normal 0-1 [facility] Comment on above: Performed By: #### L 506.0400, L100.0100, L502.0250, L500.4100, L501.9985, L500.4050, [id number] #### [facility] [address] [place], [address] Eosinophils/100 WBC (Bld) 1.3 % Normal 0-5 [facility] Comment on above: Performed By: #### L 506.0400, L100.0100, L502.0250, L500.4100, L501.9985, L500.4050, [id number] #### [facility] [address] [place], [address] Erythrocyte distribution width (RBC) [Ratio] 12.9 % Normal 11.6-14.6 [facility] Comment on above: Performed By: #### L 506.0400, L100.0100, L502.0250, L500.4100, L501.9985, L500.4050, L501.9520 #### [facility] [address] [place], [address] Hematocrit (Bld) [Volume fraction] 43.5 % Normal 40-54 [facility] Comment on above: Performed By: #### L 506.0400, L100.0100, L502.0250, L500.4100, L501.9985, L500.4050, L501.9520 #### [facility] [address] [place], [address] Hemoglobin (Bld) [Mass/Vol] 15.3 g/dL Normal 13.0-16.5 [facility] Comment on above: Performed By: #### L 506.0400, L100.0100, L502.0250, L500.4100, L501.9985, L500.4050, L501.9520 #### [facility] [address] [place], [address] IG% 0.500 Normal 0.0-0.9 [facility] Comment on above: Result Comment: IG% - Immature Granulocytes (promyelocytes, myelocytes and metamyelocytes) > 1% indicates that a LEFT SHIFT is Present. Performed By: #### L 506.0400, L100.0100, L502.0250, L500.4100, L501.9985, L500.4050, L501.9520 #### [facility] [address] [place], [address] Lymphocytes/100 WBC (Bld) 30.5 % Normal 19-41 [facility] Comment on above: Performed By: #### L 506.0400, L100.0100, L502.0250, L500.4100, L501.9985, L500.4050, L501.9520 #### [facility] [address] [place], [address] MCH (RBC) [Entitic mass] 29.9 pg Normal 27.0-32.0 [facility] Comment on above: Performed By: #### L 506.0400, L100.0100, L502.0250, L500.4100, L501.9985, L500.4050, L501.9520 #### [facility] [address] [place], [address] MCHC (RBC) [Mass/Vol] 35.2 g/dL Normal 32-36 [facility] Comment on above: Performed By: #### L 506.0400, L100.0100, L502.0250, L500.4100, L501.9985, L500.4050, L501.9520 #### [facility] [address] [place], [address] MCV (RBC) [Entitic vol] 85.0 fL Normal 80-94 [facility] Comment on above: Performed By: #### L 506.0400, L100.0100, L502.0250, L500.4100, L501.9985, L500.4050, L501.9520 #### [facility] [address] [place], [address] Monocytes/100 WBC (Bld) 10.4 % High 0-10 [facility] Comment on above: Performed By: #### L 506.0400, L100.0100, L502.0250, L500.4100, L501.9985, L500.4050, L501.9520 #### [facility] [address] [place], [address] Neutrophils/100 WBC (Bld) 56.8 % Normal 47-70 [facility] Comment on above: Performed By: #### L 506.0400, L100.0100, L502.0250, L500.4100, L501.9985, L500.4050, L501.9520 #### [facility] [address] [place], [address] Nucleated RBC (Bld) [#/Vol] 0 10*3/uL Normal 0-5 [facility] Comment on above: Performed By: #### L 506.0400, L100.0100, L502.0250, L500.4100, L501.9985, L500.4050, L501.9520 #### [facility] [address] [place], [address] Platelet mean volume (Bld) [Entitic vol] 9.7 fL Normal 6.2-12.0 [facility] Comment on above: Performed By: #### L 506.0400, L100.0100, L502.0250, L500.4100, L501.9985, L500.4050, L501.9520 #### [facility] [address] [place], [address] Platelets (Bld) [#/Vol] 214 10*3/uL Normal 150-450 [facility] Comment on above: Performed By: #### L 506.0400, L100.0100, L502.0250, L500.4100, L501.9985, L500.4050, L501.9520 #### [facility] [address] [place], [address] RBC (Bld) [#/Vol] 5.12 10*6/uL Normal 4.6-6.2 [facility] Comment on above: Performed By: #### L 506.0400, L100.0100, L502.0250, L500.4100, L501.9985, L500.4050, L501.9520 #### [facility] [address] [place], [address] RDW SD 39.9 fl Normal 35.1-43.9 [facility] Comment on above: Performed By: #### L 506.0400, L100.0100, L502.0250, L500.4100, L501.9985, L500.4050, L501.9520 #### [facility] [address] [place], [address] WBC (Bld) [#/Vol] 6.4 10*3/uL Normal 4.4-11.0 [facility] Comment on above: Performed By: #### L 506.0400, L100.0100, L502.0250, L500.4100, L501.9985, L500.4050, L501.9520 #### [facility] [address] [place], [address] Calculated very low density lipoprotein (VLDL) cholesterol measurementOrdered By: Lopez Lyle on 01-02-2025 Calculated very low density lipoprotein (VLDL) cholesterol measurement 20 mg/dL 5-40 [facility] Carbon dioxide, total [Moles /volume] in Central venous bloodOrdered By: Lopez Lyle on 01-02-2025 CO2 [Moles/Vol] 25.4 mmol/L 21.0-32.0 [facility] Chloride assayOrdered By: Corina Lyle on 01-02-2025 Chloride [Moles/Vol] 100 mmol/L 98-108 [facility] Comprehensive Metabolic Prof ilon 01-02-2025 Albumin [Mass/Vol] 4.5 g/dL Normal 3.4-4.8 [facility] Comment on above: Performed By: #### L 506.0400, L100.0100, L502.0250, L500.4100, L501.9985, L500.4050, L501.9520 #### [facility] [address] [place], [address] Albumin/Globulin [Mass ratio] 1.5 {ratio} Normal 0.9-2.4 [facility] Comment on above: Performed By: #### L 506.0400, L100.0100, L502.0250, L500.4100, L501.9985, L500.4050, L501.9520 #### [facility] [address] [place], [address] ALK PHOS 58 U/L Normal 40-129 [facility] Comment on above: Performed By: #### L 506.0400, L100.0100, L502.0250, L500.4100, L501.9985, L500.4050, L501.9520 #### [facility] [address] [place], [address] ALT [Catalytic activity/Vol] 29 U/L Normal <=46 [facility] Comment on above: Performed By: #### L 506.0400, L100.0100, L502.0250, L500.4100, L501.9985, L500.4050, L501.9520 #### [facility] [address] [place], [address] AST [Catalytic activity/Vol] 16 U/L Normal <=37 [facility] Comment on above: Performed By: #### L 506.0400, L100.0100, L502.0250, L500.4100, L501.9985, L500.4050, L501.9520 #### [facility] [address] [place], [address] Bilirubin [Mass/Vol] 0.60 mg/dL Normal 0.00-1.30 [facility] Comment on above: Performed By: #### L 506.0400, L100.0100, L502.0250, L500.4100, L501.9985, L500.4050, L501.9520 #### [facility] [address] [place], [address] BUN/CRE 20.4 RATIO High 10-20 [facility] Comment on above: Performed By: #### L 506.0400, L100.0100, L502.0250, L500.4100, L501.9985, L500.4050, L501.9520 #### [facility] [address] [place], [address] Calcium [Mass/Vol] 9.5 mg/dL Normal 7.6-11.0 [facility] Comment on above: Performed By: #### L 506.0400, L100.0100, L502.0250, L500.4100, L501.9985, L500.4050, L501.9520 #### [facility] [address] [place], [address] Chloride [Moles/Vol] 100 mmol/L Normal 98-108 [facility] Comment on above: Performed By: #### L 506.0400, L100.0100, L502.0250, L500.4100, L501.9985, L500.4050, L501.9520 #### [facility] [address] [place], [address] CO2 [Moles/Vol] 25.4 mmol/L Normal 21.0-32.0 [facility] Comment on above: Performed By: #### L 506.0400, L100.0100, L502.0250, L500.4100, L501.9985, L500.4050, L501.9520 #### [facility] [address] [place], [address] Creatinine [Mass/Vol] 0.94 mg/dL Normal 0.70-1.20 [facility] Comment on above: Performed By: #### L 506.0400, L100.0100, L502.0250, L500.4100, L501.9985, L500.4050, L501.9520 #### [facility] [address] [place], [address] GAP 14 Normal 5-15 [facility] Comment on above: Performed By: #### L 506.0400, L100.0100, L502.0250, L500.4100, L501.9985, L500.4050, L501.9520 #### [facility] [address] [place], [address] GFR/1.73 sq M.predicted among non-blacks MDRD (S/P/Bld) [Vol rate/Area] 88 mL/min/{1.73_m2} Normal >60 [facility] Comment on above: Result Comment: mL/m in/1.73m2 CKD-EPI Creatinine Equation (2020) Performed By: #### L 506.0400, L100.0100, L502.0250, L500.4100, L501.9985, L500.4050, L501.9520 #### [facility] [address] [place], [address] Globulin (S) [Mass/Vol] 3.1 g/dL Normal 2.2-4.2 [facility] Comment on above: Performed By: #### L 506.0400, L100.0100, L502.0250, L500.4100, L501.9985, L500.4050, L501.9520 #### [facility] [address] [place], [address] Glucose [Mass/Vol] 122 mg/dL High 70-99 [facility] Comment on above: Performed By: #### L 506.0400, L100.0100, L502.0250, L500.4100, L501.9985, L500.4050, L501.9520 #### [facility] [address] [place], [address] Potassium [Moles/Vol] 4.0 mmol/L Normal 3.3-5.1 [facility] Comment on above: Performed By: #### L 506.0400, L100.0100, L502.0250, L500.4100, L501.9985, L500.4050, L501.9520 #### [facility] [address] [place], [address] Sodium [Moles/Vol] 139 mmol/L Normal 133-145 [facility] Comment on above: Performed By: #### L 506.0400, L100.0100, L502.0250, L500.4100, L501.9985, L500.4050, L501.9520 #### [facility] [address] [place], [address] T PROT 7.6 g/dL Normal 5.9-8.4 [facility] Comment on above: Performed By: #### L 506.0400, L100.0100, L502.0250, L500.4100, L501.9985, L500.4050, L501.9520 #### [facility] [address] [place], [address] Urea nitrogen [Mass/Vol] 19 mg/dL Normal 4-19 [facility] Comment on above: Performed By: #### L 506.0400, L100.0100, L502.0250, L500.4100, L501.9985, L500.4050, L501.9520 #### [facility] [address] [place], [address] Eosinophil percentageOrdered By: Lopez Lyle on 01-02-2025 Eosinophils/100 WBC (Bld) 1.3 % 0-5 [facility] Erythrocyte distribution wid th ratioOrdered By: Lopez Lyle on 01-02-2025 Erythrocyte distribution width (RBC) [Ratio] 12.9 % 11.6-14.6 [facility] Erythrocyte distribution wid th standard deviationOrdered By: Lopez Lyle on 01-02-2025 Erythrocyte distribution width (RBC) [Ratio] 39.9 fl 35.1-43.9 [facility] Glomerular filtration rate ( GFR) estimation/1.73 sq m using serum, plasma, or whole bOrdered By: Lopez Lyle on 01-02-2025 GFR/1.73 sq M.predicted among non-blacks MDRD (S/P/Bld) [Vol rate/Area] 88 mL/min/{1.73_m2} >60 [facility] Comment on above: mL/min/1.73m2 CKD-EP I Creatinine Equation (2020) Hematocrit Auto (Bld) [Volum e fraction]Ordered By: Lopez Lyle on 01-02-2025 Hematocrit (Bld) [Volume fraction] 43.5 % 40-54 [facility] Hemoglobin A1con 01-02-2025 HbA1c (Bld) [Mass fraction] 6.8 % High <=5.6 [facility] Comment on above: Result Comment: Norm al < 5.7 % Prediabetic 5.7 - 6.4 % Diabetic >or= 6.5 % Please note range changes. Performed By: #### L 506.0400, L100.0100, L502.0250, L500.4100, L501.9985, L500.4050, L501.9520 #### [facility] [place], [address] Hemoglobin A1c percentageOrd ered By: Lopez Lyle on 01-02-2025 HbA1c (Bld) [Mass fraction] 6.8 % High <5.7 [facility] Comment on above: Normal < 5.7 % Predi abetic 5.7 - 6.4 % Diabetic >or= 6.5 % Please note range changes. Hemoglobin measurementOrdere d By: Lopez Lyle on 01-02-2025 Hemoglobin (Bld) [Mass/Vol] 15.3 g/dL 13.0-16.5 [facility] Immature granulocytes/100 WB C Auto (Bld)Ordered By: Lopez Lyle on 01-02-2025 Immature granulocytes/100 WBC (Bld) 0.500 % 0.0-0.9 [facility] Comment on above: IG% - Immature Granu locytes (promyelocytes, myelocytes and metamyelocytes) > 1% indicates that a LEFT SHIFT is Present. LDL calc ser/plasOrdered By: Lopez Lyle on 01-02-2025 Cholesterol in LDL [Mass/Vol] 59 mg/dL [facility] Comment on above: Ianpwaxgra=385-930 m g/dL & Higher Qlzv=578 mg/dL or greaterFriedwald Equation for LDL-C Laboratory - Chemistry and C hemistry - challengeOrdered By: Lopez Lyle on 01-02-2025 AST [Catalytic activity/Vol] 16 U/L <38 [facility] Lipid Profileon 01-02-2025 CHOL:HDL 2.73 Normal [facility] Comment on above: Performed By: #### L 506.0400, L100.0100, L502.0250, L500.4100, L501.9985, L500.4050, L501.9520 #### [facility] [address] [place], [address] Cholesterol [Mass/Vol] 124 mg/dL Normal <=200 [facility] Comment on above: Result Comment: Chol esterol level, Desirable <200 mg/dL Borderline high cholesterol 200-239 mg/dL High cholesterol >=240 mg/dL Recommendations of the NCEP Adult Treatment Panel for the following risk-cutoff thresholds for the [place] population. Performed By: #### L 506.0400, L100.0100, L502.0250, L500.4100, L501.9985, L500.4050, L501.9520 #### [facility] [address] [place], [address] Cholesterol in HDL [Mass/Vol] 45 mg/dL Normal [facility] Comment on above: Result Comment: [place] onal Cholesterol Education Program (NCEP) guidelines: <40 mg/dL: Low HDL-cholesterol (major risk factor for CHD) >= 60 mg/dL: High HDL-cholesterol (negative risk factor for CHD) HDL-cholesterol is affected by a number of factors, e.g. smoking, exercise, hormones, sex and age. Performed By: #### L 506.0400, L100.0100, L502.0250, L500.4100, L501.9985, L500.4050, L501.9520 #### [facility] [address] [place], [address] Cholesterol in LDL [Mass/Vol] 59 mg/dL Normal [facility] Comment on above: Result Comment: Bord getljm=140-548 mg/dL Higher Jskh=555 mg/dL or greater Friedwald Equation for LDL-C Performed By: #### L 506.0400, L100.0100, L502.0250, L500.4100, L501.9985, L500.4050, L501.9520 #### [facility] [address] [place], [place], [phone] ([phone]) Cholesterol in VLDL [Mass/Vol] 20 mg/dL Normal 5-40 [facility] Comment on above: Performed By: #### L 506.0400, L100.0100, L502.0250, L500.4100, L501.9985, L500.4050, L501.9520 #### [facility] [address] [place], [place], [id number] ([phone] Triglyceride [Mass/Vol] 100 mg/dL Normal [facility] Comment on above: Result Comment: The drugs N-Acetylcysteine and Metamizole may falsely depress this assay. Normal range: <150 mg/dL Borderline High: 150-199 mg/dL High: 200-499 mg/dL Very High: >500 mg/dL Performed By: #### L 506.0400, L100.0100, L502.0250, L500.4100, L501.9985, L500.4050, L501.9520 #### [facility] [address] [place], [place], [id number] MCV (mean corpuscular volume ) determinationOrdered By: Lopez Lyle on 01-02-2025 MCV (RBC) [Entitic vol] 85.0 fL 80-94 [facility] Mean corpuscular hemoglobin (MCH) determinationOrdered By: Lopez Lyle on 01-02-2025 MCH (RBC) [Entitic mass] 29.9 pg 27.0-32.0 [facility] Mean corpuscular hemoglobin concentration (MCHC) determinationOrdered By: Lopez Lyle on 01-02-2025 MCHC (RBC) [Mass/Vol] 35.2 g/dL 32-36 [facility] Mean platelet volume determi nationOrdered By: Lopez Lyle on 01-02-2025 Platelet mean volume (Bld) [Entitic vol] 9.7 fL 6.2-12.0 [facility] Microalb:Creat Ratio,Random URon 01-02-2025 Creatinine [Mass/Vol] 89.00 mg/dL Normal 39.00- 259. 00 [facility] Comment on above: Performed By: #### L [id number] #### [facility] [address] [place], [place], [id number] MALB:CREAT 13.5 mg/g CRE Normal <30 mg/g CRE [facility] Comment on above: Performed By: #### L [id number] #### [facility] [address] [place], [place], [id number] MICROALBUMIN,UR 12.0 mg/L Normal <20 mg/L [facility] Comment on above: Performed By: #### L [id number] #### [facility] [address] [place], [place], [id number] Monocyte percentageOrdered B y: Lopez Lyle on 01-02-2025 Monocytes/100 WBC (Bld) 10.4 % High 0-10 [facility] Neutrophil percentageOrdered By: Lopez Lyle on 01-02-2025 Neutrophils/100 WBC (Bld) 56.8 % 47-70 [facility] Nucleated red blood cell per centageOrdered By: Lopez Lyle on 01-02-2025 Nucleated RBC/100 WBC (Bld) [Ratio] 0 % 0-5 [facility] Platelet countOrdered By: Corina Lyle on 01-02-2025 Platelets (Bld) [#/Vol] 214 10*3/uL 150-450 [facility] Potassium measurement (mass/ volume)Ordered By: Lopez Lyle on 01-02-2025 Potassium (Unsp spec) [Mass/Vol] 4.0 mmol/L 3.3-5.1 [facility] RBC Auto (Bld) [#/Vol]Ordere d By: Lopez Lyle on 01-02-2025 RBC (Bld) [#/Vol] 5.12 10*6/uL 4.6-6.2 [facility] Random urine creatinine tavia urement (mass/volume)Ordered By: Lopez Lyle on 01-02-2025 Creatinine Unsp time (U) [Mass/Vol] 89.00 mg/dL 39.00-259. 00 [facility] Screening total cholesterol/ high density lipoprotein (HDL) cholesterol ratioOrdered By: Lopez Lyle on 01-02-2025 Cholesterol.total/Choles terol in HDL [Mass ratio] 2.73 {ratio} [facility] Serum creatinine measurement (mass/volume)Ordered By: Lopez Lyle on 01-02-2025 Creatinine [Mass/Vol] 0.94 mg/dL 0.70-1.20 [facility] Serum globulin measurementOr dered By: Lopez Lyle on 01-02-2025 Globulin (S) [Mass/Vol] 3.1 g/dL 2.2-4.2 [facility] Serum glucose measurement (m ass/volume)Ordered By: Lopez Lyle on 01-02-2025 Glucose [Mass/Vol] 122 mg/dL High 70-99 [facility] Serum or plasma alanine linn otransferase (ALT) measurementOrdered By: Lopez Lyle on 01-02-2025 ALT [Catalytic activity/Vol] 29 U/L <47 [facility] Serum or plasma albumin tavia urement (mass/volume)Ordered By: Lopez Lyle on 01-02-2025 Albumin [Mass/Vol] 4.5 g/dL 3.4-4.8 [facility] Serum or plasma albumin/glob ulin mass ratioOrdered By: Lopez Lyle on 01-02-2025 Albumin/Globulin [Mass ratio] 1.5 {ratio} 0.9-2.4 [facility] Serum or plasma alkaline ivan sphatase measurementOrdered By: Lopez Lyle on 01-02-2025 ALP [Catalytic activity/Vol] 58 U/L 40-129 [facility] Serum or plasma calcium tavia urement (mass/volume)Ordered By: Lopez Lyle on 01-02-2025 Calcium [Mass/Vol] 9.5 mg/dL 7.6-11.0 [facility] Serum or plasma cholesterol in HDL measurement (mass/volume)Ordered By: Lopez Lyle on 01-02-2025 Cholesterol in HDL [Mass/Vol] 45 mg/dL >40 [facility] Comment on above: National Cholesterol Education Program (NCEP) guidelines:<40 mg/dL: Low HDL-cholesterol (major risk factor for CHD)>= 60 mg/dL: High HDL-cholesterol (negative risk factor for CHD)HDL-cholesterol is affected by a number of factors, e.g. smoking, exercise, hormones, sex and age. Serum or plasma cholesterol measurement (mass/volume)Ordered By: Lopez Lyle on 01-02-2025 Cholesterol [Mass/Vol] 124 mg/dL <201 [facility] Comment on above: Cholesterol level, D esirable <200 mg/dLBorderline high cholesterol 200-239 mg/dLHigh cholesterol >=240 mg/dLRecommendations of the NCEP Adult Treatment Panel for the following risk-cutoff thresholds for the [place] population. Serum or plasma urea nitroge n measurement (mass/volume)Ordered By: Lopez Lyle on 01-02-2025 Urea nitrogen [Mass/Vol] 19 mg/dL 4-19 [facility] Sodium levelOrdered By: Lopez Lyle on 01-02-2025 Sodium [Moles/Vol] 139 mmol/L 133-145 [facility] T4 Free Directon 01-02-2025 T4 FREE DIRECT 1.40 ng/dL Normal 0.76-1.46 [facility] Comment on above: Performed By: #### L [id number] #### [facility] [address] [place], [place] [address] [place], [address] T4 freeOrdered By: Lopez palacio on 01-02-2025 Free T4 [Mass/Vol] 1.40 ng/dL 0.76-1.46 [facility] TSH DL <= 0.005 mIU/L QnOrde red By: Lopez Lyle on 01-02-2025 TSH Qn 4.260 uIU/mL High 0.300-4.20 0 [facility] Thyroid Stim Hormone (TSH)on 01-02-2025 TSH 4.260 uIU/mL High 0.300-4.20 0 [facility] Comment on above: Performed By: #### L 506.0400, L100.0100, L502.0250, L500.4100, L501.9985, L500.4050, L501.9520 #### [facility] [address] [place], [address] Total proteinOrdered By: Joey Lyle on 01-02-2025 Protein [Mass/Vol] 7.6 g/dL 5.9-8.4 [facility] Triglycerides measurementOrd ered By: Lopez Lyle on 01-02-2025 Triglyceride [Mass/Vol] 100 mg/dL <199 [facility] Comment on above: The drugs N-Acetylcy steine and Metamizole may falsely depress this assay. Normal range: <150 mg/dLBorderline High: 150-199 mg/dLHigh: 200-499 mg/dLVery High: >500 mg/dL Urine albumin measurement wi detection limit of 20 mg/L or less (mass/volume)Ordered By: Lopez Lyle on 01-02-2025 Albumin DL <= 20 mg/L (U) [Mass/Vol] 12.0 mg/L <20 mg/L [facility] White blood cell (WBC) count Ordered By: Lopez Lyle on 01-02-2025 WBC (Bld) [#/Vol] 6.4 10*3/uL 4.4-11.0 [facility] Quantiferon TB-Gold+on 12-13 QFT MITOGEN LILA > 10.00 Normal . [facility] Comment on above: Order Comment: CLEAN CATCH Performed By: #### L [id number] #### [facility] [address] [place], [address] QFT NIL VALUE 0.41 IU/mL Normal . [facility] Comment on above: Order Comment: CLEAN CATCH Performed By: #### L [id number] #### [facility] [address] [place], [address] QFT TB GOLD+ Comment Normal . [facility] Comment on above: Order Comment: CLEAN CATCH Result Comment: Sylvain tiFERON-TB Gold Plus is [...] for the test. Performed By: #### L [id number] #### [facility] [address] [place], [address] QFT TB POS CRIT Negative Normal Negative [facility] Comment on above: Order Comment: CLEAN CATCH Result Comment: No r esponse to M [...] interferon gamma. Chemiluminescence immunoassay methodology Performed at: [facility] [id number] [employer] Painter/Sandblaster: Danny Hobson PhD, Phone: [phone] Performed By: #### L [id number] #### [facility] [address] [place], [address] QFT TB1+ AG LILA 0.24 IU/mL Normal . [facility] Comment on above: Order Comment: CLEAN CATCH Performed By: #### L [id number] #### [facility] [address] [facility] [place], [address] QFT TB2+ AG LILA 0.31 IU/mL Normal . [facility] Comment on above: Order Comment: CLEAN CATCH Performed By: #### [id number] #### [facility] [address] [facility]. [place], [place], [address] PSA,Total- Diagnosticon 11-24 PSA, DIAGNOSTIC 0.12 ng/mL Normal 0.00-4.00 [facility] Comment on above: Order Comment: CLEAN CATCH Result Comment: This test was performed using the [employer] tPSA method. Measured values of a patient??sample can vary depending on the testing procedure used. PSA values determined on patient samples by different testing procedures cannot be used interchangeably. If there is a change in PSA assays while monitoring therapy, sequential testing should be performed to confirm baseline values. Performed By: #### L [id number] #### [facility] [address] [place], [place], [id number] Qualitative QuantiFERON-TB g old in tube testOrdered By: Ricco Luke on 12-08-2024 M. tuberculosis tuberculin stim IFN-g Ql (Bld) 0.24 IU/mL . [facility] Microalb:Creat Ratio,Random URon 10-17-2024 MALB:CREAT 10.5 mg/g CRE Normal [facility] Comment on above: Order Comment: CLEAN CATCH Result Comment: AMENDED REPORT 10/17/24 1102 MALB:CREAT previously reported as: 105.0 mg/g CRE Performed By: #### L [id number] #### [facility] [address] [place], [place], [id number] Absolute lymphocyte countOrd ered By: Lopez Lyle on 09-20-2024 Lymphocytes Auto (Unsp spec) [#/Vol] 2.02 10*3/uL 0.83-4.51 [facility] Absolute neutrophil countOrd ered By: Lopez Lyle on 09-20-2024 Neutrophils (Bld) [#/Vol] 3.4 10*3/uL 2.0-7.7 [facility] Anion gap in Serum or Plasma Ordered By: Lopez Lyle on 09-20-2024 Anion gap [Moles/Vol] 14 mmol/L - [facility] Automated lymphocyte count a s percentage of total leukocytesOrdered By: Lopez Lyle on 09-20-2024 Lymphocytes/100 WBC Auto (Unsp spec) 32.2 % 19-41 [facility] BUN/creatinine ratioOrdered By: Lopez Wongjosseline on 09-20-2024 Urea nitrogen/Creatinine [Mass ratio] 20.7 mg/mg High 10-20 [facility] Basophil percentageOrdered B y: Lopez Lyle on 09-20-2024 Basophils/100 WBC (Bld) 0.3 % 0-1 [facility] Bilirubin, totalOrdered By: Lopez Lyle on 09-20-2024 Bilirubin [Mass/Vol] 0.42 mg/dL 0.00-1.30 [facility] CBC W/Diff, Automatedon 08-25 Absolute Lymph 2.02 X10 3/uL Normal 0.83-4.51 [facility] Comment on above: Order Comment: CLEAN CATCH Performed By: #### L [id number] #### [facility] [address] [place], [address] Absolute Neut 3.4 X10 3/uL Normal 2.0-7.7 [facility] Comment on above: Order Comment: CLEAN CATCH Performed By: #### L [id number] #### [facility] [address] [place], [address] Basophils/100 WBC (Bld) 0.3 % Normal 0-1 [facility] Comment on above: Order Comment: CLEAN CATCH Performed By: #### L [id number] #### [facility] [address] [place], [address] Eosinophils/100 WBC (Bld) 1.4 % Normal 0-5 [facility] Comment on above: Order Comment: CLEAN CATCH Performed By: #### L [id number] #### [facility] [address] [place], [address] Erythrocyte distribution width (RBC) [Ratio] 12.7 % Normal 11.6-14.6 [facility] Comment on above: Order Comment: CLEAN CATCH Performed By: #### L [id number] #### [facility] [address] [place], [address] Hematocrit (Bld) [Volume fraction] 44.8 % Normal 40-54 [facility] Comment on above: Order Comment: CLEAN CATCH Performed By: #### L [id number] #### [facility] [address] [place], [address] Hemoglobin (Bld) [Mass/Vol] 15.4 g/dL Normal 13.0-16.5 [facility] Comment on above: Order Comment: CLEAN CATCH Performed By: #### L [id number] #### [facility] [address] [place], [address] IG% 0.300 Normal 0.0-0.9 [facility] Comment on above: Order Comment: CLEAN CATCH Result Comment: IG% - Immature Granulocytes (promyelocytes, myelocytes and metamyelocytes) > 1% indicates that a LEFT SHIFT is Present. Performed By: #### L [id number] #### [facility] [address] [place], [address] Lymphocytes/100 WBC (Bld) 32.2 % Normal 19-41 [facility] Comment on above: Order Comment: CLEAN CATCH Performed By: #### L [id number] #### [facility] [address] [place], [address] MCH (RBC) [Entitic mass] 29.4 pg Normal 27.0-32.0 [facility] Comment on above: Order Comment: CLEAN CATCH Performed By: #### L [id number] #### [facility] [address] [place], [address] MCHC (RBC) [Mass/Vol] 34.4 g/dL Normal 32-36 [facility] Comment on above: Order Comment: CLEAN CATCH Performed By: #### L [id number] #### [facility] [address] [place], [address] MCV (RBC) [Entitic vol] 85.7 fL Normal 80-94 [facility] Comment on above: Order Comment: CLEAN CATCH Performed By: #### L [id number] #### [facility] [address] [place], [address] Monocytes/100 WBC (Bld) 11.5 % High 0-10 [facility] Comment on above: Order Comment: CLEAN CATCH Performed By: #### L [id number] #### [facility] [address] [place], [address] Neutrophils/100 WBC (Bld) 54.3 % Normal 47-70 [facility] Comment on above: Order Comment: CLEAN CATCH Performed By: #### L [id number] #### [facility] [address] [place], [address] Nucleated RBC (Bld) [#/Vol] 0 10*3/uL Normal 0-5 [facility] Comment on above: Order Comment: CLEAN CATCH Performed By: #### L [id number] #### [facility] [address] [place], [address] Platelet mean volume (Bld) [Entitic vol] 9.6 fL Normal 6.2-12.0 [facility] Comment on above: Order Comment: CLEAN CATCH Performed By: #### L [id number] #### [facility] [address] [place], [address] Platelets (Bld) [#/Vol] 228 10*3/uL Normal 150-450 [facility] Comment on above: Order Comment: CLEAN CATCH Performed By: #### L [id number] #### [facility] [address] [place], [address] RBC (Bld) [#/Vol] 5.23 10*6/uL Normal 4.6-6.2 [facility] Comment on above: Order Comment: CLEAN CATCH Performed By: #### L [id number] #### [facility] [address] [place], [address] RDW SD 39.5 fl Normal 35.1-43.9 [facility] Comment on above: Order Comment: CLEAN CATCH Performed By: #### L [id number] #### [facility] [address] [place], [address] WBC (Bld) [#/Vol] 6.3 10*3/uL Normal 4.4-11.0 [facility] Comment on above: Order Comment: CLEAN CATCH Performed By: #### L [id number] #### [facility] [address] [place], [address] Calculated very low density lipoprotein (VLDL) cholesterol measurementOrdered By: Lopez Lyle on 09-20-2024 Calculated very low density lipoprotein (VLDL) cholesterol measurement 19 mg/dL 5-40 [facility] Carbon dioxide, total [Moles /volume] in Central venous bloodOrdered By: Lopez Lyle on 09-20-2024 CO2 [Moles/Vol] 24.8 mmol/L 21.0-32.0 [facility] Chloride assayOrdered By: Corina Lyle on 09-20-2024 Chloride [Moles/Vol] 101 mmol/L 98-108 [facility] Comprehensive Metabolic Prof ilon 09-20-2024 Albumin [Mass/Vol] 4.6 g/dL Normal 3.4-4.8 [facility] Comment on above: Order Comment: CLEAN CATCH Performed By: #### L [id number] #### [facility] [address] [place], [address] Albumin/Globulin [Mass ratio] 1.6 {ratio} Normal 0.9-2.4 [facility] Comment on above: Order Comment: CLEAN CATCH Performed By: #### L [id number] #### [facility] [address] [place], [address] ALK PHOS 65 U/L Normal 40-129 [facility] Comment on above: Order Comment: CLEAN CATCH Performed By: #### L [id number] #### [facility] [address] [place], [address] ALT [Catalytic activity/Vol] 22 U/L Normal <=46 [facility] Comment on above: Order Comment: CLEAN CATCH Performed By: #### L [id number] #### [facility] [address] [place], [address] AST [Catalytic activity/Vol] 15 U/L Normal <=37 [facility] Comment on above: Order Comment: CLEAN CATCH Performed By: #### L [id number] #### [facility] [address], [address] Bilirubin [Mass/Vol] 0.42 mg/dL Normal 0.00-1.30 [facility] Comment on above: Order Comment: CLEAN CATCH Performed By: #### L [id number] #### [facility] [address], [address] BUN/CRE 20.7 RATIO High 10-20 [facility] Comment on above: Order Comment: CLEAN CATCH Performed By: #### L [id number] #### [facility] [address], [address] Calcium [Mass/Vol] 9.5 mg/dL Normal 7.6-11.0 [facility] Comment on above: Order Comment: CLEAN CATCH Performed By: #### L [id number] #### [facility] [address] [place], [address] Chloride [Moles/Vol] 101 mmol/L Normal 98-108 [facility] Comment on above: Order Comment: CLEAN CATCH Performed By: #### L [id number] #### [facility] [address] [place], [address] CO2 [Moles/Vol] 24.8 mmol/L Normal 21.0-32.0 [facility] Comment on above: Order Comment: CLEAN CATCH Performed By: #### L [id number] #### [facility] [address] [place], [address] Creatinine [Mass/Vol] 0.94 mg/dL Normal 0.70-1.20 [facility] Comment on above: Order Comment: CLEAN CATCH Performed By: #### L [id number] #### [facility] [address] [place], [address] GAP 14 Normal 5-15 [facility] Comment on above: Order Comment: CLEAN CATCH Performed By: #### L [id number] #### [facility] [address] [place], [address] GFR/1.73 sq M.predicted among non-blacks MDRD (S/P/Bld) [Vol rate/Area] 89 mL/min/{1.73_m2} Normal >60 [facility] Comment on above: Order Comment: CLEAN CATCH Result Comment: mL/m in/1.73m2 CKD-EPI Creatinine Equation (2020) Performed By: #### L [id number] #### [facility] [address] [place], [address] Globulin (S) [Mass/Vol] 2.9 g/dL Normal 2.2-4.2 [facility] Comment on above: Order Comment: CLEAN CATCH Performed By: #### L [id number] #### [facility] [address] [place], [address] Glucose [Mass/Vol] 126 mg/dL High 70-99 [facility] Comment on above: Order Comment: CLEAN CATCH Performed By: #### L [id number] #### [facility] [address] [place], [address] Potassium [Moles/Vol] 4.0 mmol/L Normal 3.3-5.1 [facility] Comment on above: Order Comment: CLEAN CATCH Performed By: #### L [id number] #### [facility] [address] [place], [place], [id number] Sodium [Moles/Vol] 140 mmol/L Normal 133-145 [facility] Comment on above: Order Comment: CLEAN CATCH Performed By: #### L [id number] #### [facility] [address] [place], [address] T PROT 7.5 g/dL Normal 5.9-8.4 [facility] Comment on above: Order Comment: CLEAN CATCH Performed By: #### L [id number] #### [facility] [address] [place], [place], [address] Urea nitrogen [Mass/Vol] 19 mg/dL Normal 4-19 [facility] Comment on above: Order Comment: CLEAN CATCH Performed By: #### L [id number] #### [facility] [address] [place], [place], [id number] Eosinophil percentageOrdered By: Lopez Lyle on 09-20-2024 Eosinophils/100 WBC (Bld) 1.4 % 0-5 [facility] Erythrocyte distribution wid th ratioOrdered By: Lopez Lyle on 09-20-2024 Erythrocyte distribution width (RBC) [Ratio] 12.7 % 11.6-14.6 [facility] Erythrocyte distribution wid th standard deviationOrdered By: Lopez Lyle on 09-20-2024 Erythrocyte distribution width (RBC) [Ratio] 39.5 fl 35.1-43.9 [facility] Glomerular filtration rate ( GFR) estimation/1.73 sq m using serum, plasma, or whole bOrdered By: Lopez Lyle on 09-20-2024 GFR/1.73 sq M.predicted among non-blacks MDRD (S/P/Bld) [Vol rate/Area] 89 mL/min/{1.73_m2} >60 [facility] Comment on above: mL/min/1.73m2 CKD-EP I Creatinine Equation (2020) Hematocrit Auto (Bld) [Volum e fraction]Ordered By: Lopez Lyle on 09-20-2024 Hematocrit (Bld) [Volume fraction] 44.8 % 40-54 [facility] Hemoglobin A1con 09-20-2024 HbA1c (Bld) [Mass fraction] 6.8 % High <=5.6 [facility] Comment on above: Order Comment: CLEAN CATCH Result Comment: Norm al < 5.7 % Prediabetic 5.7 - 6.4 % Diabetic >or= 6.5 % Please note range changes. Performed By: #### L [id number] #### [facility] [address] [place], [address] Hemoglobin A1c percentageOrd ered By: Lopez Lyle on 09-20-2024 HbA1c (Bld) [Mass fraction] 6.8 % High <5.7 [facility] Comment on above: Normal < 5.7 % Predi abetic 5.7 - 6.4 % Diabetic >or= 6.5 % Please note range changes. Hemoglobin measurementOrdere d By: Lopez Lyle on 09-20-2024 Hemoglobin (Bld) [Mass/Vol] 15.4 g/dL 13.0-16.5 [facility] Immature granulocytes/100 WB C Auto (Bld)Ordered By: Lopze Lyle on 09-20-2024 Immature granulocytes/100 WBC (Bld) 0.300 % 0.0-0.9 [facility] Comment on above: IG% - Immature Granu locytes (promyelocytes, myelocytes and metamyelocytes) > 1% indicates that a LEFT SHIFT is Present. LDL calc ser/plasOrdered By: Lopez Lyle on 09-20-2024 Cholesterol in LDL [Mass/Vol] 70 mg/dL [facility] Comment on above: Tfjsfvbqza=047-930 m g/dL & Higher Tpcm=489 mg/dL or greater Laboratory - Chemistry and C hemistry - challengeOrdered By: Lopez Lyle on 09-20-2024 AST [Catalytic activity/Vol] 15 U/L <38 [facility] Lipid Profileon 09-20-2024 CHOL:HDL 3.10 Normal [facility] Comment on above: Order Comment: CLEAN CATCH Performed By: #### L [id number] #### [facility] [address] [place], [address] Cholesterol [Mass/Vol] 132 mg/dL Normal <=200 [facility] Comment on above: Order Comment: CLEAN CATCH Result Comment: Chol esterol level, Desirable <200 mg/dL Borderline high cholesterol 200-239 mg/dL High cholesterol >=240 mg/dL Recommendations of the NCEP Adult Treatment Panel for the following risk-cutoff thresholds for the [place] population. Performed By: #### [id number] #### [facility] [address] [place], [address] Cholesterol in HDL [Mass/Vol] 43 mg/dL Normal [facility] Comment on above: Order Comment: CLEAN CATCH Result Comment: [place] onal Cholesterol Education Program (NCEP) guidelines: <40 mg/dL: Low HDL-cholesterol (major risk factor for CHD) >= 60 mg/dL: High HDL-cholesterol (negative risk factor for CHD) HDL-cholesterol is affected by a number of factors, e.g. smoking, exercise, hormones, sex and age. Performed By: #### [id number] #### [facility] [address] [facility] [address] Cholesterol in LDL [Mass/Vol] 70 mg/dL Normal [facility] Comment on above: Order Comment: CLEAN CATCH Result Comment: Bord ctrrfw=720-604 mg/dL Higher Jwpv=426 mg/dL or greater Performed By: #### L [id number] #### [facility] [address] [place], [address] Cholesterol in VLDL [Mass/Vol] 19 mg/dL Normal 5-40 [facility] Comment on above: Order Comment: CLEAN CATCH Performed By: #### L [id number] #### [facility] [address] [place], [address] Triglyceride [Mass/Vol] 95 mg/dL Normal [facility] Comment on above: Order Comment: CLEAN CATCH Result Comment: The drugs N-Acetylcysteine and Metamizole may falsely depress this assay. Normal range: <150 mg/dL Borderline High: 150-199 mg/dL High: 200-499 mg/dL Very High: >500 mg/dL Performed By: #### L [id number] #### [facility] [address] [place], [place], [address] MCV (mean corpuscular volume ) determinationOrdered By: Lopez Lyle on 09-20-2024 MCV (RBC) [Entitic vol] 85.7 fL 80-94 [facility] Mean corpuscular hemoglobin (MCH) determinationOrdered By: Lopez Lyle on 09-20-2024 MCH (RBC) [Entitic mass] 29.4 pg 27.0-32.0 [facility] Mean corpuscular hemoglobin concentration (MCHC) determinationOrdered By: Lopez Lyle on 09-20-2024 MCHC (RBC) [Mass/Vol] 34.4 g/dL 32-36 [facility] Mean platelet volume determi nationOrdered By: Lopez Lyle on 09-20-2024 Platelet mean volume (Bld) [Entitic vol] 9.6 fL 6.2-12.0 [facility] Monocyte percentageOrdered B y: Lopez Lyle on 09-20-2024 Monocytes/100 WBC (Bld) 11.5 % High 0-10 [facility] Neutrophil percentageOrdered By: Lopez Lyle on 09-20-2024 Neutrophils/100 WBC (Bld) 54.3 % 47-70 [facility] Nucleated red blood cell per centageOrdered By: Lopez Lyle on 09-20-2024 Nucleated RBC/100 WBC (Bld) [Ratio] 0 % 0-5 [facility] Platelet countOrdered By: Corina Lyle on 09-20-2024 Platelets (Bld) [#/Vol] 228 10*3/uL 150-450 [facility] Potassium measurement (mass/ volume)Ordered By: Lopez Lyle on 09-20-2024 Potassium (Unsp spec) [Mass/Vol] 4.0 mmol/L 3.3-5.1 [facility] RBC Auto (Bld) [#/Vol]Ordere d By: Lopez Lyle on 09-20-2024 RBC (Bld) [#/Vol] 5.23 10*6/uL 4.6-6.2 [facility] Random urine creatinine tavia urement (mass/volume)Ordered By: Lopez Lyle on 09-20-2024 Creatinine Unsp time (U) [Mass/Vol] 141.00 mg/dL 39.00-259. 00 [facility] Screening total cholesterol/ high density lipoprotein (HDL) cholesterol ratioOrdered By: Lopez Lyle on 09-20-2024 Cholesterol.total/Choles terol in HDL [Mass ratio] 3.10 {ratio} [facility] Serum creatinine measurement (mass/volume)Ordered By: Lopez Lyle on 09-20-2024 Creatinine [Mass/Vol] 0.94 mg/dL 0.70-1.20 [facility] Serum globulin measurementOr dered By: Lopez Lyle on 09-20-2024 Globulin (S) [Mass/Vol] 2.9 g/dL 2.2-4.2 [facility] Serum glucose measurement (m ass/volume)Ordered By: Lopez Lyle on 09-20-2024 Glucose [Mass/Vol] 126 mg/dL High 70-99 [facility] Serum or plasma alanine linn otransferase (ALT) measurementOrdered By: Lopez Lyle on 09-20-2024 ALT [Catalytic activity/Vol] 22 U/L <47 [facility] Serum or plasma albumin tavia urement (mass/volume)Ordered By: Lopez Lyle on 09-20-2024 Albumin [Mass/Vol] 4.6 g/dL 3.4-4.8 [facility] Serum or plasma albumin/glob ulin mass ratioOrdered By: Lopez Lyle on 09-20-2024 Albumin/Globulin [Mass ratio] 1.6 {ratio} 0.9-2.4 [facility] Serum or plasma alkaline ivan sphatase measurementOrdered By: Lopez Lyle on 09-20-2024 ALP [Catalytic activity/Vol] 65 U/L 40-129 [facility] Serum or plasma calcium tavia urement (mass/volume)Ordered By: Lopez Lyle on 09-20-2024 Calcium [Mass/Vol] 9.5 mg/dL 7.6-11.0 [facility] Serum or plasma cholesterol in HDL measurement (mass/volume)Ordered By: Lopez Lyle on 09-20-2024 Cholesterol in HDL [Mass/Vol] 43 mg/dL >40 [facility] Comment on above: National Cholesterol Education Program (NCEP) guidelines:<40 mg/dL: Low HDL-cholesterol (major risk factor for CHD)>= 60 mg/dL: High HDL-cholesterol (negative risk factor for CHD)HDL-cholesterol is affected by a number of factors, e.g. smoking, exercise, hormones, sex and age. Serum or plasma cholesterol measurement (mass/volume)Ordered By: Lopez Lyle on 09-20-2024 Cholesterol [Mass/Vol] 132 mg/dL <201 [facility] Comment on above: Cholesterol level, D esirable <200 mg/dLBorderline high cholesterol 200-239 mg/dLHigh cholesterol >=240 mg/dLRecommendations of the NCEP Adult Treatment Panel for the following risk-cutoff thresholds for the [place] population. Serum or plasma urea nitroge n measurement (mass/volume)Ordered By: Lopez Lyle on 09-20-2024 Urea nitrogen [Mass/Vol] 19 mg/dL 4-19 [facility] Sodium levelOrdered By: Lopez Lyle on 09-20-2024 Sodium [Moles/Vol] 140 mmol/L 133-145 [facility] T4 Free Directon 09-20-2024 T4 FREE DIRECT 1.40 ng/dL Normal 0.76-1.46 [facility] Comment on above: Order Comment: Order Date: 06/09/24Order Info: [id number] - CMPOrder Info: [id number] - LIPIDOrder Info: [id number] - TSHOrder Info: [id number] - T4F Performed By: #### L 500.3400 #### [facility] [address] [place] [address]. [place], [place], [id number] T4 freeOrdered By: Lopez palacio on 09-20-2024 Free T4 [Mass/Vol] 1.40 ng/dL 0.76-1.46 [facility] TSH DL <= 0.005 mIU/L QnOrde red By: Lopez Lyle on 09-20-2024 TSH Qn 4.900 uIU/mL High 0.300-4.20 0 [facility] Thyroid Stim Hormone (TSH)on 09-20-2024 TSH 4.900 uIU/mL High 0.300-4.20 0 [facility] Comment on above: Order Comment: CLEAN CATCH Performed By: #### L 400.0001 #### [facility] [address] [place], [address] Total proteinOrdered By: Joey Lyle on 09-20-2024 Protein [Mass/Vol] 7.5 g/dL 5.9-8.4 [facility] Triglycerides measurementOrd ered By: Lopez Lyle on 09-20-2024 Triglyceride [Mass/Vol] 95 mg/dL <199 [facility] Comment on above: The drugs N-Acetylcy steine and Metamizole may falsely depress this assay. Normal range: <150 mg/dLBorderline High: 150-199 mg/dLHigh: 200-499 mg/dLVery High: >500 mg/dL Urine albumin measurement wi detection limit of 20 mg/L or less (mass/volume)Ordered By: Lopez Lyle on 09-20-2024 Albumin DL <= 20 mg/L (U) [Mass/Vol] 14.8 mg/L NO RANGE EST. [facility] White blood cell (WBC) count Ordered By: Lopez Lyle on 09-20-2024 WBC (Bld) [#/Vol] 6.3 10*3/uL 4.4-11.0 [facility] Bilirubin directOrdered By: John Jhaveri on 08-22-2024 Bilirubin.direct [Mass/Vol] 0.21 mg/dL 0.00-0.30 [facility] Bilirubin, totalOrdered By: John Jhaveri on 08-22-2024 Bilirubin [Mass/Vol] 0.47 mg/dL 0.00-1.30 [facility] - Chemistry and C hemistry - challengeOrdered By: John Jhaveri on 08-22-2024 AST [Catalytic activity/Vol] 13 U/L <38 [facility] Liver Profileon 08-22-2024 Albumin [Mass/Vol] 4.6 g/dL Normal 3.4-4.8 [facility] Comment on above: Performed By: #### L 500.3400 #### [facility] [address] [place], [address] ALK PHOS 64 U/L Normal 40-129 [facility] Comment on above: Performed By: #### L 500.3400 #### [facility] [address] [place], [address] ALT [Catalytic activity/Vol] 25 U/L Normal <=46 [facility] Comment on above: Performed By: #### L 500.3400 #### [facility] [address] [place], [address] AST [Catalytic activity/Vol] 13 U/L Normal <=37 [facility] Comment on above: Performed By: #### L 500.3400 #### [facility] [address] [place], [address] Bilirubin [Mass/Vol] 0.47 mg/dL Normal 0.00-1.30 [facility] Comment on above: Performed By: #### L 500.3400 #### [facility] [address] [place], [address] Bilirubin.direct [Mass/Vol] 0.21 mg/dL Normal 0.00-0.30 [facility] Comment on above: Performed By: #### L 500.3400 #### [facility] [address] [place], [address] Globulin (S) [Mass/Vol] 2.9 g/dL Normal 2.2-4.2 [facility] Comment on above: Performed By: #### L 500.3400 #### [facility] [address] [place], [address] T PROT 7.4 g/dL Normal 5.9-8.4 [facility] Comment on above: Performed By: #### L 500.3400 #### [facility] [address] [place], [address] Serum globulin measurementOr dered By: John Jhaveri on 08-22-2024 Globulin (S) [Mass/Vol] 2.9 g/dL 2.2-4.2 [facility] Serum or plasma alanine linn otransferase (ALT) measurementOrdered By: John Jhaveri on 08-22-2024 ALT [Catalytic activity/Vol] 25 U/L <47 [facility] Serum or plasma albumin tavia urement (mass/volume)Ordered By: John Jhaveri on 08-22-2024 Albumin [Mass/Vol] 4.6 g/dL 3.4-4.8 [facility] Serum or plasma alkaline ivan sphatase measurementOrdered By: John Jhaveri on 08-22-2024 ALP [Catalytic activity/Vol] 64 U/L 40-129 [facility] Total proteinOrdered By: Kevan Jhaveri on 08-22-2024 Protein [Mass/Vol] 7.4 g/dL 5.9-8.4 [facility] Basic Metabolic Profile (BMP )on 07-22-2024 BUN Normal 4-19 [facility] Comment on above: Result Comment: Canc elled via OM: Order cancelled - Patient discharged Performed By: #### L 100.0100, L500.2500 #### [facility] [address] [place], [address] BUN/CRE Normal 10-20 [facility] Comment on above: Result Comment: Canc elled via OM: Order cancelled - Patient discharged Performed By: #### L 100.0100, L500.2500 #### [facility] [address] [place], [address] Calcium Normal 7.6-11.0 [facility] Comment on above: Result Comment: Canc elled via OM: Order cancelled - Patient discharged Performed By: #### L 100.0100, L500.2500 #### [facility] [address] [place], [address] CL Normal 98-108 [facility] Comment on above: Result Comment: Canc elled via OM: Order cancelled - Patient discharged Performed By: #### L 100.0100, L500.2500 #### [facility] [address] [place], [address] CO2 Normal 21.0-32.0 [facility] Comment on above: Result Comment: Canc elled via OM: Order cancelled - Patient discharged Performed By: #### L 100.0100, L500.2500 #### [facility] [address] [place], [address] CREAT,SERUM Normal 0.70-1.20 [facility] Comment on above: Result Comment: Canc elled via OM: Order cancelled - Patient discharged Performed By: #### L 100.0100, L500.2500 #### [facility] [address] [place], [address] eGFR Normal >60 [facility] Comment on above: Result Comment: Canc elled via OM: Order cancelled - Patient discharged Performed By: #### L 100.0100, L500.2500 #### [facility] [address] [place], [address] GAP Normal 5-15 [facility] Comment on above: Result Comment: Canc elled via OM: Order cancelled - Patient discharged Performed By: #### L 100.0100, L500.2500 #### [facility] [address] [place], [address] GLU Normal 70-99 [facility] Comment on above: Result Comment: Canc elled via OM: Order cancelled - Patient discharged Performed By: #### L 100.0100, L500.2500 #### [facility] [address] [place], [address] Potassium Normal 3.3-5.1 [facility] Comment on above: Result Comment: Canc elled via OM: Order cancelled - Patient discharged Performed By: #### L 100.0100, L500.2500 #### [facility] [address] [place], [address] Basic Metabolic Profile (BMP) Normal 133-145 [facility] Comment on above: Result Comment: Canc elled via OM: Order cancelled - Patient discharged Performed By: #### L 100.0100, L500.2500 #### [facility] [address] [place], [address] CBC W/Diff, Automatedon 03- Absolute Neut Normal 2.0-7.7 [facility] Comment on above: Result Comment: Canc elled via OM: Order cancelled - Patient discharged Performed By: #### L 100.0100, L500.2500 #### [facility] [address] [place], [address] HCT Normal 40-54 [facility] Comment on above: Result Comment: Canc elled via OM: Order cancelled - Patient discharged Performed By: #### L 100.0100, L500.2500 #### [facility] [address] [place], [address] HGB Normal 13.0-16.5 [facility] Comment on above: Result Comment: Canc elled via OM: Order cancelled - Patient discharged Performed By: #### L 100.0100, L500.2500 #### [facility] [address] [place], [address] MCH Normal 27.0-32.0 [facility] Comment on above: Result Comment: Canc elled via OM: Order cancelled - Patient discharged Performed By: #### L 100.0100, L500.2500 #### [facility] [address] [place], [address] MCHC Normal 32-36 [facility] Comment on above: Result Comment: Canc elled via OM: Order cancelled - Patient discharged Performed By: #### L 100.0100, L500.2500 #### [facility] [address] [place], [address] MCV Normal 80-94 [facility] Comment on above: Result Comment: Canc elled via OM: Order cancelled - Patient discharged Performed By: #### L 100.0100, L500.2500 #### [facility] [address] [place], [address] NEUT% Normal 47-70 [facility] Comment on above: Result Comment: Canc elled via OM: Order cancelled - Patient discharged Performed By: #### L 100.0100, L500.2500 #### [facility] [address] [place], [address] PLT Normal 150-450 [facility] Comment on above: Result Comment: Canc elled via OM: Order cancelled - Patient discharged Performed By: #### L 100.0100, L500.2500 #### [facility] [address] [place], [address] RBC Normal 4.6-6.2 [facility] Comment on above: Result Comment: Canc elled via OM: Order cancelled - Patient discharged Performed By: #### L 100.0100, L500.2500 #### [facility] [address] [place], [address] RDW CV Normal 11.6-14.6 [facility] Comment on above: Result Comment: Canc elled via OM: Order cancelled - Patient discharged Performed By: #### L 100.0100, L500.2500 #### [facility] [address] [place], [address] RDW SD Normal 35.1-43.9 [facility] Comment on above: Result Comment: Canc elled via OM: Order cancelled - Patient discharged Performed By: #### L 100.0100, L500.2500 #### [facility] [address] [place], [address] WBC Normal 4.4-11.0 [facility] Comment on above: Result Comment: Canc elled via OM: Order cancelled - Patient discharged Performed By: #### L 100.0100, L500.2500 #### [facility] [address] [place], [address] Basic Metabolic Profile (BMP )on 07-21-2024 BUN Normal 4-19 [facility] Comment on above: Result Comment: Canc elled via OM: Order cancelled - Patient discharged Performed By: #### L 100.0100, L500.2500 #### [facility] [address] [place], [address] BUN/CRE Normal 10-20 [facility] Comment on above: Result Comment: Canc elled via OM: Order cancelled - Patient discharged Performed By: #### L 100.0100, L500.2500 #### [facility] [address] [place], [address] Calcium Normal 7.6-11.0 [facility] Comment on above: Result Comment: Canc elled via OM: Order cancelled - Patient discharged Performed By: #### L 100.0100, L500.2500 #### [facility] [address] [place], [address] CL Normal 98-108 [facility] Comment on above: Result Comment: Canc elled via OM: Order cancelled - Patient discharged Performed By: #### L 100.0100, L500.2500 #### [facility] [address] [place], [address] CO2 Normal 21.0-32.0 [facility] Comment on above: Result Comment: Canc elled via OM: Order cancelled - Patient discharged Performed By: #### L 100.0100, L500.2500 #### [facility] [address] [place], [address] CREAT,SERUM Normal 0.70-1.20 [facility] Comment on above: Result Comment: Canc elled via OM: Order cancelled - Patient discharged Performed By: #### L 100.0100, L500.2500 #### [facility] [address] [place], [address] eGFR Normal >60 [facility] Comment on above: Result Comment: Canc elled via OM: Order cancelled - Patient discharged Performed By: #### L 100.0100, L500.2500 #### [facility] [address] [place], [address] GAP Normal 5-15 [facility] Comment on above: Result Comment: Canc elled via OM: Order cancelled - Patient discharged Performed By: #### L 100.0100, L500.2500 #### [facility] [address] [place], [address] GLU Normal 70-99 [facility] Comment on above: Result Comment: Canc elled via OM: Order cancelled - Patient discharged Performed By: #### L 100.0100, L500.2500 #### [facility] [address] [place], [address] Potassium Normal 3.3-5.1 [facility] Comment on above: Result Comment: Canc elled via OM: Order cancelled - Patient discharged Performed By: #### L 100.0100, L500.2500 #### [facility] [address] [place], [address] Basic Metabolic Profile (BMP) Normal 133-145 [facility] Comment on above: Result Comment: Canc elled via OM: Order cancelled - Patient discharged Performed By: #### L 100.0100, L500.2500 #### [facility] [address] [place], [address] CBC W/Diff, Automatedon 03-2 8-2025 Absolute Neut Normal 2.0-7.7 [facility] Comment on above: Result Comment: Canc elled via OM: Order cancelled - Patient discharged Performed By: #### L 100.0100, L500.2500 #### [facility] [address] [place], [address] HCT Normal 40-54 [facility] Comment on above: Result Comment: Canc elled via OM: Order cancelled - Patient discharged Performed By: #### L 100.0100, L500.2500 #### [facility] [address] [place], [address] HGB Normal 13.0-16.5 [facility] Comment on above: Result Comment: Canc elled via OM: Order cancelled - Patient discharged Performed By: #### L 100.0100, L500.2500 #### [facility] [address] [place], [address] MCH Normal 27.0-32.0 [facility] Comment on above: Result Comment: Canc elled via OM: Order cancelled - Patient discharged Performed By: #### L 100.0100, L500.2500 #### [facility] [address] [place], [address] MCHC Normal 32-36 [facility] Comment on above: Result Comment: Canc elled via OM: Order cancelled - Patient discharged Performed By: #### L 100.0100, L500.2500 #### [facility] [address] [place], [address] MCV Normal 80-94 [facility] Comment on above: Result Comment: Canc elled via OM: Order cancelled - Patient discharged Performed By: #### L 100.0100, L500.2500 #### [facility] [address] [place], [address] NEUT% Normal 47-70 [facility] Comment on above: Result Comment: Canc elled via OM: Order cancelled - Patient discharged Performed By: #### L 100.0100, L500.2500 #### [facility] [address] [place], [address] PLT Normal 150-450 [facility] Comment on above: Result Comment: Canc elled via OM: Order cancelled - Patient discharged Performed By: #### L 100.0100, L500.2500 #### [facility] [address] [place], [address] RBC Normal 4.6-6.2 [facility] Comment on above: Result Comment: Canc elled via OM: Order cancelled - Patient discharged Performed By: #### L 100.0100, L500.2500 #### [facility] [address] [place], [address] RDW CV Normal 11.6-14.6 [facility] Comment on above: Result Comment: Canc elled via OM: Order cancelled - Patient discharged Performed By: #### L 100.0100, L500.2500 #### [facility] [address] [place], [address] RDW SD Normal 35.1-43.9 [facility] Comment on above: Result Comment: Canc elled via OM: Order cancelled - Patient discharged Performed By: #### L 100.0100, L500.2500 #### [facility] [address] [place], [address] WBC Normal 4.4-11.0 [facility] Comment on above: Result Comment: Canc elled via OM: Order cancelled - Patient discharged Performed By: #### L 100.0100, L500.2500 #### [facility] [address] [place], [address] Absolute lymphocyte countOrd ered By: Ricco Luke on 07-20-2024 Lymphocytes Auto (Unsp spec) [#/Vol] 1.92 10*3/uL 0.83-4.51 [facility] Absolute neutrophil countOrd ered By: Ricco Luke on 07-20-2024 Neutrophils (Bld) [#/Vol] 10.8 10*3/uL High 2.0-7.7 [facility] Anion gap in Serum or Plasma Ordered By: Ricco Luke on 07-20-2024 Anion gap [Moles/Vol] 10 mmol/L 5-15 [facility] Automated lymphocyte count a s percentage of total leukocytesOrdered By: Ricco Luke on 07-20-2024 Lymphocytes/100 WBC Auto (Unsp spec) 13.7 % Low 19-41 [facility] BUN/creatinine ratioOrdered By: Ricco Luke on 07-20-2024 Urea nitrogen/Creatinine [Mass ratio] 16.5 mg/mg 10- [facility] Basic Metabolic Profile (BMP )on 07-20-2024 BUN/CRE 16.5 RATIO Normal - [facility] Comment on above: Performed By: #### L 100.0100, L500.2500 #### [facility] [address] [place], [address] Calcium [Mass/Vol] 7.9 mg/dL Normal 7.6-11.0 [facility] Comment on above: Performed By: #### L 100.0100, L500.2500 #### [facility] [address] [place], [address] Chloride [Moles/Vol] 104 mmol/L Normal 98-108 [facility] Comment on above: Performed By: #### L 100.0100, L500.2500 #### [facility] [address] [place], [address] CO2 [Moles/Vol] 23.1 mmol/L Normal 21.0-32.0 [facility] Comment on above: Performed By: #### L 100.0100, L500.2500 #### [facility] [address] [place], [address] Creatinine [Mass/Vol] 0.87 mg/dL Normal 0.70-1.20 [facility] Comment on above: Performed By: #### L 100.0100, L500.2500 #### [facility] [address] [place], [address] ECRCL 93.36 ml/min Normal 50-250 [facility] Comment on above: Performed By: #### L 100.0100, L500.2500 #### [facility] [address] [place], [address] GAP 10 Normal 5-15 [facility] Comment on above: Performed By: #### L 100.0100, L500.2500 #### [facility] [address] [place], [address] GFR/1.73 sq M.predicted among non-blacks MDRD (S/P/Bld) [Vol rate/Area] 94 mL/min/{1.73_m2} Normal >60 [facility] Comment on above: Result Comment: mL/m in/1.73m2 CKD-EPI Creatinine Equation (2020) Performed By: #### L 100.0100, L500.2500 #### [facility] [address] [place], [address] Glucose [Mass/Vol] 168 mg/dL High 70-99 [facility] Comment on above: Performed By: #### L 100.0100, L500.2500 #### [facility] [address] [place], [address] Potassium [Moles/Vol] 4.2 mmol/L Normal 3.3-5.1 [facility] Comment on above: Performed By: #### L 100.0100, L500.2500 #### [facility] [address] [place], [address] Sodium [Moles/Vol] 137 mmol/L Normal 133-145 [facility] Comment on above: Performed By: #### L 100.0100, L500.2500 #### [facility] [address] [place], [address] Urea nitrogen [Mass/Vol] 14 mg/dL Normal 4-19 [facility] Comment on above: Performed By: #### L 100.0100, L500.2500 #### [facility] [address] [place], [address] Basophil percentageOrdered B y: Ricco Luke on 07-20-2024 Basophils/100 WBC (Bld) 0.1 % 0-1 [facility] CBC W/Diff, Automatedon 06-25 Absolute Lymph 1.92 X10 3/uL Normal 0.83-4.51 [facility] Comment on above: Performed By: #### L 100.0100, L500.2500 #### [facility] [address] [place], [address] Absolute Neut 10.8 X10 3/uL High 2.0-7.7 [facility] Comment on above: Performed By: #### L 100.0100, L500.2500 #### [facility] [address] [place], [address] Basophils/100 WBC (Bld) 0.1 % Normal 0-1 [facility] Comment on above: Performed By: #### L 100.0100, L500.2500 #### [facility] [address] [place], [address] Eosinophils/100 WBC (Bld) 0.1 % Normal 0-5 [facility] Comment on above: Performed By: #### L 100.0100, L500.2500 #### [facility] [address] [place], [address] Erythrocyte distribution width (RBC) [Ratio] 13.0 % Normal 11.6-14.6 [facility] Comment on above: Performed By: #### L 100.0100, L500.2500 #### [facility] [address] [place], [address] Hematocrit (Bld) [Volume fraction] 38.2 % Low 40-54 [facility] Comment on above: Performed By: #### L 100.0100, L500.2500 #### [facility] [address] [place], [address] Hemoglobin (Bld) [Mass/Vol] 13.2 g/dL Normal 13.0-16.5 [facility] [facility] Comment on above: Performed By: #### L 100.0100, L500.2500 #### [facility] [address] [place], [address] IG% 0.500 Normal 0.0-0.9 [facility] Comment on above: Result Comment: IG% - Immature Granulocytes (promyelocytes, myelocytes and metamyelocytes) > 1% indicates that a LEFT SHIFT is Present. Performed By: #### L 100.0100, L500.2500 #### [facility] [address] [place], [address] Lymphocytes/100 WBC (Bld) 13.7 % Low 19-41 [facility] Comment on above: Performed By: #### L 100.0100, L500.2500 #### [facility] [address] [place], [address] MCH (RBC) [Entitic mass] 29.9 pg Normal 27.0-32.0 [facility] Comment on above: Performed By: #### L 100.0100, L500.2500 #### [facility] [address] [place], [address] MCHC (RBC) [Mass/Vol] 34.6 g/dL Normal 32-36 [facility] Comment on above: Performed By: #### L 100.0100, L500.2500 #### [facility] [address] [place], [address] MCV (RBC) [Entitic vol] 86.4 fL Normal 80-94 [facility] Comment on above: Performed By: #### L 100.0100, L500.2500 #### [facility] [address] [place], [address] Monocytes/100 WBC (Bld) 9.0 % Normal 0-10 [facility] Comment on above: Performed By: #### L 100.0100, L500.2500 #### [facility] [address] [place], [address] Neutrophils/100 WBC (Bld) 76.6 % High 47-70 [facility] Comment on above: Performed By: #### L 100.0100, L500.2500 #### [facility] [address] [place], [address] Nucleated RBC (Bld) [#/Vol] 0 10*3/uL Normal 0-5 [facility] Comment on above: Performed By: #### L 100.0100, L500.2500 #### [facility] [address] [place], [address] Platelet mean volume (Bld) [Entitic vol] 9.3 fL Normal 6.2-12.0 [facility] Comment on above: Performed By: #### L 100.0100, L500.2500 #### [facility] [address] [place], [address] Platelets (Bld) [#/Vol] 203 10*3/uL Normal 150-450 [facility] Comment on above: Performed By: #### L 100.0100, L500.2500 #### [facility] [address] [place], [address] RBC (Bld) [#/Vol] 4.42 10*6/uL Low 4.6-6.2 [facility] Comment on above: Performed By: #### L 100.0100, L500.2500 #### [facility] [address] [place], [address] RDW SD 41.0 fl Normal 35.1-43.9 [facility] Comment on above: Performed By: #### L 100.0100, L500.2500 #### [facility] [address] [place], [address] WBC (Bld) [#/Vol] 14.1 10*3/uL High 4.4-11.0 [facility] Comment on above: Performed By: #### L 100.0100, L500.2500 #### [facility] [address] [place], [address] Carbon dioxide, total [Moles /volume] in Central venous bloodOrdered By: Ricco Luke on 07-20-2024 CO2 [Moles/Vol] 23.1 mmol/L 21.0-32.0 [facility] Chloride assayOrdered By: Ana Luisa Luke on 07-20-2024 Chloride [Moles/Vol] 104 mmol/L 98-108 [facility] Eosinophil percentageOrdered By: Ricco Luke on 07-20-2024 Eosinophils/100 WBC (Bld) 0.1 % 0-5 [facility] Erythrocyte distribution wid th ratioOrdered By: Ricco Luke on 07-20-2024 Erythrocyte distribution width (RBC) [Ratio] 13.0 % 11.6-14.6 [facility] Erythrocyte distribution wid th standard deviationOrdered By: Ricco Luke on 07-20-2024 Erythrocyte distribution width (RBC) [Entitic vol] 41.0 fL 35.1-43.9 [facility] Erythrocyte distribution width (RBC) [Ratio] 41.0 fl 35.1-43.9 [facility] Estimation of creatinine cr aranceOrdered By: Ricco Luke on 07-20-2024 Estimated Creatinine Clearance Calc 93.36 ml/min 50-250 [facility] GFR/1.73 sq M.predicted bradley g non-blacks MDRD (S/P/Bld) [Vol rate/Area]Ordered By: Ricco Luke on 07-20-2024 Estimated GFR (MDRD) Non-Af Amer 94 >60 [facility] Comment on above: mL/min/1.73m2 CKD-EP I Creatinine Equation (2020) Glomerular filtration rate ( GFR) estimation/1.73 sq m using serum, plasma, or whole bOrdered By: Ricco Luke on 07-20-2024 GFR/1.73 sq M.predicted among non-blacks MDRD (S/P/Bld) [Vol rate/Area] 94 mL/min/{1.73_m2} >60 [facility] Comment on above: mL/min/1.73m2 CKD-EP I Creatinine Equation (2020) Hematocrit Auto (Bld) [Volum e fraction]Ordered By: Ricco Luke on 07-20-2024 Hematocrit (Bld) [Volume fraction] 38.2 % Low 40-54 [facility] Hemoglobin measurementOrdere d By: Ricco Luke on 07-20-2024 Hemoglobin (Bld) [Mass/Vol] 13.2 g/dL 13.0-16.5 [facility] Immature granulocytes/100 WB C Auto (Bld)Ordered By: Ricco Luke on 07-20-2024 Immature granulocytes/100 WBC (Bld) 0.500 % 0.0-0.9 [facility] Comment on above: IG% - Immature Granu locytes (promyelocytes, myelocytes and metamyelocytes) > 1% indicates that a LEFT SHIFT is Present. Lymphocytes Auto (Unsp spec) [#/Vol]Ordered By: Ricco Luke on 07-20-2024 Lymphocytes (Bld) [#/Vol] 1.92 10*3/uL 0.83-4.51 [facility] Lymphocytes/100 WBC Auto (Un sp spec)Ordered By: Ricco Luke on 07-20-2024 Lymphocytes/100 WBC (Bld) 13.7 % Low 19-41 [facility] MCV (mean corpuscular volume ) determinationOrdered By: Ricco Luke on 07-20-2024 MCV (RBC) [Entitic vol] 86.4 fL 80-94 [facility] Mean corpuscular hemoglobin (MCH) determinationOrdered By: Ricco Luke on 07-20-2024 MCH (RBC) [Entitic mass] 29.9 pg 27.0-32.0 [facility] Mean corpuscular hemoglobin concentration (MCHC) determinationOrdered By: Ricco Luke on 07-20-2024 MCHC (RBC) [Mass/Vol] 34.6 g/dL 32-36 [facility] Mean platelet volume determi nationOrdered By: Ricco Luke on 07-20-2024 Platelet mean volume (Bld) [Entitic vol] 9.3 fL 6.2-12.0 [facility] Monocyte percentageOrdered B y: Ricco Luke on 07-20-2024 Monocytes/100 WBC (Bld) 9.0 % 0-10 [facility] Neutrophil percentageOrdered By: Ricco Luke on 07-20-2024 Neutrophils/100 WBC (Bld) 76.6 % High 47-70 [facility] Nucleated red blood cell per centageOrdered By: Ricco Luke on 07-20-2024 Nucleated RBC/100 WBC (Bld) [Ratio] 0 % 0-5 [facility] Platelet countOrdered By: Ana Luisa Luke on 07-20-2024 Platelets (Bld) [#/Vol] 203 10*3/uL 150-450 [facility] Potassium (Unsp spec) [Mass/ Vol]Ordered By: Ricco Luke on 07-20-2024 Potassium [Moles/Vol] 4.2 mmol/L 3.3-5.1 [facility] Potassium measurement (mass/ volume)Ordered By: Ricco Luke on 07-20-2024 Potassium (Unsp spec) [Mass/Vol] 4.2 mmol/L 3.3-5.1 [facility] RBC Auto (Bld) [#/Vol]Ordere d By: Ricco Luke on 07-20-2024 RBC (Bld) [#/Vol] 4.42 10*6/uL Low 4.6-6.2 [facility] Serum creatinine measurement (mass/volume)Ordered By: Ricco Luke on 07-20-2024 Creatinine [Mass/Vol] 0.87 mg/dL 0.70-1.20 [facility] Serum glucose measurement (m ass/volume)Ordered By: Ricco Luke on 07-20-2024 Glucose [Mass/Vol] 168 mg/dL High 70-99 [facility] Serum or plasma calcium tavia urement (mass/volume)Ordered By: Ricco Luke on 07-20-2024 Calcium [Mass/Vol] 7.9 mg/dL 7.6-11.0 [facility] Serum or plasma urea nitroge n measurement (mass/volume)Ordered By: Ricco Luke on 07-20-2024 Urea nitrogen [Mass/Vol] 14 mg/dL 4-19 [facility] Sodium levelOrdered By: Ricco Luke on 07-20-2024 Sodium [Moles/Vol] 137 mmol/L 133-145 [facility] White blood cell (WBC) count Ordered By: Ricco Luke on 07-20-2024 WBC (Bld) [#/Vol] 14.1 10*3/uL High 4.4-11.0 [facility] Bedside Glucoseon 07-19-2024 FINGER[place]ICK GLU 137 mg/dL High 74-106 [facility] Comment on above: Result Comment: MAIKOL BOWLINGENT OF PATIENT CARE PER NURSING PROTOCOL Performed By: #### L 100.0100, L500.2500 #### [facility] [address] [facility] [place], [address] Discharge Instructionon 06-25 Discharge Instruction [facility] Medical Records Department [address] [place] [address] Instructions for Home/Discharge Instructions 07/19/24 1106 MR#: [id number] Acct: [id number] Name: ROBERT MORALEZ Rep #: [id number] : 1955 69 From: Ricco Luke MD PCP: Dr. Lopez Lyle MD Status:REG [facility] Discharge Instructions Diet Discharge Diet: No restrictions [...] bag and Nice to large bag Drain: [place] Follow Up Care Please Follow Up With: Ricco Luke MD When: Call [phone] for an appointment Test Results: Test results from this visit will be discussed in further detail at your follow-up appointment, if applicable. Discharge Plan Admission Primary Reason for Your Visit: Robotic radical prostatectomy Attending Provider: Ricco Luke Primary Care Provider: Lopez Lyle Instructions Print Language: Slovenian Discharge Orders/Prescriptions Prescriptions: New docusate sodium [Colace] [...] mg tablet 900 mg PO BID omega 3-kkh-btq-fish oil [Fish Oil] 1,200 (144-216) mg capsule [...] CC: Dr. Lopez Lyle MD Signed Normal [facility] deOrdered By: Ricco Luke on 07-19-2024 Bedside [facility] 137 mg/dL High 74-106 [facility] Comment on above: MANAGEMENT OF PATIEN T CARE PER NURSING PROTOCOL Glucose [Mass/Vol] 137 mg/dL High 74-106 [facility] Comment on above: MANAGEMENT OF PATIEN T CARE PER NURSING PROTOCOL Immunohistochemical Stainson 07-19-2024 Immunohistochemical Stains Patient Age/Sex Location Account Attending Physician ROBERT MORALEZ 69/M MS3 [id number] Dr. Ricco Luke MD Specimen: [id number] Received: 07/19/24 Status: RACHANA Kimberly Num: [id number] Spec Type: PROSTATE Subm Dr: Dr. Ricco [...] OF THE PROSTATE: Procedure:???RADICAL PROSTATECTOMY Histologic type:???ACINAR [place] score:???3+4=7 Grade group (1-5):???2 % pattern 4 [...] Account Attending Physician ROBERT MORALEZ 69/M MS3 [id number] Dr. Ricco Luke MD ??? Grade Group Definitions 1=[place]oulder 5-6, 2=[place] 3+4=7; 3=[place] 4+3=7, 4=Cuate 8; 5=[place] 9-10 ??? Pathologic Staging Definitions (pTNM) Primary [...] with the guidelines of the [employer] and the Association of Directors of [...] the sp (more content not included)... Normal [facility] Comment on above: Performed By: #### L 100.0100, L500.2500 #### [facility] [place], [address] MR/POSTOP.ANEon 07-19-2024 MR/POSTOP.ANE [facility] Medical Records Department [address] [place] [address] Anesthesia Postop Eval I 07/19/24 1146 MR#: [id number] Acct: [id number] Name: ROBERT MORALEZ Rep #: [id number] : 1955 69 From: Valencia Flor CRNA PCP: Dr. Lopez Lyle MD Status:REG [facility] Y Race: C Location: [place] [address] Anesthesia: Postop Eval I Current Vital Signs [...] completed: Yes 07/19/24 1147 Date Valencia Flor CRNA Cosigner Signature: Date CC: Signed Normal [facility] MR/[id number] 07-19-2024 MR/POSTOPAN2 [facility] Medical Records Department [address] [place] [address] Anesthesia Postop Eval II 07/19/24 1150 MR#: [id number] Acct: [id number] Name: DANIAROBERT SIEGEL AMANDA Rep #: [id number] : 1955 69 From: Jules Us MD PCP: Dr. Lopez Lyle MD Status:[facility] Y Race: C Location: [place] [address] Anesthesia Postop Eval I Sum Postop Eval Completion status Anesthesia document: Postop Eval 1 completed: Yes Anesthesia Postop Eval I Summary Anesthesia Postop Eval I Summary: Anesthesia Postop Eval I: Assessment Summary Airway patent Yes 07/19/24 11:47 [employer]HBARR Spontaneous unlabored Yes 07/19/24 11:47 [employer]HB[employer] respirations Mental status Awake 07/19/24 11:47 [employer]HBARR nausea No 07/19/24 11:47 [employer]HB[employer] Vomiting No 07/19/24 11:47 [employer]HBARR Anesthesia Postop Eval I: Fluid Summary Crystalloid volume administer 1,900 07/19/24 11:47 [employer] INSPECTOR.HBARR (ml) Colloids volume administered ( ml) Blood Product volume administered (ml) Total IV fluid infused 1,900 07/19/24 11:47 [employer] INS[employer].HBARR Anesthesia Postop Eval I: Summary Notes Anesthesia Complication No 07/19/24 11:47 [employer] INSPECT[employer].HBARR Anesthesia Complication Comment: Post-operative progress note Anesthesia: Postop Eval II Evaluation Mental status: Awake Pain Level: 2 nausea: No Vomiting: No 07/19/24 1151 Date Jules Us MD Cosigner Signature: Date CC: Signed Normal [facility] Operative Reporton 5 Operative Report [facility] Medical Records Department [address] [place] [address] Operative Report 07/19/24 1106 MR#: [id number] Acct: [id number] Name: ROBERT MORALEZ Rep #: [id number] : 1955 69 From: Ricco Luke MD PCP: Dr. Lopez Lyle MD Status:[employer] Location: [place] [address] Operative Report (Standard) Operative Information Date of Procedure: 07/19/24 Pre-Operative Diagnosis: prostate cancer Post-Operative Diagnosis: same Surgery/Procedure Performed: Robotic radical prostatectomy Retzius sparing approach laparoscopic robotic assisted wet wheeler: No Type of Anesthesia: General RN Documented [...] port and a suction trocar for my graphic design assistant. We then placed the patient in [...] the va (more content not included)... Normal [facility] Electrocardiogram reportOrde red By: Cuong Toro on 06-02-2024 EKG study [facility] Cardiovascular Services [address] [place] [address] 12 Lead EKG 06/01/24 1025 MR#: [id number] Acct: [id number] Name: ROBERT MORALEZ Rep #:[id number] : 1955 68 From: uCong Toro MD Attending Dr: Dr. Ricco Luke MD Status: PRE SDC Ordering Dr: Jules Us MD Date: 10/18 Location: [facility] Sex: M C Admitted: Test Reason : PREOP Blood Pressure : */* mmHG Vent. Rate : 71 BPM Atrial Rate : 71 BPM P-R Int : 136 ms QRS Dur : 98 ms QT Int : 382 ms P-R-T Axes : 10 76 56 degrees QTcB Int : 415 ms Normal sinus rhythm Normal ECG Confirmed by CUONG TORO MD ([id number]), mapping editor ISSA SUTTON ([id number]) on 06/02/2024 7:48:07 AM Referred By: Ricco Luke Confirmed By: CUONG TORO MD 06/02/24 0748 Date _ Cuong Toro MD CC: Dr. Jules Us MD; Dr. Lopez Lyle MD; Dr. Ricco Luke MD ~ Signed [facility] Work Phone: 12 Lead EKGon 06-01-2024 12 Lead EKG [facility] Cardiovascular Services [address] [place] [address] 12 Lead EKG 06/01/24 1025 MR#: [id number] Acct: [id number] Name: ROBERT MORALEZ Rep #: [id number] : 1955 68 From: Cuong Toro MD Attending Dr: Dr. Ricco Luke MD Status: PRE SDC Ordering Dr: Jules Us MD Date: 06/01/24 Location: [facility] Sex: M C Admitted: Test Reason : PREOP Blood Pressure : */* mmHG Vent. Rate : 71 BPM Atrial Rate : 71 BPM P-R Int : 136 ms QRS Dur : 98 ms QT Int : 382 ms P-R-T Axes : 10 76 56 degrees QTcB Int : 415 ms Normal sinus rhythm Normal ECG Confirmed by CUONG TORO MD ([id number]), mapping editor ISSA SUTTON ([id number]) on 06/02/2024 7:48:07 AM Referred By: Ricco Luke Confirmed By: CUONG TORO MD 06/02/2448 Date Cuong Toro MD CC: Dr. Jules Us MD; Dr. Lopez Lyle MD; Dr. Ricco Luke MD Signed Normal [facility] Albumin to globulin ratioOrd ered By: Lopez Lyle on 06-01-2024 Albumin/Globulin [Mass ratio] 1.1 {ratio} 0.9-2.4 [facility] Basic Metabolic Profile (BMP )on 06-01-2024 BUN Normal 7-18 [facility] Comment on above: Result Comment: ADDE D TO MOTHER ORDER Performed By: #### L 500.3400 #### [facility] [address] [place], [address] BUN/CRE Normal 10-20 [facility] Comment on above: Result Comment: ADDE D TO MOTHER ORDER Performed By: #### L 500.3400 #### [facility] [address] [place], [address] CA,Total Normal 8.5-10.1 [facility] Comment on above: Result Comment: ADDE D TO MOTHER ORDER Performed By: #### L 500.3400 #### [facility] [address] [place], [address] CL Normal 98-107 [facility] Comment on above: Result Comment: ADDE D TO MOTHER ORDER Performed By: #### L 500.3400 #### [facility] [address] [place], [address] CO2 Normal 21.0-32.0 [facility] Comment on above: Result Comment: ADDE D TO MOTHER ORDER Performed By: #### L 500.3400 #### [facility] [address] [place], [address] CREAT,SERUM Normal 0.70-1.30 [facility] Comment on above: Result Comment: ADDE D TO MOTHER ORDER Performed By: #### L 500.3400 #### [facility] [address] [place], [address] EST GFR Normal >60 [facility] Comment on above: Result Comment: ADDE D TO MOTHER ORDER Performed By: #### L 500.3400 #### [facility] [address] [place], [address] EST GFR - AA Normal >60 [facility] Comment on above: Result Comment: ADDE D TO MOTHER ORDER Performed By: #### L 500.3400 #### [facility] [address] [place], [address] GAP Normal 5-15 [facility] Comment on above: Result Comment: ADDE D TO MOTHER ORDER Performed By: #### L 500.3400 #### [facility] [address] [place], [address] GLU Normal 74-106 [facility] Comment on above: Result Comment: ADDE D TO MOTHER ORDER Performed By: #### L 500.3400 #### [facility] [address] [place], [address] Potassium Normal 3.5-5.1 [facility] Comment on above: Result Comment: ADDE D TO MOTHER ORDER Performed By: #### L 500.3400 #### [facility] [address] [place], [address] Basic Metabolic Profile (BMP) Normal 136-145 [facility] Comment on above: Result Comment: ADDE D TO MOTHER ORDER Performed By: #### L 500.3400 #### [facility] [address] [place], [address] Bilirubin Test strip Ql (U)O rdered By: Lopez Lyle on 06-01-2024 Bilirubin Ql (U) Negative Negative [facility] Bilirubin, totalOrdered By: Lopez Lyle on 06-01-2024 Bilirubin [Mass/Vol] 0.60 mg/dL 0.20-1.00 [facility] Comment on above: For patients on eltr ombopag therapy, use of Dimension [place] TBIL is not recommended. CBC W/Diff, Automatedon Absolute Lymph 1.88 X10 3/uL Normal 0.83-4.51 [facility] Comment on above: Order Comment: PRONO ORDERED CBC, BMP, AND [id number] ORDERED CBCD,CMP,LIPID,TSH,T4F,A1C,MIACRE,UACOrder Date: 01/20/24Order Info: 0184-1 - CBCD Performed By: #### L 500.3400 #### [facility] [address] [place], [place], [phone] (006) Absolute Neut 3.9 X10 3/uL Normal 2.0-7.7 [facility] Comment on above: Order Comment: PRONO ORDERED CBC, BMP, AND [id number] ORDERED CBCD,CMP,LIPID,TSH,T4F,A1C,MIACRE,UACOrder Date: 01/20/24Order Info: 0184-1 - CBCD Performed By: #### L 500.3400 #### [facility] [address] [place], [place], [address] (335) Basophils/100 WBC (Bld) 0.5 % Normal 0-1 [facility] Comment on above: Order Comment: PRONO ORDERED CBC, BMP, AND [id number] ORDERED CBCD,CMP,LIPID,TSH,T4F,A1C,MIACRE,UACOrder Date: 01/20/24Order Info: 0184-1 - CBCD Performed By: #### L 500.3400 #### [facility] [address] [place], [address] Eosinophils/100 WBC (Bld) 1.7 % Normal 0-5 [facility] Comment on above: Order Comment: PRONO ORDERED CBC, BMP, AND [id number] ORDERED CBCD,CMP,LIPID,TSH,T4F,A1C,MIACRE,UACOrder Date: 01/20/24Order Info: 0184-1 - CBCD Performed By: #### L 500.3400 #### [facility] [address] [place], [place], [phone] Erythrocyte distribution width (RBC) [Ratio] 12.6 % Normal 11.6-14.6 [facility] Comment on above: Order Comment: PRONO ORDERED CBC, BMP, AND [id number] ORDERED CBCD,CMP,LIPID,TSH,T4F,A1C,MIACRE,UACOrder Date: 01/20/24Order Info: 0184-1 - CBCD Performed By: #### L 500.3400 #### [facility] [address] [place], [place], [address] Hematocrit (Bld) [Volume fraction] 47.1 % Normal 40-54 [facility] Comment on above: Order Comment: PRONO ORDERED CBC, BMP, AND [id number] ORDERED CBCD,CMP,LIPID,TSH,T4F,A1C,MIACRE,UACOrder Date: 01/20/24Order Info: 0184-1 - CBCD Performed By: #### L 500.3400 #### [facility] [address] [place], [place], [phone] (774) Hemoglobin (Bld) [Mass/Vol] 16.6 g/dL High 13.0-16.5 [facility] Comment on above: Order Comment: PRONO ORDERED CBC, BMP, AND [id number] ORDERED CBCD,CMP,LIPID,TSH,T4F,A1C,MIACRE,UACOrder Date: 01/20/24Order Info: 0184-1 - CBCD Performed By: #### L 500.3400 #### [facility] [address] [place], [place], [address] IG% 0.300 Normal 0.0-0.9 [facility] Comment on above: Order Comment: PRONO ORDERED CBC, BMP, AND [id number] ORDERED CBCD,CMP,LIPID,TSH,T4F,A1C,MIACRE,UACOrder Date: 01/20/24Order Info: 183- - CBCD Result Comment: IG% - Immature Granulocytes (promyelocytes, myelocytes and metamyelocytes) > 1% indicates that a LEFT SHIFT is Present. Performed By: #### L 500.3400 #### [facility] [address] [place], [place], [address] Lymphocytes/100 WBC (Bld) 29.0 % Normal 19-41 [facility] Comment on above: Order Comment: PRONO ORDERED CBC, BMP, AND [id number] ORDERED CBCD,CMP,LIPID,TSH,T4F,A1C,MIACRE,UACOrder Date: 01/20/24Order Info: 183-04 - CBCD Performed By: #### L 500.3400 #### [facility] [address] [place], [place], [address] MCH (RBC) [Entitic mass] 29.7 pg Normal 27.0-32.0 [facility] Comment on above: Order Comment: PRONO ORDERED CBC, BMP, AND [id number] ORDERED CBCD,CMP,LIPID,TSH,T4F,A1C,MIACRE,UACOrder Date: 01/20/24Order Info: 183-04 - CBCD Performed By: #### L 500.3400 #### [facility] [address] [place], [place], [address] MCHC (RBC) [Mass/Vol] 35.2 g/dL Normal 32-36 [facility] Comment on above: Order Comment: PRONO ORDERED CBC, BMP, AND [id number] ORDERED CBCD,CMP,LIPID,TSH,T4F,A1C,MIACRE,UACOrder Date: 01/20/24Order Info: 183-04 - CBCD Performed By: #### L 500.3400 #### [facility] [address] [place], [place], [address] MCV (RBC) [Entitic vol] 84.4 fL Normal 80-94 [facility] Comment on above: Order Comment: PRONO ORDERED CBC, BMP, AND [id number] ORDERED CBCD,CMP,LIPID,TSH,T4F,A1C,MIACRE,UACOrder Date: 01/20/24Order Info: 183-04 - CBCD Performed By: #### L 500.3400 #### [facility] [address] [place], [place], [phone] (210) Monocytes/100 WBC (Bld) 9.0 % Normal 0-10 [facility] Comment on above: Order Comment: PRONO ORDERED CBC, BMP, AND [id number] ORDERED CBCD,CMP,LIPID,TSH,T4F,A1C,MIACRE,UACOrder Date: 01/20/24Order Info: [id number] - CBCD Performed By: #### L 500.3400 #### [facility] [address] [place], [place], [phone] (300) Neutrophils/100 WBC (Bld) 59.5 % Normal 47-70 [facility] Comment on above: Order Comment: PRONO ORDERED CBC, BMP, AND [id number] ORDERED CBCD,CMP,LIPID,TSH,T4F,A1C,MIACRE,UACOrder Date: 01/20/24Order Info: [id number] - CBCD Performed By: #### L 500.3400 #### [facility] [address] [place], [place], [address] Nucleated RBC (Bld) [#/Vol] 0 10*3/uL Normal 0-5 [facility] Comment on above: Order Comment: PRONO ORDERED CBC, BMP, AND [id number] ORDERED CBCD,CMP,LIPID,TSH,T4F,A1C,MIACRE,UACOrder Date: 01/20/24Order Info: [id number] - CBCD Performed By: #### L 500.3400 #### [facility] [address] [place], [place], [address] Platelet mean volume (Bld) [Entitic vol] 9.5 fL Normal 6.2-12.0 [facility] Comment on above: Order Comment: PRONO ORDERED CBC, BMP, AND [id number] ORDERED CBCD,CMP,LIPID,TSH,T4F,A1C,MIACRE,UACOrder Date: 01/20/24Order Info: 183- - CBCD Performed By: #### L 500.3400 #### [facility] [address] [place], [address] Platelets (Bld) [#/Vol] 210 10*3/uL Normal 150-450 [facility] Comment on above: Order Comment: PRONO ORDERED CBC, BMP, AND [id number] ORDERED CBCD,CMP,LIPID,TSH,T4F,A1C,MIACRE,UACOrder Date: 01/20/24Order Info: 183- - CBCD Performed By: #### L 500.3400 #### [facility] [address] [place], [address] RBC (Bld) [#/Vol] 5.58 10*6/uL Normal 4.6-6.2 [facility] Comment on above: Order Comment: PRONO ORDERED CBC, BMP, AND [id number] ORDERED CBCD,CMP,LIPID,TSH,T4F,A1C,MIACRE,UACOrder Date: 01/20/24Order Info: [id number] - CBCD Performed By: #### L 500.3400 #### [facility] [address] [place], [address] RDW SD 38.5 fl Normal 35.1-43.9 [facility] Comment on above: Order Comment: PRONO ORDERED CBC, BMP, AND [id number] ORDERED CBCD,CMP,LIPID,TSH,T4F,A1C,MIACRE,UACOrder Date: 01/20/24Order Info: 183- - CBCD Performed By: #### L 500.3400 #### [facility] [address] [place], [address] WBC (Bld) [#/Vol] 6.5 10*3/uL Normal 4.4-11.0 [facility] Comment on above: Order Comment: PRONO ORDERED CBC, BMP, AND [id number] ORDERED CBCD,CMP,LIPID,TSH,T4F,A1C,MIACRE,UACOrder Date: 01/20/24Order Info: [id number] - CBCD Performed By: #### L 500.3400 #### [facility] [address] [place], [address] CBC-Complete Blood Cnt No Di ffon 06-01-2024 HCT Normal 40-54 [facility] Comment on above: Result Comment: ADDE D TO MOTHER ORDER Performed By: #### L 500.3400 #### [facility] [address] [place], [address] HGB Normal 13.0-16.5 [facility] Comment on above: Result Comment: ADDE D TO MOTHER ORDER Performed By: #### L 500.3400 #### [facility] [address] [place], [address] MCH Normal 27.0-32.0 [facility] Comment on above: Result Comment: ADDE D TO MOTHER ORDER Performed By: #### L 500.3400 #### [facility] [address] [place], [address] MCHC Normal 32-36 [facility] Comment on above: Result Comment: ADDE D TO MOTHER ORDER Performed By: #### L 500.3400 #### [facility] [address] [place], [address] MCV Normal 80-94 [facility] Comment on above: Result Comment: ADDE D TO MOTHER ORDER Performed By: #### L 500.3400 #### [facility] [address] [place], [address] PLT Normal 150-450 [facility] Comment on above: Result Comment: ADDE D TO MOTHER ORDER Performed By: #### L 500.3400 #### [facility] [address] [place], [address] RBC Normal 4.6-6.2 [facility] Comment on above: Result Comment: ADDE D TO MOTHER ORDER Performed By: #### L 500.3400 #### [facility] [address] [place], [address] RDW CV Normal 11.6-14.6 [facility] Comment on above: Result Comment: ADDE D TO MOTHER ORDER Performed By: #### L 500.3400 #### [facility] [address] [place], [address] RDW SD Normal 35.1-43.9 [facility] Comment on above: Result Comment: ADDE D TO MOTHER ORDER Performed By: #### L 500.3400 #### [facility] [address] [place], [address] WBC Normal 4.4-11.0 [facility] Comment on above: Result Comment: ADDE D TO MOTHER ORDER Performed By: #### L 500.3400 #### [facility] [address] [place], [address] Comprehensive Metabolic Prof [facility] 06-01-2024 Albumin [Mass/Vol] 4.0 g/dL Normal 3.2-5.0 [facility] Comment on above: Order Comment: PRONO ORDERED CBC, BMP, AND [id number] ORDERED CBCD,CMP,LIPID,TSH,T4F,A1C,MIACRE,UACOrder Date: 01/20/24Order Info: [id number] - CMPOrder Info: [id number] - LIPIDOrder Info: [id number] - TSHOrder Info: [id number] - T4F Performed By: #### L 500.3400 #### [facility] [address] [place], [address] Albumin/Globulin [Mass ratio] 1.1 {ratio} Normal 0.9-2.4 [facility] Comment on above: Order Comment: PRONO ORDERED CBC, BMP, AND M4YSOJQHUG ORDERED CBCD,CMP,LIPID,TSH,T4F,A1C,MIACRE,UACOrder Date: 01/20/24Order Info: [id number] - CMPOrder Info: [id number] - LIPIDOrder Info: [id number] - TSHOrder Info: [id number] - T4F Performed By: #### L 500.3400 #### [facility] [address] [place], [address] ALK P 59 U/L Normal 45-117 [facility] Comment on above: Order Comment: PRONO ORDERED CBC, BMP, AND [id number] ORDERED CBCD,CMP,LIPID,TSH,T4F,A1C,MIACRE,UACOrder Date: 01/20/24Order Info: [id number] - CMPOrder Info: [id number] - LIPIDOrder Info: [id number] - TSHOrder Info: [id number] - T4F Performed By: #### L 500.3400 #### [facility] [address] [place], [address] ALT [Catalytic activity/Vol] 26 U/L Normal 16-61 [facility] Comment on above: Order Comment: PRONO ORDERED CBC, BMP, AND [id number] ORDERED CBCD,CMP,LIPID,TSH,T4F,A1C,MIACRE,UACOrder Date: 01/20/24Order Info: 86-1 - CMPOrder Info: [id number] - LIPIDOrder Info: [id number] - TSHOrder Info: [id number] - T4F Performed By: #### L 500.3400 #### [facility] [address] [place], [address] AST [Catalytic activity/Vol] 7 U/L Low 15-37 [facility] Comment on above: Order Comment: PRONO ORDERED CBC, BMP, AND [id number] ORDERED CBCD,CMP,LIPID,TSH,T4F,A1C,MIACRE,UACOrder Date: 01/20/24Order Info: [id number] - CMPOrder Info: [id number] - LIPIDOrder Info: [id number] - TSHOrder Info: [id number] - T4F Performed By: #### L 500.3400 #### [facility] [address] [place], [place], [address] Bilirubin [Mass/Vol] 0.60 mg/dL Normal 0.20-1.00 [facility] Comment on above: Order Comment: PRONO ORDERED CBC, BMP, AND G0QYDTQCSE ORDERED CBCD,CMP,LIPID,TSH,T4F,A1C,MIACRE,UACOrder Date: 01/20/24Order Info: [id number] - CMPOrder Info: [id number] - LIPIDOrder Info: [id number] - TSHOrder Info: [id number] - T4F Result Comment: For patients on eltrombopag therapy, use of Dimension [place] TBIL is not recommended. Performed By: #### L 500.3400 #### [facility] [address] [place], [place], [address] BUN/CRE 21.8 RATIO High 10-20 [facility] Comment on above: Order Comment: PRONO ORDERED CBC, BMP, AND G4IDVCPUYU ORDERED CBCD,CMP,LIPID,TSH,T4F,A1C,MIACRE,UACOrder Date: 01/20/24Order Info: [id number] - CMPOrder Info: [id number] - LIPIDOrder Info: [id number] - TSHOrder Info: [id number] - T4F Performed By: #### L 500.3400 #### [facility] [address] [place], [place], [address] CA,Total 9.0 mg/dL Normal 8.5-10.1 [facility] Comment on above: Order Comment: PRONO ORDERED CBC, BMP, AND I6SBLUZZFQ ORDERED CBCD,CMP,LIPID,TSH,T4F,A1C,MIACRE,UACOrder Date: 01/20/24Order Info: [id number] - CMPOrder Info: [id number] - LIPIDOrder Info: [id number] - TSHOrder Info: [id number] - T4F Performed By: #### L 500.3400 #### [facility] [address] [place], [place], [address] Chloride [Moles/Vol] 103 mmol/L Normal 98-107 [facility] Comment on above: Order Comment: PRONO ORDERED CBC, BMP, AND A0VZPZGIZM ORDERED CBCD,CMP,LIPID,TSH,T4F,A1C,MIACRE,UACOrder Date: 01/20/24Order Info: [id number] - CMPOrder Info: [id number] - LIPIDOrder Info: [id number] - TSHOrder Info: [id number] - T4F Performed By: #### L 500.3400 #### [facility] [address] [place], [address] CO2 [Moles/Vol] 28.0 mmol/L Normal 21.0-32.0 [facility] Comment on above: Order Comment: PRONO ORDERED CBC, BMP, AND [id number] ORDERED CBCD,CMP,LIPID,TSH,T4F,A1C,MIACRE,UACOrder Date: 01/20/24Order Info: [id number] - CMPOrder Info: [id number] - LIPIDOrder Info: [id number] - TSHOrder Info: [id number] - T4F Performed By: #### L 500.3400 #### [facility] [address] [place], [place], [address] Creatinine [Mass/Vol] 0.92 mg/dL Normal 0.70-1.30 [facility] Comment on above: Order Comment: PRONO ORDERED CBC, BMP, AND I4JWSTGNOD ORDERED CBCD,CMP,LIPID,TSH,T4F,A1C,MIACRE,UACOrder Date: 01/20/24Order Info: [id number] - CMPOrder Info: [id number] - LIPIDOrder Info: [id number] - TSHOrder Info: [id number] - T4F Result Comment: The validity of the calculated GFR GFRAA in patients over 70 years has not been determined. Clinical correlation is essential. Performed By: #### L 500.3400 #### [facility] [address] [place], [place], [address] EST GFR - AA 105 mL/min Normal >60 [facility] Comment on above: Order Comment: PRONO ORDERED CBC, BMP, AND F8IPOKXXOW ORDERED CBCD,CMP,LIPID,TSH,T4F,A1C,MIACRE,UACOrder Date: 01/20/24Order Info: [id number] - CMPOrder Info: [id number] - LIPIDOrder Info: [id number] - TSHOrder Info: [id number] - T4F Result Comment: Afri can Irish GFR Calc Performed By: #### L 500.3400 #### [facility] [address] [place], [place], [address] GAP 6 Normal 5-15 [facility] Comment on above: Order Comment: PRONO ORDERED CBC, BMP, AND H1EEWCCEZB ORDERED CBCD,CMP,LIPID,TSH,T4F,A1C,MIACRE,UACOrder Date: 01/20/24Order Info: [id number] - CMPOrder Info: [id number] - LIPIDOrder Info: [id number] - TSHOrder Info: [id number] - T4F Performed By: #### L 500.3400 #### [facility] [address] [place], [address] GFR/1.73 sq M.predicted among non-blacks MDRD (S/P/Bld) [Vol rate/Area] 87 mL/min/{1.73_m2} Normal >60 [facility] Comment on above: Order Comment: PRONO ORDERED CBC, BMP, AND [id number] ORDERED CBCD,CMP,LIPID,TSH,T4F,A1C,MIACRE,UACOrder Date: 01/20/24Order Info: [id number] - CMPOrder Info: [id number] - LIPIDOrder Info: [id number] - TSHOrder Info: [id number] - T4F Result Comment: Non- GFR Calc Performed By: #### L 500.3400 #### [facility] [address] [place], [address] Globulin (S) [Mass/Vol] 3.6 g/dL Normal 2.2-4.2 [facility] Comment on above: Order Comment: PRONO ORDERED CBC, BMP, AND H2INEWWVBS ORDERED CBCD,CMP,LIPID,TSH,T4F,A1C,MIACRE,UACOrder Date: 01/20/24Order Info: [id number] - CMPOrder Info: [id number] - LIPIDOrder Info: [id number] - TSHOrder Info: 3027 - T4F Performed By: #### L 500.3400 #### [facility] [address] [place], [place], [address] Glucose [Mass/Vol] 127 mg/dL High 74-106 [facility] Comment on above: Order Comment: PRONO ORDERED CBC, BMP, AND T3SJPKSFBT ORDERED CBCD,CMP,LIPID,TSH,T4F,A1C,MIACRE,UACOrder Date: 01/20/24Order Info: 86-1 - CMPOrder Info: [id number] - LIPIDOrder Info: [id number] - TSHOrder Info: 7 - T4F Result Comment: Fast ing Glucose result greater than or equal to 126 mg/dL suggests DIABETES MELLITUS per A.D.A. criteria. Performed By: #### L 500.3400 #### [facility] [address] [place], [place], [phone] (129) Potassium [Moles/Vol] 3.8 mmol/L Normal 3.5-5.1 [facility] Comment on above: Order Comment: PRONO ORDERED CBC, BMP, AND [id number] ORDERED CBCD,CMP,LIPID,TSH,T4F,A1C,MIACRE,UACOrder Date: 01/20/24Order Info: [id number] - CMPOrder Info: [id number] - LIPIDOrder Info: [id number] - TSHOrder Info: [id number] - T4F Performed By: #### L 500.3400 #### [facility] [address] [place], [place], [phone] (126) Sodium [Moles/Vol] 137 mmol/L Normal 136-145 [facility] Comment on above: Order Comment: PRONO ORDERED CBC, BMP, AND I9CUZLOHAF ORDERED CBCD,CMP,LIPID,TSH,T4F,A1C,MIACRE,UACOrder Date: 01/20/24Order Info: [id number] - CMPOrder Info: [id number] - LIPIDOrder Info: [id number] - TSHOrder Info: [id number] - T4F Performed By: #### L 500.3400 #### [facility] [address] [place], [place], [address] T PROT 7.6 g/dL Normal 6.4-8.2 [facility] Comment on above: Order Comment: PRONO ORDERED CBC, BMP, AND [id number] ORDERED CBCD,CMP,LIPID,TSH,T4F,A1C,MIACRE,UACOrder Date: 01/20/24Order Info: [id number] - CMPOrder Info: [id number] - LIPIDOrder Info: [id number] - TSHOrder Info: [id number] - T4F Performed By: #### L 500.3400 #### [facility] [address] [place], [place], [address] Urea nitrogen [Mass/Vol] 20 mg/dL High 7-18 [facility] Comment on above: Order Comment: PRONO ORDERED CBC, BMP, AND [id number] ORDERED CBCD,CMP,LIPID,TSH,T4F,A1C,MIACRE,UACOrder Date: 01/20/24Order Info: [id number] - CMPOrder Info: [id number] - LIPIDOrder Info: [id number] - TSHOrder Info: [id number] - T4F Performed By: #### L 500.3400 #### [facility] [address] [place], [place], [address] Direct serum free thyroxine (FT4) measurementOrdered By: Lopez Lyle on 06-01-2024 Free T4 [Mass/Vol] 1.19 ng/dL 0.76-1.46 [facility] Epithelial cells.squamous LM Ql (Urine sed)Ordered By: Lopez Lyle on 06-01-2024 Epithelial cells.squamous LM.HPF (Urine sed) [#/Area] 0 /[HPF] 0-5 [facility] Estimated glomerular filtrat ion rate (GFR) AmericanOrdered By: Lopez Lyle on 06-01-2024 Estimated GFR (MDRD) Amer 105 mL/min >60 [facility] Comment on above: GFR Calc Glucose Ql (U)Ordered By: Corina Lyle on 06-01-2024 Glucose (U) [Mass/Vol] 1000 mg/dL High Normal [facility] Hemoglobin A1con 06-01-2024 HbA1c (Bld) [Mass fraction] 5.9 % High 3.8-5.6 [facility] Comment on above: Order Comment: RICHIE ORDERED CBC, BMP, AND [id number] ORDERED CBCD,CMP,LIPID,TSH,T4F,A1C,MIACRE,UACOrder Date: 01/20/24Order Info: [id number] - A1C Result Comment: Norm al < 5.7 % Prediabetic 5.7 - 6.4 % Diabetic >or= 6.5 % Please note range changes. Performed By: #### L 500.3400 #### [facility] [place], [address] Hemoglobin A1c percentageOrd ered By: Lopez Lyle on 06-01-2024 HbA1c (Bld) [Mass fraction] 5.9 % High 3.8-5.6 [facility] Comment on above: Normal < 5.7 % Predi abetic 5.7 - 6.4 % Diabetic >or= 6.5 % Please note range changes. High density lipoprotein (HD L) measurementOrdered By: Lopez Lyle on 06-01-2024 Cholesterol in HDL [Mass/Vol] 52 mg/dL >40 [facility] Comment on above: The drugs N-Acetylcy steine and Metamizole may falsely depress this assay. Reference Range HDL <40 mg/dL Low HDL Cholesterol HDL >or= 60 mg/dL High HDL Cholesterol Ketones Test strip Ql (U)Ord ered By: Lopez Lyle on 06-01-2024 Ketones Ql (U) Negative Negative [facility] - Chemistry and C hemistry - challengeOrdered By: Lopez Lyle on 06-01-2024 AST [Catalytic activity/Vol] 7 U/L Low 15-37 [facility] Lipid Profileon 06-01-2024 Cholesterol [Mass/Vol] 117 mg/dL Normal 200 [facility] Comment on above: Order Comment: PRONO ORDERED CBC, BMP, AND [id number] ORDERED CBCD,CMP,LIPID,TSH,T4F,A1C,MIACRE,UACOrder Date: 01/20/24Order Info: [id number] - CMPOrder Info: [id number] - LIPIDOrder Info: [id number] - TSHOrder Info: [id number] - T4F Result Comment: <200 mg/dL Desirable 200-240 mg/dL Borderline >240 mg/dL High Risk Performed By: #### L 500.3400 #### [facility] [address] [place], [place], [phone] (047) Cholesterol in HDL [Mass/Vol] 52 mg/dL Normal [facility] Comment on above: Order Comment: PRONO ORDERED CBC, BMP, AND [id number] ORDERED CBCD,CMP,LIPID,TSH,T4F,A1C,MIACRE,UACOrder Date: 01/20/24Order Info: [id number] - CMPOrder Info: [id number] - LIPIDOrder Info: [id number] - TSHOrder Info: 7 - T4F Result Comment: The drugs N-Acetylcysteine and Metamizole may falsely depress this assay. Reference Range HDL <40 mg/dL Low HDL Cholesterol HDL >or= 60 mg/dL High HDL Cholesterol Performed By: #### L 500.3400 #### [facility] [address] [place], [place], [address] Cholesterol in LDL [Mass/Vol] 52 mg/dL Normal 0-130 [facility] Comment on above: Order Comment: PRONO ORDERED CBC, BMP, AND F8VWPSGYOX ORDERED CBCD,CMP,LIPID,TSH,T4F,A1C,MIACRE,UACOrder Date: 01/20/24Order Info: [id number] - CMPOrder Info: [id number] - LIPIDOrder Info: [id number] - TSHOrder Info: 3027 - T4F Performed By: #### L 500.3400 #### [facility] [address] [place], [place], [address] Cholesterol in VLDL [Mass/Vol] 13 mg/dL Normal 5-40 [facility] Comment on above: Order Comment: PRONO ORDERED CBC, BMP, AND [id number] ORDERED CBCD,CMP,LIPID,TSH,T4F,A1C,MIACRE,UACOrder Date: 01/20/24Order Info: [id number] - CMPOrder Info: [id number] - LIPIDOrder Info: [id number] - TSHOrder Info: [id number] - T4F Performed By: #### L 500.3400 #### [facility] [address] [place], [place], [address] Triglyceride [Mass/Vol] 65 mg/dL Normal [facility] Comment on above: Order Comment: PRONO ORDERED CBC, BMP, AND [id number] ORDERED CBCD,CMP,LIPID,TSH,T4F,A1C,MIACRE,UACOrder Date: 01/20/24Order Info: [id number] - CMPOrder Info: [id number] - LIPIDOrder Info: [id number] - TSHOrder Info: [id number] - T4F Result Comment: The drugs N-Acetylcysteine and Metamizole may falsely depress this assay. Serum Triglycerides Reference Interval Normal <150 mg/dL Borderline high 150 - 199 mg/dL High 200 - 499 mg/dL Very High > or = 500 mg/dL Performed By: #### L 500.3400 #### [facility] [address] [place], [place], [address] Low density lipoprotein (LDL ) cholesterol measurementOrdered By: Lopez Lyle on 06-01-2024 Cholesterol in LDL [Mass/Vol] 52 mg/dL 0-130 [facility] Microalb:Creat Ratio,Random URon 06-01-2024 Creatinine [Mass/Vol] 120.00 mg/dL Normal NO RAN GE EST. [facility] Comment on above: Order Comment: PRONO ORDERED CBC, BMP, AND [id number] ORDERED CBCD,CMP,LIPID,TSH,T4F,A1C,MIACRE,UACOrder Date: 01/20/24Order Info: [id number] - MIACRE Performed By: #### L 500.3400 #### [facility] [address] [place], [place], [phone] MALB:CRE 28.7 mg/g CRE Normal <30 mg/g CRE [facility] Comment on above: Order Comment: PRONO ORDERED CBC, BMP, AND [id number] ORDERED CBCD,CMP,LIPID,TSH,T4F,A1C,MIACRE,UACOrder Date: 01/20/24Order Info: [id number] - MIACRE Performed By: #### L 500.3400 #### [facility] [address] [place], [place], [phone] MICROALBUMIN,UR 34.4 mg/L Normal NO RANGE EST. [facility] Comment on above: Order Comment: PRONO ORDERED CBC, BMP, AND [id number] ORDERED CBCD,CMP,LIPID,TSH,T4F,A1C,MIACRE,UACOrder Date: 01/20/24Order Info: [id number] - MIACRE Performed By: #### L 500.3400 #### [facility] [address] [place], [place], [phone] Microscopic analysis of urin e for red blood cells (RBC)Ordered By: Lopez Lyle on 06-01-2024 Microscopic analysis of urine for red blood cells (RBC) 5-10 SEEN /hpf 0-5 [facility] Urine RBC 5-10 SEEN /hpf 0-5 [facility] Mucus LM Ql (Urine sed)Order ed By: Lopez Lyle on 06-01-2024 Mucus Ql (Urine sed) 0 SEEN /hpf [facility] Nitrite Test strip Ql (U)Ord ered By: Lopez Lyle on 06-01-2024 Nitrite Ql (U) Negative Negative [facility] Protein Test strip Ql (U)Ord ered By: Lopez Lyle on 06-01-2024 Protein Ql (U) 15 mg/dl High Negative [facility] Random urine microalbumin me asurementOrdered By: Lopez Lyle on 06-01-2024 Urine Random Microalbumin 34.4 mg/L NO RANGE EST. [facility] Serum globulin measurementOr dered By: Lopez Lyle on 06-01-2024 Globulin (S) [Mass/Vol] 3.6 g/dL 2.2-4.2 [facility] Serum or plasma alanine linn otransferase (ALT) measurementOrdered By: Lopez Lyle on 06-01-2024 ALT [Catalytic activity/Vol] 26 U/L 16-61 [facility] Serum or plasma albumin tavia urement (mass/volume)Ordered By: Lopez Lyle on 06-01-2024 Albumin [Mass/Vol] 4.0 g/dL 3.2-5.0 [facility] Serum or plasma alkaline ivan sphatase measurementOrdered By: Lopez Lyle on 06-01-2024 ALP [Catalytic activity/Vol] 59 U/L 45-117 [facility] Serum or plasma cholesterol measurement (mass/volume)Ordered By: Lopez Lyle on 06-01-2024 Cholesterol [Mass/Vol] 117 mg/dL <200 [facility] Comment on above: <200 mg/dL Desirable 200-240 mg/dL Borderline >240 mg/dL High Risk Serum or plasma thyroid stim ulating hormone (TSH) measurement (units/volume)Ordered By: Lpoez Lyle on 06-01-2024 TSH Qn 3.940 uIU/mL High 0.358-3.74 0 [facility] Squamous epithelial cells de tection in urine sediment by light microscopyOrdered By: Lopez Lyle on 06-01-2024 Epithelial cells.squamous LM Ql (Urine sed) 0 SEEN /hpf 0-5 [facility] T4 Free Directon 06-01-2024 T4 FREE DIRECT 1.19 ng/dL Normal 0.76-1.46 [facility] Comment on above: Order Comment: RICHIE ORDERED CBC, BMP, AND [id number] ORDERED CBCD,CMP,LIPID,TSH,T4F,A1C,MIACRE,UACOrder Date: 01/20/24Order Info: [id number] - CMPOrder Info: [id number] - LIPIDOrder Info: [id number] - TSHOrder Info: [id number] - T4F Performed By: #### L 500.3400 #### [facility] [address] [place], [address] TSH QnOrdered By: Lopez larson on 06-01-2024 Thyroid Stimulating Hormone (TSH) 3.940 uIU/mL High 0.358-3.74 0 [facility] Thyroid Stim Hormone (TSH)on 06-01-2024 TSH 3.940 uIU/mL High 0.358-3.74 0 [facility] Comment on above: Order Comment: PRONO ORDERED CBC, BMP, AND [id number] ORDERED CBCD,CMP,LIPID,TSH,T4F,A1C,MIACRE,UACOrder Date: 01/20/24Order Info: [id number] - CMPOrder Info: [id number] - LIPIDOrder Info: [id number] - TSHOrder Info: [id number] - T4F Performed By: #### L 500.3400 #### [facility] [address] [place], [place], [id number] Total proteinOrdered By: Joey Lyle on 06-01-2024 Protein [Mass/Vol] 7.6 g/dL 6.4-8.2 [facility] Triglycerides measurementOrd ered By: Lopez Lyle on 06-01-2024 Triglyceride [Mass/Vol] 65 mg/dL <199 [facility] Comment on above: The drugs N-Acetylcy steine and Metamizole may falsely depress this assay.Serum Triglycerides Reference Interval Normal <150 mg/dL Borderline high 150 - 199 mg/dL High 200 - 499 mg/dL Very High > or = 500 mg/dL Urinalysis, Completeon 06-01 RBC 5-10 SEEN Normal 0-5 [facility] Comment on above: Order Comment: PRONO ORDERED CBC, BMP, AND [id number] ORDERED CBCD,CMP,LIPID,TSH,T4F,A1C,MIACRE,UACUrine, Random Performed By: #### L 100.0100, L500.2500 #### [facility] [address] [place], [address] BACTERIA 0 SEEN Normal None Seen [facility] Comment on above: Order Comment: PRONO ORDERED CBC, BMP, AND [id number] ORDERED CBCD,CMP,LIPID,TSH,T4F,A1C,MIACRE,UACUrine, Random Performed By: #### L 100.0100, L500.2500 #### [facility] [address] [place], [address] EPI,SQUAMOUS 0 SEEN Normal 0-5 [facility] Comment on above: Order Comment: PRONO ORDERED CBC, BMP, AND [id number] ORDERED CBCD,CMP,LIPID,TSH,T4F,A1C,MIACRE,UACUrine, Random Performed By: #### L 100.0100, L500.2500 #### [facility] [address] [place], [address] Mucus Ql (Urine sed) 0 SEEN Normal [facility] Comment on above: Order Comment: PRONO ORDERED CBC, BMP, AND [id number] ORDERED CBCD,CMP,LIPID,TSH,T4F,A1C,MIACRE,UACUrine, Random Performed By: #### L 100.0100, L500.2500 #### [facility] [address] [place], [address] WBC 0 SEEN Normal [address] [place] [address] Comment on above: Order Comment: PRONO ORDERED CBC, BMP, AND [id number] ORDERED CBCD,CMP,LIPID,TSH,T4F,A1C,MIACRE,UACUrine, Random Performed By: #### L 100.0100, L500.2500 #### [facility] [address] [place], [address] Urine albumin/creatinine rat io for detection of microalbuminuriaOrdered By: Lopez Lyle on 06-01-2024 Urine Microalbumin/Creatinine Ratio 28.7 mg/g CRE <30 [facility] Urine blood detectionOrdered By: Lopez Lyle on 06-01-2024 Urine Occult Blood 50 /ul High Negative [facility] Urine clarityOrdered By: Joey Lyle on 06-01-2024 Clarity (U) Clear Clear [facility] Urine color determinationOrd ered By: Lopez Lyle on 06-01-2024 Color (U) Yellow Yellow [facility] Urine creatinine measurement (mass/volume)Ordered By: Lopez Lyle on 06-01-2024 Creatinine (U) [Mass/Vol] 120.00 mg/dL NO RANGE EST. [facility] Urine glucose detectionOrder ed By: Lopez Lyle on 06-01-2024 Glucose Ql (U) 1000 mg/dl High Normal [facility] Urine leukocyte esterase det ection by dipstickOrdered By: Lopez Lyle on 06-01-2024 Leukocyte esterase Test strip Ql (U) Negative Negative [facility] Urine pHOrdered By: Lopez manjarrez on 06-01-2024 pH (U) 6.0 [pH] 5.0 - 8.0 [facility] Urine sediment bacteria coun t by microscopy (number/high power field)Ordered By: Lopez Lyle on 06-01-2024 Bacteria LM.HPF (Urine sed) [#/Area] 0 /[HPF] None Seen [facility] Urine specific gravity measu rementOrdered By: Lopez Lyle on 06-01-2024 Specific gravity (U) [Rel density] 1.020 1.002-1.03 0 [facility] Urine urobilinogen measureme ntOrdered By: Lopez Lyle on 06-01-2024 Urobilinogen Ql (U) Normal mg/dl Normal [facility] Urobilinogen Ql (U)Ordered B y: Lopez Lyle on 06-01-2024 Urine Urobilinogen Normal mg/dl Normal [facility] Very low density lipoprotein (VLDL) cholesterol measurementOrdered By: Lopez Lyle on 06-01-2024 Very low density lipoprotein (VLDL) cholesterol measurement 13 mg/dL 5-40 [facility] VLDL Cholesterol 13 mg/dL 5-40 [facility] White blood cell countOrdere d By: Lopez Lyle on 06-01-2024 Urine WBC 0 SEEN /hpf 0-5 [facility] White blood cell count 0 SEEN /hpf 0-5 [facility] PT D/C Summary (1)on 024 PT D/C Summary (1) [facility] [place] [address] / REHABILITATION SERVICES DISCHARGE SUMMARY MR#: [id number] Acct: [id number] Name: ROBERT MORALEZ Rep #: [id number] : [id number] 68 From: Blair Shaikh PT, ATC Referring Dr.: Dr. Lopez Lyle MD Status: REG RCR Insurance: MEDICARE PART A B [employer] SR SUPPLEMENT INS Discharge Summary D/C summary: It has been my pleasure to treat ROBERT MORALEZ referred by Dr. Lopze Lyle MD, with the diagnosis of L [...] please feel free to call me at [phone]. Thank you for the referral of this patient. Sincerely, Blair Shaikh, PT, ATC Balance/Gait/Functional tests Balance/Special Test Scores Lower Extremity Functional Score: 80 Improvement % Improvement: 0 04/25/24 1311 CC: Dr. Lopez Lyle MD [facility] Signed Normal [facility] PROSTATE BXon 04-06-2024 PROSTATE BX ------ Patient Age/Sex Location Account Attending Physician ROBERT MORALEZ 68/M [facility] [id number] Dr. Ricco Luke MD Specimen: [id number] Received: 04/07/24 Status: RACHANA Harris Num: [id number] Spec Type: PROST BX Subm Dr: Dr. [...] Left prostate, apex, core biopsy: Prostatic adenocarcinoma. Cuate grade: 4+3=7 Number of cores involved: 2/2 [...] Location Account Attending Physician ROB[facility]ALEZ 68[id number] Dr. Ricco Luke MD two elongated fragments [...] Location Account Attending Physician ROBERT MORALEZ 68/M [facility] [id number] Dr. Ricco Luke MD Signed (signature on file) Dr. Adrian Black MD 04/10/24 1305 Normal [facility] Comment on above: Performed By: #### L 100.0100, L500.2500 #### [facility] [address] [facility] [place], [place], [address] PSA,Total- Diagnosticon 11 PSA, DIAGNOSTIC 8.87 ng/mL High 0.0-4.0 [facility] Comment on above: Result Comment: This test was performed using the TPSA assay method for the [employer] chemistry system. Values obtained with different assay methods cannot be used interchangably. When changing PSA assays in the course of monitoring a patient, additional sequential testing should be carried out to confirm baseline values. Performed By: #### L 501.9940 #### [facility] [address] [place], [place], [address] Urine Cultureon 01-21-2024 [facility] Order Date: 01/20/24 Order Info: [id number] - CUUR Culture exhibits no growth. Normal [facility] Comment on above: Performed By: #### L 100.0100, L500.2500 #### [facility] [address] [place], [address] Cytology, Body Fluid / CSFon 01-20-2024 CYTOLOGY,BF/CSF SEE PATHOLOGY REPORT Normal [facility] Comment on above: Order Comment: Order Date: 01/20/24Order Info: [id number] - CYTOBFComments: urineSpecimen for Culture? yesURINE Result Comment: Spec imen submitted to Anatomical Pathology Department for testing. Performed By: #### L 100.0100, L500.2500 #### [facility] [place], [address] Pap Stain (control)on 2023 Pap Stain (control) ------ Patient Age/Sex Location Account Attending Physician ROBERT MORALEZ 68/M PLAB [id number] Dr. Lopez Lyle MD Specimen: [id number] Received: 01/21/24-1399 Status: RACHANA Harris Num: [id number] Spec Type: CYSPIN MIHAELA Martinez Dr: Dr. Lopez Lyle MD HEADER OPERATION: Not noted PRE-OP DIAGNOSIS: TISSUE SUBMITTED: Urine for cytology DIAGNOSIS CYTOLOGY Urine for cytology (cytospin): Rare mildly atypical urothelial cells noted, [facility] Category III. See comment. SJ.mr 01/21/2024 COMMENT A few red blood cells [...] for cytology preparation. Mr 01/21/2024 TC:5 CPT: 92636 Signed (signature on file) Dr. Adrian Black MD 01/24/24 0928 Normal [facility] Comment on above: Performed By: #### L 100.0100, L500.2500 #### [facility] [address] [place], [place], [id number] Urinalysis, Completeon 01-19 BACTERIA 0 SEEN Normal None Seen [facility] Comment on above: Order Comment: CLEAN CATCH Performed By: #### L 400.0001 #### [facility] [address] [place], [address] EPI,SQUAMOUS 0 SEEN Normal 0-5 [facility] Comment on above: Order Comment: CLEAN CATCH Performed By: #### L 400.0001 #### [facility] [address] [place], [address] Mucus Ql (Urine sed) 0 SEEN Normal [facility] Comment on above: Order Comment: CLEAN CATCH Performed By: #### L 400.0001 #### [facility] [address] [place], [address] RBC 0 SEEN Normal 0-5 [facility] Comment on above: Order Comment: CLEAN CATCH Performed By: #### L 400.0001 #### [facility] [address] [place], [address] WBC 0 SEEN Normal 0-5 [facility] Comment on above: Order Comment: CLEAN CATCH Performed By: #### L 400.0001 #### [facility] [address] [place], [address] Basophil percentageOrdered B y: Ricco Luke on 08-23-2023 Basophil percentage 6.60 ng/mL 0.0-4.0 [facility] Comment on above: This test was perfor med using the TPSA assay method for the[facility] chemistry system. Values obtained with differentassay methods cannot be used interchangably.When changing PSA assays in the course of monitoring apatient, additional sequential testing should be carriedout to confirm baseline values. Absolute lymphocyte countOrd ered By: Lopez Lyle on 06-08-2023 Lymphocytes Auto (Unsp spec) [#/Vol] 2.27 10*3/uL 0.83-4.51 [facility] Automated lymphocyte count a s percentage of total leukocytesOrdered By: Lopez Lyle on 06-08-2023 Lymphocytes/100 WBC Auto (Unsp spec) 30.9 % 19-41 [facility] Basophil percentageOrdered B y: Lopez Lyle on 06-08-2023 Basophils/100 WBC (Bld) 0.5 % 0-1 [facility] Bilirubin [Mass/Vol] 0.70 mg/dL 0.20-1.00 [facility] Comment on above: For patients on eltr ombopag therapy, use of Dimension [place] TBIL is not recommended. Chloride [Moles/Vol] 104 mmol/L 98-107 [facility] Cholesterol [Mass/Vol] 116 mg/dL <200 [facility] Comment on above: <200 mg/dL Desirable 200-240 mg/dL Borderline >240 mg/dL High Risk Eosinophils/100 WBC (Bld) 1.9 % 0-5 [facility] Glucose [Mass/Vol] 146 mg/dL 74-106 [facility] Comment on above: Fasting Glucose resu lt greater than or equal to 126 mg/dL suggests DIABETES MELLITUS per A.D.A. criteria. Hemoglobin (Bld) [Mass/Vol] 16.1 g/dL 13.0-16.5 [facility] Monocytes/100 WBC (Bld) 10.3 % 0-10 [facility] Neutrophils (Bld) [#/Vol] 4.1 10*3/uL 2.0-7.7 [facility] Neutrophils/100 WBC (Bld) 56.1 % 47-70 [facility] Potassium [Moles/Vol] 4.0 mmol/L 3.5-5.1 [facility] Comment on above: Slight Hemolysis, Re sult may be falsely increased. Protein [Mass/Vol] 7.6 g/dL 6.4-8.2 [facility] Sodium [Moles/Vol] 138 mmol/L 136-145 [facility] Triglyceride [Mass/Vol] 91 mg/dL <199 [facility] Comment on above: The drugs N-Acetylcy steine and Metamizole may falsely depress this assay.Serum Triglycerides Reference Interval Normal <150 mg/dL Borderline high 150 - 199 mg/dL High 200 - 499 mg/dL Very High > or = 500 mg/dL WBC (Bld) [#/Vol] 7.4 10*3/uL 4.4-11.0 [facility] Determination of erythrocyte mean corpuscular volume (MCV)Ordered By: Lopez Lyle on 06-08-2023 MCV (RBC) [Entitic vol] 85.5 fL 80-94 [facility] Erythrocyte distribution wid th ratioOrdered By: Lopez Lyle on 06-08-2023 Erythrocyte distribution width (RBC) [Ratio] 12.6 % 11.6-14.6 [facility] Erythrocyte distribution wid th standard deviationOrdered By: Lopez Lyle on 06-08-2023 Erythrocyte distribution width (RBC) [Entitic vol] 39.1 fL 35.1-43.9 [facility] Hematocrit Auto (Bld) [Volum e fraction]Ordered By: Lopez Lyle on 06-08-2023 Hematocrit (Bld) [Volume fraction] 47.6 % 40-54 [facility] Immature granulocytes/100 WB C Auto (Bld)Ordered By: Lopez Lyle on 06-08-2023 Immature granulocytes/100 WBC (Bld) 0.300 % 0.0-0.9 [facility] Comment on above: IG% - Immature Granu locytes (promyelocytes, myelocytes and metamyelocytes) > 1% indicates that a LEFT SHIFT is Present. Laboratory - Chemistry and C hemistry - challengeOrdered By: Lopez Lyle on 06-08-2023 Albumin/Globulin [Mass ratio] 1.1 {ratio} 0.9-2.4 [facility] ALP [Catalytic activity/Vol] 60 U/L 45-117 [facility] ALT [Catalytic activity/Vol] 34 U/L 16-61 [facility] Cholesterol in HDL [Mass/Vol] 42 mg/dL >40 [facility] Comment on above: The drugs N-Acetylcy steine and Metamizole may falsely depress this assay. Reference Range HDL <40 mg/dL Low HDL Cholesterol HDL >or= 60 mg/dL High HDL Cholesterol Cholesterol in LDL [Mass/Vol] 56 mg/dL 0-130 [facility] CO2 [Moles/Vol] 27.0 mmol/L 21.0-32.0 [facility] Globulin (S) [Mass/Vol] 3.6 g/dL 2.2-4.2 [facility] Urea nitrogen/Creatinine [Mass ratio] 22.4 mg/mg 10-20 [facility] Laboratory - Hematology and Cell countsOrdered By: Lopez Lyle on 06-08-2023 MCH (RBC) [Entitic mass] 28.9 pg 27.0-32.0 [facility] MCHC (RBC) [Mass/Vol] 33.8 g/dL 32-36 [facility] Nucleated RBC/100 WBC (Bld) [Ratio] 0 % 0-5 [facility] Platelet mean volume (Bld) [Entitic vol] 9.8 fL 6.2-12.0 [facility] Platelets (Bld) [#/Vol] 209 10*3/uL 150-450 [facility] No Panel InformationOrdered By: Lopez Lyle on 06-08-2023 Estimated GFR (MDRD) Amer 98 mL/min >60 [facility] Comment on above: GFR Calc Estimated GFR (MDRD) Non-Af Amer 81 mL/min >60 [facility] Comment on above: Non- GFR Calc Urine Microalbumin/Creatinine Ratio 10.1 mg/g CRE <30 [facility] VLDL Cholesterol 18 mg/dL 5-40 [facility] RBC Auto (Bld) [#/Vol]Ordere d By: Lopez Lyle on 06-08-2023 RBC (Bld) [#/Vol] 5.57 10*6/uL 4.6-6.2 [facility] Serum or plasma calcium tavia urement (mass/volume)Ordered By: Lopez Lyle on 06-08-2023 Calcium [Mass/Vol] 9.5 mg/dL 8.5-10.1 [facility] Serum or plasma creatinine m easurement (mass/volume)Ordered By: Lopez Lyle on 06-08-2023 Creatinine [Mass/Vol] 0.98 mg/dL 0.70-1.30 [facility] Comment on above: The validity of the calculated GFR & GFRAA in patients over 70 years has not been determined. Clinical correlation is essential. Serum or plasma thyroid stim ulating hormone (TSH) measurement (units/volume)Ordered By: Lopez Lyle on 06-08-2023 TSH Qn 4.82 uIU/mL 0.358-3.74 [facility] Serum or plasma urea nitroge n measurement (mass/volume)Ordered By: Lopez Lyle on 06-08-2023 Urea nitrogen [Mass/Vol] 22 mg/dL 7-18 [facility] Thin prep Papanicolaou smear with manual screeningOrdered By: Lopez Lyle on 06-08-2023 Thin prep Papanicolaou smear with manual screening 4.0 g/dL 3.2-5.0 [facility] Thin prep Papanicolaou smear with manual screening 17 U/L 15-37 [facility] Comment on above: Slight Hemolysis, Re sult may be falsely increased. Thin prep Papanicolaou smear with manual screening 7 5-15 [facility] Thin prep Papanicolaou smear with manual screening 9.0 mg/L NO RANGE EST. [facility] Thin prep Papanicolaou smear with manual screening 1.10 ng/dL 0.76-1.46 [facility] Urine creatinine measurement (mass/volume)Ordered By: Lopez Lyle on 06-08-2023 Creatinine (U) [Mass/Vol] 89.60 mg/dL NO RANGE EST. [facility] Whole blood hemoglobin A1c/t otal hemoglobin ratio (mass fraction)Ordered By: Lopez Lyle on 06-08-2023 HbA1c (Bld) [Mass fraction] 7.1 % 3.8-5.6 [facility] Comment on above: Normal < 5.7 % Predi abetic 5.7 - 6.4 % Diabetic >or= 6.5 % Please note range changes. No Panel InformationOrdered By: Ricco Luke on 03-22-2023 Prostate Specific Antigen Total 7.60 ng/mL 0.0-4.0 [facility] Comment on above: This test was perfor med using the TPSA assay method for the[facility] chemistry system. Values obtained with differentassay methods cannot be used interchangably.When changing PSA assays in the course of monitoring apatient, additional sequential testing should be carriedout to confirm baseline values. Qualitative QuantiFERON-TB g old in tube testOrdered By: Litzy Brock on 02-16-2023 M. tuberculosis tuberculin stim IFN-g Ql (Bld) 0.08 IU/mL . [facility] Thin prep Papanicolaou smear with manual screeningOrdered By: Litzy Brock on 02-16-2023 Thin prep Papanicolaou smear with manual screening Comment . [facility] Comment on above: QuantiFERON-TB Gold Plus is [...] smear with manual screening 0.08 IU/mL . [facility] Thin prep Papanicolaou smear with manual screening 0.06 IU/mL . [facility] Thin prep Papanicolaou smear with manual screening > 10.00 IU/mL . [facility] Thin prep Papanicolaou smear with manual screening Negative Negative [facility] Comment on above: No response to M [...] the productionof interferon gamma. Chemiluminescence immunoassaymethodologyPerformed at: [facility] [id number] Director: Danny Hobson PhD, Phone: [phone] Absolute lymphocyte countOrd ered By: Lopez Lyle on 02-05-2023 Lymphocytes Auto (Unsp spec) [#/Vol] 2.43 10*3/uL 0.83-4.51 [facility] Basophil percentageOrdered B y: Lopez Lyle on 02-05-2023 Basophils/100 WBC (Bld) 0.4 % 0-1 [facility] Bilirubin [Mass/Vol] 0.40 mg/dL 0.20-1.00 [facility] Comment on above: For patients on eltr ombopag therapy, use of Dimension [place] TBIL is not recommended. Chloride [Moles/Vol] 102 mmol/L 98-107 [facility] Cholesterol [Mass/Vol] 121 mg/dL <200 [facility] Comment on above: <200 mg/dL Desirable 200-240 mg/dL Borderline >240 mg/dL High Risk Eosinophils/100 WBC (Bld) 1.9 % 0-5 [facility] Glucose [Mass/Vol] 138 mg/dL 74-106 [facility] Comment on above: Fasting Glucose resu lt greater than or equal to 126 mg/dL suggests DIABETES MELLITUS per A.D.A. criteria. Neutrophils (Bld) [#/Vol] 4.3 10*3/uL 2.0-7.7 [facility] Neutrophils/100 WBC (Bld) 56.6 % 47-70 [facility] Potassium [Moles/Vol] 3.7 mmol/L 3.5-5.1 [facility] Protein [Mass/Vol] 7.7 g/dL 6.4-8.2 [facility] Sodium [Moles/Vol] 137 mmol/L 136-145 [facility] Triglyceride [Mass/Vol] 107 mg/dL <199 [facility] Comment on above: The drugs N-Acetylcy steine and Metamizole may falsely depress this assay.Serum Triglycerides Reference Interval Normal <150 mg/dL Borderline high 150 - 199 mg/dL High 200 - 499 mg/dL Very High > or = 500 mg/dL WBC (Bld) [#/Vol] 7.5 10*3/uL 4.4-11.0 [facility] Blood erythrocytes count (nu mber/volume)Ordered By: Lopez Lyle on 02-05-2023 RBC (Bld) [#/Vol] 5.49 10*6/uL 4.6-6.2 [facility] Blood hemoglobin measurement (mass/volume)Ordered By: Lopez Lyle on 02-05-2023 Hemoglobin (Bld) [Mass/Vol] 16.1 g/dL 13.0-16.5 [facility] Blood lymphocytes/100 leukoc ytesOrdered By: Lopez Lyle on 02-05-2023 Lymphocytes/100 WBC (Bld) 32.2 % 19-41 [facility] Blood monocytes/100 leukocyt esOrdered By: Lopez Lyle on 02-05-2023 Monocytes/100 WBC (Bld) 8.5 % 0-10 [facility] Blood platelet mean volumeOr dered By: Lopez Lyle on 02-05-2023 Platelet mean volume (Bld) [Entitic vol] 10.0 fL 6.2-12.0 [facility] Determination of erythrocyte mean corpuscular volume (MCV)Ordered By: Lopez Lyle on 02-05-2023 MCV (RBC) [Entitic vol] 87.8 fL 80-94 [facility] Hematocrit Auto (Bld) [Volum e fraction]Ordered By: Lopez Lyle on 02-05-2023 Hematocrit (Bld) [Volume fraction] 48.2 % 40-54 [facility] Laboratory - Chemistry and C hemistry - challengeOrdered By: Lopez Lyle on 02-05-2023 ALP [Catalytic activity/Vol] 69 U/L 45-117 [facility] ALT [Catalytic activity/Vol] 32 U/L 16-61 [facility] CO2 [Moles/Vol] 31.0 mmol/L 21.0-32.0 [facility] Free T4 [Mass/Vol] 1.02 ng/dL 0.76-1.46 [facility] Globulin (S) [Mass/Vol] 3.7 g/dL 2.2-4.2 [facility] Urea nitrogen/Creatinine [Mass ratio] 19.8 mg/mg 10-20 [facility] Laboratory - Hematology and Cell countsOrdered By: Lopez Lyle on 02-05-2023 Erythrocyte distribution width (RBC) [Entitic vol] 41.7 fL 35.1-43.9 [facility] Erythrocyte distribution width (RBC) [Ratio] 12.9 % 11.6-14.6 [facility] Immature granulocytes/100 WBC (Bld) 0.400 % 0.0-0.9 [facility] Comment on above: IG% - Immature Granu locytes (promyelocytes, myelocytes and metamyelocytes) > 1% indicates that a LEFT SHIFT is Present. MCH (RBC) [Entitic mass] 29.3 pg 27.0-32.0 [facility] Nucleated RBC/100 WBC (Bld) [Ratio] 0 % 0-5 [facility] MCHC Auto (RBC) [Mass/Vol]Or dered By: Lopez Lyle on 02-05-2023 MCHC (RBC) [Mass/Vol] 33.4 g/dL 32-36 [facility] No Panel InformationOrdered By: Lopez Lyle on 02-05-2023 Estimated GFR (MDRD) Amer 81 mL/min >60 [facility] Comment on above: GFR Calc Estimated GFR (MDRD) Non-Af Amer 67 mL/min >60 [facility] Comment on above: Non- GFR Calc Thyroid Stimulating Hormone (TSH) 4.52 uIU/mL 0.358-3.74 [facility] Platelets bldOrdered By: Joey Lyle on 02-05-2023 Platelets (Bld) [#/Vol] 209 10*3/uL 150-450 [facility] Serum or plasma albumin tavia urement (mass/volume)Ordered By: Lopez Lyle on 02-05-2023 Albumin [Mass/Vol] 4.0 g/dL 3.2-5.0 [facility] Serum or plasma albumin/glob ulin mass ratioOrdered By: Lopez Lyle on 02-05-2023 Albumin/Globulin [Mass ratio] 1.1 {ratio} 0.9-2.4 [facility] Serum or plasma calcium tavia urement (mass/volume)Ordered By: Lopez Lyle on 02-05-2023 Calcium [Mass/Vol] 9.0 mg/dL 8.5-10.1 [facility] Serum or plasma cholesterol in HDL measurement (mass/volume)Ordered By: Lopez Lyle on 02-05-2023 Cholesterol in HDL [Mass/Vol] 45 mg/dL >40 [facility] Comment on above: The drugs N-Acetylcy steine and Metamizole may falsely depress this assay. Reference Range HDL <40 mg/dL Low HDL Cholesterol HDL >or= 60 mg/dL High HDL Cholesterol Serum or plasma cholesterol in VLDL measurement (mass/volume)Ordered By: Lopez Lyle on 02-05-2023 Cholesterol in VLDL [Mass/Vol] 21 mg/dL 5-40 [facility] Serum or plasma creatinine m easurement (mass/volume)Ordered By: Lopez Lyle on 02-05-2023 Creatinine [Mass/Vol] 1.16 mg/dL 0.70-1.30 [facility] Comment on above: The validity of the calculated GFR & GFRAA in patients over 70 years has not been determined. Clinical correlation is essential. Serum or plasma low density lipoprotein (LDL) cholesterol measurement (mass/volume)Ordered By: Lopez Lyle on 02-05-2023 Cholesterol in LDL [Mass/Vol] 55 mg/dL 0-130 [facility] Serum or plasma urea nitroge n measurement (mass/volume)Ordered By: Lopez Lyle on 02-05-2023 Urea nitrogen [Mass/Vol] 23 mg/dL 7-18 [facility] Thin prep Papanicolaou smear with manual screeningOrdered By: Lopez Lyle on 02-05-2023 Thin prep Papanicolaou smear with manual screening 6 U/L 15-37 [facility] Thin prep Papanicolaou smear with manual screening 4 5-15 [facility] Whole blood hemoglobin A1c/t otal hemoglobin ratio (mass fraction)Ordered By: Lopez Lyle on 02-05-2023 HbA1c (Bld) [Mass fraction] 6.4 % 3.8-5.6 [facility] Comment on above: Normal < 5.7 % Predi abetic 5.7 - 6.4 % Diabetic >or= 6.5 % Please note range changes. No Panel InformationOrdered By: Ricco Luke on 11-13-2022 Prostate Specific Antigen Total 5.90 ng/mL 0.0-4.0 [facility] Comment on above: This test was perfor med using the TPSA assay method for the[facility] chemistry system. Values obtained with differentassay methods cannot be used interchangably.When changing PSA assays in the course of monitoring apatient, additional sequential testing should be carriedout to confirm baseline values. Absolute lymphocyte countOrd ered By: Dr. Lyle on 09-24-2022 Lymphocytes Auto (Unsp spec) [#/Vol] 2.28 10*3/uL 0.83-4.51 [facility] Basophil percentageOrdered B y: Dr. Lyle on 09-24-2022 Basophils/100 WBC (Bld) 0.6 % 0-1 [facility] Bilirubin [Mass/Vol] 0.80 mg/dL 0.20-1.00 [facility] Comment on above: For patients on eltr ombopag therapy, use of Dimension [place] TBIL is not recommended. Chloride [Moles/Vol] 103 mmol/L 98-107 [facility] Cholesterol [Mass/Vol] 109 mg/dL <200 [facility] Comment on above: <200 mg/dL Desirable 200-240 mg/dL Borderline >240 mg/dL High Risk Eosinophils/100 WBC (Bld) 1.8 % 0-5 [facility] Glucose [Mass/Vol] 122 mg/dL 74-106 [facility] Comment on above: Fasting Glucose resu lt from 100 to 125 mg/dL suggests IMPAIRED HOMEOSTASIS per A.D.A. criteria. Neutrophils (Bld) [#/Vol] 3.9 10*3/uL 2.0-7.7 [facility] Neutrophils/100 WBC (Bld) 56.1 % 47-70 [facility] Potassium [Moles/Vol] 4.2 mmol/L 3.5-5.1 [facility] Comment on above: Slight Hemolysis, Re sult may be falsely increased. Protein [Mass/Vol] 7.6 g/dL 6.4-8.2 [facility] Sodium [Moles/Vol] 137 mmol/L 136-145 [facility] Triglyceride [Mass/Vol] 86 mg/dL <199 [facility] Comment on above: The drugs N-Acetylcy steine and Metamizole may falsely depress this assay.Serum Triglycerides Reference Interval Normal <150 mg/dL Borderline high 150 - 199 mg/dL High 200 - 499 mg/dL Very High > or = 500 mg/dL WBC (Bld) [#/Vol] 7.0 10*3/uL 4.4-11.0 [facility] Blood erythrocytes count (nu mber/volume)Ordered By: Dr. Lyle on 09-24-2022 RBC (Bld) [#/Vol] 5.39 10*6/uL 4.6-6.2 [facility] Blood hemoglobin measurement (mass/volume)Ordered By: Dr. Lyle on 09-24-2022 Hemoglobin (Bld) [Mass/Vol] 16.3 g/dL 13.0-16.5 [facility] Blood lymphocytes/100 leukoc ytesOrdered By: Dr. Lyle on 09-24-2022 Lymphocytes/100 WBC (Bld) 32.4 % 19-41 [facility] Blood monocytes/100 leukocyt esOrdered By: Dr. Lyle on 09-24-2022 Monocytes/100 WBC (Bld) 8.8 % 0-10 [facility] Blood platelet mean volumeOr dered By: Dr. Lyle on 09-24-2022 Platelet mean volume (Bld) [Entitic vol] 9.8 fL 6.2-12.0 [facility] Determination of erythrocyte mean corpuscular volume (MCV)Ordered By: Dr. Lyle on 09-24-2022 MCV (RBC) [Entitic vol] 86.6 fL 80-94 [facility] Hematocrit Auto (Bld) [Volum e fraction]Ordered By: Dr. Lyle on 09-24-2022 Hematocrit (Bld) [Volume fraction] 46.7 % 40-54 [facility] Laboratory - Chemistry and C hemistry - challengeOrdered By: Dr. Lyle on 09-24-2022 ALP [Catalytic activity/Vol] 66 U/L 45-117 [facility] ALT [Catalytic activity/Vol] 28 U/L 16-61 [facility] CO2 [Moles/Vol] 27.0 mmol/L 21.0-32.0 [facility] Free T4 [Mass/Vol] 1.13 ng/dL 0.76-1.46 [facility] Globulin (S) [Mass/Vol] 3.6 g/dL 2.2-4.2 [facility] Urea nitrogen/Creatinine [Mass ratio] 18.2 mg/mg 10-20 [facility] Laboratory - Hematology and Cell countsOrdered By: Dr. Lyle on 09-24-2022 Erythrocyte distribution width (RBC) [Entitic vol] 39.6 fL 35.1-43.9 [facility] Erythrocyte distribution width (RBC) [Ratio] 12.7 % 11.6-14.6 [facility] Immature granulocytes/100 WBC (Bld) 0.300 % 0.0-0.9 [facility] Comment on above: IG% - Immature Granu locytes (promyelocytes, myelocytes and metamyelocytes) > 1% indicates that a LEFT SHIFT is Present. MCH (RBC) [Entitic mass] 30.2 pg 27.0-32.0 [facility] Nucleated RBC/100 WBC (Bld) [Ratio] 0 % 0-5 [facility] MCHC Auto (RBC) [Mass/Vol]Or dered By: Dr. Lyle on 09-24-2022 MCHC (RBC) [Mass/Vol] 34.9 g/dL 32-36 [facility] No Panel InformationOrdered By: Dr. Lyle on 09-24-2022 Estimated GFR (MDRD) Amer 97 mL/min >60 [facility] Comment on above: GFR Calc Estimated GFR (MDRD) Non-Af Amer 80 mL/min >60 [facility] Comment on above: Non- GFR Calc Thyroid Stimulating Hormone (TSH) 5.31 uIU/mL 0.358-3.74 [facility] Platelets bldOrdered By: Dr. Lyle on 09-24-2022 Platelets (Bld) [#/Vol] 195 10*3/uL 150-450 [facility] Serum or plasma albumin tavia urement (mass/volume)Ordered By: Dr. Lyle on 09-24-2022 Albumin [Mass/Vol] 4.0 g/dL 3.2-5.0 [facility] Serum or plasma albumin/glob ulin mass ratioOrdered By: Dr. Lyle on 09-24-2022 Albumin/Globulin [Mass ratio] 1.1 {ratio} 0.9-2.4 [facility] Serum or plasma calcium tavia urement (mass/volume)Ordered By: Dr. Lyle on 09-24-2022 Calcium [Mass/Vol] 9.0 mg/dL 8.5-10.1 [facility] Serum or plasma cholesterol in HDL measurement (mass/volume)Ordered By: Dr. Lyle on 09-24-2022 Cholesterol in HDL [Mass/Vol] 44 mg/dL >40 [facility] Comment on above: The drugs N-Acetylcy steine and Metamizole may falsely depress this assay. Reference Range HDL <40 mg/dL Low HDL Cholesterol HDL >or= 60 mg/dL High HDL Cholesterol Serum or plasma cholesterol in VLDL measurement (mass/volume)Ordered By: Dr. Lyle on 09-24-2022 Cholesterol in VLDL [Mass/Vol] 17 mg/dL 5-40 [facility] Serum or plasma creatinine m easurement (mass/volume)Ordered By: Dr. Lyle on 09-24-2022 Creatinine [Mass/Vol] 0.99 mg/dL 0.70-1.30 [facility] Comment on above: The validity of the calculated GFR & GFRAA in patients over 70 years has not been determined. Clinical correlation is essential. Serum or plasma low density lipoprotein (LDL) cholesterol measurement (mass/volume)Ordered By: Dr. Lyle on 09-24-2022 Cholesterol in LDL [Mass/Vol] 48 mg/dL 0-130 [facility] Serum or plasma urea nitroge n measurement (mass/volume)Ordered By: Dr. Lyle on 09-24-2022 Urea nitrogen [Mass/Vol] 18 mg/dL 7-18 [facility] Thin prep Papanicolaou smear with manual screeningOrdered By: Dr. Lyle on 09-24-2022 Thin prep Papanicolaou smear with manual screening 8 U/L 15 [facility] Comment on above: Slight Hemolysis, Re sult may be falsely increased. Thin prep Papanicolaou smear with manual screening 7 5-15 [facility] Whole blood hemoglobin A1c/t otal hemoglobin ratio (mass fraction)Ordered By: Dr. Lyle on 09-24-2022 HbA1c (Bld) [Mass fraction] 6.2 % 3.8-5.6 [facility] Comment on above: Normal < 5.7 % Predi abetic 5.7 - 6.4 % Diabetic >or= 6.5 % Please note range changes. Qualitative QuantiFERON-TB g old in tube teston 08-27-2022 M. tuberculosis tuberculin stim IFN-g Ql (Bld) 0.08 IU/mL . [facility] Serum hepatitis B virus core antibody detectionon 08-27-2022 HBV core Ab Ql (S) Negative Negative [facility] Comment on above: Performed at: - [facility] [address] [id number] Director: Danny Hobson PhD, Phone: [phone] Thin prep Papanicolaou smear with manual screeningon 08-27-2022 Thin prep Papanicolaou smear with manual screening Comment . [facility] Comment on above: QuantiFERON-TB Gold Plus is [...] smear with manual screening 0.06 IU/mL . [facility] Thin prep Papanicolaou smear with manual screening 0.05 IU/mL . [facility] Thin prep Papanicolaou smear with manual screening > 10.00 IU/mL . [facility] Thin prep Papanicolaou smear with manual screening Negative Negative [facility] Comment on above: No response to M [...] Auto (Unsp spec) [#/Vol] 2.05 10*3/uL 0.83-4.51 [facility] Basophil percentageOrdered B y: Dr. Lyle on 06-18-2022 Basophils/100 WBC (Bld) 0.4 % 0-1 [facility] Bilirubin [Mass/Vol] 0.80 mg/dL 0.20-1.00 [facility] Comment on above: For patients on eltr ombopag therapy, use of Dimension [place] TBIL is not recommended. Chloride [Moles/Vol] 104 mmol/L 98-107 [facility] Cholesterol [Mass/Vol] 113 mg/dL <200 [facility] Comment on above: <200 mg/dL Desirable 200-240 mg/dL Borderline >240 mg/dL High Risk Eosinophils/100 WBC (Bld) 1.6 % 0-5 [facility] Glucose [Mass/Vol] 155 mg/dL 74-106 [facility] Comment on above: Fasting Glucose resu lt greater than or equal to 126 mg/dL suggests DIABETES MELLITUS per A.D.A. criteria. Neutrophils (Bld) [#/Vol] 4.9 10*3/uL 2.0-7.7 [facility] Neutrophils/100 WBC (Bld) 63.3 % 47-70 [facility] Potassium [Moles/Vol] 3.5 mmol/L 3.5-5.1 [facility] Protein [Mass/Vol] 7.4 g/dL 6.4-8.2 [facility] Sodium [Moles/Vol] 140 mmol/L 136-145 [facility] Triglyceride [Mass/Vol] 96 mg/dL <199 [facility] Comment on above: The drugs N-Acetylcy steine and Metamizole may falsely depress this assay.Serum Triglycerides Reference Interval Normal <150 mg/dL Borderline high 150 - 199 mg/dL High 200 - 499 mg/dL Very High > or = 500 mg/dL WBC (Bld) [#/Vol] 7.7 10*3/uL 4.4-11.0 [facility] Blood erythrocytes count (nu mber/volume)Ordered By: Dr. Lyle on 06-18-2022 RBC (Bld) [#/Vol] 5.52 10*6/uL 4.6-6.2 [facility] Blood hemoglobin measurement (mass/volume)Ordered By: Dr. Lyle on 06-18-2022 Hemoglobin (Bld) [Mass/Vol] 16.2 g/dL 13.0-16.5 [facility] Blood lymphocytes/100 leukoc ytesOrdered By: Dr. Lyle on 06-18-2022 Lymphocytes/100 WBC (Bld) 26.7 % 19-41 [facility] Blood monocytes/100 leukocyt esOrdered By: Dr. Lyle on 06-18-2022 Monocytes/100 WBC (Bld) 7.7 % 0-10 [facility] Blood platelet mean volumeOr dered By: Dr. Lyle on 06-18-2022 Platelet mean volume (Bld) [Entitic vol] 10.1 fL 6.2-12.0 [facility] Determination of erythrocyte mean corpuscular volume (MCV)Ordered By: Dr. Lyle on 06-18-2022 MCV (RBC) [Entitic vol] 85.9 fL 80-94 [facility] Hematocrit Auto (Bld) [Volum e fraction]Ordered By: Dr. Lyle on 06-18-2022 Hematocrit (Bld) [Volume fraction] 47.4 % 40-54 [facility] Laboratory - Chemistry and C hemistry - challengeOrdered By: Dr. Lyle on 06-18-2022 ALP [Catalytic activity/Vol] 65 U/L 45-117 [facility] ALT [Catalytic activity/Vol] 26 U/L 16-61 [facility] CO2 [Moles/Vol] 29.0 mmol/L 21.0-32.0 [facility] Free T4 [Mass/Vol] 1.06 ng/dL 0.76-1.46 [facility] Globulin (S) [Mass/Vol] 3.4 g/dL 2.2-4.2 [facility] Urea nitrogen/Creatinine [Mass ratio] 19.3 mg/mg 10-20 [facility] Laboratory - Hematology and Cell countsOrdered By: Dr. Lyle on 06-18-2022 Erythrocyte distribution width (RBC) [Entitic vol] 39.4 fL 35.1-43.9 [facility] Erythrocyte distribution width (RBC) [Ratio] 12.6 % 11.6-14.6 [facility] Immature granulocytes/100 WBC (Bld) 0.300 % 0.0-0.9 [facility] Comment on above: IG% - Immature Granu locytes (promyelocytes, myelocytes and metamyelocytes) > 1% indicates that a LEFT SHIFT is Present. MCH (RBC) [Entitic mass] 29.3 pg 27.0-32.0 [facility] Nucleated RBC/100 WBC (Bld) [Ratio] 0 % 0-5 [facility] MCHC Auto (RBC) [Mass/Vol]Or dered By: Dr. Llye on 06-18-2022 MCHC (RBC) [Mass/Vol] 34.2 g/dL 32-36 [facility] No Panel InformationOrdered By: Dr. Lyle on 06-18-2022 Estimated GFR (MDRD) Amer 104 mL/min >60 [facility] Comment on above: GFR Calc Estimated GFR (MDRD) Non-Af Amer 86 mL/min >60 [facility] Comment on above: Non- GFR Calc Thyroid Stimulating Hormone (TSH) 4.22 uIU/mL 0.358-3.74 [facility] Urine Microalbumin/Creatinine Ratio 8.3 mg/g CRE <30 [facility] Platelets bldOrdered By: Dr. Lyle on 06-18-2022 Platelets (Bld) [#/Vol] 189 10*3/uL 150-450 [facility] Serum or plasma albumin tavia urement (mass/volume)Ordered By: Dr. Lyle on 06-18-2022 Albumin [Mass/Vol] 4.0 g/dL 3.2-5.0 [facility] Serum or plasma albumin/glob ulin mass ratioOrdered By: Dr. Lyle on 06-18-2022 Albumin/Globulin [Mass ratio] 1.2 {ratio} 0.9-2.4 [facility] Serum or plasma calcium tavia urement (mass/volume)Ordered By: Dr. Lyle on 06-18-2022 Calcium [Mass/Vol] 9.0 mg/dL 8.5-10.1 [facility] Serum or plasma cholesterol in HDL measurement (mass/volume)Ordered By: Dr. Lyle on 06-18-2022 Cholesterol in HDL [Mass/Vol] 41 mg/dL >40 [facility] Comment on above: The drugs N-Acetylcy steine and Metamizole may falsely depress this assay. Reference Range HDL <40 mg/dL Low HDL Cholesterol HDL >or= 60 mg/dL High HDL Cholesterol Serum or plasma cholesterol in VLDL measurement (mass/volume)Ordered By: Dr. Lyle on 06-18-2022 Cholesterol in VLDL [Mass/Vol] 19 mg/dL 5-40 [facility] Serum or plasma creatinine m easurement (mass/volume)Ordered By: Dr. Lyle on 06-18-2022 Creatinine [Mass/Vol] 0.94 mg/dL 0.70-1.30 [facility] Comment on above: The validity of the calculated GFR & GFRAA in patients over 70 years has not been determined. Clinical correlation is essential. Serum or plasma low density lipoprotein (LDL) cholesterol measurement (mass/volume)Ordered By: Dr. Lyle on 06-18-2022 Cholesterol in LDL [Mass/Vol] 53 mg/dL 0-130 [facility] Serum or plasma urea nitroge n measurement (mass/volume)Ordered By: Dr. Lyle on 06-18-2022 Urea nitrogen [Mass/Vol] 18 mg/dL 7-18 [facility] Thin prep Papanicolaou smear with manual screeningOrdered By: Dr. Lyle on 06-18-2022 Thin prep Papanicolaou smear with manual screening 8 U/L 15-37 [facility] Thin prep Papanicolaou smear with manual screening 7 5-15 [facility] Thin prep Papanicolaou smear with manual screening 8.1 mg/L NO RANGE EST. [facility] Urine creatinine measurement (mass/volume)Ordered By: Dr. Lyle on 06-18-2022 Creatinine (U) [Mass/Vol] 97.90 mg/dL NO RANGE EST. [facility] Whole blood hemoglobin A1c/t otal hemoglobin ratio (mass fraction)Ordered By: Dr. Lyle on 06-18-2022 HbA1c (Bld) [Mass fraction] 7.6 % 3.8-5.6 [facility] Comment on above: Normal < 5.7 % Predi abetic 5.7 - 6.4 % Diabetic >or= 6.5 % Please note range changes. Absolute lymphocyte countOrd ered By: Dr. Lyle on 03-25-2022 Lymphocytes Auto (Unsp spec) [#/Vol] 1.77 10*3/uL 0.83-4.51 [facility] Basophil percentageOrdered B y: Dr. Lyle on 03-25-2022 Basophils/100 WBC (Bld) 0.3 % 0-1 [facility] Bilirubin [Mass/Vol] 0.50 mg/dL 0.20-1.00 [facility] Comment on above: For patients on eltr ombopag therapy, use of Dimension [place] TBIL is not recommended. Chloride [Moles/Vol] 102 mmol/L 98-107 [facility] Cholesterol [Mass/Vol] 141 mg/dL <200 [facility] Comment on above: <200 mg/dL Desirable 200-240 mg/dL Borderline >240 mg/dL High Risk Eosinophils/100 WBC (Bld) 2.2 % 0-5 [facility] Glucose [Mass/Vol] 204 mg/dL 74-106 [facility] Comment on above: Glucose result great er than or equal to 200 mg/dLsuggests DIABETES MELLITUS per A.D.A. criteria. Neutrophils (Bld) [#/Vol] 3.5 10*3/uL 2.0-7.7 [facility] Neutrophils/100 WBC (Bld) 58.5 % 47-70 [facility] Potassium [Moles/Vol] 4.3 mmol/L 3.5-5.1 [facility] Protein [Mass/Vol] 7.1 g/dL 6.4-8.2 [facility] Sodium [Moles/Vol] 141 mmol/L 136-145 [facility] Triglyceride [Mass/Vol] 146 mg/dL <199 [facility] Comment on above: The drugs N-Acetylcy steine and Metamizole may falsely depress this assay.Serum Triglycerides Reference Interval Normal <150 mg/dL Borderline high 150 - 199 mg/dL High 200 - 499 mg/dL Very High > or = 500 mg/dL WBC (Bld) [#/Vol] 6.0 10*3/uL 4.4-11.0 [facility] Blood erythrocytes count (nu mber/volume)Ordered By: Dr. Lyle on 03-25-2022 RBC (Bld) [#/Vol] 5.54 10*6/uL 4.6-6.2 [facility] Blood hemoglobin measurement (mass/volume)Ordered By: Dr. Lyle on 03-25-2022 Hemoglobin (Bld) [Mass/Vol] 16.3 g/dL 13.0-16.5 [facility] Blood lymphocytes/100 leukoc ytesOrdered By: Dr. Lyle on 03-25-2022 Lymphocytes/100 WBC (Bld) 29.7 % 19-41 [facility] Blood monocytes/100 leukocyt esOrdered By: Dr. Lyle on 03-25-2022 Monocytes/100 WBC (Bld) 9.1 % 0-10 [facility] Blood platelet mean volumeOr dered By: Dr. Lyle on 03-25-2022 Platelet mean volume (Bld) [Entitic vol] 9.6 fL 6.2-12.0 [facility] Determination of erythrocyte mean corpuscular volume (MCV)Ordered By: Dr. Lyle on 03-25-2022 MCV (RBC) [Entitic vol] 85.9 fL 80-94 [facility] Hematocrit Auto (Bld) [Volum e fraction]Ordered By: Dr. Lyle on 03-25-2022 Hematocrit (Bld) [Volume fraction] 47.6 % 40-54 [facility] Laboratory - Chemistry and C hemistry - challengeOrdered By: Dr. Lyle on 03-25-2022 ALP [Catalytic activity/Vol] 76 U/L 45-117 [facility] ALT [Catalytic activity/Vol] 29 U/L 16-61 [facility] CO2 [Moles/Vol] 33.0 mmol/L 21.0-32.0 [facility] Free T4 [Mass/Vol] 1.10 ng/dL 0.76-1.46 [facility] Globulin (S) [Mass/Vol] 3.1 g/dL 2.2-4.2 [facility] Urea nitrogen/Creatinine [Mass ratio] 19.0 mg/mg 10-20 [facility] Laboratory - Hematology and Cell countsOrdered By: Dr. Lyle on 03-25-2022 Erythrocyte distribution width (RBC) [Entitic vol] 39.4 fL 35.1-43.9 [facility] Erythrocyte distribution width (RBC) [Ratio] 12.5 % 11.6-14.6 [facility] Immature granulocytes/100 WBC (Bld) 0.200 % 0.0-0.9 [facility] Comment on above: IG% - Immature Granu locytes (promyelocytes, myelocytes and metamyelocytes) > 1% indicates that a LEFT SHIFT is Present. MCH (RBC) [Entitic mass] 29.4 pg 27.0-32.0 [facility] Nucleated RBC/100 W[facility] (Bld) [Ratio] 0 [facility] 0[facility] [Mass/Vol]Or dered By: Dr. Lyle on 03-25-2022 MCHC (RBC) [Mass/Vol] 34.2 g/dL 32-36 [facility] No Panel InformationOrdered By: Dr. Lyle on 03-25-2022 Estimated GFR (MDRD) Amer 103 mL/min >60 [facility] Comment on above: GFR Calc Estimated GFR (MDRD) Non-Af Amer 85 mL/min >60 [facility] Comment on above: Non- GFR Calc Prostate Specific Antigen Screen 5.31 ng/mL 0.00-4.00 [facility] Comment on above: This test was perfor med using the TPSA assay method for [employer] chemistry system. Values obtained with differentassay methods cannot be used interchangably.When changing PSA assays in the course of monitoring apatient, additional sequential testing should be carriedout to confirm baseline values. Thyroid Stimulating Hormone (TSH) 3.66 uIU/mL 0.358-3.74 [facility] Urine Microalbumin/Creatinine Ratio TNP [facility] Comment on above: Test not performed Platelets bldOrdered By: Dr. Lyle on 03-25-2022 Platelets (Bld) [#/Vol] 212 10*3/uL 150-450 [facility] Serum or plasma albumin tavia urement (mass/volume)Ordered By: Dr. Lyle on 03-25-2022 Albumin [Mass/Vol] 4.0 g/dL 3.2-5.0 [facility] Serum or plasma albumin/glob ulin mass ratioOrdered By: Dr. Lyle on 03-25-2022 Albumin/Globulin [Mass ratio] 1.3 {ratio} 0.9-2.4 [facility] Serum or plasma calcium tavia urement (mass/volume)Ordered By: Dr. Lyle on 03-25-2022 Calcium [Mass/Vol] 9.0 mg/dL 8.5-10.1 [facility] Serum or plasma cholesterol in HDL measurement (mass/volume)Ordered By: Dr. Lyle on 03-25-2022 Cholesterol in HDL [Mass/Vol] 40 mg/dL >40 [facility] Comment on above: The drugs N-Acetylcy steine and Metamizole may falsely depress this assay. Reference Range HDL <40 mg/dL Low HDL Cholesterol HDL >or= 60 mg/dL High HDL Cholesterol Serum or plasma cholesterol in VLDL measurement (mass/volume)Ordered By: Dr. Lyle on 03-25-2022 Cholesterol in VLDL [Mass/Vol] 29 mg/dL 5-40 [facility] Serum or plasma creatinine m easurement (mass/volume)Ordered By: Dr. Lyle on 03-25-2022 Creatinine [Mass/Vol] 0.95 mg/dL 0.70-1.30 [facility] Comment on above: The validity of the calculated GFR & GFRAA in patients over 70 years has not been determined. Clinical correlation is essential. Serum or plasma low density lipoprotein (LDL) cholesterol measurement (mass/volume)Ordered By: Dr. Lyle on 03-25-2022 Cholesterol in LDL [Mass/Vol] 72 mg/dL 0-130 [facility] Serum or plasma urea nitroge n measurement (mass/volume)Ordered By: Dr. Lyle on 03-25-2022 Urea nitrogen [Mass/Vol] 18 mg/dL 7-18 [facility] Thin prep Papanicolaou smear with manual screeningOrdered By: Dr. Lyle on 03-25-2022 Thin prep Papanicolaou smear with manual screening 6 U/L 15-37 [facility] Thin prep Papanicolaou smear with manual screening 6 5-15 [facility] Thin prep Papanicolaou smear with manual screening < 5.0 mg/L NO RANGE EST. [facility] Urine creatinine measurement (mass/volume)Ordered By: Dr. Lyle on 03-25-2022 Creatinine (U) [Mass/Vol] 39.40 mg/dL NO RANGE EST. [facility] Whole blood hemoglobin A1c/t otal hemoglobin ratio (mass fraction)Ordered By: Dr. Lyle on 03-25-2022 HbA1c (Bld) [Mass fraction] 7.2 % 3.8-5.6 [facility] Comment on above: Normal < 5.7 % Predi abetic 5.7 - 6.4 % Diabetic >or= 6.5 % Please note range changes. Absolute lymphocyte counton 12-17-2021 Lymphocytes Auto (Unsp spec) [#/Vol] 2.21 10*3/uL 0.83-4.51 [facility] Work Phone: [phone] Basophil percentageon 2021 Basophils/100 WBC (Bld) 0.4 % 0-1 [facility] Work Phone: [phone] Bilirubin [Mass/Vol] 0.80 mg/dL 0.20-1.00 [facility] Work Phone: [phone] Comment on above: For patients on eltr ombopag therapy, use of Dimension [place] TBIL is not recommended. Chloride [Moles/Vol] 102 mmol/L 98-107 [facility] Work Phone: [phone] Cholesterol [Mass/Vol] 124 mg/dL <200 [facility] Work Phone: [phone] Comment on above: <200 mg/dL Desirable 200-240 mg/dL Borderline >240 mg/dL High Risk Eosinophils/100 WBC (Bld) 1.5 % 0-5 [facility] Work Phone: [phone] Glucose [Mass/Vol] 149 mg/dL 74-106 [facility] Work Phone: Comment on above: Fasting Glucose resu lt greater than or equal to 126 mg/dL suggests DIABETES MELLITUS per A.D.A. criteria. Neutrophils (Bld) [#/Vol] 4.2 10*3/uL 2.0-7.7 [facility] Work Phone: [phone] Neutrophils/100 WBC (Bld) 58.4 % 47-70 [facility] Work Phone: [phone] Potassium [Moles/Vol] 3.4 mmol/L 3.5-5.1 [facility] Work Phone: [phone] Protein [Mass/Vol] 7.7 g/dL 6.4-8.2 [facility] Work Phone: [phone] Sodium [Moles/Vol] 138 mmol/L 136-145 [facility] Work Phone: [phone] Triglyceride [Mass/Vol] 95 mg/dL <199 [facility] Work Phone: Comment on above: The drugs N-Acetylcy steine and Metamizole may falsely depress this assay.Serum Triglycerides Reference Interval Normal <150 mg/dL Borderline high 150 - 199 mg/dL High 200 - 499 mg/dL Very High > or = 500 mg/dL WBC (Bld) [#/Vol] 7.1 10*3/uL 4.4-11.0 [facility] Work Phone: [phone] Blood erythrocytes count (nu mber/volume)on 12-17-2021 RBC (Bld) [#/Vol] 5.43 10*6/uL 4.6-6.2 [facility] Work Phone: Blood hemoglobin measurement (mass/volume)on 12-17-2021 Hemoglobin (Bld) [Mass/Vol] 16.3 g/dL 13.0-16.5 [facility] Work Phone: Blood lymphocytes/100 leukoc yteson 12-17-2021 Lymphocytes/100 WBC (Bld) 31.0 % 19-41 [facility] Work Phone: Blood monocytes/100 leukocyt eson 12-17-2021 Monocytes/100 WBC (Bld) 8.4 % 0-10 [facility] Work Phone: Blood platelet mean volumeon 12-17-2021 Platelet mean volume (Bld) [Entitic vol] 10.0 fL 6.2-12.0 [facility] Work Phone: Determination of erythrocyte mean corpuscular volume (MCV)on 12-17-2021 MCV (RBC) [Entitic vol] 84.2 fL 80-94 [facility] Work Phone: [phone] Hematocrit Auto (Bld) [Volum e fraction]on 12-17-2021 Hematocrit (Bld) [Volume fraction] 45.7 % 40-54 [facility] Work Phone: Laboratory - Chemistry and C hemistry - challengeon 12-17-2021 ALP [Catalytic activity/Vol] 73 U/L 45-117 [facility] Work Phone: ALT [Catalytic activity/Vol] 33 U/L 16-61 [facility] Work Phone: [phone] CO2 [Moles/Vol] 28.0 mmol/L 21.0-32.0 [facility] Work Phone: [phone] Free T4 [Mass/Vol] 1.20 ng/dL 0.76-1.46 [facility] Work Phone: [phone] Globulin (S) [Mass/Vol] 3.8 g/dL 2.2-4.2 [facility] Work Phone: [phone] Urea nitrogen/Creatinine [Mass ratio] 16.2 mg/mg 10-20 [facility] Work Phone: Laboratory - Hematology and Cell countson 12-17-2021 Erythrocyte distribution width (RBC) [Entitic vol] 36.8 fL 35.1-43.9 [facility] Work Phone: Erythrocyte distribution width (RBC) [Ratio] 12.2 % 11.6-14.6 [facility] Work Phone: [phone] Immature granulocytes/100 WBC (Bld) 0.300 % 0.0-0.9 [facility] Work Phone: Comment on above: IG% - Immature Granu locytes (promyelocytes, myelocytes and metamyelocytes) > 1% indicates that a LEFT SHIFT is Present. MCH (RBC) [Entitic mass] 30.0 pg 27.0-32.0 [facility] Work Phone: [phone] Nucleated RBC/100 WBC (Bld) [Ratio] 0 % 0-5 [facility] Work Phone: [phone] MCHC Auto (RBC) [Mass/Vol]on 12-17-2021 MCHC (RBC) [Mass/Vol] 35.7 g/dL 32-36 [facility] Work Phone: No Panel Informationon 12-17 Estimated GFR (MDRD) Amer 98 mL/min >60 [facility] Work Phone: Comment on above: GFR Calc Estimated GFR (MDRD) Non-Af Amer 81 mL/min >60 [facility] Work Phone: Comment on above: Non- GFR Calc Thyroid Stimulating Hormone (TSH) 3.97 uIU/mL 0.358-3.74 [facility] Work Phone: Urine Microalbumin/Creatinine Ratio 5.4 mg/g CRE <30 [facility] Work Phone: [phone] Platelets bldon 12-17-2021 Platelets (Bld) [#/Vol] 214 10*3/uL 150-450 [facility] Work Phone: Serum or plasma albumin tavia urement (mass/volume)on 12-17-2021 Albumin [Mass/Vol] 3.9 g/dL 3.2-5.0 [facility] Work Phone: Serum or plasma albumin/glob ulin mass ratioon 12-17-2021 Albumin/Globulin [Mass ratio] 1.0 {ratio} 0.9-2.4 [facility] Work Phone: Serum or plasma calcium tavia urement (mass/volume)on 12-17-2021 Calcium [Mass/Vol] 8.9 mg/dL 8.5-10.1 [facility] Work Phone: Serum or plasma cholesterol in HDL measurement (mass/volume)on 12-17-2021 Cholesterol in HDL [Mass/Vol] 41 mg/dL >40 [facility] Work Phone: Comment on above: The drugs N-Acetylcy steine and Metamizole may falsely depress this assay. Reference Range HDL <40 mg/dL Low HDL Cholesterol HDL >or= 60 mg/dL High HDL Cholesterol Serum or plasma cholesterol in VLDL measurement (mass/volume)on 12-17-2021 Cholesterol in VLDL [Mass/Vol] 19 mg/dL 5-40 [facility] Work Phone: Serum or plasma creatinine m easurement (mass/volume)on 12-17-2021 Creatinine [Mass/Vol] 0.99 mg/dL 0.70-1.30 [facility] Work Phone: Comment on above: The validity of the calculated GFR & GFRAA in patients over 70 years has not been determined. Clinical correlation is essential. Serum or plasma low density lipoprotein (LDL) cholesterol measurement (mass/volume)on 12-17-2021 Cholesterol in LDL [Mass/Vol] 64 mg/dL 0-130 [facility] Work Phone: Serum or plasma urea nitroge n measurement (mass/volume)on 12-17-2021 Urea nitrogen [Mass/Vol] 16 mg/dL 7-18 [facility] Work Phone: Thin prep Papanicolaou smear with manual screeningon 12-17-2021 Thin prep Papanicolaou smear with manual screening 10 U/L 15-37 [facility] Work Phone: Thin prep Papanicolaou smear with manual screening 8 5-15 [facility] Work Phone: Thin prep Papanicolaou smear with manual screening 8.4 mg/L NO RANGE EST. [facility] Work Phone: Urine creatinine measurement (mass/volume)on 12-17-2021 Creatinine (U) [Mass/Vol] 156.00 mg/dL NO RANGE EST. [facility] Work Phone: Whole blood hemoglobin A1c/t otal hemoglobin ratio (mass fraction)on 12-17-2021 HbA1c (Bld) [Mass fraction] 7.6 % 3.8-5.6 [facility] Work Phone: Comment on above: Normal < 5.7 % Predi abetic 5.7 - 6.4 % Diabetic >or= 6.5 % Please note range changes. CNOVon 12-16-2021 CNOV Office Visit (UCWSTR ) -- ROBERT MORALEZ ([id number]) 1955 M Date Time Provider Department 12/16/21 11:45 AM MATHEW PATELWSTR During your visit today, we recorded the [...] as swelling, redness or drainage. Mathew Patel APRN.LINEN ROOM CUSTODIAN Referring Provider: SELF [200] Allergies As of [...] Encounter Status:Closed by MATHEW PATEL on 12/16/21 [facility] CNOVon 12-06-2021 CNOV Office Visit (UCWSTR ) -- ROBERT MORALEZ ([id number]) 1955 M Date Time Provider Department 12/06/21 11:00 AM MATHEW PATEL [facility] During your visit today, we recorded the following information about you: Temperature Pulse Respiration Blood pressure 96.2 degrees 82/minute 21/minute 120/70 Weight 100.4 kg Mathew Patel APRN.LINEN ROOM CUSTODIAN 12/06/2021 12:27 PM Signed Subjective Patient came [...] history is provided by the patient. No japanese interpreter was used. Laceration Review of Systems Constitutional: Negative. Skin: Negative. Objective Physical Exam Constitutional: Appearance: Normal appearance. Pulmonary: Effort: Pulmonary effort is normal. Musculoskeletal: Hands: Comments: Patient has a units shaped laceration where red faustina is. No tendon involved. Well approximated. Neurological: Mental Status: He is alert. UNIVERSAL PROTOCOL / SAFETY CHECKLIST Procedure to be Performed: Mathew Patel APRN.LINEN ROOM CUSTODIAN Sign In: A Moment of CARE was [...] encounter [S61.211A] Order(s):TDAP VACCINE AGE 7+ IM [[id number]] Order #: [id number] Prescriptions as of 12/06/2021 - JARDIANCE 10 [...] Status:Closed by MATHEW PATEL on 12/06/21 Normal [facility] Vital Signs Date Time Vital Sign Value Performing Clinician Facility 07-20-2024 09:00-0400 Body temperature 98.4 [degF] Dr. Lopez Lyle MD Work Phone: [facility] 07-20-2024 09:00-0400 Diastolic blood pressure 64 mm[Hg] Dr. Lopez Lyle MD Work Phone: [facility] 07-20-2024 09:00-0400 Heart rate 83 /min Dr. Lopez Lyle MD Work Phone: [facility] 07-20-2024 09:00-0400 Respiratory rate 16 /min Dr. Lopez Lyle MD Work Phone: [facility] 07-20-2024 09:00-0400 SaO2% (BldA) [Mass fraction] 96 % Dr. Lopez Lyle MD Work Phone: [facility] 07-20-2024 09:00-0400 Systolic blood pressure 122 mm[Hg] Dr. Lopez Lyle MD Work Phone: [facility] 07-19-2024 14:02-0400 Inhaled oxygen flow rate 2 L/min Dr. Lopez Lyle MD Work Phone: [facility] 07-19-2024 06:39-0400 Body height 175.[address] Lopez Lyle MD Work Phone: [facility] 07-19-2024 06:39-0400 Body mass index (BMI) [Ratio] 31.6 kg/m2 Dr. Lopez Lyle MD Work Phone: [facility] 07-19-2024 06:39-0400 Body weight [address] Lopez Lyle MD Work Phone: [facility] 12-16-2021 11:39-0400 Body temperature 97.2 [degF] Mathew Patel APRN.CNP Work Phone: [facility] 12-16-2021 11:39-0400 Body weight 99.97 kg Mathew Patel APRN.LINEN ROOM CUSTODIAN Work Phone: [facility] 12-16-2021 11:39-0400 Diastolic blood pressure 78 mm[Hg] Mathew Patel APRN.LINEN ROOM CUSTODIAN Work Phone: [facility] 12-16-2021 11:39-0400 Heart rate 68 /min Mathew Patel APRN.LINEN ROOM CUSTODIAN Work Phone: [facility] 12-16-2021 11:39-0400 Respiratory rate 16 /min Mathew Patel APRN.LINEN ROOM CUSTODIAN Work Phone: [facility] 12-16-2021 11:39-0400 SaO2% (BldA) [Mass fraction] 98 % Mathew Patel APRN.LINEN ROOM CUSTODIAN Work Phone: [facility] 12-16-2021 11:39-0400 Systolic blood pressure 120 mm[Hg] Mathew Ptael APRN.LINEN ROOM CUSTODIAN Work Phone: [facility] 12-06-2021 10:56-0400 Body temperature 96.21 [degF] Mathew Patel APRN.LINEN ROOM CUSTODIAN Work Phone: [facility] 12-06-2021 10:56-0400 Body weight 100.43 kg Mathew Patel APRN.LINEN ROOM CUSTODIAN Work Phone: [facility] 12-06-2021 10:56-0400 Diastolic blood pressure 70 mm[Hg] Mathew Patel APRN.LINEN ROOM CUSTODIAN Work Phone: [facility] 12-06-2021 10:56-0400 Heart rate 82 /min Mathew Patel APRN.LINEN ROOM CUSTODIAN Work Phone: [facility] 12-06-2021 10:56-0400 Respiratory rate 21 /min Mathew Patel APRN.LINEN ROOM CUSTODIAN Work Phone: [facility] 12-06-2021 10:56-0400 SaO2% (BldA) [Mass fraction] 99 % Mathew Patel APRN.LINEN ROOM CUSTODIAN Work Phone: [facility] 12-06-2021 10:56-0400 Systolic blood pressure 120 mm[Hg] Mathew Amanda GALO.[facility] Work Phone: [facility] Encounters Encounter Date Encounter Type Care Provider Facility Start: 01-02-2025 End: 01-02-[address] Lopez Lyle MD Work Phone: [facility] [place] Start: 01-02-2025 End: 01-02-[address] Lopez Lyle MD -[facility] [place] Work Phone: Start: 01-02-2025 End: 01-02-2025 ambulatory Lopez Lyle Facility:[facility] Start: 12-08-2024 End: 12-08-[address] Lopez Lyle MD Work Phone: -Laboratory Start: 12-08-2024 End: 12-08-[address] Ricco Luke MD -Laboratory Work Phone: Start: 12-08-2024 End: 12-08-2024 ambulatory Alma RICE Facility:[facility] Start: 10-18-2024 End: 12-22-2024 ambulatory Lawanda LUKE [facility] Start: 09-20-2024 End: 09-20-[address] Lopez Lyle MD Work Phone: [facility] Work Phone: Start: 09-20-2024 End: 09-20-[address] Lopez Lyle MD -[facility] [place] Work Phone: Start: 09-20-2024 End: 09-20-2024 ambulatory Lopez Lyle Facility:[facility] Start: 08-22-2024 End: 08-22-2024 Patient encounter procedure John Jhaveri DPM -[facility] [place] Work Phone: Start: 08-22-2024 End: 08-22-2024 ambulatory John Jhaveri Facility:[facility] Start: 07-19-2024 End: 07-20-2024 ambulatory Lopez Lyle Facility:[facility] Start: 07-19-2024 End: 07-20-2024 Evaluation and management of inpatient Dr. Ricco Luke MD -[facility] 3 Work Phone: Start: 07-19-2024 End: 07-20-[address] Lopez Lyle MD Work Phone: [facility] Work Phone: Start: 06-01-2024 End: 06-01-2024 ambulatory Cuong Toro Facility:[facility] Start: 06-01-2024 End: 06-01-2024 Non-patient / Non-visit Dr. Cuong Toro MD -[facility] Work Phone: Start: 04-06-2024 End: 04-06-[address] Ricco Luke MD -Laboratory, Spec[facility] Work Phone: Start: 04-06-2024 End: 04-06-2024 ambulatory [facility] Start: 03-10-2024 End: 03-10-2024 [facility] Start: 02-24-2024 End: 02-24-2024 ambulatory [facility] Facility:[facility] Start: 01-20-2024 End: 01-20-2024 [facility]ulatory [facility] Start: 08-23-2023 End: 08-23-2023 ambulatory [facility] Work Phone: Start: 08-23-2023 End: 08-23-2023 Patient encounter procedure [facility] Work Phone: Start: 06-08-2023 End: 06-08-2023 ambulatory [facility] Work Phone: Start: 06-08-2023 End: 06-08-2023 Patient encounter procedure [facility] Work Phone: Start: 03-22-2023 End: 03-22-2023 ambulatory [facility] Work Phone: Start: 03-22-2023 End: 03-22-2023 Patient encounter procedure [facility] Work Phone: Start: 02-16-2023 End: 02-16-2023 ambulatory [facility] Work Phone: Start: 02-16-2023 End: 02-16-2023 Patient encounter procedure [facility] Work Phone: Start: 02-05-2023 End: 02-05-2023 ambulatory [facility] Work Phone: Start: 02-05-2023 End: 02-05-2023 Patient encounter procedure [facility] Work Phone: Start: 11-13-2022 End: 11-13-2022 ambulatory [facility] Work Phone: Start: 11-13-2022 End: 11-13-2022 [facility] Start: 09-24-2022 End: 09-24-2022 ambulatory [facility] Work Phone: Start: 09-24-2022 End: 09-24-2022 Patient encounter procedure [facility] Start: 08-27-2022 End: 08-27-2022 ambulatory [facility] Work Phone: Start: 08-27-2022 End: 08-27-2022 Patient encounter procedure [facility] Start: 06-18-2022 End: 06-18-2022 ambulatory [facility] Work Phone: Start: 06-18-2022 End: 06-18-2022 [facility] Start: 06-11-2022 End: 06-11-2022 ambulatory [facility] Work Phone: Start: 06-11-2022 End: 06-11-2022 Patient encounter procedure [facility]atory, [facility] Start: 03-25-2022 End: 03-25-2022 ambulatory [facility] Work Phone: Start: 03-25-2022 End: 03-25-2022 Patient encounter procedure [facility], [place] Start: 12-17-2021 End: 12-17-2021 ambulatory [facility] Work Phone: Start: 12-17-2021 End: 12-17-2021 Patient encounter procedure [facility], [place] Start: 12-16-2021 End: 12-16-2021 Patient encounter procedure Mathew Amanda [facility] Work Phone: [facility] Comment on above: Visit for suture rem oval (Primary Dx) Start: 12-06-2021 End: 12-06-2021 Patient encounter procedure Mathew Patel APRN.[facility] Work Phone: [facility] Comment on above: Laceration of left i ndex finger without foreign body without damage to nail, initial encounter (Primary Dx) Procedures Date Procedure Procedure Detail Performing Clinician Start: 01-02-2025 Urine microalbumin/creatinine ratio measurement Dr. Lopez Lyle MD Work Phone: Start: 12-08-2024 Assay of prostate specific antigen total Dr. Lopez Lyle MD Work Phone: Comment on above: This test was performed using the [employer] tPSA method. Measured values of a patient sample can vary depending on the testing procedure used. PSA values determined on patient samples by different testing procedures cannot be used interchangeably. If there is a change in PSA assays while monitoring therapy, sequential testing should be performed to confirm baseline values. Start: 12-08-2024 In-vitro immunologic test Dr. Lopez larson MD Work Phone: Comment on above: QuantiFERON-TB Gold Plus is a qualitativ e indirect test forM tuberculosis infection (including disease) and isintended for use in conjunction with risk assessment,radiography, and other medical and diagnostic evaluations.The QuantiFERON-TB Gold Plus result is determined bysubtracting the Nil value from either TB antigen (Ag)value. The Mitogen tube serves as a control for the test. No response to M tub erculosis antigens [...] the productionof interferon gamma. Chemiluminescence immunoassaymethodologyPerformed at: [facility] [id number] Director: Danny Hobson PhD, Phone: [phone] Start: 09-20-2024 Urine microalbumin/creatinine ratio measurement Dr. Lopez Lyle MD Work Phone: Comment on above: Previous reported result: 105.0 mg/g CRE Edited by: TEDDY on 10/17/24:1102 AMENDED REPORT 10/17/24 1102 MALB:CREAT previously reported as: 105.0 mg/g CRE Start: 07-20-[address] Lopez Lyle MD Work Phone: Start: 07-19-2024 Robot assisted laparoscopic radical prostatectomy Dr. Lopez Lyle MD Work Phone: Start: 06-01-2024 Urnls dip stick/tablet reagent auto microscopy Dr. Lopez Lyle MD Work Phone: Start: 06-01-2024 Measurement of renal function Dr. Lopez marin MD Work Phone: Comment on above: GFR Calc Start: 06-01-[address] Lopez sellers MD Work Phone: Start: 06-01-2024 Urine microalbumin/creatinine ratio measurement Dr. Lopez Lyle MD Work Phone: Start: 03-25-2022 Plain x-ray of hand Plan of Treatment Date Care Activity Detail Author Start: 12-07-2031 Urine microalbumin profile DTAP,TDAP,TD (2 - Td or Tdap) [facility] Start: 07-20-2024 Measuring intake and output [facility] Start: 07-20-2024 End: 07-20-2024 Patient discharge [facility] Start: 07-20-2024 [facility] Start: 07-19-2024 Oxygen therapy [facility] Start: 07-19-2024 Anes xtrprtl lwr abd w/urinary tract rad prstect ANESTH REMOVAL OF PROSTATE [facility] Start: 07-19-2024 Laps prostect retropubic rad w/nrv sparing robot LAPS SURG [id number] RPBIC RAD [facility] Start: 07-19-2024 Following clinical pathway protocol [facility] Start: 07-19-2024 Measuring intake and output [facility] Start: 07-19-2024 Ambulation therapy management [facility] Start: 07-19-2024 Deep breathing and coughing exercises [facility] Start: 07-19-2024 Incentive spirometry [facility] Start: 07-19-2024 Provision of activity privileges [facility] Start: 07-19-2024 Assessment of risk of venous thromboembolism [facility] Start: 07-19-2024 Documentation procedure [facility] Start: 07-19-2024 Following clinical pathway protocol [facility] Start: 07-19-2024 Taking patient vital signs [facility] Start: 07-19-2024 Vital signs measurements [facility] Start: 07-19-2024 End: 07-19-2024 [facility] Start: 07-19-2024 Admission procedure [facility] Start: 05-31-2024 Electrocardiographic procedure [facility] Start: 12-25-2021 Influenza vaccination INFLUENZA (#1) [facility] Start: 2021 ADVANCE DIRECTIVE DISCUSSION ADVANCE DIRECTIVE DISCUSSION [facility] Start: 06-20-2021 COVID-19 VACCINE (4 - Booster for Moderna series) COVID-19 VACCINE (4 - Booster for Moderna series) [facility] Start: 06-30-2011 PROSTATE CANCER SCREENING DISCUSSION PROSTATE CANCER SCREENING DISCUSSION [facility] Start: 2001 COLOGUARD (FIT-DNA) COLOGUARD (FIT-DNA) [facility] Start: 2001 Colonoscopy COLONOSCOPY [facility] Start: 2001 COLORECTAL CANCER SCREENING COLORECTAL CANCER SCREENING [facility] Start: [address] COLONOGRAPHY [facility] Start: 2001 DIABETES SCREEN DIABETES SCREEN [facility] Start: 2001 FECAL OCCULT BLOOD FECAL OCCULT BLOOD [facility] Start: 2001 SIGMOIDOSCOPY SIGMOIDOSCOPY [facility] Start: 06-30-1991 LIPID SCREEN LIPID SCREEN [facility] Start: 06-30-1975 SHINGRIX VACCINE (1 of 2) SHINGRIX VACCINE (1 of 2) [facility] Start: 1974 HEPATITIS C SCREENING HEPATITIS C SCREENING [facility] Start: 1974 HIV SCREENING HIV SCREENING [facility] Start: 1968 Adult depression screening assessment DEPRESSION SCREENING [facility] Start: 1962 PNEUMOCOCCAL: 65+ (1 - PCV) PNEUMOCOCCAL: 65+ (1 - PCV) [facility] Patient referral [facility] Work Phone: Immunizations Immunization Date Immunization Notes Care Provider No dawn 12-06-2021 tetanus toxoid, redu franky diphtheria toxoid, and acellular pertussis vaccine, adsorbed Mathew Patel APRN.CNP Work Phone: [facility] Payers Date Payer Category Payer Self-pay [id number] 2023 Private Health Insurance CLI [id number] 2022 Medicare [id number] 2021 Unknown [employer] BLUE ACCE SS PPO [id number] 2021-Present [phone] [address] [place] [address] PPO [id number] 1955 Unknown [id number] Private Health Insurance [facility] [id number] Private Health Insurance [id number] Unknown [id number] Unknown [id number] Unknown [id number] 462 Unknown [id number] 462 Unknown [id number]. 462 Unknown [id number] 462 Unknown [id number] [id number] 462 Unknown [id number]. 462 Unknown [id number]. 462 Unknown [id number]. 462 Unknown [id number] 462 Social History Date Type Detail Facility Start: 12-06-2021 End: 07-05-2024 Tobacco smoking status NHIS Never smoked tobacco [facility] Start: 12-06-2021 Tobacco use and exposure Smokeless tobacco non-user [facility] Start: 12-06-2021 End: 12-16-2021 Alcohol intake Current non-drinker of alcohol (finding) [facility] Start: 1955 Sex Assigned At Not on file [facility] Start: 12-06-2021 End: 12-16-2021 Exposure to SARS-CoV-2 (event) Not sure [facility] Work Phone: Start: 1955 Sex Assigned At Male [facility] Start: 07-20-2024 Sex Male (finding) [facility] Sex Male [facility] NEGATED: Highlighted rowStart: NINF History of tobacco use Passive smoker [facility] Medical Equipment Procedure Code Equipment Code Equipment Origin al Text Equipment Identifier Dates Robot-assisted laparoscopic radical prostatectomy Collagen haemostatic agent, non-antimicrobial ()[id number] FDA Start: 07-19-2024 Robot-assisted laparoscopic radical prostatectomy Ligation clip, synthetic polymer, non-bioabsorbable ()[id number] FDA Start: 07-19-2024 Goals Date Patient Goal Desired Activity /State Functional Status Date Assessment Result Facility 07-20-2024 Functional status Activity Abili ty With Assist of 1 [facility] Work Phone: Mental Status Date Assessment Result Facility 07-20-2024 Cognitive function Level Of Cons ciousness Awake;Alert;Appropriate;Follow s Commands [facility] Work Phone: 07-19-2024 Cognitive function Voice/Name [facility] Work Phone: Clinical Notes 12-06-2021 to 07-20-2024 Note Date & Type Note Facility 07-20-2024 Consult note [facility] 07-20-2024 Discharge summary [facility] 07-20-2024 Consult note Note Date/Time July 20, 2024 2:16pm [facility] Medical Records Department [address] [place] [address] Counseling Note - Pharmacy 07/20/24 1207 MR#: [id number] Acct: [id number] Name: ROBERT MORALEZ Rep #:[id number] : 1955 69 From: Ria Gabriel PCP: Dr. Lopez Lyle MD Status:MIC Cruz Location: [facility] [id number] Pharmacy [facility] Service has performed discharge medication reconciliation [...] tablet) 1 tab PO DAILY 05/31/24 omega 7-wxg-bmh-fish oil 1,200 mg (144 mg-216 mg) capsule [...] by Ria Gabriel > Date _ Ria Barrigaignvitaliy Signature (if applicable): Date CC: ~ Signed [facility] Work Phone: 1(625) 663-712003-27-2025 Progress note Author Ricco Luke [facility] Note Date/Time July 20, 2024 7:2 6am [facility] Medical Records Department [address] [place] [address] Progress Note - Urology 07/20/2425 MR#: [id number] Acct: [id number] Name: ROBERT MORALEZ Rep #:[id number] : 1955 69 From: Ricco Luke MD PCP: Dr. Lopez Lyle MD Status:MIC TORRES [facility] Subjective Subjective Postoperative day number one 69-year-old [...] (Auto) 76.6 H, Lymph % (Auto) 13.7L, [place] % (Auto) 9.0, Eos % (Auto) 0.1, Baso % (Auto) 0.1, Absolute Neuts (auto)10.8 H, Absolute Lymphs (auto) 1.92, Nucleated RBC % 0, Sodium 137, Potassium 4.2, Chloride 104, Carbon Dioxide 23.1, Anion Gap 10, BUN 14, Creatinine 0.87, Estim Creat Clear Calc 93.36, Est GFR (MDRD) Non-Af 94, BUN/Creatinine Ratio 16.5, Glucose 168 H, Calcium 7.9 07/20/24 07 <Electronically signed by Ricco Luke MD> Cosigner Signature (if applicable): CC: ~ Signed [facility] Work Phone: 1(675) 133-924903-27-2025 Progress note [facility] Medical Records Department [address] [place] [address] Progress Note - Urology 07/20/24724 MR#: [id number] Acct: [id number] Name: ROBERT MORALZE Rep #:[id number] : 1955 69 From: Ricco Luke MD PCP: Dr. Lopez Lyle MD Status:AD M MELISSA Location: [facility] [id number] Subjective Subjective Postoperative day number one 69-year-old [...] (Auto) 76.6 H, Lymph % (Auto) 13.7L, [place] % (Auto) 9.0, Eos % (Auto) 0.1, [...] Cosigner Signature (if applicable): CC: ~ Signed [facility]03-26-2025 Consult note Author Jules Us [facility] Note Date/Time July 19, 2024 11: 51am [facility] Medical Records Department [address] [place] [address] Anesthesia Postop Eval II 07/19/24 1150 MR#: [id number] Acct: [id number] Name: ROBERT MORALEZ Rep #:[id number] : 1955 69 From: Jules Us MD PCP: Dr. Lopez Lyle MD Status:RE G [facility] Y Race: C Location: [place] [address] Anesthesia Postop Eval I Sum Postop Eval Completion status Anesthesia document: Postop Eval 1 completed: Yes Anesthesia Postop Eval I Summary Anesthesia Postop Eval I Summary: Anesthesia Postop Eval I: Assessment Summary Airway patent Yes 07/19/24 11:47 [employer]OWER PLANT INSPECTOR.HBARR Spontaneous unlabored Yes 07/19/24 11:47 POWER PLANT INSPECTOR.HBARR respirations Mental status Awake 07/19/24 11:47 POWER PLANT INSPECTOR.HBARR nausea No 07/19/24 11:47 POWER PLANT INSPECTOR.HBARR Vomiting No 07/19/24 11:47 POWER PLANT INSPECTOR.HBARR Anesthesia Postop Eval I: Fluid Summary Crystalloid volume administer 1,900 07/19/24 11:47 POWER PLANT INSPECTOR.HBARR (ml) Colloids volume administered ( ml) Blood Product volume administered (ml) Total IV fluid infused 1,900 07/19/24 11:47 POWER PLANT INSPECTOR.HBARR Anesthesia Postop Eval I: Summary Notes Anesthesia Complication No 07/19/24 11:47 POWER PLANT INSPECTOR.HBARR Anesthesia Complication Comment: Post-operative progress note Anesthesia: Postop Eval II Evaluation Mental status: Awake Pain Level: 2 nausea: No Vomiting: No 07/19/24 1151 <Electronically signed by Jules Us MD > Date _ Jules Us MD Cosigner Signature: Date CC: ~ Signed [facility] Work Phone: 1(572) 739-394903-26-2025 Consult note Author Valencia Flor [facility] Note Date/Time July 19, 2024 11: 47am [facility] Medical Records Department [address] [place] [address] Anesthesia Postop Eval I 07/19/24 1146 MR#: [id number] Acct: [id number] Name: ROBERT MORALEZ Rep #:[id number] : 1955 69 From: Valencia Flor CRNA PCP: Dr. Lopez Lyle MD Status: G [facility] Y Race: C Location: [place] [address] Anesthesia: Postop Eval I Current Vital Signs [...] Yes 07/19/24 1147 <Electronically signed by Valencia MONROE NA> Date _ Valencia Flor POWER PLANT INSPECTOR Cosigner Signature: Date CC: ~ Signed [facility] Work Phone: 1(914) 311-384903-26-2025 Discharge summary Author Ricco Luke [facility] Note Date/Time July 20, 2024 2:1 6pm [facility] Medical Records Department [address] [place] [address] Instructions for Home/Discharge Instructions 07/19/24 1106 MR#: [id number] Acct: [id number] Name: ROBERT MORALEZ Rep #:[id number] : 1955 69 From: Ricco Luke MD PCP: Dr. Lopez Lyle MD Status:RE G [facility] Discharge Instructions Diet Discharge Diet: No restrictions [...] bag and Nice to large bag Drain: [place] Follow Up Care Please Follow Up With: Ricco Luke MD When: Call [phone] for an appointment Test Results: Test results from this visit will be discussed in further detail at your follow- up appointment, if applicable. Discharge Plan Admission Primary Reason for Your Visit: Robotic radical prostatectomy Attending Provider: Ricco Luke Primary Care Provider: Lopez Lyle Instructions Print Language: Slovenian Discharge Orders/Prescriptions Prescriptions: New docusate sodium [Colace] [...] mg tablet 900 mg PO BID omega 3-oqi-gxc-fish oil [Fish Oil] 1,200 (144-216) mg capsule [...] CC: Dr. Lopez Lyle MD ~ Signed [facility] Work Phone: 1(598) 737-393103-26-2025 History and physical note Author Ricco Luke [facility] Note Date/Time July 19, 2024 11: 06am [facility] System Medical Records Department [address] [place] [address] History & Physical Exam 07/19/245 MR#: [id number] Acct: [id number] Name: ROBERT MORALEZ Rep #:[id number] : 1955 69 From: Ricco Luke MD PCP: Dr. Lopez Lyle MD Status:[facility] Location: [place] [address] HPI - General General Date of Service: 07/19/24 Chief Complaint: Prostate cancer HPI Narrative ROBERT MORALEZ, is a 69 M who presents robotic radical prostatectomy Retzius sparing approach [facility] Medical History Wears hearing aid Loss of [...] tab PO DAILY 05/3107/17/24 History tablet) omega 7-mme-xwp-fish oil 1,200 mg 1 cap PO DAILY [...] Lyle MD; Dr. Ricco Luke MD~ Signed [facility] Work Phone: 1(205) 504-357303-26-2025 Consult note [facility] Medical Records Department [address] [place] [address] Anesthesia Postop Eval II 07/19/24 1150 MR#: [id number] Acct: [id number] Name: ROBERT MORALEZ Rep #:[id number] : 1955 69 From: Jules Us MD PCP: Dr. Lopez Lyle MD Status:RE G SDC Y Race: C Location: [place] [address]- Anesthesia Postop Eval I Sum Postop Eval Completion status Anesthesia document: Postop Eval 1 completed: Yes Anesthesia Postop Eval I Summary Anesthesia Postop Eval I Summary: Anesthesia Postop Eval I: Assessment Summary Airway patent Yes 07/19/24 11:47 POWER PLANT INSPECTOR.HBARR Spontaneous unlabored Yes 07/19/24 11:47 POWER PLANT INSPECTOR.HBARR respirations Mental status Awake 07/19/24 11:47 POWER PLANT INSPECTOR.HBARR nausea No 07/19/24 11:47 POWER PLANT INSPECTOR.HBARR Vomiting No 07/19/24 11:47 POWER PLANT INSPECTOR.HBARR Anesthesia Postop Eval I: Fluid Summary Crystalloid volume administer 1,900 07/19/24 11:47 POWER PLANT INSPECTOR.HBARR (ml) Colloids volume administered ( ml) Blood Product volume administered (ml) Total IV fluid infused 1,900 07/19/24 11:47 POWER PLANT INSPECTOR.HBARR Anesthesia Postop Eval I: Summary Notes Anesthesia Complication No 07/19/24 11:47 POWER PLANT INSPECTOR.HBARR Anesthesia Complication Comment: Post-operative progress note Anesthesia: Postop Eval II Evaluation Mental status: Awake Pain Level: 2 nausea: No Vomiting: No 07/19/24 1151 > Date _ Jules Cheung Signature: Date CC: ~ Signed [facility]03-26-2025 Consult note [facility] Medical Records Department [address] [place] [address] Anesthesia Postop Eval I 07/19/24 1146 MR#: [id number] Acct: [id number] Name: DANIAROBERT AMANDA Rep #:[id number] : 1955 69 From: Valencia Flor CRNA PCP: Dr. Lopez Lyle MD Status:RE [facility] Y Race: C Location: [place] [address] Anesthesia: Postop Eval I Current Vital Signs [...] 07/19/24 1147 NA> Date _ Valencia Flor CRNA Cosigner Signature: Date CC: ~ Signed [facility]03-26-2025 Procedure note [facility] Medical Records Department [address] [place] [address] Operative Report 07/19/24 1106 MR#: [id number] Acct: [id number] Name: ROBERT MORALEZ Rep #:[id number] : 1955 69 From: Ricco Luke MD PCP: Dr. Lopez Lyle MD Status:[facility] Location: [place] [address] Operative Report (Standard) Operative Information Date of Procedure: 07/19/24 Pre-Operative Diagnosis: prostate cancer Post-Operative Diagnosis: same Surgery/Procedure Performed: Robotic radical prostatectomy Retzius sparing approach laparoscopic robotic assisted wet wheeler: No Type of Anesthesia: General RN Documented [...] port and a suction trocar for my graphic design assistant. Arturo placed the patient in full [...] case and we put in the 18 Icelandic skokomish tip catheter into the bladder helped it as it made tothe turn to the bladder and then we put 10 cc in the balloon we irrigated the bladder and made surethat the anastomosis was watertight. We then inspected for bleeding and there was no bleeding in thebase of the where the prostate was removed. The role of the air quality technician JOURNEYMAN PLUMBER, assisted with myself during the entire procedure, the JOURNEYMAN PLUMBER assisted by passing instruments through the air seal port, passing suture, needles, sponges during thesurgery. The RFA also assisted withproviding some suction using the suction irrigation and some irrigation during the surgery. Also the graphic design assistant provided some traction minorly during the dissection of the prostate and the seminal vesicles. The RFA also helped me extract the prostate at the end of the case and helped close the fascia, and theassistant also helped close the skin incisions with subcuticular stitches. The graphic design assistant was monitored closely and under my direct supervision the entire case. Surgical Findings: prostate removed Complications Complications: No Admit VTE Documentation VTE Present on Admission: No VTE Mechan Device Prophylaxis: SCD's VTE Pharm Prophylaxis ordered?: No 07/19/24 1110 Cosigner Signature (if applicable): CC: Dr. Lopez Lyle MD; Dr. Ricco Luke MD~ Signed [facility]03-26-2025 History and physical note [facility] Medical Records Department [address] [place] [address] History & Physical Exam 07/19/24 1105 MR#: [id number] Acct: [id number] Name: ROBERT MORALEZ Rep #:[id number] : 1955 69 From: Ricco Luke MD PCP: Dr. Lopez Lyle MD Status:[facility] Location: [place] [address] HPI - General General Date of Service: 07/19/24 Chief Complaint: Prostate cancer HPI Narrative ROBERT MORALEZ, is a 69 M who presents robotic radical prostatectomy Retzius sparing approach [facility] Medical History Wears hearing aid Loss of [...] tab PO DAILY 05/3107/17/24 History tablet) omega 3-pof-xfn-fish oil 1,200 mg 1 cap PO DAILY [...] Lyle MD; Dr. Ricco Luke MD~ Signed [facility]03-26-2025 [facility] Medical Records Department [address] [place] [address] History Physical Exam 07/19/24 1105 MR#: [id number] Acct: [id number] Name: ROBERT MORALEZ Rep #: [id number] : 1955 69 From: Ricco Luke MD PCP: Dr. Lopez Lyle MD Status:[facility] Location: [place] [address] HPI - General General Date of Service: 07/19/24 Chief Complaint: Prostate cancer HPI Narrative ROBERT MORALEZ, is a 69 M who presents robotic radical prostatectomy Retzius sparing approach [facility] Medical History Wears hearing aid Loss of [...] PO DAILY 05/31/24 07/17/24 History tablet) omega 7-lsj-kfo-fish oil 1,200 mg 1 cap PO DAILY [...] Lopez Lyle MD; Dr. Ricco Luke MD [facility]03-26-2025 Consult note Author Jules Us [facility] Note Date/Time July 19, 2024 7:0 6am [facility] Medical Records Department [address] [place] [address] Pre-Anesthesia Evaluation 07/19/24704 MR#: [id number] Acct: [id number] Name: ROBERT MORALEZ Rep #:[id number] : 1955 69 From: Jules Us MD PCP: Dr. Lopez Lyle MD Status:RE G [facility] Y Race: C Location: [place] [address] ASA Classification* ASA Classification ASA Classification: 2 [...] Robotic Prostatectomy Anesthesia History Anesthesia History - tobacco prizer: Anesthesia History - tobacco prizer Hx Hospitalization No 07/05/24 10:07 Any Problems [...] take am of surgery PONV PONV - tobacco prizer: PONV - tobacco prizer Female No 07/05/24 10:07 HX of Motion [...] 07/19/24 06:39 Respiratory Assessment Respiratory Assessment - tobacco prizer: Respiratory Tract Infection Hx - tobacco prizer Hx Respiratory Tract Infection No 07/05/24 10:07 STOP Sleep Apnea STOP Sleep Apnea - tobacco prizer: STOP Sleep Apnea - tobacco prizer Hx Hypertension Yes: CONTROLLED WITH MED 07/05/24 [...] Tobacco Use History Tobacco Use History - tobacco prizer: Tobacco Use History - tobacco prizer Tobacco Use Smoking Status Never smoker 07/05/24 10:07 Hx Tobacco Use No 07/05/24 10:07 Years Smoking Packs Smoked per Day Smoking Cessation Date was within the last 15 years Hx Smoking Cessation Date Hx Smoking Cessation Counseling Hematologic Medial History Hematologic Hx - tobacco prizer: Hematologic 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 07/19/24705 <Electronically signed by Jules Us MD > Date _ Jules Us MD Cosigner Signature: Date CC: ~ Signed [facility] Work Phone: 1(942) 370-918203-26-2025 Consult note [facility] Medical Records Department [address] [place] [address] Pre-Anesthesia Evaluation 07/19/24704 MR#: [id number] Acct: [id number] Name: ROBERT MORALEZ Rep #:[id number] : 1955 69 From: Jules Us MD PCP: Dr. Lopez Lyle MD Status: G [facility] Y Race: C Location: [place] [address] ASA Classification* ASA Classification ASA Classification: 2 [...] Robotic Prostatectomy Anesthesia History Anesthesia History - tobacco prizer: Anesthesia History - tobacco prizer Hx Hospitalization No 07/05/24 10:07 Any Problems [...] take am of surgery PONV PONV - tobacco prizer: PONV - tobacco prizer Female No 07/05/24 10:07 HX of Motion [...] 07/19/24 06:39 Respiratory Assessment Respiratory Assessment - tobacco prizer: Respiratory Tract Infection Hx - tobacco prizer Hx Respiratory Tract Infection No 07/05/24 10:07 STOP Sleep Apnea STOP Sleep Apnea - tobacco prizer: STOP Sleep Apnea - tobacco prizer Hx Hypertension Yes: CONTROLLED WITH MED 07/05/24 [...] Tobacco Use History Tobacco Use History - tobacco prizer: Tobacco Use History - tobacco prizer Tobacco Use Smoking Status Never smoker 07/05/24 10:07 Hx Tobacco Use No 07/05/24 10:07 Years Smoking Packs Smoked per Day Smoking Cessation Date was within the last 15 years Hx Smoking Cessation Date Hx Smoking Cessation Counseling Hematologic Medial History Hematologic Hx - tobacco prizer: 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 07/19/24 0706 > Date _ Jules Us MD Cosigner Signature: Date CC: ~ Signed [facility]08-23-2022 NoteHNO ID: [id number] Author: Mathew Patel APRN.LINEN ROOM CUSTODIAN Service: ? Author Type: Nurse Practitioner Type: [...] as swelling, redness or drainage. Mathew Patel APRN.[facility] History of Present illness Narrative* Mathew Patel APRN.CHRISTIANE - 12/16/2021 11:47 AM EDT Images from [...] as swelling, redness or drainage. Mathew Patel APRN.LINEN ROOM CUSTODIAN documented in [facility] encounterWay[facility]08-13-2022 NoteHNO ID: [id number] Author: Mathew Patel APRN.CHRISTIANE Service: ? Author Type: Nurse Practitioner Type: [...] history is provided by the patient. No japanese interpreter was used. Laceration Review of Systems Constitutional: [...] in 7-10 days. Mathew Patel APRN.CHRISTIANE Patel APRN.[facility]21 History of Present illness Narrative* Mathew Patel APRN.LINEN ROOM CUSTODIAN - 12/06/2021 11:04 AM EDT Images from [...] history is provided by the patient. No japanese interpreter was used. Laceration Review of Systems Constitutional: [...] in 7-10 days. Mathew Patel APRN.CHRISTIANE Patel APRN.LINEN ROOM CUSTODIAN [facility]* Diagnosis Laceration of left index finger without foreign body without damage to nail, initial encounter- Primary documented in this encounter [facility]* Diagnosis Visit for suture removal- Primary Encounter for removal of sutures documented in this encounter [facility] noteNo assessment information availableWUniversity Hospitals [facility] Work Phone: Hospital Discharge instructionsAmbulatory Orders* 12 Lead EKG [[facility]] Location: None Selected [facility] Work Phone: Reason for referral (narrative)No reason for referral information availableWUniversity Hospitals [facility] Work Phone: Summary Purpose Family History No Family History Records FoundNo Family History Records FoundNo Family History Records Found Advance Directives No Advanced Directives Records Found Advance Directive Response Recorded Date/ Time Living Will Yes July 19, 2024 1:20pm Do you have a Healthcare Power of Deputy Sheriff Court Services? Yes July 19, 2024 1:20pm Name of Medical Power of Deputy Sheriff Court Services - ANNA July 19, 2024 1:20pm Chief [...] 8am EORDERS September 20, 2024 8:48a m Chief Complaint Admit Date LABS August 22, 2024 8:5 8am EORDERS September 20, 2024 8:48a m Chief Complaint Admit Date EORDERS September 20, 2024 8:48a m Additional Source Comments Source Comments (unrecognize d section and content) In the event this informatio n is protected by the Federal Confidentiality of Alcohol and Drug Abuse Patient Records regulations: The Federal rules restrict any use of the information to criminally investigate or prosecute any alcohol or drug abuse patient.[facility] HospitalIn the event this information is protected by the Federal Confidentiality of Alcohol and Drug Abuse Patient Records regulations: The Federal rules restrict any use of the information to criminally investigate or prosecute any alcohol or drug abuse patient.[facility] Reason for Visit (unrecogniz ed section [...] Inactive Member Role Status Dates Dr. Lopez Lyel MD Primary Care Provider Active Start: July [...] September 20, 2024 End: September 20, 2024 Dental Scheduling Coordinator Relationship Specialty Start Date End Date Lopez Hess MD PCP - General Family Practice 10/31/16 Dental Scheduling Coordinator Relationship Specialty Start Date End Date Lopez LyleESCO[address] [place] [address] PCP - General Family Practice 12/16/21 Team [...] April 06, 2024 End: April 06, 2024 Team Status: Active Member Role/Relationship Status Dates Dr. Lopez Lyle MD Primary Care Provider Active Team Status: Inactive Member Role/Relationship Status Dates Dr. Lopez Lyle MD Primary Care Provider Active Start: August 22, 2024 End: August 22, 2024 Dr. John Jhaveri DPM Attending Provider Active Start: August 22, 2024 End: August 22, 2024 Dr. John Jhaveri DPM Referring Provider Active Start: August 22, 2024 End: August 22, 2024 Team Status: Inactive Member Role/Relationship Status Dates Dr. Lopez Llye MD Primary Care Provider Active Start: September 20, 2024 End: September 20, 2024 Dr. Lopez Lyle MD Attending Provider Active Start: September 20, 2024 End: September 20, 2024 Dr. Lopez Lyle MD Referring Provider Active Start: September 20, 2024 End: September 20, 2024 Team Status: Inactive Member Role/Relationship Status Dates Dr. Lopez Lyle MD Primary Care Provider Active Start: December 08, 2024 End: December 08, 2024 Dr. Ricco Luke MD Attending Provider Active Start: December 08, 2024 End: December 08, 2024 Dr. Ricco Luke MD Referring Provider Active Start: December 08, 2024 End: December 08, 2024 Alma RICE PA-C Other Provider Active Start : December 08, 2024 End: December 08, 2024 Team Status: Active Member Role/Relationship Status Dates Dr. Lopez Lyle MD Primary care physician Active Team Status: Inactive Member Role/Relationship Status Dates Dr. Lopez Lyle MD Primary care physician Active Start: September 20, 2024 End: September 20, 2024 Dr. Lopez Lyle MD Attending physician Active Start: September 20, 2024 End: September 20, 2024 Dr. Lopez Lyle MD Referring Provider Active Start: September 20, 2024 End: September 20, 2024 Team Status: Inactive Member Role/Relationship Status Dates Dr. Lopez Lyle MD Primary care physician Active Start: December 08, 2024 End: December 08, 2024 Dr. Ricco Luke MD Attending physician Active Start: December 08, 2024 End: December 08, 2024 Dr. Ricco Luke MD Referring Provider Active Start: December 08, 2024 End: December 08, 2024 Alma RICE PA-C Nurse Practitioner Active S tart: December 08, 2024 End: December 08, 2024 Team Status: Inactive Member Role/Relationship Status Dates Dr. Lopez Lyle MD Primary care physician Active Start: January 02, 2025 End: January 02, 2025 Dr. Lopez Lyle MD Attending physician Active Start: January 02, 2025 End: January 02, 2025 Dr. Lopez Lyle MD Referring Provider Active Start: January 02, 2025 End: January 02, 2025 (unrecognized sect ion and content) No Status Records FoundNo Status Records FoundNo Status Records Found INFORMATION SOURCE (unrecogn ized section and content) DATE CREATED AUTHOR 12/19/2021 [facility] DATE CREATED AUTHOR AUTHOR'S ORGANIZ ATION 12/24/2024 [facility] DATE CREATED AUTHOR AUTHOR'S ORGANIZ ATION 01/12/2025 [facility] Goals (unrecognized section and content) [...] BE BASED ON THE PRIMARY CLINICAL RECORDS. [employer] [facility]. provides no warranty or guarantee of the accuracy or completeness of information in this document.
[2025-03-20 09:08] LABS: QNTFERON TB Mitogen Value > 10.00 IU/mL (.); QNTFERON TB Nil Value 0.07 IU/mL (.); QNTFERON TB1+ Ag Value 0.07 IU/mL (.); QNTFERON TB2+ Ag Value 0.07 IU/mL (.); QNTIFERON TB Positive Criteria Negative (Negative)
== END | disposition home or self-care (01) ==
LOC: MTLAB 10:27
PROVIDERS: PCP Family Medicine; Referring Provider Physician Assistant; Visit Provider Physician Assistant
DX: L40.0 Psoriasis vulgaris (principal)
CPT/HCPCS: 36415; 86480